=== PATIENT | male | born 1945 | race Caucasian/White ===

== ENCOUNTER → 2018-01-13 11:04 | Outpatient (CLI) | payer MEDICARE, OTHER, SELFPAY ==
--- NOTE | 2018-01-13 11:05 | ECHOCS_ITS ---
Reason For Study: DYSPNEA/SOB Procedure This was a 2D Doppler, Color Flow transthoracic echocardiogram. The exam was of poor technical quality due to body habitus. The study was technically difficult. Contrast injection was performed. Exam performed in department. Left Ventricle Normal LV size. Left ventricular systolic function is normal. The estimated ejection fraction is 60 %. There is evidence of diastolic dysfunction. No regional wall motion abnormalities noted. Right Ventricle Normal RV size. Normal systolic function. Atria The left atrium is mildly enlarged. Normal right atrium. No doppler evidence for ASD. Mitral Valve There is no mitral annular calcification. Normal mitral valve. Trivial mitral valve insufficiency. Tricuspid Valve Normal tricuspid valve. Trivial tricuspid valve insufficiency. Right ventricular systolic pressure estimated to be 35 mmHg. Aortic Valve The aortic valve is not well visualized. Pulmonic Valve The pulmonic valve is not well visualized. Great Vessels Normal sized aortic root. Pericardium/Pleural No pericardial effusion. Medication 22 gauge I.V. with prn adaptor inserted into left arm. Diluted definity 2ml given slow IV push to enhance endocardial definition. MMode/2D Measurements & Calculations LVIDd: 4.3 cm IVSd: 1.2 cm Ao root diam: 3.1 cm LVIDs: 2.7 cm LVPWd: 1.4 cm LA dimension: 3.5 cm RVDd: 3.1 cm FS: 37.5 % LAV(MOD-bp): 58.8 ml LA A4 area: 21.4 cm2 RA A4 area: 14.8 cm2 LAV(MOD-bp) Indexed: 26.6 ml/m2 LAV(MOD-sp2): 52.4 ml LAV(MOD-sp4): 63.5 ml Time Measurements MV dec time: 0.24 sec Doppler Measurements & Calculations MV E max alex: 96.7 cm/sec Lat Peak E' Alex: 6.1 cm/sec Med Peak E' Alex: 7.6 cm/sec MV A max alex: 111.0 cm/sec E/E' lat: 15.7 E/E' med: 12.7 MV E/A: 0.87 Ao V2 max: 146.1 cm/sec LV V1 max: 100.1 cm/sec PA V2 max: 107.6 cm/sec Ao max P.5 mmHg LV V1 max P.0 mmHg TR max alex: 284.4 cm/sec TR max P.4 mmHg Interpretation Summary The study was technically difficult. Contrast injection was performed. Left ventricular systolic function is normal. The estimated ejection fraction is 60 %. The left atrium is mildly enlarged. Trivial mitral valve insufficiency. Trivial tricuspid valve insufficiency. Right ventricular systolic pressure estimated to be 35 mmHg. There is evidence of diastolic dysfunction. Ordering Physician: Henry Weston Referring Physician: BERYL RICHMOND Performed By: Karen Jordan RDCS
== END ==
PROVIDERS: Family Provider Family Medicine; PCP Family Medicine; Visit Provider Internal Medicine Cardiovascular Disease
DX: R06.09 Other forms of dyspnea (principal)
CPT/HCPCS: 93306; Q9957; A4216; C8929

== ENCOUNTER 2018-07-05 05:54 | Day surgery (SDC) | payer MEDICARE, OTHER, SELFPAY ==
[2018-07-05 06:13] VITALS: BP 128/70; PULSE 68; RESP 14; TEMP 36.2; O2SAT 97; BMI 36.1
--- NOTE | 2018-07-05 07:00 | COLBX_PTH ---
PATIENT: KRISTIN MC LOC: EN U#:[id number] AGE/SX: 73/M ROOM: RE07/05/[address]: Dr. Markell Simmons MD : 1945 BED: DIS: 07/05/2018 SPEC #: [id number] RECD: 07/05/18 09:51 STATUS: RUSS MASON #: [id number] ASHISH: 07/05/18 07:[address]: Markell Simmons DEPT: SURGICAL PATHOLOGY RECD BY: Raman Hernandez ENTERED: 07/05/18 11:50 SP TYPE: COLON BX OTHR DR: Dr. Bhupendra Brown DO Tissues: Descending colon Procedures: Surgery Specimen Level IV HEADER OPERATION: Colonoscopy (MAC) PRE-OP DIAGNOSIS: Personal history of colon polyps, family history of colon cancer TISSUE SUBMITTED: Polyp descending colon MICROSCOPIC DIAGNOSIS Polyp descending colon, biopsy: Tubular adenoma. A Few fragments of fecal material. SJ:ashok 07/06/18 COMMENT Case has been reviewed in consultation with Dr. Moon who concurs with the above diagnosis. IDC:AM MICROSCOPIC DESCRIPTION Slides are reviewed. GROSS DESCRIPTION Received in fixative is one container labeled with the patient's name and designated polyp descending colon. The specimen consists of a piece of cesar-pink polyp measuring 0.4 x 0.3 x 0.2 cm. A few fragments of fecal material are noted. The specimen is totally submitted in one cassette. / SJ:ashok 07/05/18 TC:1 CPT: 69560
[2018-07-05 07:29] VITALS: BP 111/59; BP 128/70; PULSE 68; RESP 16; TEMP 36.1; O2SAT 95
--- NOTE | 2018-07-05 07:32 | OP.ENDO_ITS ---
Patient Name: Erich Franco Procedure Date: 07/05/2018 6:56 AM Date of : 1945 Age: 73 Procedure: Colonoscopy Indications: High risk colon cancer surveillance: Personal history of colonic polyps Providers: Markell Simmons MD Referring MD: Markell Simmons MD Medicines: See the Anesthesia note for documentation of the administered medications Patient Profile: Last Colonoscopy: November 2014. Complications: No immediate complications. Procedure: Pre-Anesthesia Assessment: - Prior to the procedure, a History and Physical was performed, and patient medications and allergies were reviewed. The patient's tolerance of previous anesthesia was also reviewed. The risks and benefits of the procedure and the sedation options and risks were discussed with the patient. All questions were answered, and informed consent was obtained. Prior Anticoagulants: The patient has taken no previous anticoagulant or antiplatelet agents. ASA Grade Assessment: II - A patient with mild systemic disease. After reviewing the risks and benefits, the patient was deemed in satisfactory condition to undergo the procedure. After I obtained informed consent, the scope was passed under direct vision. Throughout the procedure, the patient's blood pressure, pulse, and oxygen saturations were monitored continuously. The colonoscope was introduced through the anus and advanced to the cecum, identified by appendiceal orifice and ileocecal valve. The colonoscopy was performed without difficulty. The patient tolerated the procedure well. The quality of the bowel preparation was adequate to identify polyps. The ileocecal valve was photographed. Scope In: 7:02:29 AM Scope Withdrawal Time 0 hours 17 minutes 21 seconds Scope Out: 7:26:14 AM Total Procedure Duration Time 0 hours 23 minutes 45 seconds Findings: Hemorrhoids were found on perianal exam. Multiple diverticula were found in the entire colon. A 6 mm polyp was found in the descending colon. The polyp was sessile. The polyp was removed with a hot snare. Resection and retrieval were complete. To prevent bleeding post-intervention, one hemostatic clip was successfully placed. There was no bleeding at the end of the procedure. Impression: - Hemorrhoids found on perianal exam. - Diverticulosis in the entire examined colon. - One 6 mm polyp in the descending colon, removed with a hot snare. Resected and retrieved. Clip was placed. Recommendation: - Repeat colonoscopy in 5 years for surveillance. - Telephone my office for pathology results in 1 week. - Resume previous diet. - Continue present medications. - Telephone my office for pathology results in 1 week. Procedure Code(s): --- Professional --- 10016, Colonoscopy, flexible; with removal of tumor(s), polyp(s), or other lesion(s) by snare technique Diagnosis Code(s): --- Professional --- Z86.010, Personal history of colonic polyps K64.9, Unspecified hemorrhoids D12.4, Benign neoplasm of descending colon K57.30, Diverticulosis of large intestine without perforation or abscess without bleeding CPT copyright 2017 [employer]. All rights reserved. The codes documented in this report are preliminary and upon camp advisor review may be revised to meet current compliance requirements. Markell Simmons MD 07/05/2018 7:31:55 AM This report has been signed electronically. Number of Addenda: 0 Note Initiated On: 07/05/2018 6:56 AM
[2018-07-05 07:35] VITALS: BP 113/61; BP 128/70; PULSE 70; RESP 16; O2SAT 96
[2018-07-05 07:40] VITALS: BP 109/69; BP 128/70; PULSE 74; RESP 16; O2SAT 98
[2018-07-05 07:43] VITALS: BP 116/80; BP 128/70; PULSE 68; RESP 16; TEMP 36.4; O2SAT 98
== END 2018-07-05 08:15 | disposition home or self-care (01) ==
LOC: EN 05:54 → AC 05:56
PROVIDERS: Family Provider Family Medicine; PCP Family Medicine; Referring Provider Surgery; Visit Provider Surgery
PROC: 0DJD8ZZ Inspection of Lower Intestinal Tract, Via Natural or Artificial Opening Endoscopic (ICD-10-PCS; CPT 45378; principal; 2018-07-05 06:55)
DX: Z12.11 Encounter for screening for malignant neoplasm of colon (principal); D12.4 Benign neoplasm of descending colon; K57.30 Diverticulosis of large intestine without perforation or abscess without bleeding; K64.9 Unspecified hemorrhoids; I27.20 Pulmonary hypertension, unspecified; I10 Essential (primary) hypertension; E78.5 Hyperlipidemia, unspecified; G47.33 Obstructive sleep apnea (adult) (pediatric); Z86.010 Personal history of colon polyps; Z79.82 Long term (current) use of aspirin; Z79.899 Other long term (current) drug therapy; Z87.891 Personal history of nicotine dependence; Z80.0 Family history of malignant neoplasm of digestive organs
CPT/HCPCS: 45385; 88305; J7120

== ENCOUNTER 2020-09-30 10:17 | Inpatient (IN) | payer MEDICARE, OTHER, SELFPAY ==
[2019-12-18 14:33] VITALS: BMI 37.0
[2020-09-30] VITALS (16 sets, daily range): BP systolic 127–184; BP diastolic 63–104; PULSE 72–96; RESP 19–28; TEMP 2.4–36.6; O2SAT 92–96; BMI 35.7; BMI 34.4; BMI 34.5
--- NOTE | 2020-09-30 10:38 | EKG12_ITS ---
Test Reason : Blood Pressure : / mmHG Vent. Rate : 085 BPM Atrial Rate : 085 BPM P-R Int : 124 ms QRS Dur : 072 ms QT Int : 364 ms P-R-T Axes : 065 038 041 degrees QTc Int : 433 ms Normal sinus rhythm Normal ECG Confirmed by ETRRY MOREL, LORA ([id number]), technical editor CRISTAL BARAHONA ([id number]) on 10/01/2020 10:44:39 AM Referred By: THI Confirmed By:LORA STEWART MD
--- NOTE | 2020-09-30 11:02 | ED.VISSUMM ---
- ER Visit Summary Date of Service: 09/30/20 Chief Complaint: [Shortness of breath] History of Present Illness: The patient is a 75 M [presents to the emergency department complaint of shortness of breath that started 1 week ago. Patient has had a cough and is bringing up some clear sputum. He has had low-grade intermittent fevers up to 100. He denies any chills or sweats. Describes some pain in the center of his chest with deep breath. Patient states that he is had pneumonia before and it reminds him of that. Patient denies recent travel or surgery. He has no PE risk factors. No history of PE or DVT. Patient has history of hypertension as well as history of high cholesterol and remote history of colon cancer.] Physical Examination: [HEENT-PERRLA, EOMI. Cranial nerves II through XII grossly intact. TMs clear. Mucous membranes moist. No adenopathy. Cardiovascular-regular rate and rhythm without murmur or ectopy Lungs-clear to auscultation, chest wall stable without crepitus or subcu emphysema Abdomen-normoactive bowel sounds, soft, nontender, no rebound or rigidity, no peritoneal signs. Extremities-intact ?4, normal range of motion, normal pulses, atraumatic] Test Results: [EKG obtained on arrival shows sinus rhythm with a ventricular rate of 85 bpm with no acute ST segment changes. CBC with differential showing a 10.3, hemoglobin 13.7, hematocrit 43, 0.316. Chemistries unremarkable. Troponin less than 0.015. D-dimer was 1.38. CTA of the chest obtained showed patchy bibasilar groundglass infiltrates.] COVID-19 PCR test was positive. Emergency Department Course and Treatment: [IV line established on arrival. Patient placed on a environmental monitoring specialist. Patient was ambulated in the room and noted to be hypoxic with activity and his O2 sat dropped to 88% on room air. Patient was placed on nasal cannula O2.] Patient was started on Decadron 6 mg p.o. Treatment Plan: [Admit] Disposition: [Admit] Impression: [COVID-19 pneumonia Hypoxemia Generalized weakness] This note was generated with [employer] software. It may contain incorrect words, spelling, and punctuation that were not noted in review of the chart prior to signing ED Disposition - Plan for ED Patient: Referrals: Bhupendra Brown DO [Primary Care Provider] -
[2020-09-30 11:16] LABS: Absolute Lymphocyte Count 1.95 X10^3/uL (0.83-4.51); Absolute Neutrophil Count 7.6 X10^3/uL (2.0-7.7); Basophil# 0.02 X10^3/uL; Basophil% 0.2 % (0-1); Eosinophil# 0.01 X10^3/uL; Eosinophils% 0.1 % (0-5); Hemoglobin 13.7 g/dL (13.0-16.5); Lymphocyte # 1.95 X10^3/ul (4.0); Mean Corp Hgb Conc 31.9 g/dL (32-36); Mean Corpuscular Hgb 28.5 pg (27.0-32.0); Mean Corpuscular Volume 89.6 fL (80-94); Mean Platelet Vol. 10.7 fl (6.2-12.0); Monocyte# 0.71 X10^3/uL; Monocyte% 6.9 % (0-10); NRBC Flagged by Analyzer 0 % (0-5); Neutrophil # 7.56 X10^3/uL (2.7-7.7); Neutrophil % 73.4 % (47-70); Platelet Count 316 K/mm3 (150-450); RBC Distribution Width CV 14.6 % (11.6-14.6); RBC Distribution Width SD 48.7 fl (35.1-43.9); White Blood Count 10.3 K/mm3 (4.4-11.0)
[2020-09-30 11:33] LABS: D-Dimer Quantitative (DVT/PE) 1.38 FEU/ug/m (0.27-0.49)
[2020-09-30 11:34] LABS: Anion Gap 9 (5-15); BUN 24 mg/dL (7-18); BUN/Creat Ratio 14.6 RATIO (10-20); Calcium,Total 8.9 mg/dL (8.5-10.1); Chloride 105 mmol/L (98-107); Creatinine, Serum 1.64 mg/dL (0.70-1.30); EST Glomerular Filtration Rate 44 mL/min (>60); Est Glom Filt Rate - Afr Amer 53 mL/min (>60); Estimated Creatinine Clearance 38.81 ml/min; Glucose 118 mg/dL (74-106); Potassium 4.1 mmol/L (3.5-5.1); Sodium Level 138 mmol/L (136-145)
--- NOTE | 2020-09-30 11:36 | RAD_ITS ---
STUDY: X-RAY CHEST REASON FOR EXAM: Male, 75 years old. Dyspnea and chest pain with deep inspiration. TECHNIQUE: Single AP portable view of the chest. COMPARISON: Comparison is made with prior study dated 01/15/2016. FINDINGS: EKG electrodes are seen. Patchy bibasilar infiltrates worse at the left lung base. There is blunting of the left costophrenic angle. Mild cardiomegaly. Normal mediastinum and dai. Normal visualized pulmonary arteries. Normal visualized aortic arch and descending thoracic aorta. There are diffuse degenerative changes of the visualized thoracic spine. Normal visualized ribs, clavicles, and shoulders. There is no demonstrated abnormality of the visualized soft tissue structures of the upper abdomen. RAD/Chest 1 View (Portable) IMPRESSION: Patchy bibasilar infiltrates worse on the left side with blunting of the left costophrenic angle. Electronically Signed: Ozzie Hart MD at 12:15 EST , Service support ,
[2020-09-30 11:42] LABS: Lactic Acid 1.6 mmol/L (0.4-1.9)
--- NOTE | 2020-09-30 11:46 | CT_ITS ---
STUDY: CTA CHEST REASON FOR EXAM: Male, 75 years old. Dyspnea RADIATION DOSAGE (If Supplied By Facility): CTDIvol = ( 11.25 ) mGy, DLP = ( 488.29 ) mGycm TECHNIQUE: The examination was performed with the intravenous administration of IV 100mL Isovue-370. Post-processing of the angiographic images was performed, with multiplanar reformation and 3D reconstruction. Individualized dose optimization techniques were used for this CT. COMPARISON: Comparison is made with prior chest radiograph done earlier today. FINDINGS: Small benign appearing bilateral axillary lymph nodes. Normal enhancement of the main pulmonary artery and right and left pulmonary arteries. Normal enhancement of the bilateral peripheral pulmonary arteries. There is no demonstrated pulmonary embolism. Normal thoracic aorta and visualized great vessels. There is no demonstrated aortic dissection. Normal heart and pericardium. Normal mediastinum. Normal hilar regions. Normal visualized trachea and bronchi. The lungs are well expanded. Patchy bibasilar pulmonary infiltrates in both lower lobes slightly more prominent on the left side with pleural thickening. This is superimposed on mild degree of bibasilar scarring. Mild degree of groundglass appearance in the posterior aspect of the left upper lobe as well as patchy areas of ground glass appearance seen in the peripheral aspect of the left upper lobe as well as in the right upper lobe. Normal chest wall structures. There are degenerative changes of thoracic spine. Normal visualized upper abdomen. CT/CTA Chest W/WO Contrast IMPRESSION: Bibasilar pulmonary infiltrates superimposed on chronic changes with small left pleural effusion. Patchy bilateral areas of the groundglass appearance in the upper lobes slightly more prominent in the left upper lobe and lingular segment of the left upper lobe. No evidence of pulmonary embolism. Electronically Signed: Ozzie Hart MD at 12:28 EST , Service support ,
[2020-09-30] MEDS: 0.9% Normal Saline 1,000 ML 150 ML IV (12:41)
[2020-09-30 13:50] LABS: Probe Check PASS; Specimen Processing Control PASS
--- NOTE | 2020-09-30 14:15 | NURSING ---
MS2 COVID SAM COVID, PNEUMONIA, HYPOXIA
--- NOTE | 2020-09-30 14:34 | NURSING ---
CV ICU 202
[2020-09-30] MEDS: dexAMETHasone 4 MG Tablet 6 MG PO (14:36)
--- NOTE | 2020-09-30 15:14 | HP.PCM_ITS ---
Problem List (1) COVID-19 Status: Acute (2) Essential hypertension Status: Chronic (3) Family history of colon cancer in mother Status: Acute (4) Family history of colon cancer in father Status: Chronic (5) Personal history of colonic polyps Status: Chronic (6) Dyspnea on exertion Status: Acute (7) Hyperlipidemia Status: Chronic Qualifiers: (8) Cardiomegaly Status: Chronic (9) Other secondary pulmonary hypertension Status: Chronic History of Present Illness Date of Admission: 09/30/20 Chief Complaint: shortness of breath The patient is a 75 year old M who became sick on 22 September. Has just progressively gotten worse and has become more short of breath. Patient also was coughing that is nonproductive. Sore throat, slight anosmia and dysgeusia and no appetite. Patient presented to the emergency room and had bilateral patchy infiltrates primarily in the bases on CAT scan and was positive for COVID-19 PCR. Patient does not know how he may have contracted COVID-19. Patient's who is present at bedside is currently not sick. [] Past Medical History Past Medical History (Chronic Problems): Chronic Problems (Last Reviewed 12/18/19 @ 14:36 by Gemini Aguillon) Essential hypertension (Chronic) Family history of colon cancer in father (Chronic) Personal history of colonic polyps (Chronic) Hyperlipidemia (Chronic) Cardiomegaly (Chronic) Other secondary pulmonary hypertension (Chronic) Medical History: Medical History (Last Reviewed 09/30/20 @ 15:[address] Moreno Blanco, DO) Essential hypertension (Chronic) I10 Family history of colon cancer in mother (Acute) Z80.0 Family history of colon cancer in father (Acute) Z80.0 Personal history of colonic polyps (Acute) Z86.010 Dyspnea on exertion (Acute) R06.09 Hyperlipidemia (Chronic) E78.5 Cardiomegaly (Acute) I51.7 Other secondary pulmonary hypertension (Acute) I27.29 Abnormal pulmonary function test R94.2 DDD (degenerative disc disease) GLORIA (obstructive sleep apnea) G47.33 Snoring R06.83 Spinal stenosis M48.00 Hypertension (Inactive) I10 Allergies atorvastatin Adverse Reaction (Severe, Verified 12/18/19 14:35) GALLARDO, Nausea, Myalgias Home Medications: Ambulatory Orders Medication Instructions Recorded Aspirin [Adult Low Dose Aspirin EC] 81 mg PO DAILY 01/21/16 Finasteride [Proscar] 5 mg PO QHS 01/21/16 meloxicam 15 mg tablet 15 mg PO DAILY 12/13/17 amlodipine 2.5 mg tablet 2.5 mg PO QHS 06/10/18 Lisinopril [Zestril] 5 mg PO QHS 07/01/18 Naproxen Sodium [Aleve] 440 mg PO DAILY PRN PRN 09/30/20 Simvastatin 40 mg PO DAILY 09/30/20 Surgical History: Surgical History (Last Reviewed 09/30/20 @ 15:[address] Moreno Blanco DO) History of back surgery Z98.890 History of tonsillectomy Z90.89 Smoking Status: Former smoker - *Family History Maternal Family History: Family History (Last Reviewed 09/30/20 @ 15:[address] Moreno Blanco DO) Mother Cancer Father Cancer Review of Systems Constitutional: Denies: Anorexia, Fever, Night Sweats Eyes: Denies: Blurred vision, Double vision HEENT: Denies: Head Aches, Sinus Congestion, Sinus Drainage Cardiovascular: Denies: Chest Pain, Palpitations Respiratory: Reports: Cough, Shortness of Breath Gastrointestinal: Reports: Diarrhea, - - has noted recent abdominal distention. Denies: Abdominal Pain, Nausea, Vomiting Genitourinary: Denies: Dysuria Musculoskeletal: Denies: Joint Pain, Joint Tenderness Skin: Denies: Rash, Wounds Neurological: Denies: Numbness, Tingling, Focal weakness Psychiatric: Denies: Anxiety, Depression Hematologic/ Lymphatic: Denies: Easy Bruising, Easy Bleeding, Hx of blood clot Comment: All review of systems were negative except as mentioned above in the history of present illness and the other review of systems. VTE Information - Inpt Only VTE Present on Admission: No VTE Mechan Device Prophylaxis: None VTE Pharm Prophylaxis ordered?: Yes - Physical Exam Vitals/I&O's: Vital Signs Temp Pulse Resp BP Pulse Ox 36.6 C 81 26 H 127/83 H 95 09/30/20 14:38 09/30/20 14:38 09/30/20 14:38 09/30/20 14:38 09/30/20 14:38 Oxygen Flow Rate (L/min) 2 Oxygen Delivery Method Nasal Cannula Weight: 106.594 kg Body Mass Index (BMI) 35.7 General: Alert, Cooperative, No apparent distress HEENT: Atraumatic, Normocephalic Oral: Moist Mucosa, No Gingival or Mucosal Lesions/ Ulcerations Neck: No Nodes, Thyroid Normal Size and Texture Lungs: Normal air movement, - - Bibasilar crackles Cardiovascular: Regular rate, Regular Rhythm, Normal S1, Normal S2, No murmurs Abdomen: Bowel Sounds Present, Soft, Non Tender, Non-Distended, No Hepato- splenomegaly Extremities: No edema, No Calf Tenderness Skin: No rashes, No breakdown Musculoskeletal: No Tenderness to Palpation of Joints or Extremities, No Muscle Wasting Neurological: Deep Tendon Reflexes 2+/4 and Symmetrical, - - No clonus Psych/Mental Status: Normal Affect, Appropriate Laboratory Results 09/30/20 10:55: WBC 10.3, RBC 4.80, Hgb 13.7, Hct 43.0, MCV 89.6, MCH 28.5, MCHC 31.9 L, RDW Std Deviation 48.7 H, RDW Coeff of Andre 14.6, Plt Count 316, MPV 10.7, Immature Gran % (Auto) 0.400, Neut % (Auto) 73.4 H, Lymph % (Auto) 19.0, [place] % (Auto) 6.9, Eos % (Auto) 0.1, Baso % (Auto) 0.2, Absolute Neuts (auto) 7.6, Absolute Lymphs (auto) 1.95, Nucleated RBC % 0 09/30/20 10:55: D-Dimer Quant (PE/DVT) 1.38 H* 09/30/20 10:55: Sodium 138, Potassium 4.1, Chloride 105, Carbon Dioxide 24.0, Anion Gap 9, BUN 24 H, Creatinine 1.64 H, Estim Creat Clear Calc 38.81, Est GFR (MDRD) Af Amer 53 L, Est GFR (MDRD) Non-Af 44 L, BUN/Creatinine Ratio 14.6, Glucose 118 H, Calcium 8.9, Troponin I < 0.015 09/30/20 10:55: Lactic Acid 1.6 09/30/20 12:00: COVID-19 (BRANDON) Positive CTA of the chest personally reviewed and showed bilateral patchy infiltrates primarily in the bases, upper airways. We cleaned. No pulmonary embolism. Current Medications Sodium Chloride () 1,000 mls @ 150 mls/hr IV .[id number] ONE Stop: 09/30/20 17:17 Last Admin: 09/30/20 12:41 Dose: 150 mls/hr Documented by: Sodium Chloride (0.9% Saline Lock 10 Ml Syringe) 10 - 40 ml IV UD PRN PRN Reason: SALINE FLUSH Assessment/Plan All Active Problems (Last Reviewed 12/18/19 @ 14:36 by Gemini Aguillon) COVID-19 (Acute) Family history of colon cancer in mother (Acute) Dyspnea on exertion (Acute) 1. Acute COVID-19 pneumonia Date of onset was roughly September 22, so patient will need to continue quarantine for 2 more weeks through October 13. I did tell the patient's that she would need to quarantine for 10 days starting from today through the . Currently patient is hemodynamically stable and in no acute distress. They did ambulate him he did drop down to 88% on his oxygen. Plan: * 10days dexamethasone which is started today * 5 days of remdesivir or discharge whichever comes first 2. Acute hypoxic respiratory insufficiency Secondary to COVID-19. I do not see any evidence of any bacterial pneumonia so I do not feel antibiotics are necessary at this time. Plan: Wean oxygen as able. Patient is requiring oxygen upon discharge, patient will need ambulatory pulse ox prior to's discharge. 3. Chronic kidney disease stage III Patient had normal creatinine back in 2016. Unclear if this is acute versus chronic. Continue to monitor. 4. VTE prophylaxis: Low molecular weight heparin 5. Advanced care planning: Discussed with the patient. Patient wishes to be full CODE STATUS. Inpatient E&M: 22188 Init Hosp L3
[2020-09-30 18:22] LABS: Alkaline Phosphatase 85 U/L (45-117)
[2020-09-30] MEDS: 0.9% Saline Lock 10 ML Syringe IV (20:24)
[2020-09-30] MEDS: amLODIPine 2.5 MG Tablet PO (20:25)
[2020-09-30] MEDS: Lisinopril 5 MG Tablet PO (20:25)
[2020-09-30] MEDS: Finasteride 5 MG Tablet PO (20:25)
[2020-10-01] VITALS (17 sets, daily range): BP systolic 147–216; BP diastolic 43–78; PULSE 73–99; RESP 16–20; TEMP 36.3–36.6; O2SAT 93–96; BMI 34.4
[2020-10-01 05:33] LABS: Absolute Lymphocyte Count 1.28 X10^3/uL (0.83-4.51); Absolute Neutrophil Count 5.6 X10^3/uL (2.0-7.7); Basophil# 0.01 X10^3/uL; Basophil% 0.1 % (0-1); Hematocrit 41.4 % (40-54); Hemoglobin 13.3 g/dL (13.0-16.5); Lymphocyte # 1.28 X10^3/ul (4.0); Lymphocyte % 17.3 % (19-41); Mean Corp Hgb Conc 32.1 g/dL (32-36); Mean Corpuscular Hgb 28.6 pg (27.0-32.0); Mean Platelet Vol. 10.7 fl (6.2-12.0); Monocyte# 0.43 X10^3/uL; Monocyte% 5.8 % (0-10); NRBC Flagged by Analyzer 0 % (0-5); Neutrophil # 5.63 X10^3/uL (2.7-7.7); Platelet Count 336 K/mm3 (150-450); RBC Distribution Width CV 14.4 % (11.6-14.6); RBC Distribution Width SD 47.1 fl (35.1-43.9); Red Blood Count 4.65 M/mm3 (4.6-6.2); White Blood Count 7.4 K/mm3 (4.4-11.0)
[2020-10-01 05:50] LABS: ALB/GLOB Ratio 0.6 RATIO (0.9-2.4); AST(SGOT) 64 U/L (15-37); Alanine Aminotransfer ALT/SGPT 59 U/L (16-61); Albumin, Serum 2.9 g/dL (3.2-5.0); Alkaline Phosphatase 85 U/L (45-117); Anion Gap 7 (5-15); BUN 30 mg/dL (7-18); BUN/Creat Ratio 21.7 RATIO (10-20); Calcium,Total 8.9 mg/dL (8.5-10.1); Chloride 109 mmol/L (98-107); Creatinine, Serum 1.38 mg/dL (0.70-1.30); EST Glomerular Filtration Rate 54 mL/min (>60); Est Glom Filt Rate - Afr Amer 65 mL/min (>60); Estimated Creatinine Clearance 46.12 ml/min; Glucose 130 mg/dL (74-106); Potassium 5.7 mmol/L (3.5-5.1); Protein, Total 7.9 g/dL (6.4-8.2); Sodium Level 137 mmol/L (136-145)
[2020-10-01] MEDS: Simvastatin 20 MG Tablet 40 MG PO (09:39)
[2020-10-01] MEDS: Enoxaparin 40 MG/0.4 ML Syringe SC (09:39)
[2020-10-01] MEDS: Aspirin E.C. 81 MG Tablet PO (09:39)
[2020-10-01] MEDS: dexAMETHasone 4 MG Tablet 6 MG PO (09:39)
--- NOTE | 2020-10-01 10:31 | PN_ITS ---
Patient Problems: Active and Suspected Problems (Last Updated 10/01/20 @ 09:[address] Pablo Darnell MD) COVID-19 (Acute) Subjective: Chief complaint: Follow-up after admission for acute bilateral COVID-19 pneumonia and acute hypoxic respiratory insufficiency. Patient seen and examined. No acute events overnight. Today, he is feeling better, breathing has been improving, still having cough up when talking, no sputum production. Today, he is afebrile, blood pressure slight elevated, pulse ox is 94% on 2 L. - Physical Exam Vitals/I&O's: Vital Signs Temp Pulse Resp BP Pulse Ox 97.4 F L 98 16 170/69 H 94 10/01/20 09:40 10/01/20 09:40 10/01/20 09:40 10/01/20 09:40 10/01/20 09:40 Oxygen Flow Rate (L/min) 2 Oxygen Delivery Method Nasal Cannula Weight: 226 lb 6.636 oz Body Mass Index (BMI) 34.4 Intake and Output for Last 24 Hours 09/29/20 09/30/20 10/01/20 23:59 23:59 23:59 Intake Total 1520 / 1520 Output Total 600 / 600 275 / 275 Balance 920 / 920 -275 / -275 General: Alert, Oriented x3, Cooperative, - - Minimally short of breath. HEENT: Atraumatic, PERRLA, EOMI, Normocephalic Oral: Moist Mucosa, No Gingival or Mucosal Lesions/ Ulcerations Neck: Supple, No JVD, Negative Carotid Bruits, Trachea Midline, Thyroid Normal Size and Texture Lungs: Clear to auscultation, No rhonchi, No wheeze, No rales, Diminished Cardiovascular: Regular rate, Regular Rhythm, Normal S1, Normal S2, PMI Normal Abdomen: Bowel Sounds Present, Soft, Non Tender, Non-Distended, No Hepato- splenomegaly Extremities: No clubbing, No cyanosis, No edema Skin: No rashes, No breakdown Lymphatic: No Cervical, Supraclavicular, or Inguinal Adenopathy Neurological: Cranial nerves II-XII grossly intact, Motor Exam 5/5 strength throughout Psych/Mental Status: Normal Affect, Appropriate, Alert and oriented to time, place, person, mood and affect Laboratory Results 09/30/20 10:55: WBC 10.3, RBC 4.80, Hgb 13.7, Hct 43.0, MCV 89.6, MCH 28.5, MCHC 31.9 L, RDW Std Deviation 48.7 H, RDW Coeff of Andre 14.6, Plt Count 316, MPV 10.7, Immature Gran % (Auto) 0.400, Neut % (Auto) 73.4 H, Lymph % (Auto) 19.0, [place] % (Auto) 6.9, Eos % (Auto) 0.1, Baso % (Auto) 0.2, Absolute Neuts (auto) 7.6, Absolute Lymphs (auto) 1.95, Nucleated RBC % 0 09/30/20 10:55: D-Dimer Quant (PE/DVT) 1.38 H* 09/30/20 10:55: Sodium 138, Potassium 4.1, Chloride 105, Carbon Dioxide 24.0, Anion Gap 9, BUN 24 H, Creatinine 1.64 H, Estim Creat Clear Calc 38.81, Est GFR (MDRD) Af Amer 53 L, Est GFR (MDRD) Non-Af 44 L, BUN/Creatinine Ratio 14.6, Glucose 118 H, Calcium 8.9, Troponin I < 0.015 09/30/20 10:55: Lactic Acid 1.6 09/30/20 11:13: Alkaline Phosphatase 85 09/30/20 12:00: COVID-19 (BRANDON) Positive 10/01/20 05:20: Sodium 137, Potassium 5.7 H, Chloride 109 H, Carbon Dioxide 21.0, Anion Gap 7, BUN 30 H, Creatinine 1.38 H, Estim Creat Clear Calc 46.12, Est GFR (MDRD) Af Amer 65, Est GFR (MDRD) Non-Af 54 L, BUN/Creatinine Ratio 21.7 H, Glucose 130 H, Calcium 8.9, Total Bilirubin 0.30, AST 64 H, ALT 59, Alkaline Phosphatase 85, Total Protein 7.9, Albumin 2.9 L, Globulin 5.0 H, Albumin/Globulin Ratio 0.6 L 10/01/20 05:20: WBC 7.4, RBC 4.65, Hgb 13.3, Hct 41.4, MCV 89.0, MCH 28.6, MCHC 32.1, RDW Std Deviation 47.1 H, RDW Coeff of Andre 14.4, Plt Count 336, MPV 10.7, Immature Gran % (Auto) 0.800, Neut % (Auto) 76.0 H, Lymph % (Auto) 17.3 L, [place] % (Auto) 5.8, Eos % (Auto) 0.0, Baso % (Auto) 0.1, Absolute Neuts (auto) 5.6, Absolute Lymphs (auto) 1.28, Nucleated RBC % 0 Clinical Impression(s) from Imaging Studies Chest X-Ray 09/30/20 11:36 IMPRESSION: Patchy bibasilar infiltrates worse on the left side with blunting of the left costophrenic angle. Electronically Signed: Ozzie Hart MD at 12:15 EST , Service support , Chest CTA 09/30/20 11:46 IMPRESSION: Bibasilar pulmonary infiltrates superimposed on chronic changes with small left pleural effusion. Patchy bilateral areas of the groundglass appearance in the upper lobes slightly more prominent in the left upper lobe and lingular segment of the left upper lobe. No evidence of pulmonary embolism. Electronically Signed: Ozzie Hart MD at 12:28 EST , Service support , Current Medications Acetaminophen (Acetaminophen 325 Mg Tablet) 650 mg PO Q6H PRN PRN PRN Reason: Pain Score 1-10/Temp > 100.7 F Amlodipine Besylate (Amlodipine 2.5 Mg Tablet) 2.5 mg PO QHS [facility] Last Admin: 09/30/20 20:25 Dose: 2.5 mg Documented by: Aspirin (Aspirin E.C. 81 Mg Tablet) 81 mg PO DAILY [facility] Last Admin: 10/01/20 09:39 Dose: 81 mg Documented by: Dexamethasone (Dexamethasone 4 Mg Tablet) 6 mg PO DAILY@0800 [facility] Stop: 10/09/20 08:01 Last Admin: 10/01/20 09:39 Dose: 6 mg Documented by: Enoxaparin Sodium (Enoxaparin 40 Mg/0.4 Ml Syringe) 40 mg SC DAILY [facility] Last Admin: 10/01/20 09:39 Dose: 40 mg Documented by: Finasteride (Finasteride 5 Mg Tablet) 5 mg PO QHS [facility] Last Admin: 09/30/20 20:25 Dose: 5 mg Documented by: Remdesivir 100 mg/ Sodium (Chloride) 250 mls @ 125 mls/hr IV DAILY [facility] Stop: 10/04/20 11:59 Sodium Chloride () 250 mls @ 15 mls/hr IV .[id number] PRN PRN Reason: Saline Flush Sodium Chloride () 1,000 mls @ 75 mls/hr IV .[id number] [facility] Stop: 10/01/20 16:29 Ibuprofen (Ibuprofen 400 Mg Tablet) 400 mg PO Q4H PRN PRN PRN Reason: Pain Score 1-10/Temp > 100.7 F Lisinopril (Lisinopril 5 Mg Tablet) 5 mg PO QHS [facility] Last Admin: 09/30/20 20:25 Dose: 5 mg Documented by: Nutritional Formula (Lactose Free) (Ensure Enlive 120 Ml Liquid) 120 ml PO 4X/DAY [facility] Last Admin: 10/01/20 09:38 Dose: 120 ml Documented by: Ondansetron HCl (Ondansetron 4 Mg/2 Ml Vial) 4 mg IV Q8H PRN PRN PRN Reason: NAUSEA/VOMITING Simvastatin (Simvastatin 20 Mg Tablet) 40 mg PO DAILY [facility] Last Admin: 10/01/20 09:39 Dose: 40 mg Documented by: Sodium Chloride (0.9% Saline Lock 10 Ml Syringe) 10 - 40 ml IV UD PRN PRN Reason: SALINE FLUSH Last Admin: 09/30/20 20:24 Dose: 10 ml Documented by: Medical Necessity - Tobacco Use Smoking Status: Former smoker Tobacco Use: Cigarettes Assessment/Plan All Active Problems (Last Updated 10/01/20 @ 09:[address] Pablo Darnell MD) COVID-19 (Acute) This is a 75 years old male patient presented to the emergency room because of shortness of breath and low-grade fever, found to have bilateral pulmonary infiltrate on CTA chest and he tested positive for COVID-19, admitted for treatment and also found to have acute hypoxic respiratory sufficiency. #1 acute bilateral COVID-19 pneumonia: He is on IV remdesivir, p.o. dexamethasone and subcu Lovenox. CTA chest and chest x-ray reviewed. No PE on CTA chest. Currently, he is on 2 L. Plan: Infectious disease consult, repeat CBC and CMP tomorrow morning, incentive spirometer. #2 acute hypoxic respite insufficiency: Secondary to #1. Currently, he is on 2 L of oxygen. Plan as above. #3 stage III kidney disease/mild hyperkalemia: Unknown at this is acute or chronic. Admission creatinine was 1.64, came down to 1.38 today. Unknown baseline creatinine. Back in 2016, creatinine was 1 which is normal. Today's potassium is 5.7. Plan: Gentle IV fluids for hydration, Kayexalate x1, repeat BMP tomorrow morning. #3 hypertension: Blood pressure slightly better this morning, continue Norvasc and lisinopril, start IV Thorazine as needed. #5 hyperlipidemia: Stable, he is not on statins. #6 benign prostatic hypertrophy: Continue Proscar. #7 DVT prophylaxis: Subcu Lovenox daily. This note was generated with [employer]isk dictation software. It may contain incorrect words, spelling, and punctuation that were not noted in checking the note before signing. Inpatient E&M: 67655 Subs Hosp L2
[2020-10-01] MEDS: Sodium Polystyrene Sulfonate 15 GM/60 ML UDC 30 GM PO (10:54)
[2020-10-01] MEDS: 0.9% Saline Lock 10 ML Syringe IV ×3 (10:55→21:48)
[2020-10-01] MEDS: 0.9% Normal Saline 1,000 ML 75 ML IV (10:55)
--- NOTE | 2020-10-01 11:13 | NT.THERAPY_ITS ---
Nutrition Therapy Report - History Nutrition Services has been consulted to:: Manage nutrient details of diet order Current diet / nutrition support order:: regular, 120mL ensure enlive 4x/day - Anthropometric Measurements Height:: 5 ft 8 in Weight:: 102.7 kg Body Mass Index (BMI):: 34.4 - Relevant Labs Relevant Labs:: MCHC 31.9 g/dL (32-36) L 09/30/20 10:55 RDW Std Deviation 47.1 fl (35.1-43.9) H 10/01/20 05:20 Neut % (Auto) 76.0 % (47-70) H 10/01/20 05:20 Lymph % (Auto) 17.3 % (19-41) L 10/01/20 05:20 D-Dimer Quant (PE/DVT) 1.38 FEU/ug/m (0.27-0.49) H* 09/30/20 10:55 Potassium 5.7 mmol/L (3.5-5.1) H 10/01/20 05:20 Chloride 109 mmol/L (98-107) H 10/01/20 05:20 BUN 30 mg/dL (7-18) H 10/01/20 05:20 Creatinine 1.38 mg/dL (0.70-1.30) H 10/01/20 05:20 Est GFR (MDRD) Af Amer 53 mL/min (>60) L 09/30/20 10:55 Est GFR (MDRD) Non-Af 54 mL/min (>60) L 10/01/20 05:20 BUN/Creatinine Ratio 21.7 RATIO (10-20) H 10/01/20 05:20 Glucose 130 mg/dL (74-106) H 10/01/20 05:20 AST 64 U/L (15-37) H 10/01/20 05:20 Albumin 2.9 g/dL (3.2-5.0) L 10/01/20 05:20 Globulin 5.0 g/dL (2.2-4.2) H 10/01/20 05:20 Albumin/Globulin Ratio 0.6 RATIO (0.9-2.4) L 10/01/20 05:20 - Assessment Food / Nutrition-Related History:: Currently in isolation d/t COVID-19, spoke w/ pt via room phone. Fair intake described at breakfast this AM. Pt states appetite has been not real great w/ poor PO intake over past ~9 days. UBW 240# suggesting a 13.6#/5.6% wt loss since onset of acute illness. No special diet at home, tries to eat a wide variety. States he is accepting of Ensure - Nutrition Diagnosis Problem / Etiology / Signs & Symptoms (PES):: acute, severe malnutrition related to inadequate energy intake w/ COVID-19 infection as evidenced by reported wt loss of 13.6#/5.6% and estimated energy intake meeting <50% of estimated needs x 9 days [employer]. Evidence of Malnutrition Exists:: Yes Severe PCM:: Acute Illness - Nutrition Intervention Nutrition Prescription:: [id number] calories/day (1.3xRMR). 81-91 g protein/day (0.8g/kg). 2200mL fluid/day (1mL/calorie) - Food / Nutrient Delivery Interventions Summary of nutrition intervention:: Discussed need for adequate energy intake w/ acute illness. Pt verbalized understanding- no questions for RDN at this time. Nutrition support ordered as / adjusted to:: continue regular diet, ensure enlive w/ meals given COVID isolation; will monitor need for further diet restrictions pending renal function. - MNT Monitoring Further MNT monitoring and evaluation required?: Yes MNT Follow-up in:: 3-5 days
--- NOTE | 2020-10-01 11:34 | CASEMGMT ---
RN CM Assessment Note Introduced role of CM to patient's . Demographics, PCP verified. Patient is unable to participate in assessment at this time. states pt was very independent prior to the past week when he became ill. Was weaker, holding on to furniture and needing assistance. - anxious re: patient's condition. Lengthy conversation re: his care, dc needs, possible need for oxygen, HHC and CM assistance with dc planning prior to pt returning home. was very appreciative of the information. states she had cold symptoms two weeks ago, but was not tested and is feeling well now. COVID 19 testin09/30/20 @ [facility] Presentation: shortness of breath and weakness Diagnosis: COVID 19 PCP: Dr. Bhupendra Brown Specialists: Dr. Weston Insurance: [facility] Preferred Pharmacy: [facility] Prescription Benefit: yes LNOK: , Gillian Franco Living Arrangements: Lives independently with in home. Generally independent, however this past week was requiring assistance Tranportation: drives or drives DME: cpap (doesn't wear), walker ('s, but pt can use if needed as she does not) - reviewed list of DME in area with . List will be given to pt for review, but states he would prefer [employer] as they are a local company. HHC: none SNF: none Patient DC Goals: home. DC Plan: TBD. May need PT/OT evaluations prior to dc. CM available for discharge planning coordination. Contact CM for any concerns/needs that may arise. Alie YANES RN ACM
[2020-10-01] MEDS: hydrALAZINE 20 MG/ML Vial 10 MG IV ×2 (14:53→20:21)
[2020-10-01] MEDS: amLODIPine 10 MG Tablet PO (17:31)
[2020-10-01] MEDS: Lisinopril 5 MG Tablet PO (19:41)
[2020-10-01] MEDS: Finasteride 5 MG Tablet PO (19:41)
[2020-10-01] MEDS: Labetalol (Prefilled) 20 MG/4 ML 10 MG IV (21:47)
[2020-10-02] VITALS (17 sets, daily range): BP systolic 142–194; BP diastolic 44–95; PULSE 83–106; RESP 16–19; TEMP 36.3–36.7; O2SAT 92–96
[2020-10-02] MEDS: hydrALAZINE 20 MG/ML Vial 10 MG IV ×2 (02:11→12:09)
[2020-10-02] MEDS: 0.9% Saline Lock 10 ML Syringe IV ×4 (02:11→12:09)
[2020-10-02 05:03] LABS: Absolute Neutrophil Count 12.9 X10^3/uL (2.0-7.7); Basophil# 0.02 X10^3/uL; Basophil% 0.1 % (0-1); Hematocrit 40.2 % (40-54); Hemoglobin 12.9 g/dL (13.0-16.5); Lymphocyte % 11.8 % (19-41); Mean Corp Hgb Conc 32.1 g/dL (32-36); Mean Corpuscular Hgb 28.8 pg (27.0-32.0); Mean Corpuscular Volume 89.7 fL (80-94); Mean Platelet Vol. 10.6 fl (6.2-12.0); Monocyte# 1.07 X10^3/uL; Monocyte% 6.7 % (0-10); NRBC Flagged by Analyzer 0 % (0-5); Neutrophil # 12.86 X10^3/uL (2.7-7.7); Neutrophil % 80.2 % (47-70); Platelet Count 410 K/mm3 (150-450); RBC Distribution Width CV 14.7 % (11.6-14.6); RBC Distribution Width SD 48.4 fl (35.1-43.9); Red Blood Count 4.48 M/mm3 (4.6-6.2)
[2020-10-02 05:23] LABS: ALB/GLOB Ratio 0.6 RATIO (0.9-2.4); AST(SGOT) 56 U/L (15-37); Alanine Aminotransfer ALT/SGPT 83 U/L (16-61); Alkaline Phosphatase 84 U/L (45-117); Anion Gap 9 (5-15); BUN 37 mg/dL (7-18); BUN/Creat Ratio 27.6 RATIO (10-20); Chloride 112 mmol/L (98-107); Creatinine, Serum 1.34 mg/dL (0.70-1.30); EST Glomerular Filtration Rate 55 mL/min (>60); Est Glom Filt Rate - Afr Amer 67 mL/min (>60); Globulin 4.7 g/dL (2.2-4.2); Glucose 163 mg/dL (74-106); Potassium 3.9 mmol/L (3.5-5.1); Protein, Total 7.7 g/dL (6.4-8.2); Sodium Level 143 mmol/L (136-145)
[2020-10-02] MEDS: Simvastatin 20 MG Tablet 40 MG PO (08:23)
[2020-10-02] MEDS: dexAMETHasone 4 MG Tablet 6 MG PO (08:24)
[2020-10-02] MEDS: Enoxaparin 40 MG/0.4 ML Syringe SC (08:24)
[2020-10-02] MEDS: Aspirin E.C. 81 MG Tablet PO (08:24)
[2020-10-02] MEDS: Labetalol (Prefilled) 20 MG/4 ML 10 MG IV ×3 (08:32→20:10)
--- NOTE | 2020-10-02 09:14 | PCM.PROGNOTE ---
Patient Problems: Active and Suspected Problems (Last Updated 10/01/20 @ 09:[address] Pablo Darnell MD) COVID-19 (Acute) Subjective: Chief complaint: Follow-up after admission for acute bilateral COVID-19 pneumonia, acute hypoxic respiratory insufficiency and uncontrolled hypertension. Patient seen and examined. No events overnight. Patient stated that his breathing is getting better slowly, remains on 2 L of oxygen. No other complaints. His blood pressure has been very high, up to 190 systolic. Other vital signs are stable. - Physical Exam Vitals/I&O's: Vital Signs Temp Pulse Resp BP Pulse Ox 97.6 F L 96 18 178/54 H 94 10/02/20 09:10 10/02/20 09:10 10/02/20 09:10 10/02/20 09:10 10/02/20 09:10 Oxygen Flow Rate (L/min) 2 Oxygen Delivery Method Nasal Cannula Weight: 225 lb 4.999 oz Body Mass Index (BMI) 34.4 Intake and Output for Last 24 Hours 09/30/20 10/01/20 10/02/20 23:59 23:59 23:59 Intake Total 1520 / 1520 1927.50 / 1927.50 240 / 240 Output Total 600 / 600 275 / 275 Balance 920 / 920 1652.50 / 1652.50 240 / 240 General: Alert, Oriented x3, Cooperative, No apparent distress HEENT: Atraumatic, PERRLA, EOMI, Normocephalic Oral: Moist Mucosa, No Gingival or Mucosal Lesions/ Ulcerations Neck: Supple, No JVD, Negative Carotid Bruits, Trachea Midline, Thyroid Normal Size and Texture Lungs: Clear to auscultation, No rhonchi, No wheeze, No rales, Diminished Cardiovascular: Regular rate, Regular Rhythm, Normal S1, Normal S2, PMI Normal Abdomen: Bowel Sounds Present, Soft, Non Tender, Non-Distended, No Hepato-splenomegaly Extremities: No clubbing, No cyanosis, No edema Skin: No rashes, No breakdown Lymphatic: No Cervical, Supraclavicular, or Inguinal Adenopathy Neurological: Cranial nerves II-XII grossly intact, Neuro grossly intact Psych/Mental Status: Normal Affect, Appropriate, Alert and oriented to time, place, person, mood and affect Laboratory Results 10/02/20 04:55: WBC 16.0 H, RBC 4.48 L, Hgb 12.9 L, Hct 40.2, MCV 89.7, MCH 28.8, MCHC 32.1, RDW Std Deviation 48.4 H, RDW Coeff of Andre 14.7 H, Plt Count 410, MPV 10.6, Immature Gran % (Auto) 1.200 H, Neut % (Auto) 80.2 H, Lymph % (Auto) 11.8 L, [place] % (Auto) 6.7, Eos % (Auto) 0.0, Baso % (Auto) 0.1, Absolute Neuts (auto) 12.9 H, Absolute Lymphs (auto) 1.90, Nucleated RBC % 0 10/02/20 04:55: Sodium 143, Potassium 3.9, Chloride 112 H, Carbon Dioxide 22.0, Anion Gap 9, BUN 37 H, Creatinine 1.34 H, Estim Creat Clear Calc 47.50, Est GFR (MDRD) Af Amer 67, Est GFR (MDRD) Non-Af 55 L, BUN/Creatinine Ratio 27.6 H, Glucose 163 H, Calcium 9.0, Total Bilirubin 0.30, AST 56 H, ALT 83 H, Alkaline Phosphatase 84, Total Protein 7.7, Albumin 3.0 L, Globulin 4.7 H, Albumin/Globulin Ratio 0.6 L Current Medications Acetaminophen (Acetaminophen 325 Mg Tablet) 650 mg PO Q6H PRN PRN PRN Reason: Pain Score 1-10/Temp > 100.7 F Amlodipine Besylate (Amlodipine 5 Mg Tablet) 5 mg PO QHS [facility] Aspirin (Aspirin E.C. 81 Mg Tablet) 81 mg PO DAILY [facility] Last Admin: 10/02/20 08:24 Dose: 81 mg Documented by: Dexamethasone (Dexamethasone 4 Mg Tablet) 6 mg PO DAILY@0800 [facility] Stop: 10/09/20 08:01 Last Admin: 10/02/20 08:24 Dose: 6 mg Documented by: Enoxaparin Sodium (Enoxaparin 40 Mg/0.4 Ml Syringe) 40 mg SC DAILY [facility] Last Admin: 10/02/20 08:24 Dose: 40 mg Documented by: Finasteride (Finasteride 5 Mg Tablet) 5 mg PO QHS [facility] Last Admin: 10/01/20 19:41 Dose: 5 mg Documented by: Hydralazine HCl (Hydralazine 20 Mg/Ml Vial) 10 mg IV Q4H PRN PRN PRN Reason: for SBP>160 Last Admin: 10/02/20 02:11 Dose: 10 mg Documented by: Remdesivir 100 mg/ Sodium (Chloride) 250 mls @ 125 mls/hr IV DAILY [facility] Stop: 10/04/20 11:59 Last Infusion: 10/01/20 12:54 Dose: Infused Documented by: Sodium Chloride () 250 mls @ 15 mls/hr IV .[id number] PRN PRN Reason: Saline Flush Ibuprofen (Ibuprofen 400 Mg Tablet) 400 mg PO Q4H PRN PRN PRN Reason: Pain Score 1-10/Temp > 100.7 F Labetalol HCl (Labetalol (Prefilled) 20 Mg/4 Ml) 10 mg IV Q6H PRN PRN Reason: sbp >170 or dbp >110 Last Admin: 10/02/20 08:32 Dose: 10 mg Documented by: Lisinopril (Lisinopril 5 Mg Tablet) 5 mg PO QHS [facility] Last Admin: 10/01/20 19:41 Dose: 5 mg Documented by: Ondansetron HCl (Ondansetron 4 Mg/2 Ml Vial) 4 mg IV Q8H PRN PRN PRN Reason: NAUSEA/VOMITING Simvastatin (Simvastatin 20 Mg Tablet) 40 mg PO DAILY [facility] Last Admin: 10/02/20 08:23 Dose: 40 mg Documented by: Sodium Chloride (0.9% Saline Lock 10 Ml Syringe) 10 - 40 ml IV UD PRN PRN Reason: SALINE FLUSH Last Admin: 10/02/20 08:33 Dose: 20 ml Documented by: Medical Necessity - Tobacco Use Smoking Status: Former smoker Tobacco Use: Cigarettes Assessment/Plan All Active Problems (Last Updated 10/01/20 @ 09:[address] Pablo Darnell MD) COVID-19 (Acute) This is a 75 years old male patient presented to the emergency room because of shortness of breath and low-grade fever, found to have bilateral pulmonary infiltrate on CTA chest and he tested positive for COVID-19, admitted for treatment and also found to have acute hypoxic respiratory sufficiency. His blood pressure has been uncontrolled. #1 acute bilateral COVID-19 pneumonia: Remained on IV remdesivir, p.o. dexamethasone and subcu Lovenox. CTA chest and chest x-ray reviewed. No PE on CTA chest. Currently, he is on 2 L. Symptoms continue to improve slowly. Infectious disease on the case. Repeat CBC and BMP from today reviewed. Plan: Continue same treatment, wean off oxygen as tolerated. #2 acute hypoxic respite insufficiency: Secondary to #1. Currently, he is on 2 L of oxygen. Plan as above. #3 stage III kidney disease/mild hyperkalemia: Unknown at this is acute or chronic. Admission creatinine was 1.64, today's creatinine is 1.34, stable. Potassium is 3.9, back to normal. #3 Uncontrolled hypertension: Blood pressure has been very high up to 190 systolic. He was given extra dose of Norvasc 10 mg p.o. yesterday evening and has been on IV utilizing as needed. This morning, blood pressure is 190 systolic. Plan: Change Norvasc to 10 mg p.o. daily at 10 AM, increase lisinopril to 10 mg p.o. daily at 10 AM, continue IV hydralazine. #5 hyperlipidemia: Stable, he is not on statins. #6 benign prostatic hypertrophy: Continue Proscar. #7 DVT prophylaxis: Subcu Lovenox daily. This note was generated with [employer] dictation software. It may contain incorrect words, spelling, and punctuation that were not noted in checking the note before signing. Inpatient E&M: 23058 Subs Hosp L2
[2020-10-02] MEDS: Lisinopril 10 MG Tablet PO (10:05)
[2020-10-02] MEDS: amLODIPine 10 MG Tablet PO (10:05)
--- NOTE | 2020-10-02 13:38 | CON.PCM_ITS ---
Problem List (1) COVID-19 Status: Acute Reason for Consult: covid Consulted by: Dr. Darnell History of Present Illness: The patient is a 75 year old M presented with sx since 09/22/20. C/o headache, sore throat, congestion, and progressive cough and SOB. No change in taste or smell. No n/v/d, no aches. Lives with who has been feeling fine. Neither has gotten covid vaccine. He came to ED, covid (+), started on dex and remdesivir. Feeling better. Full ROS performed and neg except as noted above. - Medical History Past Medical History (Chronic Problems): Chronic Problems (Last Updated 10/01/20 @ 09:[address] Pablo Darnell MD) Essential hypertension (Chronic) Family history of colon cancer in father (Chronic) Personal history of colonic polyps (Chronic) Hyperlipidemia (Chronic) Cardiomegaly (Chronic) Other secondary pulmonary hypertension (Chronic) Allergies/Adverse Reactions: Allergies atorvastatin Adverse Reaction (Severe, Verified 12/18/19 14:35) GALLARDO, Nausea, Myalgias Home Medications: Ambulatory Orders Medication Instructions Recorded Aspirin [Adult Low Dose Aspirin EC] 81 mg PO DAILY 01/21/16 Finasteride [Proscar] 5 mg PO QHS 01/21/16 meloxicam 15 mg tablet 15 mg PO DAILY 12/13/17 amlodipine 2.5 mg tablet 2.5 mg PO QHS 06/10/18 Lisinopril [Zestril] 5 mg PO QHS 07/01/18 Naproxen Sodium [Aleve] 440 mg PO DAILY PRN PRN 09/30/20 Simvastatin 40 mg PO DAILY 09/30/20 - Social History SMOKING STATUS:: Former smoker Vital Signs Temp Pulse Resp BP Pulse Ox 97.7 F L 91 19 H 189/54 H 94 10/02/20 12:10 10/02/20 12:10 10/02/20 12:10 10/02/20 13:28 10/02/20 12:10 Oxygen Flow Rate (L/min) 2 Oxygen Delivery Method Nasal Cannula Weight: 102.2 kg Body Mass Index (BMI) 34.4 Microbiology Past 72 Hours 09/30/20 10:55 Blood Culture - Preliminary Blood Culture (Wb) #2 - Left Hand No growth in 48 hours. 09/30/20 10:55 Blood Culture - Preliminary Blood Culture (Wb) - Anticubital Left No growth in 48 hours. Laboratory Tests Past 24 Hrs 10/02/20 10/02/20 04:55 04:55 WBC 16.0 H RBC 4.48 L Hgb 12.9 L Hct 40.2 MCV 89.7 MCH 28.8 MCHC 32.1 RDW Std Deviation 48.4 H RDW Coeff of Andre 14.7 H Plt Count 410 MPV 10.6 Immature Gran % (Auto) 1.200 H Neut % (Auto) 80.2 H Lymph % (Auto) 11.8 L [place] % (Auto) 6.7 Eos % (Auto) 0.0 Baso % (Auto) 0.1 Absolute Neuts (auto) 12.9 H Absolute Lymphs (auto) 1.90 Nucleated RBC % 0 Sodium 143 Potassium 3.9 Chloride 112 H Carbon Dioxide 22.0 Anion Gap 9 BUN 37 H Creatinine 1.34 H Estim Creat Clear Calc 47.50 Est GFR (MDRD) Af Amer 67 Est GFR (MDRD) Non-Af 55 L BUN/Creatinine Ratio 27.6 H Glucose 163 H Calcium 9.0 Total Bilirubin 0.30 AST 56 H ALT 83 H Alkaline Phosphatase 84 Total Protein 7.7 Albumin 3.0 L Globulin 4.7 H Albumin/Globulin Ratio 0.6 L - Other Studies Radiology: [] reviewed Other Studies: [] Route of nutrition/ use of supplements: [] Nutritional Intake: [] IV Site: [] Marino Catheter: [] - Physical Exam General: Alert, Oriented x3, Cooperative, No apparent distress HEENT: Atraumatic, PERRLA, EOMI Neck: Supple, No Nodes Lungs: Diminished Cardiovascular: Regular rate, Regular Rhythm Abdomen: Soft, Non Tender, Non-Distended Extremities: No edema Skin: No rashes IV Site: Peripheral, without redness Musculoskeletal: No Tenderness to Palpation of Joints or Extremities Neurological: Cranial nerves II-XII grossly intact - Assessment/Plan Antibiotics: [] Assessment/Plan: [] Active and Suspected Problems (Last Updated 10/01/20 @ 09:[address] Pablo Darnell MD) COVID-19 (Acute) covid with hypoxia - sx started 09/22/20. in quarantine, tested neg. He is feeling better. CT neg for PE, d-dimer was 1.4. Plan on 20 days of quarantine, starting 09/22. 10 days of dex. Likely home soon with O2 as needed. Recommended he and his get vaccinated; he will have to wait until he has recovered and is out of quarantine. Will follow, thank you
[2020-10-02] MEDS: cloNIDine HCl 0.1 MG Tablet PO (13:42)
[2020-10-02] MEDS: DiphenhydrAMINE 25 MG Capsule 50 MG PO (22:13)
[2020-10-02] MEDS: Finasteride 5 MG Tablet PO (22:13)
[2020-10-03] VITALS: BP 130/56; PULSE 76; RESP 18; TEMP 36.6; O2SAT 96
[2020-10-03 03:20] VITALS: BP 119/35; PULSE 79; RESP 18; TEMP 36.7; O2SAT 95
[2020-10-03 03:35] LABS: Hematocrit 37.7 % (40-54); Hemoglobin 12.4 g/dL (13.0-16.5); Mean Corp Hgb Conc 32.9 g/dL (32-36); Mean Corpuscular Hgb 29.7 pg (27.0-32.0); Mean Corpuscular Volume 90.2 fL (80-94); Mean Platelet Vol. 10.9 fl (6.2-12.0); Platelet Count 423 K/mm3 (150-450); RBC Distribution Width SD 49.6 fl (35.1-43.9); Red Blood Count 4.18 M/mm3 (4.6-6.2); White Blood Count 17.3 K/mm3 (4.4-11.0)
[2020-10-03 03:53] LABS: ALB/GLOB Ratio 0.7 RATIO (0.9-2.4); AST(SGOT) 40 U/L (15-37); Alanine Aminotransfer ALT/SGPT 79 U/L (16-61); Albumin, Serum 2.8 g/dL (3.2-5.0); Alkaline Phosphatase 74 U/L (45-117); Anion Gap 9 (5-15); BUN 44 mg/dL (7-18); BUN/Creat Ratio 30.6 RATIO (10-20); Calcium,Total 8.9 mg/dL (8.5-10.1); Chloride 111 mmol/L (98-107); Creatinine, Serum 1.44 mg/dL (0.70-1.30); EST Glomerular Filtration Rate 51 mL/min (>60); Est Glom Filt Rate - Afr Amer 62 mL/min (>60); Globulin 4.2 g/dL (2.2-4.2); Glucose 148 mg/dL (74-106); Potassium 4.2 mmol/L (3.5-5.1); Sodium Level 142 mmol/L (136-145)
[2020-10-03] MEDS: Aspirin E.C. 81 MG Tablet PO (08:36)
[2020-10-03] MEDS: Enoxaparin 40 MG/0.4 ML Syringe SC (08:36)
[2020-10-03] MEDS: Simvastatin 20 MG Tablet 40 MG PO (08:37)
[2020-10-03] MEDS: Lisinopril 10 MG Tablet PO (08:37)
[2020-10-03] MEDS: dexAMETHasone 4 MG Tablet 6 MG PO (08:37)
[2020-10-03] MEDS: amLODIPine 10 MG Tablet PO (08:38)
[2020-10-03 09:05] VITALS: O2SAT 87
[2020-10-03 09:20] VITALS: BP 157/64; PULSE 79; RESP 18; TEMP 36.6; O2SAT 92
[2020-10-03 09:41] VITALS: O2SAT 87; O2SAT 92
--- NOTE | 2020-10-03 10:08 | DCINST_ITS ---
- Discharge Diagnoses Current Active Problems: Current Active and Chronic Problems (Last Updated 10/01/20 @ 09:[address] Pablo Darnell MD) COVID-19 (Acute) Essential hypertension (Chronic) Family history of colon cancer in father (Chronic) Personal history of colonic polyps (Chronic) Hyperlipidemia (Chronic) Cardiomegaly (Chronic) Other secondary pulmonary hypertension (Chronic) You will use the following diet at home:: Cardiac Your food should be the consistency of: Regular Discharge Activity: Return to Normal Activity Weight Bearing Status: Weight bearing as tolerated Call your doctor if you observe: Fever of 101 or Higher, Shortness of breath, Dizziness, Fainting spells, Chest pain, Increased palpitations (irregular heartbeat), Uncontrolled pain Instructions: Coronavirus Disease 2019 (COVID-19): Caring for Yourself or Others, Preventing the Spread of Infection Understanding Isolation Procedures, Controlling High Blood Pressure, Using Oxygen at Home Additional Instructions: Follow COVID-19 quarantine/isolation requirement for 10 more days, wear facemask all the time, wash hands frequently. Allergies/Adverse Reactions: Allergies atorvastatin Adverse Reaction (Severe, Verified 12/18/19 14:35) GALLARDO, Nausea, Myalgias Medications to take at Discharge Aspirin [Adult Low Dose Aspirin EC] 81 mg PO DAILY 01/21/16 Finasteride [Proscar] 5 mg PO QHS 01/21/16 meloxicam 15 mg tablet 15 mg PO DAILY 12/13/17 Naproxen Sodium [Aleve] 440 mg PO DAILY PRN PRN 09/30/20 Simvastatin 40 mg PO DAILY 09/30/20 Amlodipine [Norvasc] 10 mg PO DAILY #30 tab 10/03/20 Dexamethasone [Decadron] 6 mg PO DAILY 7 Days tab 10/03/20 Lisinopril [Zestril] 10 mg PO DAILY #30 tab 10/03/20 The following prescriptions were given: Dexamethasone [Decadron] 6 mg PO DAILY 7 Days tab Prescription Printed Amlodipine [Norvasc] 10 mg PO DAILY #30 tab Prescription Printed Lisinopril [Zestril] 10 mg PO DAILY #30 tab Prescription Printed Primary Care Physician: Bhupendra Brown DO [Primary Care Provider] - Please follow up with your Primary Care Physician in: 1 week. Test Results: Test results from this visit will be discussed in further detail at your follow- up appointment, if applicable.
[2020-10-03 10:13] VITALS: BP 157/64; PULSE 78; RESP 18; TEMP 36.4
--- NOTE | 2020-10-03 10:13 | CASEMGMT ---
RN CM Note: Call to patient's room. Intro role of CM to patient. Pt has list of DME providers in his insurance and geographical area. Discussed choices and 's preference for [facility]. Pt would like to use [facility]. -Script, clinical faxed to [facility]. -Pt states he does not have dc concerns and is per PT note, no therapy recommended. Alie MANLEYN RN ACM
--- NOTE | 2020-10-03 10:18 | CASEMGMT ---
Addendum entered by Todd Goodwin 10/03/20 10:34: [place] [facility] [place] and need [place]. 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 Alie CRUZ Original Note: RN CM Note: Call to patient's room. Intro role of CM to patient. Pt has list of DME providers in his insurance and geographical area. Discussed choices and 's preference for [facility]. Pt would like to use [facility]. -Pt states has had COVID 19 prior to patient's illness. Reviewed ID physician recommendation for quarantine for 20 days starting 09/22/20. Pt is able to do this and has family to bring any prescriptions, groceries to home for bella. -Script, [place] [facility] [place] -Pt states he does not have dc concerns and is per PT note, no therapy recommended. Alie CRUZ
--- NOTE | 2020-10-03 11:06 | CASEMGMT ---
HUI CM Note: Lengthy conversation with re: dc isolation at home and new oxygen set up. is aware to contact [facility] when home via phone number on the portable tank. will drop clothes off @ front of hospital. She has ordered a pulse oximeter for patient. No further questions. Alie YANES RN ACM
--- NOTE | 2020-10-03 13:10 | DS.PCM_ITS ---
Discharge Date and Diagnosis - Problem List Patient Problems: Active and Suspected Problems (Last Updated 10/01/20 @ 09:[address] Pablo Darnell MD) COVID-19 (Acute) Date of Admission: 09/30/20 Date of Discharge: 10/03/20 - Primary Discharge Diagnosis Acute Problems: Active Problems (Last Updated 10/01/20 @ 09:[address] Pablo Darnell MD) #1 acute bilateral COVID-19 pneumonia. #2 acute hypoxic respiratory insufficiency. #3 uncontrolled hypertension. - Secondary Discharge Diagnosis Chronic Problems: Chronic Problems (Last Updated 10/01/20 @ 09:[address] Pablo Darnell MD) Essential hypertension (Chronic) Family history of colon cancer in father (Chronic) Personal history of colonic polyps (Chronic) Hyperlipidemia (Chronic) Cardiomegaly (Chronic) Other secondary pulmonary hypertension (Chronic) Hospital Course and Treatment Imaging Results: Clinical Impression(s) from Imaging Studies Chest X-Ray 09/30/20 11:36 IMPRESSION: Patchy bibasilar infiltrates worse on the left side with blunting of the left costophrenic angle. Electronically Signed: Ozzie Hart MD at 12:15 EST , Service support , Chest CTA 09/30/20 11:46 IMPRESSION: Bibasilar pulmonary infiltrates superimposed on chronic changes with small left pleural effusion. Patchy bilateral areas of the groundglass appearance in the upper lobes slightly more prominent in the left upper lobe and lingular segment of the left upper lobe. No evidence of pulmonary embolism. Electronically Signed: Ozzie Hart MD at 12:28 EST , Service support , Dr. Strong, infectious disease. Operations: None Procedures: None Summary of Care Provided: Patient seen and examined on the day of discharge and appeared to be stable to be discharged home. He has been feeling better, shortness of breath has been improving and he remained on oxygen at 4 L. Ambulatory pulse ox performed with and pulse ox went down to 87% on room air with ambulation and he did qualify for home oxygen. Other vital signs are stable. The patient is a 75 year old M presented to the emergency room because of shortness of breath, low grade fever and he was found to have bilateral pulmonary infiltrate on CTA chest and tested positive for COVID-19 and he was admitted for treatment. Initial chest x-ray showed patchy bilateral infiltrate worse on the left side. COVID-19 PCR was positive. Patient had CTA chest that showed bibasilar pulmonary infiltrate, groundglass appearance in the upper lobes, there was no evidence of PE or dissection. [facility], was started on IV remdesivir, p.o. Decadron, subcu Lovenox twice daily and oxygen by nasal cannula. Infectious disease consulted and agreed to keep patient on IV remdesivir and Decadron. During this hospital stay, patient's blood pressure was very uncontrolled. He was kept on his home medications but his pressure was up to 180s to 190s systolic. He was treated with IV hydralazine and IV labetalol as needed as well as his home medications including Norvasc and lisinopril. Dose of lisinopril and Norvasc increased. With above-mentioned treatment, respiratory status improved and patient felt better. He did require oxygen and maximum oxygen was 2 L. Ambulatory pulse ox performed and pulse ox dropped down to 87% on room air with ambulation and patient did qualify for home oxygen. After adjusting his antihypertensive medications, blood pressure improved. Patient discharged home in a stable medical condition, discharged on Decadron 6 mg p.o. daily to complete total of 10 days of treatment, instructed to follow COVID-19 quarantine and isolation requirement for 10 more days, recommended to wear facemask all the time and wash hands frequently, Norvasc increased to 10 mg p.o. daily and lisinopril increased to 10 mg p.o. daily, continued on his other previous home medications, recommended follow-up with PCP in 1 week. Patient Problems: Active and Suspected Problems (Last Updated 10/01/20 @ 09:[address] Pablo Darnell MD) COVID-19 (Acute) - Physical Exam Vitals/I&O's: Vital Signs Temp Pulse Resp BP Pulse Ox 97.6 F L 78 18 157/64 H 92 10/03/20 10:13 10/03/20 10:13 10/03/20 10:13 10/03/20 10:13 10/03/20 09:41 Oxygen Flow Rate (L/min) [ 2 AMBULATION with Oxygen] Oxygen Flow Rate (L/min) [ 0 AMBULATING on Room Air] Oxygen Flow Rate (L/min) [At 21 REST on Room Air] Oxygen Flow Rate (L/min) 2 Oxygen Delivery Method Nasal Cannula Weight: 225 lb 4.999 oz Body Mass Index (BMI) 34.4 Intake and Output for Last 24 Hours 10/01/20 10/02/20 10/03/20 23:59 23:59 23:59 Intake Total 1927.50 / 1927.50 1450 / 1450 Output Total 275 / 275 Balance 1652.50 / 1652.50 1450 / 1450 General: Alert, Oriented x3, Cooperative, No apparent distress HEENT: Atraumatic, PERRLA, EOMI, Normocephalic Oral: Moist Mucosa, No Gingival or Mucosal Lesions/ Ulcerations Neck: Supple, No JVD, Negative Carotid Bruits, Trachea Midline, Thyroid Normal Size and Texture Lungs: Clear to auscultation, No rhonchi, No wheeze, No rales, Diminished Cardiovascular: Regular rate, Regular Rhythm, Normal S1, Normal S2, PMI Normal Abdomen: Bowel Sounds Present, Soft, Non Tender, Non-Distended, No Hepato- splenomegaly Extremities: No clubbing, No cyanosis, No edema Skin: No rashes, No breakdown Lymphatic: No Cervical, Supraclavicular, or Inguinal Adenopathy Neurological: Cranial nerves II-XII grossly intact, Neuro grossly intact Psych/Mental Status: Normal Affect, Appropriate Microbiology Past 72 Hours 09/30/20 10:55 Blood Culture (Wb) #2 - Left Hand Blood Culture - Preliminary No growth in 48 hours. 09/30/20 10:55 Blood Culture (Wb) - Anticubital Left Blood Culture - Preliminary No growth in 48 hours. Laboratory Results 10/03/20 03:25: WBC 17.3 H, RBC 4.18 L, Hgb 12.4 L, Hct 37.7 L, MCV 90.2, MCH 29.7, MCHC 32.9, RDW Std Deviation 49.6 H, RDW Coeff of Andre 15.0 H, Plt Count 423, MPV 10.9 10/03/20 03:25: Sodium 142, Potassium 4.2, Chloride 111 H, Carbon Dioxide 22.0, Anion Gap 9, BUN 44 H, Creatinine 1.44 H, Estim Creat Clear Calc 44.20, Est GFR (MDRD) Af Amer 62, Est GFR (MDRD) Non-Af 51 L, BUN/Creatinine Ratio 30.6 H, Glucose 148 H, Calcium 8.9, Total Bilirubin 0.20, AST 40 H, ALT 79 H, Alkaline Phosphatase 74, Total Protein 7.0, Albumin 2.8 L, Globulin 4.2, Albumin/Globulin Ratio 0.7 L Current Medications Acetaminophen (Acetaminophen 325 Mg Tablet) 650 mg PO Q6H PRN PRN PRN Reason: Pain Score 1-10/Temp > 100.7 F Amlodipine Besylate (Amlodipine 10 Mg Tablet) 10 mg PO DAILY [facility] Last Admin: 10/03/20 08:38 Dose: 10 mg Documented by: Aspirin (Aspirin E.C. 81 Mg Tablet) 81 mg PO DAILY [facility] Last Admin: 10/03/20 08:36 Dose: 81 mg Documented by: Dexamethasone (Dexamethasone 4 Mg Tablet) 6 mg PO DAILY@0800 [facility] Stop: 10/09/20 08:01 Last Admin: 10/03/20 08:37 Dose: 6 mg Documented by: Diphenhydramine HCl (Diphenhydramine 25 Mg Capsule) 50 mg PO QHS PRN PRN PRN Reason: INSOMNIA Last Admin: 10/02/20 22:13 Dose: 50 mg Documented by: Enoxaparin Sodium (Enoxaparin 40 Mg/0.4 Ml Syringe) 40 mg SC DAILY [facility] Last Admin: 10/03/20 08:36 Dose: 40 mg Documented by: Finasteride (Finasteride 5 Mg Tablet) 5 mg PO QHS [facility] Last Admin: 10/02/20 22:13 Dose: 5 mg Documented by: Remdesivir 100 mg/ Sodium (Chloride) 250 mls @ 125 mls/hr IV DAILY [facility] Stop: 10/04/20 11:59 Last Infusion: 10/02/20 12:11 Dose: Infused Documented by: Sodium Chloride () 250 mls @ 15 mls/hr IV .[id number] PRN PRN Reason: Saline Flush Ibuprofen (Ibuprofen 400 Mg Tablet) 400 mg PO Q4H PRN PRN PRN Reason: Pain Score 1-10/Temp > 100.7 F Labetalol HCl (Labetalol (Prefilled) 20 Mg/4 Ml) 10 mg IV Q4H PRN PRN Reason: sbp >170 or dbp >110 Last Admin: 10/02/20 20:10 Dose: 10 mg Documented by: Lisinopril (Lisinopril 10 Mg Tablet) 10 mg PO DAILY [facility] Last Admin: 10/03/20 08:37 Dose: 10 mg Documented by: Ondansetron HCl (Ondansetron 4 Mg/2 Ml Vial) 4 mg IV Q8H PRN PRN PRN Reason: NAUSEA/VOMITING Simvastatin (Simvastatin 20 Mg Tablet) 40 mg PO DAILY [facility] Last Admin: 10/03/20 08:37 Dose: 40 mg Documented by: Sodium Chloride (0.9% Saline Lock 10 Ml Syringe) 10 - 40 ml IV UD PRN PRN Reason: SALINE FLUSH Last Admin: 10/02/20 12:09 Dose: 20 ml Documented by: Discharge Activity: Return to Normal Activity Weight Bearing Status: Weight bearing as tolerated Call your doctor if you observe: Fever of 101 or Higher, Shortness of breath, Dizziness, Fainting spells, Chest pain, Increased palpitations (irregular heartbeat), Uncontrolled pain Home Medications: Medications to take at Discharge Aspirin [Adult Low Dose Aspirin EC] 81 mg PO DAILY 01/21/16 Finasteride [Proscar] 5 mg PO QHS 01/21/16 meloxicam 15 mg tablet 15 mg PO DAILY 12/13/17 Naproxen Sodium [Aleve] 440 mg PO DAILY PRN PRN 09/30/20 Simvastatin 40 mg PO DAILY 09/30/20 Amlodipine [Norvasc] 10 mg PO DAILY #30 tab 10/03/20 Dexamethasone [Decadron] 6 mg PO DAILY 7 Days tab 10/03/20 Lisinopril [Zestril] 10 mg PO DAILY #30 tab 10/03/20 Following Prescriptions Were Given to Patient: Dexamethasone [Decadron] 6 mg PO DAILY 7 Days tab Prescription Printed Amlodipine [Norvasc] 10 mg PO DAILY #30 tab Prescription Printed Lisinopril [Zestril] 10 mg PO DAILY #30 tab Prescription Printed Primary Care Physician: Bhupendra Brown DO [Primary Care Provider] - Please follow up with your Primary Care Physician in: 1 week. Patient Instructions: Coronavirus Disease 2019 (COVID-19): Caring for Yourself or Others, Controlling High Blood Pressure, Using Oxygen at Home, Preventing the Spread of Infection Understanding Isolation Procedures Disposition: Home Minutes spent on discharge:: 33 Patient Condition:: Stable Medical Necessity - Tobacco Use Smoking Status: Former smoker Tobacco Use: Cigarettes Meaningful Use Info Meaningful Use Diagnoses (Choose all that apply): None applicable Inpatient E&M: 48768 Disch Hosp
--- NOTE | 2020-10-04 13:26 | CASEMGMT ---
Addendum entered by Tyler Lobato 10/04/20 13:52: Call received back from pt's , Gillian, and she states they did locate the other 2 bottles of medication they picked up yesterday @ the pharmacy. Gillian initially stated that these were maintenance medications that pt was on previously and that pt already had these medications. Upon further discussion, Gillian noted that the dosage was increased for both of these medications, as pt was previously on Norvasc 2.5 mg and Zestril 5 mg. iGllian made aware, per Dr Darnell note, that he did intend to increase the dosage d/t uncontrolled hypertension when pt was admitted. Gillian states she will give pt the correct dose today. She stated she will give pt another 5 mg of Zestril and another 7.5 mg Norvasc from medication pt had previously. Gillian states they will use up the remainder of the lower-dosage tablets pt has before starting to take the new bottles of higher dosage. HUI ODOM strongly advised Gillian to have pt start using the new bottles of medication with correct/updated dosage, as taking multiple tablets of lower dosages can lead to dosage error. She states she voices understanding. She denies having other questions/concerns. Gillian recommended discharge instructions alert pt's of changes in dosages @ discharge so this won't be easily over-looked. HUI Hines CM research and development manager made aware of 's recommendation of discharge instruction process change. Original Note: HUI ODOM Discharge Follow-Up Phone Call. Lace: 6 Strata: 2 Discharge Date: 10/03/20 Adm Dx: COVID-19 Call to pt to inquire about how he has been doing since being discharged from the hospital. Pt states he is feeling better. He states they got a pulse ox yesterday and that he has been using the oxygen and pulse ox is maintaining around 94%. He states they picked up the Decadron and that he has been taking that as prescribed. HUI ODOM inquired about the Norvasc and Zestril. Pt states he is not aware of any other new medications besides the Decadron, as he has only started taking one new medication. Pt asked his about this and confirms that they did apple picker all 3 new prescriptions but she is not sure where the other 2 bottles are. Pt/ state they will look for them. Pt states when they locate them, that he will start taking them as prescribed and states he will call this RN CM back if they are unable to locate them or if they have any questions. given this RN LEI's phone number. Pt states he has a f/u phone appt with his PCP, Dr Brown, next Wed @ 11 AM. Pt denies having any other questions/concerns/needs. Porsha YANES RN CM
== END 2020-10-03 12:25 | disposition home or self-care (01) | DRG 177 ==
LOC: ED 11:45 → ICU 10-01 06:39
PROVIDERS: Internal Medicine Infectious Disease; Emergency Provider Emergency Medicine; PCP Family Medicine; Visit Provider Hospitalist
DX: U07.1 COVID-19 (principal); J12.82 Pneumonia due to coronavirus disease 2019; R09.02 Hypoxemia; R06.89 Other abnormalities of breathing; E87.5 Hyperkalemia; N28.9 Disorder of kidney and ureter, unspecified; I27.29 Other secondary pulmonary hypertension; E78.5 Hyperlipidemia, unspecified; N40.0 Benign prostatic hyperplasia without lower urinary tract symptoms; G47.33 Obstructive sleep apnea (adult) (pediatric); E66.9 Obesity, unspecified; Z68.34 Body mass index [BMI] 34.0-34.9, adult; Z79.82 Long term (current) use of aspirin; Z79.899 Other long term (current) drug therapy; Z79.1 Long term (current) use of non-steroidal anti-inflammatories (NSAID); Z87.891 Personal history of nicotine dependence
CPT/HCPCS: 36415; 71045; 71275; 80048; 80053; 83605; 84075; 84484; 85025; 85027; 85379; 87040; 87635; 93005; 97161; 97165; 97802; 99251; 99285; J7030; J7050; Q9967; A4216; G0463; U0002

== ENCOUNTER → 2020-12-31 10:42 | Outpatient (CLI) | payer MEDICARE, OTHER, SELFPAY ==
[2020-10-01 11:17] VITALS: BMI 34.4
--- NOTE | 2020-12-31 10:45 | RAD_ITS ---
STUDY: X-RAY CHEST REASON FOR EXAM: Male, 75 years old. HX OF COVID19 TECHNIQUE: PA and lateral views of the chest. COMPARISON: Comparison is made with prior study dated 09/30/2020. FINDINGS: The lungs are clear and expanded. There is no demonstrated pleural abnormality. Normal size heart. Normal mediastinum and dai. Normal visualized pulmonary arteries. Normal visualized aortic arch and descending thoracic aorta. There are diffuse degenerative changes of the visualized thoracic spine. Normal visualized ribs, clavicles, and shoulders. There is no demonstrated abnormality of the visualized soft tissue structures of the upper abdomen. RAD/Chest PA and Lateral IMPRESSION: The lungs are clear. Electronically Signed: Ozzie Hart MD at 15:13 EDT , Service support ,
== END ==
PROVIDERS: PCP Family Medicine; Referring Provider Family Medicine; Visit Provider Family Medicine
DX: R06.00 Dyspnea, unspecified (principal); Z86.16 Personal history of COVID-19
CPT/HCPCS: 71046

== ENCOUNTER 2021-08-27 11:47 | Outpatient (CLI) | payer MEDICARE, OTHER, SELFPAY ==
--- NOTE | 2021-08-27 11:51 | US_ITS ---
STUDY: RENAL ULTRASOUND - COMPLETE REASON FOR EXAM: Male, 76 years old. Disorder of kidney and ureter, unspecified -- HTN, RENAL INSUFF., ABN LABS TECHNIQUE: Ultrasound evaluation of the kidneys was performed with real-time and static carrillo-scale imaging. COMPARISON: None. FINDINGS: RIGHT KIDNEY: Normal location of the right kidney, which is normal in size. The right kidney measures 11.9 cm x 5.3 cm x 6.4 cm. There is a normal cortex of the right kidney. The renal cortex measures 2.1 cm. There is no right renal mass or cyst. There are no right renal calculi. There is no right hydronephrosis. DISTAL RIGHT URETER: There is non-visualization of the distal right ureter. There is no demonstrated right ureterovesical junction calculus. There is a visualized right ureteral jet. LEFT KIDNEY: Normal location of the left kidney, which is normal in size. The left kidney measures 10.8 cm x 5.5 cm x 5.9 cm. There is a normal cortex of the left kidney. The renal cortex measures 1.4 cm. There is a 3.3 cm x 2.7 cm x 2.4 cm cyst. There is also evidence of a 1.2 cm x 1.4 cm x 0.8 cm cyst. There are no left renal calculi. There is moderate hydronephrosis of the left kidney. DISTAL LEFT URETER: There is non-visualization of the distal left ureter. There is no demonstrated left ureterovesical junction calculus. There is a visualized left ureteral jet. BLADDER: The distended urinary bladder has a volume of 327 ml. There is a normal wall thickness of the distended urinary bladder. There is no demonstrated mass within the urinary bladder. There are no demonstrated bladder calculi. 2 bladder diverticula are seen. The largest measures 5 cm x 3.7 cm x 3.5 cm US/Kidney and Bladder IMPRESSION: Left renal cysts. Moderate degree of left hydronephrosis. Bladder diverticula. Electronically Signed: Ozzie Hart MD at 13:41 EST ,
== END 2021-08-27 23:59 | disposition short-term general hospital (02) ==
PROVIDERS: PCP Family Medicine; Referring Provider Family Medicine; Visit Provider Family Medicine
DX: N28.9 Disorder of kidney and ureter, unspecified (principal); N28.1 Cyst of kidney, acquired; N13.30 Unspecified hydronephrosis; N32.3 Diverticulum of bladder; I10 Essential (primary) hypertension
CPT/HCPCS: 76770

== ENCOUNTER 2021-10-01 14:54 | Outpatient (CLI) | payer MEDICARE, OTHER, SELFPAY ==
--- NOTE | 2021-10-01 15:10 | CT_ITS ---
STUDY: CT Abdomen And Pelvis WO/W Contrast Injection 10/01/2021 8:19 PM REASON FOR EXAM: Male, 76 years old. Abdominal pain HYDRONEPHROSIS Individualized dose optimization techniques were used for this CT. COMPARISON: None. TECHNIQUE: CT Abdomen And Pelvis WO/W Contrast Injection IV 100mL [id number] FINDINGS: There are atherosclerotic calcifications of visualized coronary arteries. The visualized portions of the heart are within normal limits. Geographic fatty infiltration of the liver. Normal gallbladder and extrahepatic biliary system. Normal spleen. Normal pancreas. Normal bilateral adrenal glands. No acute findings of the right kidney. There are hypodensities in the left kidney. These are consistent for cysts. No follow up required. Moderate hydronephrosis and hydroureter caused by 8.1 mm mid left ureteral stone. Series 2 image 46. Normal visualized stomach. Normal small intestine. There are multiple colonic diverticula consistent with diverticulosis. There is non-visualization of the appendix. There are calcifications of the abdominal aorta. This is consistent for atherosclerotic disease. There is no abdominal aortic aneurysm. Normal inferior vena cava. Subcentimeter mesenteric lymph nodes. There is a diverticulum of the urinary bladder. There are prostatic calcifications. There is an umbilical hernia containing fat. There are diffuse degenerative changes of the visualized lumbar spine. IMPRESSION: (NOT LISTED IN ORDER OF SIGNIFICANCE) Moderate hydronephrosis and hydroureter caused by 8.1 mm mid left ureteral stone. There are multiple colonic diverticula consistent with diverticulosis. Other findings as above. Electronically Signed: Benjamin Mcadams MD at 20:22 EST , CT/CT Abd/Pelvis W/WO Contrast
[2021-10-01 15:11] LABS: CREATININE FINGERSTICK 1.2 mg/dL (0.70-1.30); EGFR FINGERSTICK > 60.0000 mL/min (>60)
== END 2021-10-01 23:59 | disposition home or self-care (01) ==
LOC: CT 14:57
PROVIDERS: PCP Family Medicine; Referring Provider Urology; Visit Provider Urology
DX: N13.39 Other hydronephrosis (principal)
CPT/HCPCS: 74178; Q9967

== ENCOUNTER 2021-10-10 12:17 | Day surgery (SDC) | payer MEDICARE, OTHER, SELFPAY ==
[2021-10-10] VITALS (8 sets, daily range): BP systolic 137–164; BP diastolic 59–99; PULSE 75–100; RESP 16–18; TEMP 36.2–36.3; O2SAT 95–100; BMI 36.4
--- NOTE | 2021-10-10 12:25 | RAD_ITS ---
STUDY: X-RAY - ABDOMEN/PELVIS REASON FOR EXAM: Male, 76 years old. Pre-op. TECHNIQUE: Two AP supine views of the abdomen and pelvis. COMPARISON: None. FINDINGS: Normal visualized lung bases. Feces is seen throughout the colon. Air is seen in the rectosigmoid region. There is no obstruction or small bowel dilatation. There is no demonstrated free abdominal air. The visualized liver, spleen and kidneys are grossly normal in size and morphology. There is an ovoid soft tissue to the left of the L4 vertebral body. This may represent a phlebolith or less likely a large ureteral calculus. There are diffuse degenerative changes of the visualized lumbar spine. RAD/Abdomen Single View IMPRESSION: 1. Calcification in the left abdomen. Phlebolith versus large ureteral calculus. 2. Otherwise normal abdomen. Electronically Signed: Guille Ferreira DO at 23:32 EST ,
[2021-10-10] MEDS: Lactated Ringers 1,000 ML 15 ML IV (13:11)
[2021-10-10] MEDS: Cefazolin 2 GM in 0.9% Normal Saline 100 ML IV (14:58)
--- NOTE | 2021-10-10 16:27 | PCM.HP.STD ---
HPI - General HPI Narrative KRISTIN MC, is a 76 M who presents for treatment of a left left mid ureteral calculi PFSH Medical History (Updated 10/10/21 @ 16:[address] Jad Jackson MD) Cardiomegaly DDD (degenerative disc disease) Essential hypertension Family history of colon cancer in father Family history of colon cancer in mother Hyperlipidemia Hypertension Mitral valve stenosis GLORIA (obstructive sleep apnea) Other secondary pulmonary hypertension Personal history of colonic polyps Pneumonia Shortness of breath on exertion Spinal stenosis Wears glasses Home Medications finasteride [Proscar] 5 mg PO QHS 01/21/16 [History Last Taken 09/28/20] simvastatin 40 mg PO DAILY 09/30/20 [History Last Taken 09/28/20] amlodipine 10 mg PO DAILY #30 tab 10/03/20 [Rx Last Taken Unknown] lisinopril 10 mg PO DAILY #30 tab 10/03/20 [Rx Last Taken Unknown] ciprofloxacin HCl [Cipro] 500 mg PO BID #10 tab 10/10/21 [Rx Last Taken Unknown] oxycodone-acetaminophen 1 tab PO Q6H PRN 7 Days #14 tab 10/10/21 [Rx Last Taken Unknown] Allergy/AdvReac Type Severity Reaction Status Date / Time atorvastatin AdvReac Severe GALLARDO, Verified 10/10/21 13:03 Nausea, Myalgias Family History Mother Cancer Rectal Father Cancer Rectal Surgical History History of back surgery History of tonsillectomy Social History Smoking Status: Former smoker second hand exposure: No alcohol intake: current details: moderate use, 2-3 beers per week substance use type: does not use caffeine: Yes Vital Signs Vital Signs Vital Signs: 10/10/21 13:05 Temperature 97.4 F L Temperature Source Temporal Pulse Rate 100 Respiratory Rate 18 Respiratory Pattern Normal Blood Pressure 156/69 H Blood Pressure Mean 98 Blood Pressure Source Monitor Blood Pressure Position Semi-Fowlers Blood Pressure Location Left Arm Pulse Ox 98 Oxygen Delivery Method Room Air Weight Weight: 112 kg Body Mass Index (BMI) 36.4
--- NOTE | 2021-10-10 16:28 | OP.PCM_ITS ---
Report of Operation Date of Procedure: 10/10/21 Pre-Operative Diagnosis: Large obstructive mid ureteral calculi left Post-Operative Diagnosis: Same Surgery/Procedure Performed:: Cystoscopy, left retrograde pyelogram and interpretation fluoroscopic images, left ureteroscopy laser lithotripsy of stone and stent placement and left extracorporeal shockwave lithotripsy Description of Surgical Findings:: This is a patient who presents to the hospital for treatment for an obstructing distal ureter calculi. I discussed with the patient how the surgery would be performed and we reviewed the risks and benefits of the surgery. The risk and benefits include the risk of failure to remove the stone completely and that the patient may need multiple procedures. We discussed the risk of an infection, the risk of bleeding. We discussed the very rare risk of serious complicated injury to the ureter. The patient understands that if the stone is not able to be removed safely that we may abort the procedure and place a stent. After full discussion and all questions address with the patient the consent form was signed the side was marked appropriately and the patient was taken back to the operating room for the procedure. The patient was taken back to the operating room. After induction of anesthesia by the anesthesiology team the patient was placed in dorsolithotomy position. The genitals were prepped and draped in usual sterile fashion. I went into the bladder with a 21 Albanian rigid cystourethroscope through the urethra. Upon entering the bladder I inspected the trigone the left and right ureteral orifice and the bladder itself. I then cannulated the left ureteral orifice and advanced a 0.038 Glidewire up into the kidney. Then over the Glidewire I advanced a 5 Fr Ureteral catheter and performed a retrograde pyelogram with about 10cc of contrast, to delineate the anatomy and identify the stone location. The stone was in the mid left ureter and very little contrast went past the stone. I was able to go inside with the 7.9Fr flexible utereroscope and I pulled out the working guidewire and then through the 7.9 fr flexible ureteroscope I ascended up the ureter with direct visualization until the stone was located in the mid ureter, then I engaged the stone with laser lithotripsy using a 270miron laser fiber with energy setting of 6 Hertz and 0.6 J until the stone was lasered in order to allow the placement of the stent. After laser lithotripsy of the stone successful placement of a stent, I then proceed with ESWL to treat the stones I could not get with the laser. I then backed out of the ureter left the wire in place and then over the 0.038 guidewire I placed a double coiled pigtail ureteral stent. The ureteral stent was advanced over the 0.038 guidewire under direct fluoroscopic guidance and direct cystoscopic visual guidance, once the stent was in good position I pulled the wire and the stent coiled in the kidney and bladder in good position. We then used fluoroscopy to identify the stone on the left side where the stent was in good position. We then positioned the patient under the lithotripter and we used triangulation technique to identify the location of the stone and then we made sure that the stone was engaged in the F2 focal point of F2 Donier lithoprior machine. Once the patient was positioned appropriately and the stone was identified and placed in the F2 focal point of the lithotripter machine we then proceeded with shockwave lithotripsy. In the beginning the shockwave was delivered at a rate of 90 shocks per minute, we monitor the EKG for any ectopy. The power was slowly increased to 5 kV and subsequently at the 7 kV. We then proceeded with the treatment we move the therapy had around during the treatment to make sure the stone stayed in the F2 focal point during the entire treatment and after 3000 shockwaves were delivered to the stone under fluoroscopic guidance the treatment was completed. The patient was given instructions to call the office to make an a follow-up appointment with an xray to evaluate the success of the treatment, pateint understands that its possible the stones may need another procedure. At this point the patient's anesthetic was reversed patient was extubated and taken back to the PACU in stable condition. Its very likely the patient will need 2nd stage Ureteroscopy to treat and release the fragments treated. Surgeon: dorian Type of Anesthesia: General Drains: stent left Admit VTE Documentation VTE Present on Admission: No VTE Mechan Device Prophylaxis: SCD's VTE Pharm Prophylaxis ordered?: No
--- NOTE | 2021-10-10 16:28 | PCM.DC ---
Discharge Instructions Diet Discharge Diet: No restrictions Activity Discharge Activity: Return to Normal Activity and May Not Drive (while taking narcotic pain medications.) Dressing / Incision Call your doctor if you observe: Fever of 101 or Higher Follow Up Care Please Follow Up With: Jad Jackson MD When: Call [phone] for an appointment Test Results: Test results from this visit will be discussed in further detail at your follow-up appointment, if applicable. Discharge Plan Admission Primary Reason for Your Visit: left ureteral calculi Attending Provider: Jad Jackson Primary Care Provider: Bhupendra Brown Discharge Orders/Prescriptions Prescriptions: New ciprofloxacin HCl [Cipro] 500 mg tablet 500 mg PO BID Qty: 10 RF: 0 oxycodone-acetaminophen 5-325 mg tablet 1 tab PO Q6H PRN (Reason: pain) 7 Days Qty: 14 RF: 0 Continued finasteride [Proscar] 5 MG tablet 5 mg PO QHS RF: 0 simvastatin 40 MG tablet 40 mg PO DAILY RF: 0 amlodipine 10 MG tablet 10 mg PO DAILY Qty: 30 RF: 0 lisinopril 10 MG tablet 10 mg PO DAILY Qty: 30 RF: 0 Discontinued aspirin 81 MG tablet,delayed release (DR/EC) 81 mg PO DAILY RF: 0 Referrals / Follow Up: Bhupendra Brown DO [Primary Care Provider] - Jad Jackson MD [STAFF PHYSICIAN] - Disposition Disposition (needs filled in before D/C Order can be placed): Home, Self Care
[2021-10-10] MEDS: Ketorolac 15 MG/ML Vial IV (16:49)
== END 2021-10-10 23:59 | disposition home or self-care (01) ==
LOC: SDC 12:19 → AC 12:31
PROVIDERS: PCP Family Medicine; Referring Provider Urology; Visit Provider Urology
PROC: (CPT 50590; principal; 2021-10-10 14:15)
DX: N20.1 Calculus of ureter (principal); Z20.822 Contact with and (suspected) exposure to COVID-19; I10 Essential (primary) hypertension; E78.5 Hyperlipidemia, unspecified; G47.33 Obstructive sleep apnea (adult) (pediatric); Z79.82 Long term (current) use of aspirin; Z79.899 Other long term (current) drug therapy; Z87.891 Personal history of nicotine dependence
CPT/HCPCS: 52356; 74018; 87426; C9803; J7120; C1769; C2617; J2405

== ENCOUNTER 2021-10-14 10:44 | Outpatient (CLI) | payer MEDICARE, OTHER, SELFPAY ==
--- NOTE | 2021-10-14 10:57 | EKG12_ITS ---
Test Reason : AK OP Blood Pressure : / mmHG Vent. Rate : 091 BPM Atrial Rate : 091 BPM P-R Int : 122 ms QRS Dur : 070 ms QT Int : 344 ms P-R-T Axes : 061 050 053 degrees QTc Int : 423 ms Normal sinus rhythm Normal ECG Confirmed by OLIVIA MOREL, LUCIANA ([id number]), book or script editor CRISTAL BARAHONA ([id number]) on 10/16/2021 10:10:49 AM Referred By: Jad Jackson Confirmed By:LUCIANA BAKER MD
[2021-10-14 11:06] LABS: Hematocrit 40.6 % (40-54); Hemoglobin 13.4 g/dL (13.0-16.5); Mean Corpuscular Hgb 29.3 pg (27.0-32.0); Mean Corpuscular Volume 88.8 fL (80-94); Mean Platelet Vol. 10.4 fl (6.2-12.0); Platelet Count 298 K/mm3 (150-450); RBC Distribution Width CV 14.7 % (11.6-14.6); RBC Distribution Width SD 47.6 fl (35.1-43.9); Red Blood Count 4.57 M/mm3 (4.6-6.2); White Blood Count 9.9 K/mm3 (4.4-11.0)
[2021-10-14 11:49] LABS: Anion Gap 6 (5-15); BUN 23 mg/dL (7-18); BUN/Creat Ratio 14.6 RATIO (10-20); Calcium,Total 9.4 mg/dL (8.5-10.1); Chloride 105 mmol/L (98-107); Creatinine, Serum 1.57 mg/dL (0.70-1.30); EST Glomerular Filtration Rate 46 mL/min (>60); Est Glom Filt Rate - Afr Amer 56 mL/min (>60); Glucose 125 mg/dL (74-106); Potassium 4.2 mmol/L (3.5-5.1); Sodium Level 134 mmol/L (136-145)
== END 2021-10-14 23:59 | disposition home or self-care (01) ==
LOC: PSN 10:45
PROVIDERS: PCP Family Medicine; Referring Provider Urology; Visit Provider Urology
DX: Z01.812 Encounter for preprocedural laboratory examination (principal); Z01.810 Encounter for preprocedural cardiovascular examination
CPT/HCPCS: 36415; 80048; 85027; 93005

== ENCOUNTER 2021-10-17 13:00 | Day surgery (SDC) | payer MEDICARE, OTHER, SELFPAY ==
--- NOTE | 2021-10-17 13:11 | RAD_ITS ---
STUDY: X-RAY - ABDOMEN/PELVIS REASON FOR EXAM: Male, 76 years old. PRE OP TECHNIQUE: Two AP supine views of the abdomen and pelvis. COMPARISON: 10/10/2021 FINDINGS: A left-sided JJ stent has been placed since the previous study. A previously noted large calcification in the mid left ureter has undergone change since the previous study suggesting there has been lithotripsy. It has poorly defined borders and has decreased slightly in size since the previous study. There is a moderate amount of colonic fecal material. There is no demonstrated free abdominal air. The visualized liver, spleen and kidneys are grossly normal in size and morphology. Normal soft tissue structures. There are diffuse degenerative changes of the visualized lumbar spine. RAD/Abdomen Single View IMPRESSION: Satisfactory appearance of a left-sided JJ stent. Previous noted large calcification within the mid left ureter measuring at least 2.15 cm is likely undergone lithotripsy since the previous study since it has decreased in size and has become poorly defined and shaggy No new suspicious calcification Retained stool Electronically Signed: Kishore Motta MD at 13:32 EDT ,
[2021-10-17 13:43] VITALS: BP 166/71; PULSE 89; RESP 16; TEMP 36.2; O2SAT 97; BMI 35.6
[2021-10-17] MEDS: Lactated Ringers 1,000 ML 15 ML IV (13:50)
[2021-10-17] MEDS: Cefazolin 2 GM in 0.9% Normal Saline 100 ML IV (15:38)
--- NOTE | 2021-10-17 16:36 | HP.PCM_ITS ---
HPI - General HPI Narrative KRISTIN MC, is a 76 M who presents for second stage treatment of a large stone in the mid ureter prior treatment with laser the stone and also that shockwave lithotripsy but still has significant fragments left so we can do a second stage lasering of the stone and a stent placement. [facility] Medical History Cardiomegaly DDD (degenerative disc disease) Essential hypertension Family history of colon cancer in father Family history of colon cancer in mother Hyperlipidemia Hypertension Mitral valve stenosis GLORIA (obstructive sleep apnea) Other secondary pulmonary hypertension Personal history of colonic polyps Pneumonia Shortness of breath on exertion Spinal stenosis Wears glasses Home Medications finasteride [Proscar] 5 mg PO QHS 01/21/16 [History Last Taken 09/28/20] simvastatin 40 mg PO DAILY 09/30/20 [History Last Taken 09/28/20] amlodipine 10 mg PO DAILY #30 tab 10/03/20 [Rx Last Taken 10/17/21 11:00] lisinopril 10 mg PO DAILY #30 tab 10/03/20 [Rx Last Taken Unknown] ciprofloxacin HCl [Cipro] 500 mg PO BID #10 tab 10/10/21 [Rx Last Taken Unknown] oxycodone-acetaminophen 1 tab PO Q6H PRN 7 Days #14 tab 10/10/21 [Rx Last Taken Unknown] oxycodone-acetaminophen 1 tab PO Q6H PRN 7 Days #10 tab 10/17/21 [Rx Last Taken Unknown] Allergy/AdvReac Type Severity Reaction Status Date / Time atorvastatin AdvReac Severe GALLARDO, Verified 10/17/21 13:42 Nausea, Myalgias Family History Mother Cancer Rectal Father Cancer Rectal Surgical History (Updated 10/16/21 @ 11:44 by Kym Lui) History of back surgery History of tonsillectomy Hx of cystoscopy Social History Smoking Status: Former smoker second hand exposure: No alcohol intake: current details: moderate use, 2-3 beers per week substance use type: does not use caffeine: Yes Vital Signs Vital Signs Vital Signs: 10/17/21 13:43 Temperature 97.2 F L Temperature Source Temporal Pulse Rate 89 Respiratory Rate 16 Respiratory Pattern Normal Blood Pressure 166/71 H Blood Pressure Mean 102 Blood Pressure Source Monitor Blood Pressure Position Semi-Fowlers Blood Pressure Location Right Arm Pulse Ox 97 Oxygen Delivery Method Room Air Weight Weight: 109.3 kg Body Mass Index (BMI) 35.6 Results Radiology Impression KUB X-Ray 10/17/21 13:11 IMPRESSION: Satisfactory appearance of a left-sided JJ stent. Previous noted large calcification within the mid left ureter measuring at least 2.15 cm is likely undergone lithotripsy since the previous study since it has decreased in size and has become poorly defined and shaggy No new suspicious calcification Retained stool Electronically Signed: Kishore Motta MD at 13:32 EDT ,
--- NOTE | 2021-10-17 16:37 | PCM.DC ---
Discharge Instructions Diet Discharge Diet: No restrictions Activity Discharge Activity: Return to Normal Activity and May Not Drive (while taking narcotic pain medications.) Dressing / Incision Call your doctor if you observe: Fever of 101 or Higher Follow Up Care Please Follow Up With: Jad Jackson MD When: Call [phone] for an appointment Test Results: Test results from this visit will be discussed in further detail at your follow-up appointment, if applicable. Discharge Plan Admission Primary Reason for Your Visit: kidney stone Attending Provider: Jad Jackson Primary Care Provider: Bhupendra Brown Discharge Orders/Prescriptions Prescriptions: New oxycodone-acetaminophen 5-325 mg tablet 1 tab PO Q6H PRN (Reason: pain) 7 Days Qty: 10 RF: 0 Continued finasteride [Proscar] 5 MG tablet 5 mg PO QHS RF: 0 simvastatin 40 MG tablet 40 mg PO DAILY RF: 0 amlodipine 10 MG tablet 10 mg PO DAILY Qty: 30 RF: 0 lisinopril 10 MG tablet 10 mg PO DAILY Qty: 30 RF: 0 ciprofloxacin HCl [Cipro] 500 mg tablet 500 mg PO BID Qty: 10 RF: 0 oxycodone-acetaminophen 5-325 mg tablet 1 tab PO Q6H PRN (Reason: pain) 7 Days Qty: 14 RF: 0 Other Ambulatory Orders: Abdomen Single View (Routine) Timeframe: [id number] Facility: [facility] - Location: [facility] Ordered By: Dr. Jad Jackson Referrals / Follow Up: Bhupendra Brown DO [Primary Care Provider] - Jad Jackson MD [STAFF PHYSICIAN] - Disposition Disposition (needs filled in before D/C Order can be placed): Home, Self Care
--- NOTE | 2021-10-17 16:37 | PCM.OPRPT ---
Report of Operation Date of Procedure: 10/17/21 Pre-Operative Diagnosis: Large stone in the left mid ureter status post ESWL and lasering first part comes in for second part Post-Operative Diagnosis: Same Surgery/Procedure Performed:: Left ureteroscopy laser lithotripsy of stone, left stent placement, interpretation fluoroscopic images left retrograde pyelogram. Second stage procedure Description of Surgical Findings:: This is a patient who presents to the hospital for treatment for an obstructing distal ureter calculi. I discussed with the patient how the surgery would be performed and we reviewed the risks and benefits of the surgery. The risk and benefits include the risk of failure to remove the stone completely and that the patient may need multiple procedures. We discussed the risk of an infection, the risk of bleeding. We discussed the very rare risk of serious complicated injury to the ureter. The patient understands that if the stone is not able to be removed safely that we may abort the procedure and place a stent. After full discussion and all questions address with the patient the consent form was signed the side was marked appropriately and the patient was taken back to the operating room for the procedure. The patient was taken back to the operating room. After induction of anesthesia by the anesthesiology team the patient was placed in dorsolithotomy position. The genitals were prepped and draped in usual sterile fashion. I went into the bladder with a 21 Faroese rigid cystourethroscope through the urethra. Upon entering the bladder I inspected the trigone the left and right ureteral orifice and the bladder itself. I then cannulated the Left ureteral orifice and advanced a 0.038 Glidewire up into the kidney. Then over the Glidewire I advanced a 5 Fr Ureteral catheter and performed a retrograde pyelogram with about 10cc of contrast, to delineate the anatomy and identify the stone location. Then a ureteral balloon dilator was advanced over the wire and the distal ureter was balloon dilated with a 12 Fr x 5cm balloon dilator. After 3 minutes of dilating the ureter the balloon was backloaded off the 0.038 glidewire then the safety wire was left in place. I then placed a second 0.038 Guidewire as a working wire and over the working 0.038 guidewire I went in with a Flexible 7.9fr ureteroscope. I was able to go inside with the 7.9Fr flexible utereroscope and I pulled out the working guidewire and then through the 7.9 fr flexible ureteroscope I ascended up the ureter with direct visualization until the stone was located, then I engaged the stones with laser lithotripsy, the stone were imacted in the wall of the left mid ureter and very difficult to laser but after about a hour using a 270miron laser fiber with energy setting of 6 Hertz and 0.6 J, laser the stone until the stone was lasered into tiny little pieces that should pass on their own. After successful laser lithotripsy of the stone and stone fragements, a retrograde pyelogram was performed with 10cc of contrast and no extravasation of contrast or perforation was identified in the ureter. I then backed out of the ureter left the wire in place and then over the 0.038 guidewire I placed a double coiled pigtail ureteral stent. The ureteral stent was advanced over the 0.038 guidewire under direct fluoroscopic guidance and direct cystoscopic visual guidance, once the stent was in good position I pulled the wire and the stent coiled in the kidney and bladder in good position. I then drained the patient's bladder and the cystoscope was removed and the patient was taken back to the recovery room in good position. The patient was given discharge instructions to call the office for instructions on when to come to the office to have the stent removed. Surgeon: dorian Type of Anesthesia: General Drains: stent Admit VTE Documentation VTE Present on Admission: No VTE Mechan Device Prophylaxis: SCD's VTE Pharm Prophylaxis ordered?: No
[2021-10-17 16:45] VITALS: BP 166/71; BP 172/77; PULSE 88; RESP 18; TEMP 36.3; O2SAT 92
[2021-10-17] MEDS: Ketorolac 15 MG/ML Vial IV (16:56)
[2021-10-17 17:00] VITALS: BP 166/71; BP 181/80; PULSE 86; RESP 18; O2SAT 93
[2021-10-17 17:08] VITALS: BP 166/71; BP 185/80; PULSE 84; RESP 18; TEMP 36.3; O2SAT 94
[2021-10-17 18:06] VITALS: BP 166/71; BP 183/70; PULSE 94; RESP 16; TEMP 36.6; O2SAT 96
== END 2021-10-17 23:59 | disposition home or self-care (01) ==
LOC: SDC 13:02 → AC 13:03
PROVIDERS: PCP Family Medicine; Referring Provider Urology; Visit Provider Urology
PROC: (CPT 50590; principal; 2021-10-17 15:10)
DX: N20.1 Calculus of ureter (principal); R35.0 Frequency of micturition; N32.3 Diverticulum of bladder; N13.39 Other hydronephrosis; I10 Essential (primary) hypertension; E78.5 Hyperlipidemia, unspecified; G47.33 Obstructive sleep apnea (adult) (pediatric); Z79.899 Other long term (current) drug therapy; Z87.891 Personal history of nicotine dependence
CPT/HCPCS: 52356; 74018; J7120; C1758; C1769; C1894; C2617; J2405

== ENCOUNTER → 2022-02-20 | Outpatient (CLI) | payer MEDICARE, OTHER, SELFPAY ==
--- NOTE | 2022-02-20 10:40 | ECHOCS_ITS ---
Reason For Study: MV Stenosis Procedure This was a 2D Doppler, Color Flow transthoracic echocardiogram. The study was technically difficult. Contrast injection was performed. Exam performed in department. Left Ventricle Normal LV size. Left ventricular systolic function is normal. The estimated ejection fraction is 60 %. No evidence for diastolic dysfunction. No regional wall motion abnormalities noted. Right Ventricle Normal RV size. Normal systolic function. Atria The left atrium is mildly enlarged. Normal right atrium. No doppler evidence for ASD. Mitral Valve There is no mitral annular calcification. Anterior leaflet diffuse mitral valve thickening. Mitral valve doming/Hockey Sticking. Mild mitral valve stenosis. Tricuspid Valve Normal tricuspid valve. Trivial tricuspid valve insufficiency. Right ventricular systolic pressure estimated to be 24 mmHg. Aortic Valve Trisinus/trileaflet aortic valve. Normal aortic valve. Pulmonic Valve The pulmonic valve is not well visualized. Great Vessels Normal sized aortic root. Pericardium/Pleural No pericardial effusion. Medication Diluted definity 1ml given slow IV push to enhance endocardial definition. MMode/2D Measurements & Calculations LVIDd: 4.8 cm IVSd: 0.86 cm Ao root diam: 3.0 cm LVIDs: 3.4 cm LVPWd: 0.91 cm RVDd: 2.8 cm FS: 29.9 % LAV(MOD-bp): 42.3 ml LVAd ap4: 21.0 cm2 SV(MOD-sp4): 33.2 ml LAV(MOD-bp) Indexed: 19.5 ml/m2 LVLd ap4: 7.1 cm LAV(MOD-sp2): 28.1 ml EDV(MOD-sp4): 49.1 ml LAV(MOD-sp4): 63.8 ml EDV(sp4-el): 52.6 ml LVAs ap4: 10.9 cm2 LVLs ap4: 6.2 cm ESV(MOD-sp4): 15.9 ml ESV(sp4-el): 16.4 ml EF(MOD-sp4): 67.7 % EF(sp4-el): 68.8 % SV(sp4-el): 36.2 ml LA A4 area: 20.6 cm2 LA dimension(2D): 3.5 cm RA A4 area: 10.0 cm2 Doppler Measurements & Calculations MV E max alex: 83.6 cm/sec Lat Peak E' Alex: 10.5 cm/sec Med Peak E' Alex: 6.9 cm/sec MV A max alex: 99.8 cm/sec E/E' lat: 7.9 E/E' med: 12.0 MV E/A: 0.84 MV V2 max: 113.8 cm/sec Ao V2 max: 138.5 cm/sec LV V1 max: 105.2 cm/sec MV max P.2 mmHg Ao max P.7 mmHg LV V1 max P.4 mmHg MV V2 mean: 59.2 cm/sec Ao V2 mean: 105.5 cm/sec MV mean P.6 mmHg Ao mean P.8 mmHg MV V2 VTI: 24.1 cm Ao V2 VTI: 27.8 cm PA V2 max: 116.3 cm/sec TR max alex: 229.1 cm/sec TR max P.0 mmHg ECHO/Echo Complete W/ Contrast Interpretation Summary The study was technically difficult. Contrast injection was performed. Left ventricular systolic function is normal. The estimated ejection fraction is 60 %. The left atrium is mildly enlarged. Anterior leaflet diffuse mitral valve thickening. Mitral valve doming/Hockey Sticking Mild mitral valve stenosis. (by MV mean gradient) Trivial tricuspid valve insufficiency. Right ventricular systolic pressure estimated to be 24 mmHg. No evidence for diastolic dysfunction. Ordering Physician: Henry Weston Referring Physician: Bhupendra Brown Performed By: Galina Welch, PAMCS, RVT
== END | disposition home or self-care (01) ==
LOC: CVS 10:39
PROVIDERS: PCP Family Medicine; Referring Provider Internal Medicine Cardiovascular Disease; Visit Provider Internal Medicine Cardiovascular Disease
DX: I05.0 Rheumatic mitral stenosis (principal)
CPT/HCPCS: 93306; Q9957; A4216; C8929

== ENCOUNTER → 2022-06-08 | Outpatient (CLI) | payer MEDICARE, OTHER, SELFPAY ==
--- NOTE | 2022-06-08 13:05 | RAD_ITS ---
EXAM: XR ABDOMEN, 1 VIEW CLINICAL INDICATION: HX OF URINARY CALCULI TECHNIQUE: Frontal supine view of the abdomen/pelvis. This report was created using [employer] report generation technology. COMPARISON: None. FINDINGS: LOWER THORAX: No acute pathology. GASTROINTESTINAL TRACT: Normal bowel gas pattern. ORGANS: No organomegaly. BONES/JOINTS: No acute abnormality. SOFT TISSUES: No pathological calcification. RAD/Abdomen Single View IMPRESSION: No evidence of urinary tract stones. Electronically Signed: Garth Gloria MD at 16:29 EST ,
== END | disposition home or self-care (01) ==
LOC: RAD 12:59
PROVIDERS: PCP Family Medicine; Referring Provider Urology; Visit Provider Urology
DX: Z87.442 Personal history of urinary calculi (principal)
CPT/HCPCS: 74018

== ENCOUNTER → 2023-12-14 | Outpatient (CLI) | payer MEDICARE, OTHER, SELFPAY ==
--- NOTE | 2023-12-14 16:08 | CT_ITS ---
INDICATION: HEMATURIA -- -- prior 10/01/21 EXAMINATION: CT Abdomen And Pelvis W/O Contrast Injection TECHNIQUE: Helically acquired images were obtained of the abdomen and pelvis without the use of IV contrast. A radiation dose optimization technique was used for this scan. Oral contrast: None. COMPARISON: 10/01/2021 FINDINGS: Evaluation of the solid organs and vascular structures is limited without intravenous contrast. Visualized lung bases: Unremarkable Liver: Unremarkable Gallbladder: Unremarkable Spleen: Unremarkable Pancreas: Unremarkable Adrenal Glands: Unremarkable Kidneys: Interval improvement in now mild left hydroureteronephrosis with decreased size of a obstructing 4 mm stone in the proximal left ureter, previously measuring 1 cm. Vasculature: Mild scattered aortoiliac atherosclerotic calcifications. GI Tract: Scattered diverticula throughout the colon without evidence of inflammation. Lymphadenopathy: None Peritoneum: No ascites. Bladder: Mild circumferential wall thickening with subtle surrounding inflammatory changes. Redemonstration of a small diverticulum on the right. Reproductive organs: Unremarkable Bones/Soft tissues: Mild scattered degenerative changes of the visualized spine. CT/Abdomen/Pelvis without Cont IMPRESSION: Interval improvement in now mild left hydroureteronephrosis with decreased size of a obstructing 4 mm stone in the proximal left ureter, previously measuring 1 cm. Findings suspicious for cystitis. Electronically Signed: Brayan Noble MD at 17:35 EDT ,
== END | disposition home or self-care (01) ==
LOC: CT 15:44
PROVIDERS: PCP Family Medicine; Referring Provider Family Medicine; Visit Provider Family Medicine
DX: R31.9 Hematuria, unspecified (principal); Z87.442 Personal history of urinary calculi
CPT/HCPCS: 74176

== ENCOUNTER 2024-01-19 10:43 | Day surgery (SDC) | payer MEDICARE, OTHER, SELFPAY ==
[2024-01-19] VITALS (8 sets, daily range): BP systolic 114–135; BP diastolic 52–63; PULSE 74–86; RESP 16; TEMP 36.2–36.4; O2SAT 93–97; BMI 35.4
[2024-01-19] MEDS: Lactated Ringers 1,000 ML 15 ML IV (11:17)
--- NOTE | 2024-01-19 12:09 | PCM.PRE.AN2 ---
ASA Classification* ASA Classification ASA Classification: 3 Assessment & Plan Anesthesia* Anesthesia Assessment Anesthesia Assessment: Discussed sedation and/or anesthesia options, risks, benefits, and alternatives with patient/parents/legal guardian/POA. Questions invited. The patient/parents/legal guardian/POA seems to understand and agrees to proceed with anesthesia plan. Reviewed the physical assessment, medical history, allergy history and patient home medications list prior to surgery/procedure/anesthetic and documented any changes. Performed airway and anesthesia risk assessments. 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 When Was Last Pacemaker Check QUESTION #4 FULL TEXT: You/Your Family Experience fever (hyperthermia) with Anesthesia Last Oral Intake Last Oral intake: Last Oral Intake NPO since 18:00 01/19/24 11:11 Meds taken in AM with sips of No 01/19/24 11:11 water? 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 Female No 01/06/24 10:03 HX of Motion Sickness No 01/06/24 10:03 HX of N/V After Surgery No 01/06/24 10:03 Non-Smoker Yes 01/06/24 10:03 Duration of Surgery greater No 01/06/24 10:03 than 60 minutes Number of Risk Factors 1 01/06/24 10:03 PONV Score Low Risk 01/06/24 10:03 Height & Weight Height & Weight: Anesthesia: Height & Weight Height 5 ft 9 in 01/19/24 11:11 Weight: 109 kg 01/19/24 11:11 Body Mass Index (BMI) 35.4 01/19/24 11:11 Respiratory Assessment Respiratory Assessment - 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 Has anyone observed you stop No 01/06/24 10:03 breathing during sleep? STOP Results Positive 01/06/24 10:03 QUESTION #5 FULL TEXT : Do you snore loudly (louder than talking or can be heard through closed doors)? 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 Specify any problems Hx of Preganancy in last 3 N/A 01/06/24 10:03 Months Nurse Filling Out Transfusion [id number] 01/06/24 10:03 & Questions: Date: 01/06/24 01/06/24 10:03 Time: 10:07 01/06/24 10:03 Patient unable to answer at this time (ie. 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 kettle operator Hx Now Gestational Age (in weeks): EDC: Hx Hx Para Hx Section SAB Active Medications Active Medications: Current Medications Generic Name Dose Route Start Last Admin Trade Name Freq PRN Reason Stop Dose Admin Cefazolin Sodium 2 gm/ Sodium 110 mls @ 150 mls/hr 01/19/24 12:40 Chloride IV 01/19/24 13:23 PREOP ONE Lactated Ringer's 1,000 mls @ 15 mls/hr 01/19/24 11:00 01/19/24 11:17 IV 15 mls/hr .Q48H DUDLEY Administration Anesthesia Focused Assessment* Temperature: 97.2 F Pulse Rate: 86 Blood Pressure: 125/52 Respiratory Rate: 16 Pulse Ox: 97 Airway Assessment Mouth opens: >3 cm Mallampati Score: II Focused Labs Anesthesia Preop lab: CBC WBC 9.9 K/mm3 (4.4-11.0) 10/14/21 10:48 RBC 4.57 M/mm3 (4.6-6.2) L 10/14/21 10:48 Hgb 13.4 g/dL (13.0-16.5) 10/14/21 10:48 Hct 40.6 % (40-54) 10/14/21 10:48 Plt Count 298 K/mm3 (150-450) 10/14/21 10:48 CHEMISTRY Potassium 4.2 mmol/L (3.5-5.1) 10/14/21 10:48 Sodium 134 mmol/L (136-145) L 10/14/21 10:48 BUN 23 mg/dL (7-18) H 10/14/21 10:48 Creatinine 1.57 mg/dL (0.70-1.30) H 10/14/21 10:48 Glucose 125 mg/dL (74-106) H 10/14/21 10:48 COAG PT 12.4 SECONDS (11.7-14.9) 01/15/16 16:30 Review of Systems (Anesthesia) ROS Narrative System reviewed and no additional complaints, except as documented. [facility] Medical History Enlarged prostate High cholesterol Back pain Former smoker Wears glasses Shortness of breath on exertion Pneumonia Mitral valve stenosis Essential hypertension Family history of colon cancer in mother Family history of colon cancer in father Personal history of colonic polyps DDD (degenerative disc disease) Spinal stenosis GLORIA (obstructive sleep apnea) Hypertension Hyperlipidemia Cardiomegaly Other secondary pulmonary hypertension Home Medications ?Medication ?Instructions ?Recorded ?Last Taken ?Type finasteride 5 mg tablet (Proscar) 5 mg PO QHS prostate 01/21/16 09/28/20 History amlodipine 10 mg tablet 10 mg PO DAILY #30 tabs 10/03/20 10/17/21 11:00 Rx benazepril 10 mg tablet 10 mg PO DAILY 02/11/22 Unknown History rosuvastatin 20 mg tablet 20 mg PO DAILY 09/28/23 Unknown History aspirin 81 mg capsule 81 mg PO DAILY 01/06/24 Unknown History tamsulosin 0.4 mg capsule (Flomax) 0.4 mg PO QHS 01/06/24 Unknown History Allergy/AdvReac Type Severity Reaction Status Date / Time atorvastatin AdvReac Severe GALLARDO, Verified 01/19/24 11:05 Nausea, Myalgias Family History Mother Cancer Rectal Father Cancer Rectal Surgical History History of bilateral cataract extraction Hx of cystoscopy History of back surgery History of tonsillectomy Social History Smoking Status: Former smoker second hand exposure: No alcohol intake: current details: moderate use, 2-3 beers per week substance use type: does not use caffeine: Yes
[2024-01-19] MEDS: Cefazolin 2 GM in 0.9% Normal Saline (100mL Bag) 100 ML IV (12:40)
--- NOTE | 2024-01-19 12:50 | HP.PCM_ITS ---
[facility] - General General Date of Service: 01/19/24 Chief Complaint: Left ureteral calculi HPI Narrative KRISTIN MC, is a 78 M who presents for laser of a stone in the left mid ureter PFSH Medical History Enlarged prostate High cholesterol Back pain Former smoker Wears glasses Shortness of breath on exertion Pneumonia Mitral valve stenosis Essential hypertension Family history of colon cancer in mother Family history of colon cancer in father Personal history of colonic polyps DDD (degenerative disc disease) Spinal stenosis GLORIA (obstructive sleep apnea) Hypertension Hyperlipidemia Cardiomegaly Other secondary pulmonary hypertension Home Medications ?Medication ?Instructions ?Recorded ?Last Taken ?Type finasteride 5 mg tablet (Proscar) 5 mg PO QHS prostate 01/21/16 09/28/20 History amlodipine 10 mg tablet 10 mg PO DAILY #30 tabs 10/03/20 10/17/21 11:00 Rx benazepril 10 mg tablet 10 mg PO DAILY 02/11/22 Unknown History rosuvastatin 20 mg tablet 20 mg PO DAILY 09/28/23 Unknown History aspirin 81 mg capsule 81 mg PO DAILY 01/06/24 Unknown History tamsulosin 0.4 mg capsule (Flomax) 0.4 mg PO QHS 01/06/24 Unknown History ciprofloxacin HCl 500 mg tablet 500 mg PO BID #10 tabs 01/19/24 Unknown Rx (Cipro) oxycodone 10 mg tablet 10 mg PO Q6H PRN pain 7 days #14 01/19/24 Unknown Rx tabs Allergy/AdvReac Type Severity Reaction Status Date / Time atorvastatin AdvReac Severe GALLARDO, Verified 01/19/24 11:05 Nausea, Myalgias Family History Mother Cancer Rectal Father Cancer Rectal Surgical History History of bilateral cataract extraction Hx of cystoscopy History of back surgery History of tonsillectomy Social History Smoking Status: Former smoker second hand exposure: No alcohol intake: current details: moderate use, 2-3 beers per week substance use type: does not use caffeine: Yes Vital Signs Vital Signs Vital Signs: 01/19/24 11:11 01/19/24 11:11 01/19/24 12:10 Temperature 97.2 F L 97.2 F L Temperature Source Temporal Pulse Rate 86 86 Respiratory Rate 16 16 Respiratory Pattern Normal Blood Pressure 125/52 H 125/52 H Blood Pressure Mean 76 Blood Pressure Source Monitor Blood Pressure Position Semi-Fowlers Blood Pressure Location Right Arm Pulse Ox 97 97 Oxygen Delivery Method Room Air Weight Weight: 109 kg Body Mass Index (BMI) 35.4
--- NOTE | 2024-01-19 12:51 | DCINST_ITS ---
Discharge Instructions Diet Discharge Diet: No restrictions Activity Discharge Activity: Return to Normal Activity and May Not Drive (while taking narcotic pain medications.) Dressing / Incision Call your doctor if you observe: Fever of 101 or Higher Follow Up Care Please Follow Up With: Jad Jackson MD When: Call [phone] for an appointment Test Results: Test results from this visit will be discussed in further detail at your follow- up appointment, if applicable. Discharge Plan Admission Primary Reason for Your Visit: laser of left stone Attending Provider: Jad Jackson Primary Care Provider: Bhupendra Brown Instructions Print Language: Pakistani Discharge Orders/Prescriptions Prescriptions: New ciprofloxacin HCl [Cipro] 500 mg tablet 500 mg PO BID Qty: 10 0RF oxycodone 10 mg tablet 10 mg PO Q6H PRN (Reason: pain) 7 Days Qty: 14 0RF Continued benazepril 10 mg tablet 10 mg PO DAILY rosuvastatin 20 mg tablet 20 mg PO DAILY Patient Comments: TAKE 1 TABLET BY MOUTH EVERY DAY IN THE AFTERNOON.STOP SIMVASTATIN finasteride [Proscar] 5 MG tablet 5 mg PO QHS amlodipine 10 MG tablet 10 mg PO DAILY Qty: 30 0RF aspirin 81 mg capsule 81 mg PO DAILY tamsulosin [Flomax] 0.4 mg capsule 0.4 mg PO QHS Referrals / Follow Up: Bhupendra Brown DO [Primary Care Provider] - Jad Jackson MD [Med Staff - Active Staff] - Disposition Disposition (needs filled in before D/C Order can be placed): Home, Self Care
--- NOTE | 2024-01-19 13:11 | PCM.OPRPT ---
Report of Operation Date of Procedure: 01/19/24 Pre-Operative Diagnosis: Left ureteral calculus Post-Operative Diagnosis: The same Surgery/Procedure Performed:: Cystoscopy, left ureteroscopy, left laser of ureteral stones. Description of Surgical Findings:: Patient was taken back to the operating [facility] with induction of general anesthesia he was placed in dorsolithotomy position. He has a stone in the mid left ureter not been able to pass spontaneously so today working to proceed with laser lithotripsy of the stone possibly may need to put a stent in. Patient was taken back to the operating room after smooth induction of general anesthesia he was placed in dorsolithotomy position. Went into the bladder with a 21 Wallisian rigid cystourethroscope and a 5 Wallisian open-ended ureteral catheter I then cannulated the left ureteral orifice with a wire and the catheter the wire went up the kidney quite easily I then left the wire in place it was a 0.038 Glidewire and over the wire I went in with a 7 Wallisian flexible Olympus ureteroscope was able to get into the ureter fairly easily I then went up to the stone I encountered the stone in the mid ureter I proceeded with laser lithotripsy using the high pulsed thulium laser the stone was lasered completely into dust I then went into the kidney I found another stone in the upper pole kidney this was lasered to dust and found another pile of small stones in the lower pole kidney this was also lasered to dust the stones did not appear to be infectious in nature so I will put put him on antibiotics for 2 weeks. I then worked my way down the ureter no other stones were seen along the course of the ureter fairly traumatic injury to the ureters I decided not to leave the stent in since all the stones were lasered successfully no major fragments and very minimal trauma to the ureter. No stent was placed bladder was drained patient anesthetic reversed and plan to see him back in about a month for checkup. Surgeon: Jad Jackson Type of Anesthesia: General Drains: none Estimated Blood Loss (mL): 0 Admit VTE Documentation VTE Present on Admission: No VTE Mechan Device Prophylaxis: SCD's VTE Pharm Prophylaxis ordered?: No
--- NOTE | 2024-01-19 13:21 | PCM.POST.ANE ---
Anesthesia: Postop Eval I Current Vital Signs Temperature: 97.4 F Pulse Rate: 82 Blood Pressure: 114/59 Respiratory Rate: 16 Pulse Ox: 93 Oxygen Delivery Method: Nasal Cannula (2L) Oxygen Flow Rate (L/min): 2 Assessment Airway patent: Yes Spontaneous unlabored respirations: Yes Mental status: Awake and Calm nausea: No Vomiting: No Anesthesia Complication: No Fluid Hydration Crystalloid volume administer (ml): 600 Total IV fluid infused: 600 Progress Note Anesthesia document: Postop Eval 1 completed: Yes
[2024-01-19] MEDS: Ketorolac 30 MG/ML Syringe IV (13:56)
--- NOTE | 2024-01-19 14:48 | POSTOPAN2_ITS ---
Anesthesia Postop Eval I Sum Postop Eval Completion status Anesthesia document: Postop Eval 1 completed: Yes Anesthesia Postop Eval I Summary Anesthesia Postop Eval I Summary: Anesthesia Postop Eval I: Assessment Summary Airway patent Yes 01/19/24 13:25 INSURANCE MARKETING REP.GDOTT Spontaneous unlabored Yes 01/19/24 13:25 INSURANCE MARKETING REP.GDOTT respirations Mental status Awake,Calm 01/19/24 13:25 INSURANCE MARKETING REP.GDOTT nausea No 01/19/24 13:25 INSURANCE MARKETING REP.GDOTT Vomiting No 01/19/24 13:25 INSURANCE MARKETING REP.GDOTT Anesthesia Postop Eval I: Fluid Summary Crystalloid volume administer 600 01/19/24 13:25 INSURANCE MARKETING REP.GDOTT (ml) Colloids volume administered ( ml) Blood Product volume administered (ml) Total IV fluid infused 600 01/19/24 13:25 INSURANCE MARKETING REP.GDOTT Anesthesia Postop Eval I: Summary Notes Anesthesia Complication No 01/19/24 13:25 INSURANCE MARKETING REP.GDOTT Anesthesia Complication Comment: Post-operative progress note Anesthesia: Postop Eval II Evaluation Mental status: Awake and Calm Pain Level: 0 nausea: No Vomiting: No Complications Anesthesia Complication: No
--- NOTE | 2024-01-19 14:48 | PCM.POSTANE2 ---
Anesthesia Postop Eval I Sum Postop Eval Completion status Anesthesia document: Postop Eval 1 completed: Yes Anesthesia Postop Eval I Summary Anesthesia Postop Eval I Summary: Anesthesia Postop Eval I: Assessment Summary Airway patent Yes 01/19/24 13:25 QUALITY CONTROL ASSESSOR.[email or web address] Spontaneous unlabored Yes 01/19/24 13:25 QUALITY CONTROL ASSESSOR.GDOTT respirations Mental status Awake,Calm 01/19/24 13:25 QUALITY CONTROL ASSESSOR.GDOTT nausea No 01/19/24 13:25 QUALITY CONTROL ASSESSOR.GDOTT Vomiting No 01/19/24 13:25 QUALITY CONTROL ASSESSOR.GDOTT Anesthesia Postop Eval I: Fluid Summary Crystalloid volume administer 600 01/19/24 13:25 QUALITY CONTROL ASSESSOR.GDOTT (ml) Colloids volume administered ( ml) Blood Product volume administered (ml) Total IV fluid infused 600 01/19/24 13:25 QUALITY CONTROL ASSESSOR.GDOTT Anesthesia Postop Eval I: Summary Notes Anesthesia Complication No 01/19/24 13:25 QUALITY CONTROL ASSESSOR.GDOTT Anesthesia Complication Comment: Post-operative progress note Anesthesia: Postop Eval II Evaluation Mental status: Awake and Calm Pain Level: 0 nausea: No Vomiting: No Complications Anesthesia Complication: No
== END 2024-01-19 15:00 | disposition home or self-care (01) ==
LOC: SDC 10:44 → AC 10:45
PROVIDERS: PCP Family Medicine; Referring Provider Urology; Visit Provider Urology
PROC: 0TJ98ZZ Inspection of Ureter, Via Natural or Artificial Opening Endoscopic (ICD-10-PCS; CPT 52352; principal; 2024-01-19 12:30)
DX: N20.1 Calculus of ureter (principal); E78.5 Hyperlipidemia, unspecified; I10 Essential (primary) hypertension; Z80.0 Family history of malignant neoplasm of digestive organs; Z87.891 Personal history of nicotine dependence; I05.0 Rheumatic mitral stenosis; Z86.010 Personal history of colon polyps
CPT/HCPCS: 52353; 00918; J7120; C1769; J2405

== ENCOUNTER → 2025-02-08 | Outpatient (CLI) | payer MEDICARE, OTHER, SELFPAY ==
--- NOTE | 2025-02-08 13:01 | ECHOCS_ITS ---
Reason For Study Reason For Study: RHEUMATIC MITRAL STENOSIS (MURMUR) Procedure This was a 2D Doppler, Color Flow transthoracic echocardiogram. The study was technically difficult. Due to body habitus. Contrast injection was performed. Exam performed in department. Left Ventricle Normal LV size. Left ventricular systolic function is normal. The left ventricular ejection fraction is 65 %. Stage 1 diastolic dysfunction. No regional wall motion abnormalities noted. Right Ventricle Normal RV size. Normal systolic function. Atria The left atrium is mildly enlarged. Normal right atrium. Mitral Valve Normal mitral valve. Tricuspid Valve Normal tricuspid valve. Pulmonic Valve The pulmonic valve is not well visualized. Great Vessels Normal aortic root. The pulmonary artery is normal size. Inferior vena cava collapse with respiration. Pericardium/Pleural No pericardial effusion. Medication 22 gauge I.V. with prn adaptor inserted into right arm. Diluted definity 4.0ml given slow IV push to enhance endocardial definition. MMode/2D Measurements & Calculations LVIDd: 4.3 cm IVSd: 1.0 cm Ao root diam: 2.9 cm LVIDs: 2.5 cm LVPWd: 1.2 cm FS: 41.3 % LAV(MOD-bp): 55.4 ml LVAd ap4: 25.5 cm2 SV(MOD-sp4): 38.0 ml LAV(MOD-bp) Indexed: 24.8 ml/m2 LVLd ap4: 7.6 cm SI(MOD-sp4): 17.0 ml/m2 LAV(MOD-sp2): 44.1 ml EDV(MOD-sp4): 68.3 ml LAV(MOD-sp4): 69.5 ml EDV(sp4-el): 72.2 ml LVAs ap4: 15.3 cm2 LVLs ap4: 6.6 cm ESV(MOD-sp4): 30.3 ml ESV(sp4-el): 30.2 ml EF(MOD-sp4): 55.6 % EF(sp4-el): 58.2 % SV(sp4-el): 42.0 ml LA A4 area: 22.9 cm2 LA dimension(2D): 3.9 cm RA A4 area: 14.8 cm2 TAPSE: 2.5 cm Time Measurements MV dec time: 0.19 sec Doppler Measurements & Calculations MV E max alex: 90.6 cm/sec Lat Peak E' Alex: 7.6 cm/sec Med Peak E' Alex: 9.4 cm/sec MV A max alex: 104.8 cm/sec E/E' lat: 11.9 E/E' med: 9.7 MV E/A: 0.86 MV V2 max: 114.7 cm/sec MV P1/2t max alex: 98.9 cm/sec Ao V2 max: 138.8 cm/sec MV max P.3 mmHg MV P1/2t: 46.5 msec Ao max P.7 mmHg MV V2 mean: 61.8 cm/sec Ao V2 mean: 88.7 cm/sec MV mean P.8 mmHg MV dec slope: 623.3 cm/sec2 Ao mean P.6 mmHg MV V2 VTI: 26.8 cm MVA(P1/2t): 4.7 cm2 Ao V2 VTI: 23.7 cm AV (velocity ratio): 0.75 LV V1 max: 85.9 cm/sec PA V2 max: 84.0 cm/sec LV V1 max P.0 mmHg LV V1 mean P.7 mmHg LV V1 mean: 62.1 cm/sec LV V1 VTI: 17.7 cm ECHO/Echo Complete W/ Contrast Interpretation Summary Normal LV size. Left ventricular systolic function is normal. The left ventricular ejection fraction is 65 %. Stage 1 diastolic dysfunction. Contrast injection was performed. Ordering Physician: Luis Puga Referring Physician: Bhupendra Brown Performed By: Sharyn Muhammad, PAMCS, RVT
== END | disposition home or self-care (01) ==
LOC: CVS 12:57
PROVIDERS: PCP Family Medicine; Referring Provider Internal Medicine Cardiovascular Disease; Visit Provider Internal Medicine Cardiovascular Disease
DX: I05.0 Rheumatic mitral stenosis (principal)
CPT/HCPCS: 93306; Q9957; A4216; C8929

== ENCOUNTER → 2025-02-20 | Outpatient (CLI) | payer MEDICARE, OTHER, SELFPAY ==
--- NOTE | 2025-02-20 14:42 | RAD_ITS ---
PROCEDURE: ABDOMEN SINGLE VIEW 02/20/2025 REASON FOR EXAM: PERSONAL HX OF URINARY CALCULI TECHNIQUE: ABDOMEN SINGLE VIEW COMPARISON: CT abdomen and pelvis 12/14/2023, abdominal radiograph 06/08/2022 FINDINGS: Bowel gas: Bowel gas pattern is normal. No evidence of bowel obstruction. Calcifications: No suspicious calcifications. Bones: There are degenerative changes of the spine and hips. RAD/Abdomen Single View IMPRESSION: No radiographic evidence of renal stone. Reading Location: [facility]
[2025-02-20 16:46] LABS: PSA,Total - Annual Screen 0.66 ng/mL (0.02-4.00)
--- OUTSIDE RECORDS SUMMARY | 2025-02-20 21:13 | XMS RPT_ITS | CCD ---
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 Bhupendra Brown Primary Care Provider Dr. Bhupendra Brown Referring Provider [phone] Dr. Henry Weston Attending Provider Dr. Bhupendra Brown Primary Care Provider Dr. Henry Weston Attending Provider Bhupendra Brown DO Primary Care Provider Bhupendra Brown DO Primary Care Provider Bhupendra Brown DO Primary Care Provider [phone] Bhupendra Brown DO Primary Care Provider Ciaran Mary Referring Unavailable Ciaran Mary Attending Unavailable BHUPENDRA BROWN Primary Care Unavailable Ciaran Mary Attending Unavailable BHUPENDRA BROWN Attending Unavailable BHUPENDRA BROWN Primary Care Unavailable BHUPENDRA BROWN Attending Unavailable BHUPENDRA BROWN Primary Care Unavailable Dr. Bhupendra Brown DO Primary Care Provider [phone] Dr. Bhupendra Brown DO Referring Provider [phone] Dr. Luis Puga MD Attending Provider [phone] Dr. Luis Puga MD Referring Provider [phone] Bhupendra Brown Primary Care Unavailable Edd, [place] Attending Unavailable Bhupendra Brown Referring Unavailable Bhupendra Brown Primary Care Unavailable Luis Puga Attending Unavailable Bhupendra Brown Primary Care Unavailable Edd, [place] Referring Unavailable Edd, Luis Attending Unavailable Allergies Allergy Classification Reported Allergen(s) Allergy Type Date of Onset Reaction(s) Facility (1 source) atorvastatin Drug Allergy 6 headache, nausea aches and pains. [facility] Work Phone: (20 sources) Lisinopril Drug Allergy 6 Other [facility] Work Phone: (3 sources) atorvastatin Drug Allergy 2 GALLARDO, Nausea, Myalgias [facility] (20 sources) atorvastatin Drug Allergy 6 [facility] (20 sources) ezetimibe / Simvastatin Drug Allergy 5 Other [facility] (20 sources) Non-steroidal anti-inflammator y agent Drug Intolerance 1 Other [facility] (1 source) atorvastatin Drug Allergy 5 [facility] Repository Medications Current Medications Medication Drug Class(es) Dates Sig (Normalized) Sig (Original) amLODIPine 10 mg oral tablet (20 sources) Dihydropyridine Calcium Channel Jacques Start: 10-03-2020 End: 09-19-2024 take 1 tablet by mouth once daily Amlodipine 10 MG tablet Active 10 mg PO DAILY 30 0 October 03, 2020 1:00am Start: 06-10-2018 End: 10-03-2020 take 1 tablet by mouth at bedtime Amlodipine 2.5 mg tablet Discontinued 2.5 mg PO AT BEDTIME June 10, 2018 1:00am October 03, 2020 11:06am bp Start: 02-05-2016 End: 06-10-2018 take 1 tablet by mouth once daily Amlodipine 5 mg tablet Discontinued 5 mg PO daily 90 3 March 23, 2018 8:39am June 10, 2018 2:34pm Start: 02-05-2016 take 1 tablet by dolly th once daily AMLODIPINE BESYLATE 10 MG TABS One tablet by mouth daily AMLODIPINE BESYLATE [id number] Gemini Mckeon PA-C aspirin 81 mg oral tablet (20 sources) Platelet Aggregation Inhibitor, Nonsteroidal Anti-inflammatory Drug Start: 01-06-2024 End: 06-12-2024 take 1 capsule by mouth once daily Aspirin 81 mg capsule Active 81 mg PO DAILY January 06, 2024 12:00am Start: 01-09-2016 End: 10-10-2021 take 1 tablet by mouth once daily Aspirin 81 MG tablet,delayed release (DR/EC) Discontinued 81 mg PO DAILY January 21, 2016 12:00am October 10, 2021 5:24pm [facility] benazepril hydrochloride 10 mg oral tablet (20 sources) Angiotensin Converting Enzyme Inhibitor Start: 02-11-2022 End: 01-08-2025 take 1 tablet by mouth once daily benazepril (Lotensin) 10 MG tablet TAKE 1 TABLET (10 MG) BY MOUTH DAILY. 90 tablet 1 01/08/2025 Active ciprofloxacin 500 mg oral tablet (12 sources) Quinolone Antimicrobial Start: 01-19-2024 take 1 tablet by mouth once daily Ciprofloxacin Hcl (Cipro) 500 mg tablet Active 500 mg PO DAILY 30 January 19, 2024 12:00am Start: 01-19-2024 End: 11-16-2024 take 1 tablet by mouth twice daily Ciprofloxacin Hcl (Cipro) 500 mg tablet Discontinued 500 mg PO TWICE A DAY 10 January 19, 2024 12:00am November 16, 2024 2:53pm Start: 12-09-2023 End: 12-16-2023 take 1 tablet by mouth twice daily ciprofloxacin (Cipro) 500 MG tablet Take 1 tablet (500 mg) by mouth 2 times daily for 7 days. 14 tablet 0 12/09/2023 12/16/2023 Start: 10-10-2021 End: 02-11-2022 take 1 tablet by mouth twice daily Ciprofloxacin Hcl (Cipro) 500 mg tablet Discontinued 500 mg PO TWICE A DAY 10 October 10, 2021 1:00am February 11, 2022 1:05pm finasteride 5 mg oral tablet (20 sources) 5-alpha Reductase Inhibitor Start: 01-09-2016 End: 01-22-2025 take 1 tablet by mouth at bedtime Finasteride (Proscar) 5 MG tablet Active 5 mg PO AT BEDTIME January 21, 2016 12:00am prostate oxyCODONE hydrochloride 10 mg oral tablet (1 source) Opioid Agonist Start: 01-19-2024 take 1 tablet by mouth every six hours as needed for pain Oxycodone 10 mg tablet Active 10 mg PO EVERY 6 HOURS as needed for pain 14 7 0 January 19, 2024 Calculus of ureter Calculus of ureter predniSONE 10 mg oral tablet (1 source) Start: 01-22-2025 predniSONE (Deltasone) 10 MG tablet 5 qday for 3 days, then 3 qday for 3 days, then one qday till gone 27 tablet 5 01/22/2025 Active rosuvastatin calcium 20 mg oral tablet (20 sources) HMG-CoA Reductase Inhibitor Start: 06-10-2023 End: 01-08-2025 take 1 tablet by mouth once daily Rosuvastatin 20 mg tablet Active 20 mg PO DAILY September 28, 2023 1:00am tamsulosin hydrochloride 0.4 mg oral capsule (4 sources) alpha-Adrenergic Jacques Start: 12-23-2023 take 1 capsule by mouth at bedtime Tamsulosin (Flomax) 0.4 mg capsule Active 0.4 mg PO AT BEDTIME January 06, 2024 12:00am Completed/Discontinued Medications Medication Drug Class(es) Dates Sig (Normalized) Sig (Original) acetaminophen 325 mg / oxyCODONE hydrochloride 5 mg oral tablet (6 sources) Opioid Agonist Start: 10-10-2021 End: 02-11-2022 Oxycodone-Acetamino phen 5-325 mg tablet Discontinued 1 {tbl} PO EVERY 6 HOURS as needed for pain 10 7 0 October 17, 2021 February 11, 2022 1:05pm Calculus of ureter Calculus of ureter Start: 10-10-2021 End: 02-11-2022 take 1 tablet by mouth every six hours Oxycodone-Acetaminophen Discontinued 1 TABLET PO EVERY 6 HOURS 10 7 October 17, 2021 February 11, 2022 12:05pm calcium chloride 0.0014 meq/ml / potassium chloride 0.004 meq/ml / sodium chloride 0.103 meq/ml / sodium lactate 0.028 meq/ml injectable solution (1 source) Start: 02-07-2024 End: 02-07-2024 lactated ringers iv infusion dexamethasone 6 mg oral tablet (3 sources) Corticosteroid Start: 10-03-2020 End: 10-10-2020 take 1 tablet by mouth once daily Dexamethasone 6 MG tablet Discontinued 6 mg PO DAILY 7 0 October 03, 2020 1:00am October 09, 2020 1:00am October 10, 2020 1:03am diphenhydrAMINE (1 source) Histamine-1 Receptor Antagonist Start: 02-07-2024 End: 02-07-2024 diphenhydrAMINE 12.5-50 mg injection (BENADRYL) 1 ml fentaNYL 0.05 mg/ml injection (1 source) Opioid Agonist Start: 02-07-2024 End: 02-07-2024 fentaNYL 50 mcg/mL 25-100 mcg injection (SUBLIMAZE) lisinopril 10 mg oral tablet (20 sources) Angiotensin Converting Enzyme Inhibitor Start: 10-03-2020 End: 02-11-2022 take 1 tablet by mouth once daily Lisinopril 10 MG tablet Discontinued 10 mg PO DAILY 30 0 October 03, 2020 1:00am February 11, 2022 1:04pm Start: 01-09-2016 End: 11-20-2022 take 1 tablet by mouth once daily Lisinopril 5 mg tablet Discontinued 5 mg PO DAILY 90 3 March 23, 2018 8:39am July 01, 2018 10:37am meloxicam 15 mg oral tablet (3 sources) Nonsteroidal Anti-inflammatory Drug Start: 12-13-2017 End: 01-31-2021 take 1 tablet by mouth once daily Meloxicam 15 mg tablet Discontinued 15 mg PO DAILY December 13, 2017 12:00am January 31, 2021 2:46pm pain 5 ml midazolam 1 mg/ml injection (1 source) Benzodiazepine Start: 02-07-2024 End: 02-07-2024 midazolam 1-5 mg injection (VERSED) naproxen sodium 220 mg oral tablet (3 sources) Nonsteroidal Anti-inflammatory Drug Start: 09-30-2020 End: 01-31-2021 take 1-10 tablets by mouth once daily as needed for pain Naproxen Sodium 220 MG tablet Discontinued 440 mg PO DAILY NEEDED as needed for Pain 1-10 Or Fever September 30, 2020 1:00am January 31, 2021 2:47pm Start: 09-30-2020 End: 01-31-2021 take 440 mg by mouth once daily as needed Naproxen Sodium Discontinued 440 MG PO DAILY NEEDED September 30, 2020 12:00am January 31, 2021 1:47pm ofloxacin 3 mg/ml ophthalmic solution (5 sources) Quinolone Antimicrobial Start: 06-06-2021 End: 11-20-2022 ofloxacin (Ocuflox) 0.3 % ophthalmic solution simvastatin 80 mg oral tablet (20 sources) HMG-CoA Reductase Inhibitor Start: 05-22-2022 End: 12-01-2023 take 1 tablet by mouth once daily simvastatin (Zocor) 80 MG tablet Take 1 tablet (80 mg) by mouth Nightly. 90 tablet 1 06/02/2023 06/10/2023 Discontinued (Alternate therapy) Start: 09-30-2020 End: 09-28-2023 take 1 tablet by mouth once daily Simvastatin 40 MG tablet Discontinued 40 mg PO DAILY September 30, 2020 1:00am September 28, 2023 4:34pm cholesterol Start: 01-09-2016 End: 12-13-2017 take 1 tablet by mouth at bedtime Simvastatin 20 MG tablet Discontinued 20 mg PO AT BEDTIME January 21, 2016 12:00am December 13, 2017 1:58pm Problems Active Problems Problem Classification Problem Date Documented Date Episodic/Chronic Acute and unspecified renal failure (2 sources) Kidney disease; Translations: [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)] Onset: 07-28-2021 01-22-2025 Episodic Calculus of urinary tract (20 sources) Ureteric stone; Translations: [Calculus of ureter] Onset: 11-21-2021 05-17-2022 Episodic Coronary atherosclerosis and other heart disease (20 sources) Coronary arteriosclerosis; Translations: [Atherosclerotic heart disease of [place] coronary artery without angina pectoris] Onset: 01-10-2017 Chronic Disorders of lipid metabolism (20 sources) Hyperlipidemia; Translations: [Hyperlipidemia, unspecified] Onset: 01-09-2016 01-09-2016 Chronic Diverticulosis and diverticulitis (20 sources) Diverticulosis of colon; Translations: [Diverticulosis of large intestine without perforation or abscess without bleeding] Onset: 10-01-2005 06-02-2022 Chronic Essential hypertension (20 sources) Hypertensive disorder; Translations: [Essential hypertension] Onset: 01-09-2016 Resolved: 05-24-2023 01-09-2016 Chronic Genitourinary symptoms and ill-defined conditions (4 sources) Blood in urine; Translations: [Hematuria, unspecified] 12-09-2023 Episodic Heart valve disorders (20 sources) Mitral valve stenosis; Translations: [Rheumatic mitral stenosis] Onset: 08-02-2021 Chronic Hyperplasia of prostate (20 sources) Benign prostatic hyperplasia; Translations: [Benign prostatic hyperplasia with lower urinary tract symptoms] Onset: 01-10-2017 Chronic Malaise and fatigue (3 sources) Fatigue; Translations: [Other fatigue] Onset: 01-22-2025 01-22-2025 Episodic Other and ill-defined heart disease (4 sources) Cardiomegaly; Translations: [Cardiomegaly] Onset: 01-21-2016 01-21-2016 Chronic Other and unspecified benign neoplasm (20 sources) History of polyp of colon; Translations: [Personal history of colonic polyps] Onset: 12-27-2014 Resolved: 12-27-2014 05-17-2022 Episodic Other and unspecified benign neoplasm (1 source) Polyp ; Translations: [Benign neoplasm, unspecified site] 02-15-2024 Episodic Other diseases of kidney and ureters (20 sources) Renal impairment; Translations: [Disorder of kidney and ureter, unspecified] Onset: 07-28-2021 05-17-2022 Episodic Other diseases of kidney and ureters (2 sources) Disorder of kidney and ureter, unspecified; Translations: [Disorder of kidney and ureter, unspecified] Onset: 05-17-2022 Episodic Other non-traumatic joint disorders (1 source) Bilateral pain of joint of hands; Translations: [Pain in joints of right hand] 01-22-2025 Episodic Other non-traumatic joint disorders (2 sources) Pain in joints of right hand; Translations: [Pain in joints of right hand] Onset: 01-22-2025 Episodic Other non-traumatic joint disorders (2 sources) Pain in joints of left hand; Translations: [Pain in joints of left hand] Onset: 01-22-2025 Episodic Other nutritional; endocrine; and metabolic disorders (1 source) Body mass index (BMI) 34.0-34.9, adult; Translations: [Body mass index (BMI) 34.0-34.9, adult] Onset: 01-09-2016 02-28-2016 Chronic Other nutritional; endocrine; and metabolic disorders (1 source) Body mass index (BMI) 35.0-35.9, adult; Translations: [Body mass index (BMI) 35.0-35.9, adult] Onset: 01-09-2016 01-09-2016 Chronic Other screening for suspected conditions (not mental disorders or infectious disease) (4 sources) Lung function testing abnormal; Translations: [Patient encounter status] Onset: 02-13-2016 02-13-2016 Episodic Pulmonary heart disease (4 sources) Other secondary pulmonary hypertension; Translations: [Secondary pulmonary hypertension] Onset: 02-12-2016 02-12-2016 Chronic Residual codes; unclassified (1 source) Obstructive sleep apnea of adult; Translations: [Obstructive sleep apnea (adult) (pediatric)] Onset: 12-09-2016 12-09-2016 Chronic Residual codes; unclassified (20 sources) Obstructive sleep apnea syndrome; Translations: [Obstructive sleep apnea (adult) (pediatric)] Onset: 01-10-2017 05-17-2022 Chronic Residual codes; unclassified (20 sources) Family history of cancer of colon; Translations: [Family history of malignant neoplasm of digestive organs] Onset: 10-01-2005 05-17-2022 Episodic Residual codes; unclassified (2 sources) Family history of malignant neoplasm of gastrointestinal tract; Translations: [Family history of malignant neoplasm of digestive organs] Onset: 10-01-2005 10-01-2005 Episodic Residual codes; unclassified (2 sources) Family history of malignant neoplasm of digestive organs; Translations: [Family history of malignant neoplasm of gastrointestinal tract] Onset: 10-01-2005 Episodic Urinary tract infections (1 source) Urinary tract infectious disease; Translations: [Urinary tract infection, site not specified] 12-09-2023 Episodic Viral infection (3 sources) Disease caused by 2019-nCoV; Translations: [COVID-19] 09-30-2020 Episodic Past or Other Problems Problem Classification Problem Date Documented Da te Episodic/Chronic Hemorrhoids (20 sources) Internal hemorrhoids; Translations: [Other hemorrhoids] Onset: 10-01-2005 Resolved: 05-24-2023 06-02-2022 Episodic Other and unspecified benign neoplasm (20 sources) Benign neoplasm of colon; Translations: [Benign neoplasm of colon, unspecified] Onset: 10-01-2005 Resolved: 11-20-2022 11-20-2022 Episodic Other diseases of kidney and ureters (20 sources) Cyst of kidney; Translations: [Cyst of kidney, acquired] Onset: 11-21-2021 05-17-2022 Episodic Other infections; including parasitic (20 sources) Personal history of other infectious and parasitic diseases; Translations: [History of COVID-19] Onset: 10-09-2020 05-17-2022 Episodic Other lower respiratory disease (1 source) Snoring; Translations: [Snoring] Onset: 09-14-2016 09-14-2016 Episodic Other lower respiratory disease (1 source) Dyspnea on exertion; Translations: [Other forms of dyspnea] Onset: 01-06-2016 01-06-2016 Episodic Other nutritional; endocrine; and metabolic disorders (20 sources) Morbid obesity; Translations: [Morbid (severe) obesity due to excess calories] Onset: 05-26-2021 Resolved: 05-24-2023 05-17-2022 Chronic Spondylosis; intervertebral disc disorders; other back problems (20 sources) Spinal stenosis of lumbar region; Translations: [Spinal stenosis, lumbar region without neurogenic claudication] Onset: 01-10-2017 05-17-2022 Episodic Results Test Name Value Interpretation Reference Range Facility Echocardiogram study reportO rdered By: Luis Puga on 02-11-2025 Study report [facility] [address] [place] [address]. [place] [address] Echo Complete W/ Contrast 02/08/25 1310 MR#: [id number] Acct: [id number] Name: ERICH FRANCO Rep #:[id number] : [id number] From: Luis Henson Attending Dr: Dr. Luis Puga MD S tatus: REG CLI Ordering Dr: Luis Puga MD Date: 05/26 Location: [facility] Sex: M C Admitted: Reason For Study Reason For Study: RHEUMATIC MITRAL STENOSIS (MURMUR) Procedure This was a 2D Doppler, Color Flow transthoracic echocardiogram. The study was technically difficult. Due to body habitus. Contrast injection was performed. Exam performed in department. Left Ventricle Normal LV size. Left ventricular systolic function is normal. The left ventricular ejection fraction is 65 %. Stage 1 diastolic dysfunction. No regional wall motion abnormalities noted. Right Ventricle Normal RV size. Normal systolic function. Atria The left atrium is mildly enlarged. Normal right atrium. Mitral Valve Normal mitral valve. Tricuspid Valve Normal tricuspid valve. Pulmonic Valve The pulmonic valve is not well visualized. Great Vessels Normal aortic root. The pulmonary artery is normal size. Inferior vena cava collapse with respiration. Pericardium/Pleural No pericardial effusion. Medication 22 gauge I.V. with prn adaptor inserted into right arm. Diluted definity 4.0ml given slow IV push to enhance endocardial definition. MMode/2D Measurements & Calculations LVIDd: 4.3 cm IVSd: 1.0 cm Ao root diam: 2.9 cm LVIDs: 2.5 cm LVPWd: 1.2 cm FS: 41.3 % LAV(MOD-bp): 55.4 ml LVAd ap4: 25.5 cm2 SV(MOD-sp4): 38.0 ml LAV(MOD-bp) Indexed: 24.8 ml/m2 LVLd ap4: 7.6 cm SI(MOD-sp4): 17.0 ml/m2 LAV(MOD-sp2): 44.1 ml EDV(MOD-sp4): 68.3 ml LAV(MOD-sp4): 69.5 ml EDV(sp4-el): 72.2 ml LVAs ap4: 15.3 cm2 LVLs ap4: 6.6 cm ESV(MOD-sp4): 30.3 ml ESV(sp4-el): 30.2 ml EF(MOD-sp4): 55.6 % EF(sp4-el): 58.2 % SV(sp4-el): 42.0 ml LA A4 area: 22.9 cm2 LA dimension(2D): 3.9 cm RA A4 area: 14.8 cm2 TAPSE: 2.5 cm Time Measurements MV dec time: 0.19 sec Doppler Measurements & Calculations MV E max arlette: 90.6 cm/sec Lat Peak E' Arlette: 7.6 cm/sec Med Peak E' Arlette: 9.4 cm/sec MV A max arlette: 104.8 cm/sec E/E' lat: 11.9 E/E' med: 9.7 MV E/A: 0.86 MV V2 max: 114.7 cm/sec MV P1/2t max arlette: 98.9 cm/sec Ao V2 max: 138.8 cm/sec MV max P.3 mmHg MV P1/2t: 46.5 msec Ao max P.7 mmHg MV V2 mean: 61.8 cm/sec Ao V2 mean: 88.7 cm/sec MV mean P.8 mmHg MV dec slope: 623.3 cm/sec2 Ao mean P.6 mmHg MV V2 VTI: 26.8 cm MVA(P1/2t): 4.7 cm2 Ao V2 VTI: 23.7 cm AV (velocity ratio): 0.75 LV V1 max: 85.9 cm/sec PA V2 max: 84.0 cm/sec LV V1 max P.0 mmHg LV V1 mean P.7 mmHg LV V1 mean: 62.1 cm/sec LV V1 VTI: 17.7 cm ECHO/Echo Complete W/ Contrast Interpretation Summary Normal LV size. Left ventricular systolic function is normal. The left ventricular ejection fraction is 65 %. Stage 1 diastolic dysfunction. Contrast injection was performed. Ordering Physician: Luis Puga Referring Physician: Bhupendra Brown Performed By: Sharyn Muhammad RDCS, RVT 02/11/25 1539 Date _ Luis Puga MD CC: Dr. 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 [address] Echo Complete W/ Contrast 02/08/25 1310 MR#: [id number] Acct: [id number] Name: ERICH FRANCO Rep #: [id number] : 1945 79 From: Luis Puga MD Attending Dr: Dr. Luis Puga MD Status: REG C Ordering Dr: Luis Puga MD Date: 02/08/25 Location: [facility] Sex: M C Admitted: Reason For Study Reason For Study: RHEUMATIC MITRAL STENOSIS (MURMUR) Procedure This was a 2D Doppler, Color Flow transthoracic echocardiogram. The study was technically difficult. Due to body habitus. Contrast injection was performed. Exam performed in department. Left Ventricle Normal LV size. Left ventricular systolic function is normal. The left ventricular ejection fraction is 65 %. Stage 1 diastolic dysfunction. No regional wall motion abnormalities noted. Right Ventricle Normal RV size. Normal systolic function. Atria The left atrium is mildly enlarged. Normal right atrium. Mitral Valve Normal mitral valve. Tricuspid Valve Normal tricuspid valve. Pulmonic Valve The pulmonic valve is not well visualized. Great Vessels Normal aortic root. The pulmonary artery is normal size. Inferior vena cava collapse with respiration. Pericardium/Pleural No pericardial effusion. Medication 22 gauge I.V. with prn adaptor inserted into right arm. Diluted definity 4.0ml given slow IV push to enhance endocardial definition. MMode/2D Measurements Calculations LVIDd: 4.3 cm IVSd: 1.0 cm Ao root diam: 2.9 cm LVIDs: 2.5 cm LVPWd: 1.2 cm FS: 41.3 % LAV(MOD-bp): 55.4 ml LVAd ap4: 25.5 cm2 SV(MOD-sp4): 38.0 ml LAV(MOD-bp) Indexed: 24.8 ml/m2 LVLd ap4: 7.6 cm SI(MOD-sp4): 17.0 ml/m2 LAV(MOD-sp2): 44.1 ml EDV(MOD-sp4): 68.3 ml LAV(MOD-sp4): 69.5 ml EDV(sp4-el): 72.2 ml LVAs ap4: 15.3 cm2 LVLs ap4: 6.6 cm ESV(MOD-sp4): 30.3 ml ESV(sp4-el): 30.2 ml EF(MOD-sp4): 55.6 % EF(sp4-el): 58.2 % SV(sp4-el): 42.0 ml LA A4 area: 22.9 cm2 LA dimension(2D): 3.9 cm RA A4 area: 14.8 cm2 TAPSE: 2.5 cm Time Measurements MV dec time: 0.19 sec Doppler Measurements Calculations MV E max arlette: 90.6 cm/sec Lat Peak E' Arlette: 7.6 cm/sec Med Peak E' Arlette: 9.4 cm/sec MV A max arlette: 104.8 cm/sec E/E' lat: 11.9 E/E' med: 9.7 MV E/A: 0.86 MV V2 max: 114.7 cm/sec MV P1/2t max arlette: 98.9 cm/sec Ao V2 max: 138.8 cm/sec MV max P.3 mmHg MV P1/2t: 46.5 msec Ao max P.7 mmHg MV V2 mean: 61.8 cm/sec Ao V2 mean: 88.7 cm/sec MV mean P.8 mmHg MV dec slope: 623.3 cm/sec2 Ao mean P.6 mmHg MV V2 VTI: 26.8 cm MVA(P1/2t): 4.7 cm2 Ao V2 VTI: 23.7 cm AV (velocity ratio): 0.75 LV V1 max: 85.9 cm/sec PA V2 max: 84.0 cm/sec LV V1 max P.0 mmHg LV V1 mean P.7 mmHg LV V1 mean: 62.1 cm/sec LV V1 VTI: 17.7 cm ECHO/Echo Complete W/ Contrast Interpretation Summary Normal LV size. Left ventricular systolic function is normal. The left ventricular ejection fraction is 65 %. Stage 1 diastolic dysfunction. Contrast injection was performed. Ordering Physician: Luis Puga Referring Physician: Bhupendra Brown Performed By: Sharyn Muhammad RDCS, RVT 02/11/25 1539 Date Luis Puga MD CC: Dr. Luis Puga MD; Dr. 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 mets to liver, age 89 Kidney disease Father Comments: of CRF age 76 Colon cancer Father 60 Other Sister Comments: post flu complications age 65 in 04/18 Other Brother Comments: Parkisons age 55 ? German synd No Known Problems Brother Family Status - Relation Status Age at Mother 88 Father 76 Sister Brother 55 Brother Alive Maternal Grandmother Maternal Grandfather Paternal Grandmother Paternal Grandfather Level of Service:54615 NM OFFICE/OUTPATIENT ESTABLISHED LOW MDM 20 MIN Reason for Visit and Comments: Follow-up [814752] - Med Check Arthritis [[id number]] - Hands and shoulders feet tight and cramped Normal [facility] Progress Noteon 01-22-2025 Progress Note [facility] - [address] [facility] [id number] Visit type: Established Patient Reason for Visit: Follow-up (Med Check ) and Arthritis (Hands and shoulders feet tight and cramped ) Assessment / Plan: Erich was seen today for follow-up and arthritis. Diagnoses and all orders for this visit: Arthralgia of both hands (Primary) Comments: New onset, prednisone to check lab Orders: - CBC auto differential; Future - Comprehensive metabolic panel; Future - Sedimentation rate, automated; Future - C-reactive protein; Future - SHIN; Future - CK; Future - Rheumatoid factor; Future - CBC auto differential - Comprehensive metabolic panel - Sedimentation rate, automated - C-reactive protein - SHIN - CK - Rheumatoid factor Other fatigue - TSH; Future - T4, free; Future - T3, free; Future - TSH - T4, free - T3, free Essential hypertension Comments: Stable, continue benazepril and amlodipine Renal insufficiency Comments: Improved with no NSAIDs due to history of elevated creatinine with NSAIDs Hypercholesterolemia 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 - predniSONE (Deltasone) 10 MG tablet; 5 qday for 3 days, then 3 qday for 3 days, then one qday till gone Subjective: Patient ID: Erich Franco is a 79 y.o. male. HPI stable hypertensive patient presents with a few months of substantial joint stiffness and pain of both wrists and hands. Also very tender shoulders with limited range of motion. Some lower extremity stiffness but not as bad. Of note cannot take NSAIDs due to history of nephropathy and not getting by on Tylenol and muscle rubs and creams. Joint stiffness and pain takes about 6 to 7 hours to resolve. Review of Systems No constitutional symptoms of fever or recent infection. No ongoing sore throat or cough. Denies exertional chest pain or smothering. Eating and voiding well. No bowel or bladder changes. No skin changes of erythema nodosum. Denies alopecia. Allergies[1] Current Medications[2] Problem List[3] Social History Tobacco Use Smoking status: Former Current packs/day: 0.00 Average packs/day: 1 pack/day for 37.0 years (37.0 ttl pk-yrs) Types: Cigarettes Start date: 05/23/1960 Quit date: 05/31/1997 Years since quittin.6 Smokeless tobacco: Never Substance Use Topics Alcohol use: Yes Alcohol/week: 2.0 standard drinks of alcohol Surgical History[4] Family History[5] Objective: BP 120/60 Pulse 91 Temp 36.3 ?C (97.4 ?F) (Temporal) Ht 5' 8" (1.727 m) Wt 237 lb (108 kg) SpO2 94% BMI 36.04 kg/m? Physical Exam no acute distress. No neck masses or thyroid lesions. Normal oropharynx. Not in icteric. There is some joint swelling of the metacarpal phalangeal joints and PIP joints. No erythema nodosum. Limited abduction and flexion of the shoulders. Lower extremities exam was unremarkable. No erythema nodosum. There is no weakness of any extremities. His gait is normal. Heart is regular without murmurs. Lungs are clear. Abdomen obese nontender without pain hepatosplenomegaly or masses. [1] Allergies Allergen Reactions Atorvastatin Other reaction(s): AOF, GALLARDO, Nausea, Myalgias, headache, nausea aches and pains. Other reaction(s): GALLARDO, Nausea, Myalgias Other reaction(s): GALLARDO, Nausea, Myalgias, headache, nausea aches and pains. Lisinopril Other Other reaction(s): headache, nausea aches and pains. Of note, tolerant of Benazepril Other reaction(s): headache, nausea aches and pains. Ezetimibe-Simvastatin Other Muscle pain Nsaids Other Mild CRF [2] Current Outpatient Medications: amLODIPine (Norvasc) 10 MG tablet, TAKE 1 TABLET (10 MG) BY MOUTH DAILY., Disp: 90 tablet, Rfl: 1 benazepril (Lotensin) 10 MG tablet, TAKE 1 TABLET (10 MG) BY MOUTH DAILY., Disp: 90 tablet, Rfl: 1 rosuvastatin (Crestor) 20 MG tablet, TAKE 1 TABLET BY MOUTH EVERY DAY, Disp: 90 tablet, Rfl: 1 finasteride (Proscar) 5 MG tablet, Take 1 tablet (5 mg) by mouth daily., Disp: 90 tablet, Rfl: 1 predniSONE (Deltasone) 10 MG tablet, 5 qday for 3 days, then 3 qday for 3 days, then one qday till gone, Disp: 27 tablet, Rfl: 5 [3] Patient Active Problem List Diagnosis History of COVID-19 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 [facility] 36on 01-08-2025 36 Recent Visits Date Type Provider Dept 06/12/24 Office Visit Bhupendra Brown DO [facility] Showing recent visits within past 365 days and meeting all other requirements Future Appointments Date Type Provider Dept 01/22/25 Appointment Bhupendra Brown DO [facility] Showing future appointments within next 90 days and meeting all other requirements Requested Prescriptions Pending Prescriptions Disp Refills rosuvastatin (Crestor) 20 MG tablet [Pharmacy Med Name: ROSUVASTATIN CALCIUM 20 MG TAB] 90 tablet 1 Sig: TAKE 1 TABLET BY MOUTH EVERY DAY benazepril (Lotensin) 10 MG tablet [Pharmacy Med Name: BENAZEPRIL HCL 10 MG TABLET] 90 tablet 1 Sig: TAKE 1 TABLET (10 MG) BY MOUTH DAILY. Provider: Liya Chadwick DO Verified pharmacy: yes Verified day(s) supplied: yes Verified refill(s) needed (previous prescription showing no refills in chart): Yes Have you received any controlled medications from any other provider? N/A Overdue for visit: No If yes - patient scheduled? N/A Most recent labs completed in chart? N/A None Normal [facility] Cardiology Visit Reporton Cardiology Visit Report [facility] [address] [place] [address] OFFICE VISIT Date of Service: 11/16/24 MR#: [id number] Acct: [id number] Name: ERICH FRANCO Rep #: [id number] : 1945 Provider: Dr. Luis Puga MD Age/Sex: 79/M Location: [facility] [place] Status: Signed HPI HPI History of Present Illness Details: This is a 79-year-old gentleman that presents here today for a cardiovascular follow-up with a history of mitral valve stenosis based upon previous diagnostic cardiac catheterization superimposed upon hyperlipidemia and hypertension. He denies chest, arm, jaw, or neck discomfort. He denies palpitations. He denies bilateral lower extremity edema. He denies claudication. He he states occasional shortness of breath during increased activity. This is unchanged from previous. He denies shortness of breath at rest, orthopnea, or PND. He denies chronic cough. He denies significant, sudden weight gain. He denies lightheadedness, dizziness, near-syncope, or syncope. He denies blood in urine, blood in stool, or epistaxis. He denies fever with chills. He denies myalgia. He denies fatigue. His exercise level has remained stable on account of weather and back pain. 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 Required: No Accompanied by: Self Is patient in pain?: No Allergies atorvastatin Adverse Reaction (Severe, Verified 11/16/24 14:52) GALLARDO, Nausea, Myalgias Medications ???Medication ???Instructions ???Recorded ???Confirmed ???Type finasteride 5 mg tablet (Proscar) 5 mg PO QHS prostate 01/21/16 History amlodipine 10 mg tablet 10 mg PO DAILY #30 tabs 10/03/20 0 11/16/24 Rx benazepril 10 mg tablet 10 mg PO DAILY 02/11/22 11/16/24 H istory rosuvastatin 20 mg tablet 20 mg PO DAILY 09/28/23 11/16/24 H istory aspirin 81 mg capsule 81 mg PO DAILY 01/06/24 11/16/24 H istory tamsulosin 0.4 mg capsule (Flomax) 0.4 mg PO QHS 01/06/24 11/16/24 History ciprofloxacin HCl 500 mg tablet 500 mg PO DAILY #30 tabs 01/19/24 11/16/24 Rx (Cipro) oxycodone 10 mg tablet 10 mg PO Q6H PRN pain 7 days #14 0 01/19/24 11/16/24 Rx tabs Have you fallen in the past year?: No PFSH Medical History Enlarged prostate High cholesterol Back pain Former smoker Wears glasses Shortness of breath on exertion Pneumonia Mitral valve stenosis Essential hypertension Family history of colon cancer in mother Family history of colon cancer in father Personal history of colonic polyps DDD (degenerative disc disease) Spinal stenosis GLORIA (obstructive sleep apnea) Hypertension Hyperlipidemia Cardiomegaly Other secondary pulmonary hypertension Surgical History History of bilateral cataract extraction Hx of cystoscopy History of back surgery History of tonsillectomy Family History Mother Cancer Rectal Father Cancer Rectal Social History Smoking Status: Former smoker second hand exposure: No alcohol intake: current details: moderate use, 2-3 beers per week substance use type: does not use caffeine: Yes ROS Const Const: Negative for fatigue, weakness, headache(s), daytime sleepiness or difficulty sleeping ENT ENT: Negative for headache(s), dizziness or Nosebleed/epistaxis Cardio Chest Pain: No Palpitations: No Edema: None Resp Respiratory: Negative for SOB with activity, SOB at rest, SOB orthopnea SOB lying down or Cough GI GI: Negative nausea, vomiting or heartburn Musc Musc: Positive for joint pain (hands - will f/u with PCP) Neuro Neuro: Negative for dizziness, lightheadedness, near syncope, headache(s) or weakness Endo Endo: Negative for fatigue Cardiology Exam Const Appearance: cooperative, healthy appearing, comfortable and no acute distress Nutritional Appearance: well nourished and obese Orientation: alert, awake and oriented x3 Head Head: normal to inspection Ears: hearing grossly normal bilaterally Nose: external nose normal Face and Sinus: face symmetric Mouth: moist mucous membranes Eyes General: appearance normal, both eyes and all related structures Eyelids: eyelids normal EOM: EOM intact bilaterally Neck Neck: normal visual inspection and no JVD Carotids: normal carotid upstroke Chest Chest inspection: normal inspection of the chest, symmetric chest movem (more content not included)... Normal [facility] CBC W Auto Differential pane l (Bld)on 06-13-2024 Basophils (Bld) [#/Vol] 127 10*3/uL [place] Basophils/100 WBC (Bld) 1.4 % [employer] Eosinophils (Bld) [#/Vol] 191 10*3/uL [employer] Eosinophils/100 WBC (Bld) 2.1 % [employer] Erythrocyte distribution width (RBC) [Ratio] 13.7 % 11.0 - 15.0 % [employer] Hematocrit (Bld) [Volume fraction] 44.6 % 38.5 - 50.0 % [employer] Hemoglobin (Bld) [Mass/Vol] 14.4 g/dL 13.2 - 17.1 g/dL [facility] Lymphocytes (Bld) [#/Vol] 2675 10*3/uL [facility] Lymphocytes/100 WBC (Bld) 29.4 % [facility] MCH (RBC) [Entitic mass] 29.1 pg 27.0 - 33.0 pg [facility] MCHC (RBC) [Mass/Vol] 32.3 g/dL 32.0 - 36.0 g/dL [facility] Comment on above: For adults, a slight decrease in the calculated MCHC value (in the range of 30 to 32 g/dL) is most likely not clinically significant; however, it should be interpreted with caution in correlation with other red cell parameters and the patient's clinical condition. MCV (RBC) [Entitic vol] 90.1 fL 80.0 - 100.0 fL [facility] Monocytes (Bld) [#/Vol] 828 10*3/uL [facility] Monocytes/100 WBC (Bld) 9.1 % [facility] Neutrophils (Bld) [#/Vol] 5278 10*3/uL [facility] Neutrophils/100 WBC (Bld) 58 % [facility] Platelet mean volume (Bld) [Entitic vol] 11.4 fL 7.5 - 12.5 fL [facility] Platelets (Bld) [#/Vol] 284 10*3/uL [facility] RBC (Bld) [#/Vol] 4.95 10*6/uL [facility] WBC (Bld) [#/Vol] 9.1 10*3/uL [facility] Office Visiton 06-12-2024 Follow-up visit [id number] Paulino Franoc 1945 M Date Provider Department [place] 06/12/2024 [id number] BARRERA [facility] Family History Problem Relation Age of Onset Uterine cancer Mother Comments: ? mets to liver, age 89 Kidney disease Father Comments: of CRF age 76 Colon cancer Father 60 Other Sister Comments: post flu complications age 65 in 04/18 Other Brother Comments: Parkisons age 55 ? German synd No Known Problems Brother Family Status - Relation Status Age at Mother 88 Father 76 Sister Brother 55 Brother Alive Maternal Grandmother Maternal Grandfather Paternal Grandmother Paternal Grandfather Level of Service:41839 NM OFFICE/OUTPATIENT ESTABLISHED LOW MDM 20 MIN Reason for Visit and Comments: Follow-up [298766] - Med Check Flu Vaccine [189] - Patient is agreeable to have flu vaccine in the office Normal [facility] Progress Noteon 06-12-2024 Progress Note [facility] [address] [facility] [id number] Visit type: Established Patient Reason for Visit: Follow-up (Med Check) and Flu Vaccine (Patient is agreeable to have flu vaccine in the office ) Assessment / Plan: Erich was seen today for follow-up and flu vaccine. Diagnoses and all orders for this visit: Essential hypertension (Primary) Comments: Stable, continue amlodipine Lotensin Orders: - CBC auto differential; Future - Comprehensive metabolic panel; Future - CBC auto differential - Comprehensive metabolic panel Hypercholesterolemia Comments: Stable, continue Crestor Orders: - Lipid panel; Future - Lipid panel History of renal stone Benign non-nodular prostatic hyperplasia with lower urinary tract symptoms Comments: Stable, continue Proscar Other orders - Flu vaccine (FLUAD), trivalent, adjuvanted, preservative-free (ages 65+) Subjective: Patient ID: Erich Franco is a 79 y.o. male. HPI hypertension lipid management patient with history of renal stones and mild nonischemic coronary disease. He feels well after having a left-sided lithotripsy a few months ago. Of note also had a recheck colonoscopy that showed some polyps and due for recheck in 5 years. Review of Systems no recent earache sore throat or cough. Denies chest pain or dyspnea. No PND orthopnea claudication or change in mild pretibial edema. No heartburn or abdominal pain. No melena or blood. Bowels are regular. No recurrent flank pain or hematuria. Rare arthralgia. Overall feels pretty positive. Does have a stress with his developing some memory loss. Allergies Allergen Reactions Atorvastatin Other reaction(s): AOF, GALLARDO, Nausea, Myalgias, headache, nausea aches and pains. Other reaction(s): GALLARDO, Nausea, Myalgias Other reaction(s): GALLARDO, Nausea, Myalgias, headache, nausea aches and pains. Lisinopril Other Other reaction(s): headache, nausea aches and pains. Of note, tolerant of Benazepril Other reaction(s): headache, nausea aches and pains. Ezetimibe-Simvastatin Other Muscle pain Nsaids Other Mild CRF Current Outpatient Medications on File Prior to Visit Medication Sig Dispense Refill amLODIPine (Norvasc) 10 MG tablet Take 1 tablet (10 mg) by mouth daily. 90 tablet 1 benazepril (Lotensin) 10 MG tablet TAKE 1 TABLET (10 MG) BY MOUTH DAILY. 90 tablet 1 finasteride (Proscar) 5 MG tablet Take 1 tablet (5 mg) by mouth daily. 90 tablet 1 rosuvastatin (Crestor) 20 MG tablet TAKE 1 TABLET BY MOUTH EVERY DAY 90 tablet 1 [DISCONTINUED] Aspirin 81 MG capsule Take 81 mg by mouth daily. (Patient not taking: Reported on 06/12/2024) No current facility-administered medications on file prior to visit. Patient Active Problem List Diagnosis History of COVID-19 Renal insufficiency Essential hypertension History of colonic polyps GLORIA on CPAP Renal cyst History of renal stone Lumbar spinal stenosis Coronary arteriosclerosis Hypercholesterolemia Family history of colon cancer Benign non-nodular prostatic hyperplasia with lower urinary tract symptoms Diverticulosis of colon Mitral stenosis Social History Tobacco Use Smoking status: Former Current packs/day: 0.00 Average packs/day: 1 pack/day for 37.0 years (37.0 ttl pk-yrs) Types: Cigarettes Start date: 05/23/1960 Quit date: 05/31/1997 Years since quittin.0 Smokeless tobacco: Never Substance Use Topics Alcohol use: Yes Alcohol/week: 2.0 standard drinks of alcohol Past Surgical History: Procedure Laterality Date CARDIAC CATHETERIZATION 2015 [place]- min dx, LVH, COLONOSCOPY 2008 COLONOSCOPY 2014seven COLONOSCOPY W/ POLYPECTOMY 07/2018 [facility]- rech due 2022 COLONOSCOPY W/ POLYPECTOMY 01/2024 Dr. Mary- due 2028 EXTRACORPOREAL SHOCK WAVE LITHOTRYPSY, KIDNEY CALCULI (HISTORICAL) Left 01/2024 Dr. Jackson KIDNEY STONE SURGERY Left 2021 Dr. Jackson LUMBAR LAMINECTOMY 2016 L2-5 OR per Moran TONSILLECTOMY (HISTORICAL) 1950 Family History Problem Relation Name Age of Onset Uterine cancer Mother ? mets to liver, age 89 Kidney disease Father of CRF age 76 Colon cancer Father 60 Other ([id number]) Sister post flu complications age 65 in 04/18 Other ([id number]) Brother Frances age 55 ? German synd No Known Problems Brother 08/03 bert Mason Objective: BP 118/62 (BP Location: Right arm, Patient Position: Sitting, BP Cuff Size: Large adult) Pulse 78 Temp 36.2 ?C (97.2 ?F) (Temporal) Ht 5' 8" (1.727 m) Wt 238 lb 3.2 oz (108 kg) SpO2 97% BMI 36.22 kg/m? Physical Exam Vitals reviewed. Constitutional: General: He is not in acute distress. Appearance: He is obese. He is not ill-appearing. HENT: Right Ear: Tympanic membrane normal. Left Ear: Tympanic membrane normal. Nose: No congestion or rhinorrhea. Mouth/Throat: Pharynx: No oropharyngeal exudate. Eyes: General: No scler (more content not included)... Normal [facility] 36on 04-05-2024 36 RX loaded Next ov 06/12/24 Normal [facility] 36 (1) Medication name: amLODIPine (Norvasc) 10 MG tablet Medication dosage: 10 mg (Miligrams Monthly quantity needed: 90 How many day supply requestin days Medication route: oral (PO) Medication administration time(s): daily If taking medication PRN, reason for taking medication: N/A If this is a controlled substance do you receive this or any other controlled medication from any other doctor or facility: N/A Date of last refill (see medication tab): 12/09/23 Ordering provider: Erik Date of last office visit: 12/09/23 Date of next office visit: 06/12/24 Updated/Validated preferred pharmacy: Yes [facility]/pharmacy #[id number] - [place], [place] - [address] Patient instructed to contact the pharmacy prior to picking up the medication: Yes (2) Medication name: finasteride (Proscar) 5 MG tablet Medication dosage: 5 mg (Miligrams Monthly quantity needed: 90 How many day supply requestin days Medication route: oral (PO) Medication administration time(s): daily If taking medication PRN, reason for taking medication: N/A If this is a controlled substance do you receive this or any other controlled medication from any other doctor or facility: N/A Date of last refill (see medication tab): 12/09/23 [facility] 36on 03-27-2024 36 Recent Visits Date Type Provider Dept 12/09/23 Office Visit Bhupendra Brown DO [facility] 05/24/23 Office Visit Bhupendra Krys DO Erik [facility] Showing recent visits within past 365 days and meeting all other requirements Future Appointments Date Type Provider Dept 06/12/24 Appointment Bhupendra Krys DO Erik [facility] Showing future appointments within next 90 days and meeting all other requirements Requested Prescriptions Pending Prescriptions Disp Refills benazepril (Lotensin) 10 MG tablet [Pharmacy Med Name: BENAZEPRIL HCL 10 MG TABLET] 90 tablet 1 Sig: TAKE 1 TABLET (10 MG) BY MOUTH DAILY. rosuvastatin (Crestor) 20 MG tablet [Pharmacy Med Name: ROSUVASTATIN CALCIUM 20 MG TAB] 90 tablet 1 Sig: TAKE 1 TABLET BY MOUTH EVERY DAY Provider: Bhupendra Brown DO Overdue for visit: No If yes - patient scheduled? Yes Most recent labs completed in chart? Yes Verified pharmacy: yes Verified day(s) supplied: yes Verified refill(s) needed (previous prescription showing no refills in chart): Yes Have you received any controlled medications from any other provider? N/A Cholesterol: Lab Results Component Value Date CHOLESTEROLT 141 05/24/2023 HDLCHOLESTER 48 05/24/2023 TRIGLYCERIDE 162 (H) 05/24/2023 LDLCHOLESTER 69 05/24/2023 CHOLHDLCRATI 2.9 05/24/2023 NONHDLCHOLES 93 05/24/2023 [facility] [id number] 02-07-2024 [id number] HNO ID: [id number] Author: ABBEY TAPIA RN Service: ? Author Type: Registered Nurse Type: [id number] Filed: 02/07/2024 10:05 Note Text: The patient received a copy of Colonoscopy discharge instructions that contain information for how to contact the physician who performed the procedure and when to seek medical care. [facility] Colonoscopyon 02-07-2024 Colonoscopy [facility] Gastrointestinal Endoscopy Patient Name: Erich Franco Procedure Date: 02/07/2024 8:51 AM Date of : 1945 Admit Type: Outpatient Age: 78 Gender: Male Note Status: Finalized Procedure: Colonoscopy Indications: High risk colon cancer surveillance: Personal history of colonic polyps Providers: Ciaran Mary MD Patient Profile: This is a 78 year old male. Refer to note in patient chart for documentation of history and physical. Last Colonoscopy: November 2014. Referring Physician: Ciaran Mary MD (Referring MD), Bhupendra Brown MD (Referring MD) Medicines: Fentanyl 50 micrograms IV, Midazolam 5 mg IV, Diphenhydramine 50 mg IV Complications: No immediate complications. Estimated blood loss: Minimal. Requesting Provider: Procedure: Pre-Anesthesia Assessment: - Prior to the procedure, a History and Physical was performed, and patient medications and allergies were reviewed. The patient's tolerance of previous anesthesia was also reviewed. The risks and benefits of the procedure and the sedation options and risks were discussed with the patient. All questions were answered, and informed consent was obtained. Prior Anticoagulants: The patient has taken no anticoagulant or antiplatelet agents. ASA Grade Assessment: III - A patient with severe systemic disease. After reviewing the risks and benefits, the patient was deemed in satisfactory condition to undergo the procedure. After I obtained informed consent, the scope was passed under direct vision. Throughout the procedure, the patient's blood pressure, pulse, and oxygen saturations were monitored continuously. The Colonoscope was introduced through the anus and advanced to the cecum, identified by appendiceal orifice and ileocecal valve. The colonoscopy was performed without difficulty. The patient tolerated the procedure well. The quality of the bowel preparation was fair. The ileocecal valve, appendiceal orifice, and rectum were photographed. Moderate Sedation: The administration of moderate sedation was initiated at 09:02 AM. Moderate (conscious) sedation was personally administered by the endoscopist. The following parameters were monitored: oxygen saturation, heart rate, blood pressure, respiratory rate, EKG, adequacy of pulmonary ventilation, and response to care. Total physician intraservice time was 24 minutes. Findings: The perianal and digital rectal examinations were normal. Four sessile polyps were found in the transverse colon. The polyps were diminutive in size. These polyps were removed with a jumbo cold forceps. Resection and retrieval were complete. A small polyp was found in the transverse colon. The polyp was sessile. The polyp was removed with a hot snare. Resection and retrieval were complete. Non-bleeding internal hemorrhoids were found during retroflexion. The hemorrhoids were mild and small. Multiple small-mouthed diverticula were found in the sigmoid colon and descending colon. The exam was otherwise without abnormality. Impression: - Preparation of the colon was fair. - Four diminutive polyps in the transverse colon, removed with a jumbo cold forceps. Resected and retrieved. - One small polyp in the transverse colon, removed with a hot snare. Resected and retrieved. - Non-bleeding internal hemorrhoids. - Diverticulosis in the sigmoid colon and in the descending colon. - The examination was otherwise normal. Recommendation: - Patient has a contact number available for emergencies. The signs and symptoms of potential delayed complications were discussed with the patient. Return to normal activities tomorrow. Written discharge instructions were provided to the patient. - Resume previous diet. - Continue present medications. - Await pathology results. - Repeat colonoscopy in 5 years for surveillance. - Return to nurse practitioner in 1 week. Procedure Code(s): --- Professional --- 32414, Colonoscopy, flexible; with removal of tumor(s), polyp(s), or other lesion(s) by snare technique 46825, 59, Colonoscopy, flexible; with biopsy, single or multiple G0500, Moderate sedation services provided by the same physician or other qualified health occasional caregiver performing a gastrointestinal endoscopic service that sedation supports, requiring the presence of an independent trained observer to assist in the monitoring of the patient's level of consciousness and physiological status; initial 15 minutes of intra-service time; patient age 5 years or older (additional time may be reported with 51441, as appropriate) 91484, Moderate sedation; each additional 15 minutes intraservice time Diagnosis Code(s): --- Professional --- D12.3, Benign neoplasm of transverse colon (hepatic flexure or splenic flexure) Z12.11, Encounter for screening for malignant neoplasm of colon Z86.010, Personal history of colon (more content not included)... Normal [facility] Colonoscopy Study observatio non 02-07-2024 [facility] Gastrointestinal Endoscopy Patient Name: Erich Franco Procedure Date: 02/07/2024 8:51 AM Date of : 1945 Admit Type: Outpatient Age: 78 Gender: Male Note Status: Finalized Procedure: Colonoscopy Indications: High risk colon cancer surveillance: Personal history of colonic polyps Providers: Ciaran Mary MD Patient Profile: This is a 78 year old male. Refer to note in patient chart for documentation of history and physical. Last Colonoscopy: November 2014. Referring Physician: Ciaran Mary MD (Referring MD), Bhupendra Brown MD (Referring MD) Medicines: Fentanyl 50 micrograms IV, Midazolam 5 mg IV, Diphenhydramine 50 mg IV Complications: No immediate complications. Estimated blood loss: Minimal. Requesting Provider: Procedure: Pre-Anesthesia Assessment: - Prior to the procedure, a History and Physical was performed, and patient medications and allergies were reviewed. The patient's tolerance of previous anesthesia was also reviewed. The risks and benefits of the procedure and the sedation options and risks were discussed with the patient. All questions were answered, and informed consent was obtained. Prior Anticoagulants: The patient has taken no anticoagulant or antiplatelet agents. ASA Grade Assessment: III - A patient with severe systemic disease. After reviewing the risks and benefits, the patient was deemed in satisfactory condition to undergo the procedure. After I obtained informed consent, the scope was passed under direct vision. Throughout the procedure, the patient's blood pressure, pulse, and oxygen saturations were monitored continuously. The Colonoscope was introduced through the anus and advanced to the cecum, identified by appendiceal orifice and ileocecal valve. The colonoscopy was performed without difficulty. The patient tolerated the procedure well. The quality of the bowel preparation was fair. The ileocecal valve, appendiceal orifice, and rectum were photographed. Moderate Sedation: The administration of moderate sedation was initiated at 09:02 AM. Moderate (conscious) sedation was personally administered by the endoscopist. The following parameters were monitored: oxygen saturation, heart rate, blood pressure, respiratory rate, EKG, adequacy of pulmonary ventilation, and response to care. Total physician intraservice time was 24 minutes. Findings: The perianal and digital rectal examinations were normal. Four sessile polyps were found in the transverse colon. The polyps were diminutive in size. These polyps were removed with a jumbo cold forceps. Resection and retrieval were complete. A small polyp was found in the transverse colon. The polyp was sessile. The polyp was removed with a hot snare. Resection and retrieval were complete. Non-bleeding internal hemorrhoids were found during retroflexion. The hemorrhoids were mild and small. Multiple small-mouthed diverticula were found in the sigmoid colon and descending colon. The exam was otherwise without abnormality. Impression: - Preparation of the colon was fair. - Four diminutive polyps in the transverse colon, removed with a jumbo cold forceps. Resected and retrieved. - One small polyp in the transverse colon, removed with a hot snare. Resected and retrieved. - Non-bleeding internal hemorrhoids. - Diverticulosis in the sigmoid colon and in the descending colon. - The examination was otherwise normal. Recommendation: - Patient has a contact number available for emergencies. The signs and symptoms of potential delayed complications were discussed with the patient. Return to normal activities tomorrow. Written discharge instructions were provided to the patient. - Resume previous diet. (more content not included)... [facility] Radiology Study observation (narrative) [facility] HISTORY PHYSICALon HISTORY PHYSICAL HNO ID: [id number] Author: CIARAN MARY MD Service: General Surgery Author Type: Physician Type: H&P Filed: 02/07/2024 08:51 Note Text: HISTORY AND PHYSICAL Erich Franco 1945 REFERRING PHYSICIAN: Bhupendra Brown DO CHIEF COMPLAINT: Consult (colonoscopy) HPI: The patient is a 78 year old male referred for endoscopy. Erich notes no history of colon complaints. The patient notes no history of upper GI complaints. Erich has undergone prior endoscopy. Colonoscopy was on 12/27/2014. He does have a family history of colon cancer The patient is being seen by me today at the request of Dr. Brown for my opinion and advice regarding Family history of colon cancer (primary encounter diagnosis). PAST MEDICAL HISTORY PAST MEDICAL HISTORY Diagnosis Date Benign neoplasm of colon 10/01/2005 Coronary arteriosclerosis Diverticulosis of colon (without mention of hemorrhage) 10/01/2005 Family history of malignant neoplasm of gastrointestinal tract Hypertension, essential Internal hemorrhoids without mention of complication 10/01/2005 Mitral stenosis Personal history of colonic polyps Renal stone Seasonal allergic rhinitis Springtime. PAST SURGICAL HISTORY PAST SURGICAL HISTORY Procedure Laterality Date ADENOIDECTOMY PRIMARY Adenoidectomy COLONOSCOPY FLX DX W/COLLJ SPEC WHEN PFRMD 07/04/2009 COLONOSCOPY FLX DX W/COLLJ SPEC WHEN PFRMD 12/27/2014 Colonoscopy COLSC FLX W/RMVL OF TUMOR POLYP LESION SNARE TQ 10/01/2005 LAMINECTOMY,LUMBAR LEFT HEART CATH,PERCUTANEOUS 2016 PAST SURGICAL HISTORY OF bilat great toenails removed CURRENT MEDICATIONS Current Outpatient Medications Medication Sig tamsulosin (FLOMAX) 0.4 mg Take 0.4 mg by mouth daily at bedtime. benazepril (LOTENSIN) 10 mg tablet Take 10 mg by mouth once daily. amLODIPine (NORVASC) 5 mg tablet Take 5 mg by mouth once daily. finasteride (PROSCAR) 5 mg tablet Take 5 mg by mouth once daily. simvastatin (ZOCOR) 20 mg tablet Take 20 mg by mouth daily at bedtime. lisinopril (ZESTRIL, PRINIVIL) 5 mg tablet Take 5 mg by mouth once daily. (Patient not taking: Reported on 01/17/2024) No current facility-administered medications for this visit. ALLERGIES: Patient has no known allergies. PERSONAL HISTORY: SOCIAL HISTORY Social History Tobacco Use Smoking status: Former Packs/day: 1.00 Years: 30.00 Additional pack years: 0.00 Total pack years: 30.00 Types: Cigarettes Start date: 02/20/1968 Quit date: 08/02/1997 Years since quittin.4 Smokeless tobacco: Never Tobacco comments: Father smoked in childhood home. 1st of 20 years smoker, 1994. Substance Use Topics Alcohol use: Yes Comment: Occasional, not daily for some time, 06/05/2016. Drug use: No FAMILY HISTORY: FAMILY HISTORY FAMILY HISTORY Problem Relation Age of Onset Cancer Mother colon-malignant polyp Colon Cancer Father skin cancer Colon Cancer Maternal Grandfather Breast Cancer Paternal Grandmother REVIEW OF SYMPTOMS: The review of systems data was entered by the nurse and reviewed by me There are no exam notes on file for this visit. PHYSICAL EXAMINATION: General: The patient is 78 year old male, well nourished, well hydrated in no acute distress. The patient is oriented to time, place, and person. VITALS: Blood pressure 130/62, pulse 91, temperature 36.7 ?C (98.1 ?F), height 172.7 cm (5' 8"), weight 109.1 kg (240 lb 9.6 oz), SpO2 95%. Body mass index is 36.58 kg/m?. HEENT: Normal cephalic, ataumatic, pupils are equally round, sclera are anicteric, mucous membranes are moist, oropharynx is clear. Neck has no masses, asymmetry or lymphadenopathy. Thyroid is unremarkable. Respiratory: Clear to auscultation and percussion. Normal respiratory excursion and pattern. Cardiac: Examination is regular rate and rhythm. Abdominal exam: Soft, nontender, with no palpable masses. No hepatosplenomegaly. No palpable hernias. Rectal exam: exam deferred Extremities: no clubbing, cyanosis or edema. No adenopathy. Other: LABORATORY VALUES: As Noted RADIOLOGIC STUDIES: As Noted Assessment IMPRESSION: Family history of colon cancer (primary encounter diagnosis) PLAN: I plan to perform what we got here postop endoscopy. We discussed the risks and benefits of the planned endoscopy. I have informed the patient that complications can occur including failure to complete the endoscopy and perforation. The patient had the opportunity to ask questions concerning the planned endoscopy. My staff has also explained the procedure to the patient in understandable terms and has given the patient printed material concerning the procedure. The patient freely consents to surgery. I plan to use Miralax bowel preperation for endoscopy Diagnoses: (Z80.0) Family history of colon cancer (primary encounter diagnosis) A letter was sent to Dr. Bhupendra Brown DO indicating the above finding for this p (more content not included)... Normal [facility] NURSING PROGon 02-07-2024 NURSING PROG HNO ID: [id number] Author: ABBEY TAPIA RN Service: ? Author Type: Registered Nurse Type: Nursing Progress Note Filed: 02/07/2024 09:38 Note Text: Patient passing a moderate amount of air via rectum. Stomach no soft and non-distended. Will continue to monitor. Normal [facility] CNOVon 01-17-2024 CNOV Office Visit (GENSWS ) ERICH FRANCO ([id number]) 1945 M Date Time Provider Department 01/17/24 3:15 PM CIARAN MARY During your visit today, we recorded the following information about you: Temperature Pulse Blood pressure Weight 98.1 degrees 91/minute 130/62 109.1 kg Height 1.727 m Ciaran Mary MD 01/17/2024 3:26 PM Signed Bowel Preparation Instructions for: Miralax-Gatorade Preparations IF YOU DO NOT FOLLOW THESE DIRECTIONS, YOUR COLONOSCOPY WILL BE CANCELLED. [place] Instructions: Your bowel must be empty so that your doctor can clearly view your colon. Follow all of the instructions in this handout EXACTLY as they are written. Do NOT eat any solid food the ENTIRE day before your colonoscopy. Buy your bowel preparation at least 5 days before your colonoscopy. Four (4) Dulcolax laxative tablets containing 5mg of bisacodyl each (NOT Dulcolax stool softener) One (1) 8.3oz. bottle Miralax (238 grams) or generic equivalent 2 x 32oz. Bottles of Gatorade (NOT RED) Diabetic Patients: Use G2 (Gatorade 2) TRANSPORTATION on the Day of Your Exam A responsible adult MUST be present with you at Check In prior to your colonoscopy and REMAIN in the endoscopy area until you are discharged. You are NOT ALLOWED to drive, take a taxi or bus, or leave the Endoscopy Center ALONE. If you do not have a responsible minibus driver (family member or friend) with you to take you home, your exam cannot be done with sedation and will be cancelled. Please bring a list of all of your current medications, including any Cuhl-fqi-Ncxbkyp medications with you. Medications If you take insulin, diabetic medications or blood thinners such as Coumadin (warfarin), Plavix (clopidogrel), Ticlid (ticlopidine hydrochloride), Agrylin (anagrelide), Xarelto (Rivaroxaban), Pradaxa (Dabigatran), Eliquis (Apixaban), and Effient (Prasugrel). You MUST call the doctors who orders those medicines for instructions on altering the dosage before your colonoscopy. All other medications should be taken the day of the exam with a sip of water including ASPIRIN. Five (5) Days Before Your Colonoscopy Do NOT take medicines that stop diarrhea - such as Imodium, Kaopectate, or Pepto Bismol. Do NOT take fiber supplements - such as Metamucil, Citrucel, or Perdiem. Do NOT take products that contain iron - such as multi-vitamins (the label lists what is in the products). Three (3) Days Before Your Colonoscopy Do NOT eat high-fiber foods - such as popcorn, beans, seeds (flax, sunflower, quinoa), multigrain bread, nuts, salad/vegetables, or fresh and dried fruit. 1 Bowel Preparation Instructions for: Miralax-Gatorade Preparations One (1) Day Before Your Colonoscopy Only drink clear liquids the ENTIRE DAY before your colonoscopy. Do NOT eat any solid foods. Drink at least 8 ounces of clear liquids every hour after waking up. The clear liquids you can drink include: Clear Liquid (NO RED LIQUIDS) DO NOT DRINK Gatorade, Pedialyte or Powerade Clear broth or bouillon Coffee or tea (no milk or non-dairy creamer) Carbonated and non-carbonated soft drinks Umair-Aid or other fruit flavored drinks Strained fruit juices (no pulp) Jell-O, popsicles, hard candy Water Alcohol Milk or non-dairy creamers Noodles or vegetables in soup Juice with pulp Liquid you cannot see through Do not use tobacco/vaping products Mix 1/2 of Miralax bottle (119 grams) in each 32 ounces of Gatorade bottle until dissolved. Keep cool in the refrigerator. DO NOT ADD ICE. The bowel preparation solution will be consumed in two parts. Part 1 5:00 PM - Evening before your colonoscopy Take 4 Dulcolax tablets. 6 PM - Evening before your colonoscopy Drink 32 oz. of the mixed solution. Drink an 8 oz. glass of bowel preparation every 15 minutes for a total of 4 glasses. Fifteen (15) minutes later, drink an 8 oz. glass of of clear liquids every 15 minutes for a total of 2 glasses. You may continue to drink clear liquids till midnight. Part 2 On the day of your colonoscopy you may drink clear liquids up to (three) 3 hours prior to procedure. 4 1/2 hours before your colonoscopy Take another 32 oz. bottle of mixed solution. Drink an 8 oz. glass of bowel prep every 15 minutes for a total of 4 glasses. Fifteen (15) minutes later, drink an 8 oz. glass of clear liquids every 15 minutes for a total of 2 glasses. You may continue to drink clear liquids up to (three) 3 hours before your exam. 2 07/2019 Ciaran Mary MD 01/18/2024 8:42 AM Signed HISTORY AND PHYSICAL Erich Franco 1945 REFERRING PHYSICIAN: Bhupendra Brown DO CHIEF COMPLAINT: Consult (colonoscopy) HPI: The patient is a 78 year old male referred for endoscopy. Erich notes no history of colon complaints. The patient notes no history of upper GI complaints. Erich turpin (more content not included)... Normal [facility] Urinalysis macro (dipstick) panel (U)on 12-09-2023 Bilirubin, UA Negative [facility] Blood, UA Large [facility] Glucose, UA Negative [facility] Interpretation and review of laboratory results Abnormal [facility] Ketones, POC (mg/dL) Negative [facility] Leukocytes, UA Moderate [facility] Nitrite, UA Positive [facility] pH, UA 7.5 [facility] Protein, UA 100 [facility] Spec Grav, [facility], [facility] Radiology Study observation (narrative) [facility] Comprehensive metabolic 1998 panelon 05-25-2023 Albumin [Mass/Vol] 4.6 g/dL 3.6 - 5.1 g/dL [facility] Albumin/Globulin [Mass ratio] 1.3 {ratio} [facility] ALP [Catalytic activity/Vol] 67 U/L 35 - 144 U/L [facility] ALT [Catalytic activity/Vol] 22 U/L 9 - 46 U/L [facility] AST [Catalytic activity/Vol] 19 U/L 10 - 35 U/L [facility] Bilirubin [Mass/Vol] 0.4 mg/dL 0.2 - 1.2 mg/dL [facility] Calcium [Mass/Vol] 9.9 mg/dL 8.6 - 10. 3 mg/dL [facility] Chloride [Moles/Vol] 105 mmol/L 98 - 110 mmol/L [facility] CO2 [Moles/Vol] 25 mmol/L 20 - 32 mmol/L [facility] Creatinine [Mass/Vol] 1.29 mg/dL High 0.70 - 1.28 mg/dL [facility] GFR/1.73 sq M.predicted among non-blacks MDRD (S/P/Bld) [Vol rate/Area] 57 mL/min/{1.73_m2} Low > OR = 60 mL/min/1.73m2 [facility] Globulin (S) [Mass/Vol] 3.6 g/dL [facility] Glucose [Mass/Vol] 109 mg/dL High 65 - 99 mg/dL [facility] Comment on above: Fasting reference interval For someone without known diabetes, a glucose value between 100 and 125 mg/dL is consistent with prediabetes and should be confirmed with a follow-up test. Potassium [Moles/Vol] 4.7 mmol/L 3.5 - 5.3 mmol/L [facility] Protein [Mass/Vol] 8.2 g/dL High 6.1 - 8.1 g/dL [facility] Sodium [Moles/Vol] 140 mmol/L 135 - 146 mmol/L [facility] Urea nitrogen [Mass/Vol] 19 mg/dL 7 - 25 mg/dL [facility] Urea nitrogen/Creatinine [Mass ratio] 15 mg/mg [facility] Lipid 1996 panelon 3 Cholesterol [Mass/Vol] 141 mg/dL [facility] - 200 mg/dL [facility] Cholesterol in HDL [Mass/Vol] 48 mg/dL > OR = 40 [facility] Cholesterol in LDL [Mass/Vol] 69 mg/dL mg/dL (calc) [facility] Comment on above: Reference range: <10 0 Desirable range <100 mg/dL for primary prevention; <70 mg/dL for patients with CHD or diabetic patients with > or = 2 CHD risk factors. LDL-C is now calculated using the Javan-Jessica calculation, which is a validated novel method providing better accuracy than the Friedewald equation in the estimation of LDL-C. Javan ALVAREZ et al. CONCHIS. 2013;310(19): 8967-9946 (http://education.Similar Pages.com/faq/JTU027) Cholesterol non HDL [Mass/Vol] 93 mg/dL [facility] Comment on above: For patients with di abetes plus 1 major ASCVD risk factor, treating to a non-HDL-C goal of <100 mg/dL (LDL-C of <70 mg/dL) is considered a therapeutic option. 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 Left ventricular Ejection fraction 60 % [facility] Work Phone: Lab Report: Blood Gas Specim en Typeon 01-21-2016 BLD GAS TYPE ART [facility] Work Phone: Lab Report: PO2 I-Mona Oxygen ppres (Bld) 76 mm[Hg] 75-100 [facility] Work Phone: Lab Report: SO2 ISTATon - SaO2% mass fraction (BldA) 95 % 95-99 [facility] Work Phone: Lab Report: VBG PO2 I-Mona 01-21-2016 VBG PO2 I-STAT 42 mm[Hg] High 25-40 [facility] Work Phone: Lab Report: VBG SO2 ISTATon 01-21-2016 VBG SO2 ISTAT 74 % High 50-70 [facility] Work Phone: Lab Report: Basic Metabolic Profile (BMP)on 01-15-2016 Anion gap molar conc 8 mmol/L -15 [facility] Work Phone: Calcium mass conc 8.7 mg/dL 8.5-10.1 [facility] Work Phone: Chloride molar conc 107 mmol/L 98-107 [facility] Work Phone: CO2 ppres (BldV) 24.0 mmol/L 21.0-32.0 [facility] Work Phone: Creatinine mass conc 1.00 mg/dL 0.70-1.30 [facility] Work Phone: EST GFR - AA 95 mL/min >60 [facility] Work Phone: GFR/1.73 sq M predicted among non-blacks MDRD vol rate/area (S/P/Bld) 79 mL/min/{1.73_m2} >60 [facility] Work Phone: Glucose mass conc 85 mg/dL 70-110 [facility] Work Phone: Potassium molar conc 4.1 mmol/L 3.5-5.1 [facility] Work Phone: Sodium molar conc 139 mmol/L 136-145 [facility] Work Phone: Urea nitrogen mass conc 13 mg/dL 7-18 [facility] Work Phone: Urea nitrogen/Creatinine mass ratio 13.0 RATIO 10-20 [facility] Work Phone: Lab Report: Partial Thrombop last Timeon 01-15-2016 aPTT Coag time (Bld) 34.5 s 24.1-36.2 [facility] Work Phone: Lab Report: Prothrombin Time w/INRon 01-15-2016 INR Coag RelTime (PPP) 1.0 {INR} [facility] Work Phone: Prothrombin time (PT) Coag time (PPP) 12.4 s 11.7-14.9 [facility] Work Phone: Office Visiton 01-09-2016 Tobacco smoking status NHIS Former smoker [facility] Work Phone: Replaced Document: Midmark E CG Observationson 01-09-2016 EKG QRS axis 21 deg [facility] Work Phone: Interpretation Sinus Rhythm WITHIN NORMAL LIMITS [facility] Work Phone: P Henlawson 47 deg [facility] Work Phone: NM Interval 128 ms [facility] Work Phone: QRS Duration 84 ms [facility] Work Phone: QT Interval new path ms [facility] Work Phone: QTc Grover 401 ms [facility] Work Phone: T Henlawson 51 deg [facility] Work Phone: 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 Cholesterol in HDL mass conc 49 mg/dL [facility] Work Phone: Cholesterol in LDL mass conc 71 mg/dL [facility] Work Phone: Cholesterol mass conc 150 mg/dL [facility] Work Phone: Triglyceride mass conc 151 mg/dL High [facility] Work Phone: Vital Signs Date Time Vital Sign Value Performing Clinician Facility 01-22-2025 15:50-0400 Body height 172.7 cm Bhupendra Brown DO Work Phone: [facility] [employer] 01-22-2025 15:50-0400 Body mass index (BMI) [Ratio] 36.04 kg/m2 Bhupendra Brown DO Work Phone: [facility] [employer] 01-22-2025 15:50-0400 Body temperature 97.39 [degF] Bhupendra Brown DO Work Phone: [employer] 01-22-2025 15:50-0400 Body weight 107.5 kg Bhupendra Brown DO Work Phone: [facility] [employer] 01-22-2025 15:50-0400 Diastolic blood pressure 60 mm[Hg] Bhupendra rBown DO Work Phone: [employer] 01-22-2025 15:50-0400 Heart rate 91 /min Bhupendra Brown DO Work Phone: [employer] 01-22-2025 15:50-0400 SaO2% (BldA) [Mass fraction] 94 % Bhupendra Brown DO Work Phone: [employer] 01-22-2025 15:50-0400 Systolic blood pressure 120 mm[Hg] Bhupendra Brown DO Work Phone: [employer] 11-16-2024 14:50-0400 Body height 175.[address] Bhupendra Brown DO Work Phone: [facility] 11-16-2024 14:50-0400 Body mass index (BMI) [Ratio] 35.4 kg/m2 Dr. Bhupendra Brown DO Work Phone: [facility] 11-16-2024 14:50-0400 Body weight 108.[address] Bhupendra Brown DO Work Phone: [facility] 11-16-2024 14:50-0400 Diastolic blood pressure 66 mm[Hg] Dr. Bhupendra Brown DO Work Phone: [facility] 11-16-2024 14:50-0400 Heart rate 78 /min Dr. Bhupendra Brown DO Work Phone: [facility] 11-16-2024 14:50-0400 Respiratory rate 16 /min Dr. Bhupendra Brown DO Work Phone: [facility] 11-16-2024 14:50-0400 Systolic blood pressure 136 mm[Hg] Dr. Bhupendra Brown DO Work Phone: [facility] 06-12-2024 14:05-0500 Body height 172.7 cm Bhupendra Brown DO Work Phone: [facility] [facility] 06-12-2024 14:05-0500 Body mass index (BMI) [Ratio] 36.22 kg/m2 Bhupendra Brown DO Work Phone: [facility] 06-12-2024 14:05-0500 Body temperature 97.2 [degF] Bhupendra Brown DO Work Phone: [facility] 06-12-2024 14:05-0500 Body weight 108.05 kg Bhupendra Brown DO Work Phone: [facility] 06-12-2024 14:05-0500 Diastolic blood pressure 62 mm[Hg] Bhupendra Brown DO Work Phone: [facility] 06-12-2024 14:05-0500 Heart rate 78 /min Bhupendra Brown DO Work Phone: [facility] 06-12-2024 14:05-0500 SaO2% (BldA) [Mass fraction] 97 % Bhupendra Brown DO Work Phone: [facility] 06-12-2024 14:05-0500 Systolic blood pressure 118 mm[Hg] Bhupendra Brown DO Work Phone: [facility] 02-07-2024 10:02-0400 Diastolic blood pressure 64 mm[Hg] Ciaran Mary MD Work Phone: [facility] 02-07-2024 10:02-0400 Heart rate 82 /min Ciaran Mary MD Work Phone: [facility] 02-07-2024 10:02-0400 Respiratory rate 16 /min Ciaran Mary MD Work Phone: [facility] 02-07-2024 10:02-0400 SaO2% (BldA) [Mass fraction] 94 % Ciaran Mary MD Work Phone: [facility] 02-07-2024 10:02-0400 Systolic blood pressure 136 mm[Hg] Ciaran Mary MD Work Phone: [facility] 02-07-2024 08:25-0400 Body mass index (BMI) [Ratio] 36.57 kg/m2 Ciaran Mary MD Work Phone: [facility] 02-07-2024 08:25-0400 Body temperature 98.29 [degF] Ciaran Mary MD Work Phone: [facility] 02-07-2024 08:25-0400 Body weight 109.1 kg Ciaran Mary MD Work Phone: [facility] 01-17-2024 15:17-0400 Body height 172.7 cm Ciaran Mary MD Work Phone: [facility] 01-17-2024 15:17-0400 Body mass index (BMI) [Ratio] 36.58 kg/m2 Ciaran Mary MD Work Phone: [facility] 01-17-2024 15:17-0400 Body temperature 98.1 [degF] Ciaran Mary MD Work Phone: [facility] 01-17-2024 15:17-0400 Body weight 109.14 kg Ciaran Mary MD Work Phone: [facility] 01-17-2024 15:17-0400 Diastolic blood pressure 62 mm[Hg] Ciaran Mary MD Work Phone: [facility] 01-17-2024 15:17-0400 Heart rate 91 /min Ciaran Mary MD Work Phone: [facility] 01-17-2024 15:17-0400 SaO2% (BldA) [Mass fraction] 95 % Ciaran Mary MD Work Phone: [facility] 01-17-2024 15:17-0400 Systolic blood pressure 130 mm[Hg] Ciaran Mary MD Work Phone: [facility] 12-09-2023 14:29-0400 Body height 172.7 cm Bhupendra Brown DO Work Phone: [facility] [employer] 12-09-2023 14:29-0400 Body mass index (BMI) [Ratio] 36.34 kg/m2 Bhupendra Brown DO Work Phone: [facility] [employer] 12-09-2023 14:29-0400 Body temperature 97.5 [degF] Bhupendra Brown DO Work Phone: [facility] [employer] 12-09-2023 14:29-0400 Body weight 108.41 kg Bhupendra Brown DO Work Phone: [facility] [employer] 12-09-2023 14:29-0400 Diastolic blood pressure 71 mm[Hg] Bhupendra Perrya DO Work Phone: [facility] [employer] 12-09-2023 14:29-0400 Heart rate 81 /min Bhupendra Brown DO Work Phone: [facility] [employer] 12-09-2023 14:29-0400 SaO2% (BldA) [Mass fraction] 96 % Bhupendra Brown DO Work Phone: [facility] [employer] 12-09-2023 14:29-0400 Systolic blood pressure 122 mm[Hg] Bhupendra Brown DO Work Phone: [facility] [employer] 05-24-2023 13:15-0400 Body height 174 cm Bhupendra Brown DO Work Phone: [facility] [employer] 05-24-2023 13:15-0400 Body mass index (BMI) [Ratio] 34.91 kg/m2 Bhupendra Brown DO Work Phone: [facility] [employer] 05-24-2023 13:15-0400 Body temperature 97.7 [degF] Bhupendra Brown DO Work Phone: [facility] [employer] 05-24-2023 13:15-0400 Body weight 105.69 kg Bhupendra Brown DO Work Phone: [facility] [employer] 05-24-2023 13:15-0400 Diastolic blood pressure 70 mm[Hg] Bhupendra Brown DO Work Phone: [facility] [employer] 05-24-2023 13:15-0400 Heart rate 71 /min Bhupendra Brown DO Work Phone: [facility] [employer] 05-24-2023 13:15-0400 SaO2% (BldA) [Mass fraction] 98 % Bhupendra Brown DO Work Phone: [facility] [employer] 05-24-2023 13:15-0400 Systolic blood pressure 113 mm[Hg] Bhupendra Brown DO Work Phone: [facility] [employer] 11-20-2022 08:57-0400 Body height 174 cm Bhupendra Brown DO Work Phone: [facility] [employer] 11-20-2022 08:57-0400 Body mass index (BMI) [Ratio] 36.26 kg/m2 Bhupendra Brown DO Work Phone: [facility] [employer] 11-20-2022 08:57-0400 Body temperature 98.01 [degF] Bhupendra Brown DO Work Phone: [facility] [employer] 11-20-2022 08:57-0400 Body weight 109.77 kg Bhupendra Brown DO Work Phone: [facility] 11-20-2022 08:57-0400 Diastolic blood pressure 65 mm[Hg] Bhupendra Brown DO Work Phone: [facility] 11-20-2022 08:57-0400 Heart rate 65 /min Bhupendra Brown DO Work Phone: [facility] 11-20-2022 08:57-0400 SaO2% (BldA) [Mass fraction] 97 % Bhupendra Brown DO Work Phone: [facility] 11-20-2022 08:57-0400 Systolic blood pressure 110 mm[Hg] Bhupendra Brown DO Work Phone: [facility] 02-11-2022 13:04-0400 Body height 175.[address] Bhupendra Brown Work Phone: [facility] Work Phone: 02-11-2022 13:04-0400 Body mass index (BMI) [Ratio] 34.4 kg/m2 Dr. Bhupendra Brown Work Phone: [facility] Work Phone: 02-11-2022 13:04-0400 Body weight 105.[address] Bhupendra Brown Work Phone: [facility] Work Phone: 02-11-2022 13:04-0400 Diastolic blood pressure 60 mm[Hg] Dr. Bhupendra Brown Work Phone: [facility] Work Phone: 02-11-2022 13:04-0400 Heart rate 80 /min Dr. Bhupendra Brown Work Phone: [facility] Work Phone: 02-11-2022 13:04-0400 Respiratory rate 16 /min Dr. Bhupendra Brown Work Phone: [facility] Work Phone: 02-11-2022 13:04-0400 Systolic blood pressure 120 mm[Hg] Dr. Bhupendra Brown Work Phone: [facility] Work Phone: 12-09-2016 15:08-0400 BMI (Body Mass Index) 35.73 kg/m2 [facility] Work Phone: 12-09-2016 15:08-0400 BP Diastolic 60 mm[Hg] [facility] Work Phone: 12-09-2016 15:08-0400 BP Systolic 118 mm[Hg] [facility] Work Phone: 12-09-2016 15:08-0400 Pulse (Heart Rate) 76 /min [facility] Work Phone: 12-09-2016 15:08-0400 Weight 106.6 kg [facility] Work Phone: 09-14-2016 10:52-0500 BSA (Body Surface Area) 2.19 m2 [facility] Work Phone: 09-14-2016 10:52-0500 Respiratory Rate 16 /min [facility] Work Phone: 01-09-2016 11:15-0400 Heart rate 69 /min [facility] Work Phone: 01-09-2016 10:59-0400 Height 172.72 cm [facility] Work Phone: Encounters Encounter Date Encounter Type Care Provider Facility Start: 02-08-2025 Non-patient / Non-visit Dr. Randi MOREL -[facility] Start: 02-08-2025 End: 02-08-[address] Bhupendra Brown DO Work Phone: -[facility] Services Start: 02-08-2025 End: 02-08-[address] 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 Luis Puga MD -[facility] Work Phone: Start: 11-16-2024 End: 11-16-2024 ambulatory Bhupendra Brown Facility:[facility] Start: 09-19-2024 End: 09-19-2024 Refill Bhupendra Brown DO Work Phone: [facility] Start: 06-12-2024 End: 06-12-2024 Office outpatient visit 15 minutes Bhupendra Brown DO Work Phone: [facility] [employer] Comment on above: Essential hypertensi on (Primary Dx); Hypercholesterolemia; History of renal stone; Benign non-nodular prostatic hyperplasia with lower urinary tract symptoms Start: 06-12-2024 End: 06-12-[address] [facility] Start: 04-05-2024 End: 04-05-2024 Refill Bhupendra Brown DO Work Phone: [facility] Start: 03-27-2024 End: 03-27-2024 Refill Bhupendra Brown DO Work Phone: [facility] Start: 02-15-2024 End: 02-15-2024 Patient encounter procedure Kandi Manzanares APRN.DETENTION DEPUTY Work Phone: General Surgery Comment on above: Adenomatous polyps ( Primary Dx) Start: 02-07-2024 End: 02-07-2024 ambulatory Ciaran Mary Facility:[facility] Start: 02-07-2024 End: 02-07-2024 Subsequent hospital visit by physician Ciaran Mary MD Work Phone: Ambulatory Surgery Comment on above: Family history of co vasu cancer [Z80.0] Start: 01-17-2024 End: 01-17-2024 ambulatory Ciaran Mary Facility:[facility] Start: 01-17-2024 End: 01-17-2024 Patient encounter procedure Ciaran Mary MD Work Phone: General Surgery Comment on above: Family history of co vasu cancer (Primary Dx); Morbidly obese (HCC) Start: 12-15-2023 Telephone encounter Bhupendra gilbert DO Work Phone: [facility] Comment on above: Orders (Urology refe rral ) Start: 12-14-2023 Telephone encounter Bhupendra Odomrilla DO Work Phone: [facility] Comment on above: Referral (Dr Simmons) Start: 12-13-2023 Telephone encounter Bhupendra Odomrimay DO Work Phone: [facility] Comment on above: Referral (Dr Jackson / CT-Abd/Pelvis) Start: 12-09-2023 End: 12-09-2023 Office outpatient visit 25 minutes Bhupendra Brown DO Work Phone: [facility] Comment on above: Hematuria, unspecifi ed type (Primary Dx); Essential hypertension; Hypercholesterolemia; History of renal stone; Urinary tract infection without hematuria, site unspecified; History of colonic polyps; Family history of colon cancer; Coronary arteriosclerosis Start: 08-30-2023 Refill Bhupendra olvera DO Work Phone: [facility] Start: 07-15-2023 Refill Bhupendra olvera DO Work Phone: [facility] Start: 07-13-2023 Refill Bhupendra olvera DO Work Phone: [facility] Start: 06-10-2023 Orders Only Bhupendra Lea suzea DO Work Phone: [facility] Start: 06-02-2023 Refill Bhupendra olvera DO Work Phone: [facility] Start: 05-24-2023 End: 05-24-2023 Office outpatient visit 15 minutes Bhupendra Leamay DO Work Phone: [facility] Comment on above: Essential hypertensi on (Primary Dx); Essential hypertension; Coronary arteriosclerosis; Hypercholesterolemia Start: 04-13-2023 Refill Bhupendra olvera DO Work Phone: [facility] Start: 11-20-2022 End: 11-20-2022 Office outpatient visit 15 minutes Bhupendra Brown DO Work Phone: [facility] Comment on above: Essential hypertensi on (Primary Dx); Coronary arteriosclerosis; Hypercholesterolemia; Benign non-nodular prostatic hyperplasia with lower urinary tract symptoms Start: 10-05-2022 Refill Bhupendra olvera DO Work Phone: [facility] Start: 08-10-2022 Refill Bhupendra olvera DO Work Phone: [facility] Start: 07-25-2022 Telephone encounter Bhupendra gilbert DO Work Phone: [facility] Comment on above: Med Refill Start: 06-08-2022 End: 06-08-[address] Bhupendra Brown Work Phone: [facility] Work Phone: Start: 06-08-2022 End: 06-08-[address] Bhupendra Brown Work Phone: [facility], [facility] Start: 02-20-2022 Non-patient / Non-visit Dr. Mundo Brown Work Phone: [facility] Start: 02-20-2022 End: 02-20-[address] Bhupendra Brown Work Phone: [facility]-Cardiovascula r Services Start: 02-11-2022 End: 02-11-[address] Bhupendra Brown Work Phone: [facility] Procedures Date Procedure Procedure Detail Performing Clinician Start: 01-22-2025 Adult depression scr eening assessment Bhupendra Brown DO Work Phone: Start: 06-12-2024 Complete blood count with white cell differential, automated Bhupendra Brown DO Work Phone: Start: 06-12-2024 Lipid 1996 panel - S lilibeth or Plasma Bhupendra Brown DO Work Phone: Start: 02-07-2024 Colonoscopy flx dx w /collj spec when pfrmd Ciaran Mary MD Work Phone: Start: 12-09-2023 Urnls dip stick/tabl et rgnt non-auto w/o micrscp Bhupendra Brown DO Work Phone: Start: 05-24-2023 Comprehensive metabolic panel Bhupendra Brown DO Work Phone: Start: 05-24-2023 Lipid panel Bhupendra Park etrilla DO Work Phone: Start: 05-24-2023 Lipid 1996 panel - S lilibeth or Plasma Bhupendra Brown DO Work Phone: Start: 11-20-2022 Lipid 1996 panel - S lilibeth or Plasma Bhupendra Brown DO Work Phone: Start: 06-08-2022 Diagnostic radiograp hy of abdomen Dr. Bhupendra Brown Work Phone: Start: 05-22-2022 Lipid 1996 panel - S lilibeth or Plasma Bhupendra Brown DO Work Phone: Start: 12-09-2016 End: 12-09-2016 Follow Up Appt 1 year Gemini arciniega PA-C Work Phone: Start: 12-09-2016 End: 12-09-2016 PFM Gemini Mckeon PA-C Work Phone: Start: 10-01-2016 End: 10-02-2016 Referral to neurologist Henry Weston MD Start: 09-14-2016 End: 09-14-2016 Dietary management education, guidance, and counseling Miryam Ledezma Start: 09-14-2016 End: 09-14-2016 Follow Up Appt 3 months Herny Weston MD Start: 09-14-2016 End: 09-14-2016 Follow Up Appt Other Henry Weston MD Start: 09-14-2016 End: 09-14-2016 MMM Henry Weston MD Start: 02-28-2016 End: 02-28-2016 Follow Up Appt Other Gemini pardo PA-C Work Phone: Start: 02-13-2016 End: 02-14-2016 Referral to respiratory physician Henry Weston MD Start: 01-09-2016 End: 01-16-2016 *BMP Henry Weston MD Start: 01-09-2016 End: 01-16-2016 aPTT in Platelet poor plasma by Coagulation assay Henry Weston MD Start: 01-09-2016 End: 02-24-2016 CBC W Auto Differential panel - Blood Henry Weston MD Start: 01-09-2016 End: 02-24-2016 Chest x-ray Henry Weston MD Start: 01-09-2016 End: 02-24-2016 Ecg routine ecg w/least 12 lds w/i&r Henry Weston MD Start: 01-09-2016 End: 02-24-2016 Echocardiography Henry Weston MD Start: 01-09-2016 End: 01-09-2016 Follow Up Appt 6 weeks Henry Weston MD Start: 01-09-2016 End: 01-16-2016 INR in Platelet poor plasma by Coagulation assay Henry Weston MD Start: 01-09-2016 End: 02-24-2016 Left Heart Cath Henry Weston MD Start: 01-09-2016 End: 01-09-2016 MMM Henry Weston MD Start: 01-09-2016 End: 02-24-2016 Pulmonary Function Test - complete Henry Weston MD Plan of Treatment Date Care Activity Detail Author Start: 06-12-2029 Lipid panel Lipid Panel [facility] Start: 05-24-2028 Lipid panel Lipid Panel [facility] Start: 11-21-2027 Lipid panel Lipid Panel [facility] Start: 05-22-2027 Lipid panel Lipid Panel [facility] Start: 12-08-2026 Diabetes Screening Diabetes Screening [facility] Start: 01-22-2026 Depression Screening Depression Screening [facility] Start: 07-11-2025 End: 07-11-2025 Patient encounter procedure 07/11/2025 11:40 AM EST Office Visit [facility] [place] [address] [place] [address] Bhupendra Brown, [address] [place] [address] [facility] Start: 01-22-2025 End: 01-22-2025 Patient encounter procedure 01/22/2025 3:40 PM EDT Office Visit [facility] [place] [address] [place] [address] Bhupendra Brown F, DO [address] [place] [address] [facility] Start: 01-22-2025 End: 01-22-2026 C reactive protein [Mass/volume] in Serum or Plasma C-reactive protein Lab Routine Arthralgia of both hands Expected: 01/22/2025 (Approximate), Expires: 01/22/2026 [facility] Comment on above: Expected: 01/22/2025 (Approximate), Expi res: 01/22/2026 Start: 01-22-2025 End: 01-22-2026 CBC W Auto Differential panel - Blood CBC auto differential Lab Routine Arthralgia of both hands Expected: 01/22/2025 (Approximate), Expires: 01/22/2026 [facility] Work Phone: Comment on above: Expected: 01/22/2025 (Approximate), Expi res: 01/22/2026 Start: 01-22-2025 End: 01-22-2026 Comprehensive metabolic 1998 panel - Serum or Plasma Comprehensive metabolic panel Lab Routine Arthralgia of both hands Expected: 01/22/2025 (Approximate), Expires: 01/22/2026 [facility] Comment on above: Expected: 01/22/2025 (Approximate), Expi res: 01/22/2026 Start: 01-22-2025 End: 01-22-2026 Creatine kinase [Enzymatic activity/volume] in Serum or Plasma CK Lab Routine Arthralgia of both hands Expected: 01/22/2025 (Approximate), Expires: 01/22/2026 [facility] Comment on above: Expected: 01/22/2025 (Approximate), Expi res: 01/22/2026 Start: 01-22-2025 End: 01-22-2026 Erythrocyte sedimentation rate Sedimentation rate, automated Lab Routine Arthralgia of both hands Expected: 01/22/2025 (Approximate), Expires: 01/22/2026 [facility] Comment on above: Expected: 01/22/2025 (Approximate), Expi res: 01/22/2026 Start: 01-22-2025 End: 01-22-2026 Nuclear Ab [Titer] in Serum by Immunofluorescence SHIN Lab Routine Arthralgia of both hands Expected: 01/22/2025 (Approximate), Expires: 01/22/2026 [facility] [employer] [facility] Comment on above: Expected: 01/22/2025 (Approximate), Expi res: 01/22/2026 Start: 01-22-2025 End: 01-22-2026 Rheumatoid factor [Units/volume] in Serum or Plasma Rheumatoid factor Lab Routine Arthralgia of both hands Expected: 01/22/2025 (Approximate), Expires: 01/22/2026 [facility] [employer] Comment on above: Expected: 01/22/2025 (Approximate), Expi res: 01/22/2026 Start: 01-22-2025 End: 01-22-2026 Thyrotropin [Units/volume] in Serum or Plasma TSH Lab Routine Other fatigue Expected: 01/22/2025 (Approximate), Expires: 01/22/2026 [facility] [employer] Comment on above: Expected: 01/22/2025 (Approximate), Expi res: 01/22/2026 Start: 01-22-2025 End: 01-22-2026 Thyroxine (T4) free [Mass/volume] in Serum or Plasma T4, free Lab Routine Other fatigue Expected: 01/22/2025 (Approximate), Expires: 01/22/2026 [facility] [employer] Comment on above: Expected: 01/22/2025 (Approximate), Expi res: 01/22/2026 Start: 01-22-2025 End: 01-22-2026 Triiodothyronine (T3) Free [Mass/volume] in Serum or Plasma T3, free Lab Routine Other fatigue Expected: 01/22/2025 (Approximate), Expires: 01/22/2026 [facility] [employer] Comment on above: Expected: 01/22/2025 (Approximate), Expi res: 01/22/2026 Start: 12-11-2024 End: 12-11-2024 Patient encounter procedure 12/11/2024 11:30 AM EDT Office Visit [facility] [address] [place] [address] Bhupendra Brown, [address] [place] [address] [facility] Start: 06-12-2024 End: 06-12-2025 Comprehensive metabolic 1998 panel - Serum or Plasma Comprehensive metabolic panel Lab Routine Essential hypertension Expected: 06/12/2024 (Approximate), Expires: 06/12/2025 [facility] Work Phone: Comment on above: Expected: 06/12/2024 (Approximate), Expi res: 06/12/2025 Start: 06-12-2024 End: 06-12-2025 Lipid 1996 panel - Serum or Plasma Lipid panel Lab Routine Hypercholesterolemia Expected: 06/12/2024 (Approximate), Expires: 06/12/2025 [facility] Comment on above: Expected: 06/12/2024 (Approximate), Expi res: 06/12/2025 Start: 06-12-2024 End: 06-12-2024 Patient encounter procedure 06/12/2024 2:00 PM EST Office Visit [facility] [address] [place] [address] Bhpuendra Brown DO [address] [place] [address] [facility] Start: 05-22-2024 Zoster Vaccines (3 of 3) Zoster Vaccines (3 of 3) [facility] Start: 04-02-2024 COVID-19 Vaccine ( season) COVID-19 Vaccine ( season) [facility] Start: 04-02-2024 COVID-19 Vaccine ( season) COVID-19 Vaccine ( season) [facility] Start: 04-02-2024 Influenza vaccination Influenza Vaccine (#1) [facility] Start: 02-15-2024 End: 02-15-2024 Patient encounter procedure 02/15/2024 11:00 AM EDT Office Visit General Surgery [address] [place] [address] Kandi Manzanares APRN.DETENTION DEPUTY [address] [place] [address] 02-06 Colonoscopy follow up General Surgery Comment on above: 02-06 Colonoscopy follow up Start: 02-14-2024 End: 02-14-2024 Patient encounter procedure 02/14/2024 10:00 AM EDT Appointment Ambulatory Surgery [address] [place], [place] [id number] Ciaran Mary MD [address] [place] [id number] Ambulatory Surgery Start: 12-13-2023 End: 12-12-2024 CT Abdomen WO contrast CT abdomen pelvis wo IV contrast Imaging STAT Hematuria, unspecified type History of renal stone Expected: 12/13/2023, Expires: 12/12/2024 [facility] Work Phone: Comment on above: Expected: 12/13/2023, Expires: Start: 12-09-2023 End: 12-08-2024 Bacteria identified in Urine by Culture Urine culture Microbiology Routine Urinary tract infection without hematuria, site unspecified Expected: 12/09/2023 (Approximate), Expires: 12/08/2024 [facility] Work Phone: Comment on above: Expected: 12/09/2023 (Approximate), Expi res: 12/08/2024 Start: 12-09-2023 End: 12-08-2024 CBC W Auto Differential panel - Blood CBC auto differential Lab Routine Urinary tract infection without hematuria, site unspecified Expected: 12/09/2023 (Approximate), Expires: 12/08/2024 [facility] Comment on above: Expected: 12/09/2023 (Approximate), Expi res: 12/08/2024 Start: 12-09-2023 End: 12-08-2024 Comprehensive metabolic 1998 panel - Serum or Plasma Comprehensive metabolic panel Lab Routine Urinary tract infection without hematuria, site unspecified Expected: 12/09/2023 (Approximate), Expires: 12/08/2024 [facility] [employer] [facility] Comment on above: Expected: 12/09/2023 (Approximate), Expi res: 12/08/2024 Start: 11-23-2023 End: 11-23-2023 Patient encounter procedure 11/23/2023 1:30 PM EDT Office Visit [facility] [address] [place] [address] Bhupendra Brown DO [address] [place] [address] [facility] Start: 08-02-2023 Advance Directive Discussion Advance Directive Discussion [facility] Start: 08-02-2023 Behavioral Health Screening [facility] [facility] Start: 05-24-2023 End: 05-24-2024 CBC W Auto Differential panel - Blood CBC auto differential Lab Routine Essential hypertension Expected: 05/24/2023 (Approximate), Expires: [facility]24 [facility] Comment on above: Expected: 05/24/2023 (Approximate), Expi res: 05/24/2024 Start: 05-21-2023 End: 05-21-2023 Patient encounter procedure [facility] Start: 04-02-2023 COVID-19 Vaccine () COVID-19 Vaccine () [facility] Start: 04-02-2023 Influenza vaccination [facility] Start: 11-20-2022 End: 11-21-2023 CBC W Auto Differential panel - Blood CBC auto differential Lab Routine Essential hypertension Expected: 11/20/2022 (Approximate), Expires: 11/21/2023 [facility] Comment on above: Expected: 11/20/2022 (Approximate), Expi res: 11/21/2023 Start: 11-20-2022 End: 11-21-2023 Comprehensive metabolic 1998 panel - Serum or Plasma Comprehensive metabolic panel Lab Routine Essential hypertension Expected: 11/20/2022 (Approximate), Expires: 11/21/2023 [employer] Comment on above: Expected: 11/20/2022 (Approximate), Expi res: 11/21/2023 Start: 11-20-2022 End: 11-21-2023 Lipid 1996 panel - Serum or Plasma Lipid panel Lab Routine Hypercholesterolemia Expected: 11/20/2022 (Approximate), Expires: 11/21/2023 [facility] Comment on above: Expected: 11/20/2022 (Approximate), Expi res: 11/21/2023 Start: 11-20-2022 End: 11-20-2022 Patient encounter procedure 11/20/2022 Office Visit Family Medicine Bhupendra Brown, DO [facility] [place], [place] [id number] [facility] Start: 04-02-2022 Influenza vaccination Influenza Vaccine (#1) [facility] Start: 2022 RSV Immunization for Adults (1 - 1-dose 75+ series) RSV Immunization for Adults (1 - 1-dose 75+ series) [facility] Start: 12-13-2021 Medicare Annual Wellness (AWV) Medicare Annual Wellness (AWV) [facility] Start: 05-02-2021 COVID-19 Vaccine (3 - Booster for Pfizer series) COVID-19 Vaccine (3 - Booster for Pfizer series) [facility] Start: 05-02-2021 COVID-19 Vaccine (3 - Pfizer series) COVID-19 Vaccine (3 - Pfizer series) [facility] [employer] Start: 12-13-2017 End: 12-13-2017 Appointment Appointment [facility] Work Phone: Start: 12-09-2016 End: 12-09-2016 Follow Up Appt 1 year Follow Up Appt 1 year [employer] Work Phone: Start: 12-09-2016 End: 12-09-2016 PFM PFM [employer] Work Phone: Start: 10-01-2016 End: 10-01-2016 Neurology Referral Neurology Referral Nnamdi Delong, [address] [place], [address] [facility] Work Phone: Start: 09-14-2016 End: 09-14-2016 Follow Up Appt 3 months Follow Up Appt 3 months [facility] Work Phone: Start: 09-14-2016 End: 09-14-2016 Follow Up Appt Other Follow Up Appt Other [facility] Work Phone: Start: 09-14-2016 End: 09-14-2016 MMM MMM [facility] Work Phone: Start: 02-28-2016 End: 02-28-2016 Follow Up Appt Other Follow Up Appt Other [facility] Work Phone: Start: 02-13-2016 End: 02-13-2016 Pulmonary Referral Pulmonary Referral Josiah Fonseca, [facility] [place], [address], [place], [address] [facility] Work Phone: Start: 01-09-2016 End: 01-16-2016 *BMP *BMP [facility] Work Phone: Start: 01-09-2016 End: 01-16-2016 aPTT Coag time (PPP) *PTT-Partial Thromboplastin Time [facility] Work Phone: Start: 01-09-2016 End: 02-24-2016 CBC W Auto Differential panel - Blood *CBC without Diff [facility] Work Phone: Start: 01-09-2016 End: 02-24-2016 Chest x-ray X-Ray, Chest, PA & Lateral [facility] Work Phone: Start: 01-09-2016 End: 02-24-2016 Ecg routine ecg w/least 12 lds w/i&r EKG (In office) [facility] Work Phone: Start: 01-09-2016 End: 01-09-2016 Echocardiography Echocardiogram (complete) [facility] Work Phone: Start: 01-09-2016 End: 01-09-2016 Follow Up Appt 6 weeks Follow Up Appt 6 weeks [facility] Work Phone: Start: 01-09-2016 End: 01-16-2016 INR Coag RelTime (PPP) *PT/INR [facility] Work Phone: Start: 01-09-2016 End: 01-09-2016 Left Heart Cath Left Heart Cath [facility] Work Phone: Start: 01-09-2016 End: 01-09-2016 MMM MMM [facility] Work Phone: Start: 01-09-2016 End: 01-09-2016 Pulmonary Function Test - complete Pulmonary Function Test - complete [facility] Work Phone: Start: 02-27-2013 Shingrix Vaccine (2 of 3) Shingrix Vaccine (2 of 3) [facility] Start: 02-27-2013 Zoster Vaccines (2 of 3) Zoster Vaccines (2 of 3) [facility] Start: 2007 Hepatitis B Vaccine (1 of 3 - Risk 3-dose series) Hepatitis B Vaccine (1 of 3 - Risk 3-dose series) [facility] Start: 2007 RSV Immunization aged 60 or older (1 - 1-dose 60+ series) RSV Immunization aged 60 or older (1 - 1-dose 60+ series) [facility] Start: 2007 RSV Vaccine (1 - 1-dose 60+ series) RSV Vaccine (1 - 1-dose 60+ series) [facility] Start: 1966 DTaP/Tdap/Td Vaccines (1 - Tdap) DTaP/Tdap/Td Vaccines (1 - Tdap) [facility] Start: 1966 Hepatitis A Vaccine (1 of 2 - Risk 2-dose series) Hepatitis A Vaccine (1 of 2 - Risk 2-dose series) [facility] Start: 1966 Urine microalbumin profile DTaP,Tdap,Td Vaccine (1 - Tdap) [facility] Start: 1965 Diabetes mellitus screening Diabetes Screening [facility] Start: 1965 Hepatitis C screening Hepatitis C Screening [facility] Start: 1959 Depression Screening Depression Screening [facility] Start: 1947 Hepatitis B Vaccines (1 of 3 - 3-dose series) Hepatitis B Vaccines (1 of 3 - 3-dose series) [facility] Start: 1945 Screening for malignant neoplasm of colon [facility] End: 01-16-2025 Screening colonoscopy COLONOSCOPY SCREENING Endoscopy Routine Family history of colon cancer 1 Occurrences starting 01/17/2024 until 01/16/2025 [facility] Work Phone: Comment on above: 1 Occurrences starting 01/17/2024 until 01/16/2025 SURGICAL PATHOLOGY [facility] Work Phone: Comment on above: Release Upon Ordering for 1 Occurrences starting 02/07/2024, 1 completed Immunizations Immunization Date Immunization Notes Care Provider [facility] 06-12-2024 Seasonal trivalent influenza vaccine, adjuvanted, preservative free Bhupendra Brown DO Work Phone: [facility] 05-24-2023 Influenza, Seasonal, Quadrivalent, Adjuvanted Bhupendra Brown DO Work Phone: [facility] 05-24-2023 influenza virus vacc ine, unspecified formulation Ciaran Mary MD Work Phone: [facility] 05-26-2021 Influenza, High-dose Seasonal, Quadrivalent, Preservative Free Bhupendra Brown DO Work Phone: [facility] 05-26-2021 influenza virus vacc ine, unspecified formulation Bhupendra Brown DO Work Phone: [facility] 03-07-2021 Pfizer SARS-CoV-2 Vaccination Bhupendra Brown DO Work Phone: [facility] 02-14-2021 Pfizer SARS-CoV-2 Vaccination Bhupendra Brown DO Work Phone: [facility] 05-09-2020 Influenza, High-dose Seasonal, Quadrivalent, Preservative Free Bhupendra Brown DO Work Phone: [facility] 05-02-2020 influenza, injectabl e, quadrivalent, preservative free Dr. Bhupendra Brown DO Work Phone: [facility] 05-02-2020 influenza, seasonal, injectable Dr. Bhupendra Brown Work Phone: [facility] Work Phone: 05-04-2019 Seasonal trivalent influenza vaccine, adjuvanted, preservative free Bhupendra Perrya DO Work Phone: [facility] 05-23-2018 influenza, high dose seasonal, preservative-free Bhupendra Perrya DO Work Phone: [facility] 05-07-2017 influenza, injectabl e, quadrivalent, contains preservative Bhupendra Lealla DO Work Phone: [facility] 12-10-2016 pneumococcal polysaccharide vaccine, 23 valent Bhupendra Lealla DO Work Phone: [facility] 06-11-2016 influenza, injectabl e, quadrivalent, contains preservative Bhupendra Lealla DO Work Phone: [facility] 05-16-2015 influenza virus vacc ine, unspecified formulation Bhupendra Lealla DO Work Phone: [facility] 05-16-2015 influenza virus vacc ine, whole virus Bhupendra Perrya DO Work Phone: [facility] 05-16-2015 pneumococcal conjuga te vaccine, 13 valent Bhupendra Lealla DO Work Phone: [facility] 05-11-2014 influenza, seasonal, injectable Bhupendra Lealla DO Work Phone: [facility] 01-02-2013 zoster vaccine, live Bhupendra Perrya DO Work Phone: [facility] 05-21-2012 influenza virus vacc ine, unspecified formulation Bhupendra Lealla DO Work Phone: [facility] 05-01-2009 pneumococcal polysaccharide vaccine, 23 valent Bhupendra Petrilla DO Work Phone: [facility] 05-01-2003 pneumococcal polysaccharide vaccine, 23 valent Bhupendra Petrilla DO Work Phone: [facility] Payers Date Payer Category Payer Self-pay [id number] 2021 Medicare supplementa l policy (as second payer) O MEDICARE SUPPLEMENT [id number] 2021 Unknown [id number] 2021 Unknown [id number] 2012 Unknown [id number] 2012 Medicare [id number] 2012 Medicare [id number] Unknown [id number] Unknown [id number] Unknown [id number] Social History Date Type Detail Facility Start: 02-11-2022 End: 02-11-2022 Tobacco smoking status NHIS Unknown if ever smoked [facility] Work Phone: Start: 09-30-2020 Cigarettes [facility] Start: 1945 Sex Assigned At Male W [facility] Start: 12-09-2023 End: 01-06-2024 Tobacco smoking status NHIS Ex-smoker [facility] Start: 05-23-1960 End: 08-02-1997 History of tobacco use Current smoker [facility] Start: 05-23-1960 End: 08-02-1997 History of tobacco use Cigarette Smoker [facility] Start: 11-20-2022 End: 01-22-2025 Alcohol intake Current drinker of alcohol (finding) [facility] Start: 11-20-2022 End: 01-22-2025 Alcohol intake [facility] Start: 1945 Sex Assigned At Not on file [facility] Start: 11-10-2022 End: 11-20-2022 Exposure to SARS-CoV-2 (event) Not sure [facility] Start: 11-20-2022 End: 01-22-2025 Tobacco use panel [facility] Start: 12-09-2023 End: 02-07-2024 Tobacco use and exposure Smokeless tobacco non-user [facility] National Score (1-100), lower number is lower risk 71 [facility] Start: 06-05-2016 End: 02-07-2024 Tobacco Comment Father smoked in childhood home. 1st of 20 years smoker, 1994. [facility] Start: 06-05-2016 Alcohol Comment Occasional, no t daily for some time, 06/05/2016. [facility] Start: 03-02-2022 Sex Male (finding) [facility] Equipment Procedure Code Equipment Code Equipment Origin al Text Equipment Identifier Dates Lithotripsy, ESWL STENT,URETERAL PIGTAIL [id number] FDA Start: 10-10-2021 Lithotripsy, ESWL STENT,URETERAL PIGTAIL [id number] FDA Start: 10-17-2021 Lithotripsy, ESWL STENT,URETERAL PIGTAIL [id number] FDA Start: 10-10-2021 Lithotripsy, ESWL STENT,URETERAL PIGTAIL [id number] FDA Start: 10-17-2021 Lithotripsy, ESWL STENT,URETERAL PIGTAIL [id number] FDA Start: 10-10-2021 Lithotripsy, ESWL STENT,URETERAL PIGTAIL [id number] FDA Start: 10-17-2021 Functional Status Date Assessment Result Facility 01-22-2025 Patient Health Questionnaire 2 item (PHQ- 2) [Reported] [facility] Clinical Notes 12-24-2022 to 01-22-2025 Bhupendra BrownDO - 01/22/2025 3:40 PM EDTTelephone Encounter - Negar Vázquez MA - 01/08/2025 11:57 AM EDTTelephone Encounter - Negar Vázquez MA - 01/08/2025 11:57 AM EDT Note Date & Type Note Facility 01-22-2025 History of Presen t illness Narrative Images from the original note were not included. [facility] - [address] [facility] [address] Visit type: Established Patient Reason for Visit: Follow-up (Med Check ) and Arthritis (Hands and shoulders feet tight and cramped ) Assessment / Plan: Erich was seen today for follow-up and arthritis. Diagnoses and all orders for this visit: Arthralgia of both hands (Primary) Comments: New onset, prednisone to check lab Orders: - CBC auto differential; Future - Comprehensive metabolic panel; Future - Sedimentation rate, automated; Future - C-reactive protein; Future - SHIN; Future - CK; Future - Rheumatoid factor; Future - CBC auto differential - Comprehensive metabolic panel - Sedimentation rate, automated - C-reactive protein - SHIN - CK - Rheumatoid factor Other fatigue - TSH; Future - T4, free; Future - T3, free; Future - TSH - T4, free - T3, free Essential hypertension Comments: Stable, continue benazepril and amlodipine Renal insufficiency Comments: Improved with no NSAIDs due to history of elevated creatinine with NSAIDs Hypercholesterolemia 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 - predniSONE (Deltasone) 10 MG tablet; 5 qday for 3 days, then 3 qday for 3 days, then one qday till gone Subjective: Patient ID: Erich Franco is a 79 y.o. male. HPI stable hypertensive patient presents with a few months of substantial joint stiffness and pain of both wrists and hands. Also very tender shoulders with limited range of motion. Some lower extremity stiffness but not as bad. Of note cannot take NSAIDs due to history of nephropathy and not getting by on Tylenol and muscle rubs and creams. Joint stiffness and pain takes about 6 to 7 hours to resolve. Review of Systems No constitutional symptoms of fever or recent infection. No ongoing sore throat or cough. Denies exertional chest pain or smothering. Eating and voiding well. No bowel or bladder changes. No skin changes of erythema nodosum. Denies alopecia. Allergies[1] Current Medications[2] Problem List[3] Social History Tobacco Use Smoking status: Former Current packs/day: 0.00 Average packs/day: 1 pack/day for 37.0 years (37.0 ttl pk-yrs) Types: Cigarettes Start date: 05/23/1960 Quit date: 05/31/1997 Years since quittin.6 Smokeless tobacco: Never Substance Use Topics Alcohol use: Yes Alcohol/week: 2.0 standard drinks of alcohol Surgical History[4] Family History[5] Objective: BP 120/60 Pulse 91 Temp 36.3 C (97.4 F) (Temporal) Ht 5' 8" (1.727 m) Wt 237 lb (108 kg) SpO2 94% BMI 36.04 kg/m Physical Exam no acute distress. No neck masses or thyroid lesions. Normal oropharynx. Not in icteric. There is some joint swelling of the metacarpal phalangeal joints and PIP joints. No erythema nodosum. Limited abduction and flexion of the shoulders. Lower extremities exam was unremarkable. No erythema nodosum. There is no weakness of any extremities. His gait is normal. Heart is regular without murmurs. Lungs are clear. Abdomen obese nontender without pain hepatosplenomegaly or masses. [1] Allergies Allergen Reactions Atorvastatin Other reaction(s): AOF, GALLARDO, Nausea, Myalgias, headache, nausea aches and pains. Other reaction(s): GALLARDO, Nausea, Myalgias Other reaction(s): GALLARDO, Nausea, Myalgias, headache, nausea aches and pains. Lisinopril Other Other reaction(s): headache, nausea aches and pains. Of note, tolerant of Benazepril Other reaction(s): headache, nausea aches and pains. Ezetimibe-Simvastatin Other Muscle pain Nsaids Other Mild CRF [2] Current Outpatient Medications: amLODIPine (Norvasc) 10 MG tablet, TAKE 1 TABLET (10 MG) BY MOUTH DAILY., Disp: 90 tablet, Rfl: 1 benazepril (Lotensin) 10 MG tablet, TAKE 1 TABLET (10 MG) BY MOUTH DAILY., Disp: 90 tablet, Rfl: 1 rosuvastatin (Crestor) 20 MG tablet, TAKE 1 TABLET BY MOUTH EVERY DAY, Disp: 90 tablet, Rfl: 1 finasteride (Proscar) 5 MG tablet, Take 1 tablet (5 mg) by mouth daily., Disp: 90 tablet, Rfl: 1 predniSONE (Deltasone) 10 MG tablet, 5 qday for 3 days, then 3 qday for 3 days, then one qday till gone, Disp: 27 tablet, Rfl: 5 [3] Patient Active Problem List Diagnosis History of COVID-19 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 Mary- due 2028 EXTRACORPOREAL SHOCK WAVE LITHOTRYPSY, KIDNEY CALCULI (HISTORICAL) Left 01/2024 Dr. Jackson KIDNEY STONE SURGERY Left 2021 Dr. Jackson LUMBAR LAMINECTOMY 2016 L2-5 OR per Moran TONSILLECTOMY (HISTORICAL) 1950 [5] Family History Problem Relation Name Age of Onset Uterine cancer Mother ? mets to liver, age 89 Kidney disease Father of CRF age 76 Colon cancer Father 60 Other ([id number]) Sister post flu complications age 65 in 04/18 Other ([id number]) Brother Parksonidos age 55 ? German synd No Known Problems Brother 1/2 bert Mason documented in this encounter [facility] [employer] 01-08-2025 Telephone encount er Note Recent Visits Date Type Provider Dept 06/12/24 Office Visit Bhupendra Brown DO [facility] Showing recent visits within past 365 days and meeting all other requirements Future Appointments Date Type Provider Dept 01/22/25 Appointment Bhupendra Brown DO [facility] Showing future appointments within next 90 days and meeting all other requirements Requested Prescriptions Pending Prescriptions Disp Refills rosuvastatin (Crestor) 20 MG tablet [Pharmacy Med Name: ROSUVASTATIN CALCIUM 20 MG TAB] 90 tablet 1 Sig: TAKE 1 TABLET BY MOUTH EVERY DAY benazepril (Lotensin) 10 MG tablet [Pharmacy Med Name: BENAZEPRIL HCL 10 MG TABLET] 90 tablet 1 Sig: TAKE 1 TABLET (10 MG) BY MOUTH DAILY. Provider: Liya Chadwick DO Verified pharmacy: yes Verified day(s) supplied: yes Verified refill(s) needed (previous prescription showing no refills in chart): Yes Have you received any controlled medications from any other provider? N/A Overdue for visit: No If yes - patient scheduled? N/A Most recent labs completed in chart? N/A None [facility] 01-08-2025 Miscellaneous Notes Formattin g of this note is different from the original. Recent Visits Date Type Provider Dept 06/12/24 Office Visit Bhupendra Brown DO [facility] Showing recent visits within past 365 days and meeting all other requirements Future Appointments Date Type Provider Dept 01/22/25 Appointment Bhupendra Brown DO [facility] Showing future appointments within next 90 days and meeting all other requirements Requested Prescriptions Pending Prescriptions Disp Refills rosuvastatin (Crestor) 20 MG tablet [Pharmacy Med Name: ROSUVASTATIN CALCIUM 20 MG TAB] 90 tablet 1 Sig: TAKE 1 TABLET BY MOUTH EVERY DAY benazepril (Lotensin) 10 MG tablet [Pharmacy Med Name: BENAZEPRIL HCL 10 MG TABLET] 90 tablet 1 Sig: TAKE 1 TABLET (10 MG) BY MOUTH DAILY. Provider: Liya Chadwick DO Verified pharmacy: yes Verified day(s) supplied: yes Verified refill(s) needed (previous prescription showing no refills in chart): Yes Have you received any controlled medications from any other provider? N/A Overdue for visit: No If yes - patient scheduled? N/A Most recent labs completed in chart? N/A None documented in this encounter [facility] 11-16-2024 Evaluation note Diagnosis Onset Date Resolution Mitral valve stenosis acute Apr il 2024 2:48pm Essential hypertension chronic Ap 2024 2:48pm Hyperlipidemia chronic October 2:48pm [facility] Work Phone: 1(301) 703-463811-11-2024 History of Present illness Narrative* Bhupendra Marcano Erik, - 06/12/2024 2:00 PM EST Images from the original note were not included. [facility] [place] [address] [facility] [address] Visit type: Established Patient Reason for Visit: Follow-up (Med Check) and Flu Vaccine (Patient is agreeable to have flu vaccine in the office ) Assessment / Plan: Erich was seen today for follow-up and flu vaccine. Diagnoses and all orders for this visit: Essential hypertension (Primary) Comments: Stable, continue amlodipine Lotensin Orders: - CBC auto differential; Future - Comprehensive metabolic panel; Future - CBC auto differential - Comprehensive metabolic panel Hypercholesterolemia Comments: Stable, continue Crestor Orders: - Lipid panel; Future - Lipid panel History of renal stone Benign non-nodular prostatic hyperplasia with lower urinary tract symptoms Comments: Stable, continue Proscar Other orders - Flu vaccine (FLUAD), trivalent, adjuvanted, preservative-free (ages 65+) Subjective: Patient ID: Erich Franco is a 79 y.o. male. HPI hypertension lipid management patient with history of renal stones and mild nonischemic coronary disease. He feels well after having a left-sided lithotripsy a few months ago. Of note also had a recheck colonoscopy that showed some polyps and due for recheck in 5 years. Review of Systems no recent earache sore throat or cough. Denies chest pain or dyspnea. No PND orthopnea claudication or change in mild pretibial edema. No heartburn or abdominal pain. No melena or blood. Bowels are regular. No recurrent flank pain or hematuria. Rare arthralgia. Overall feels pretty positive. Does have a stress with his developing some memory loss. Allergies Allergen Reactions Atorvastatin Other reaction(s): AOF, GALLARDO, Nausea, Myalgias, headache, nausea aches and pains. Other reaction(s): GALLARDO, Nausea, Myalgias Other reaction(s): GALLARDO, Nausea, Myalgias, headache, nausea aches and pains. Lisinopril Other Other reaction(s): headache, nausea aches and pains. Of note, tolerant of Benazepril Other reaction(s): headache, nausea aches and pains. Ezetimibe-Simvastatin Other Muscle pain Nsaids Other Mild CRF Current Outpatient Medications on File Prior to Visit Medication Sig Dispense Refill amLODIPine (Norvasc) 10 MG tablet Take 1 tablet (10 mg) by mouth daily. 90 tablet 1 benazepril (Lotensin) 10 MG tablet TAKE 1 TABLET (10 MG) BY MOUTH DAILY. 90 tablet 1 finasteride (Proscar) 5 MG tablet Take 1 tablet (5 mg) by mouth daily. 90 tablet 1 rosuvastatin (Crestor) 20 MG tablet TAKE 1 TABLET BY MOUTH EVERY DAY 90 tablet 1 [DISCONTINUED] Aspirin 81 MG capsule Take 81 mg by mouth daily. (Patient not taking: Reported on 06/12/2024) No current facility-administered medications on file prior to visit. Patient Active Problem List Diagnosis History of COVID-19 Renal insufficiency Essential hypertension History of colonic polyps GLORIA on CPAP Renal cyst History of renal stone Lumbar spinal stenosis Coronary arteriosclerosis Hypercholesterolemia Family history of colon cancer Benign non-nodular prostatic hyperplasia with lower urinary tract symptoms Diverticulosis of colon Mitral stenosis Social History Tobacco Use Smoking status: Former Current packs/day: 0.00 Average packs/day: 1 pack/day for 37.0 years (37.0 ttl pk-yrs) Types: Cigarettes Start date: 05/23/1960 Quit date: 05/31/1997 Years since quittin.0 Smokeless tobacco: Never Substance Use Topics Alcohol use: Yes Alcohol/week: 2.0 standard drinks of alcohol Past Surgical History: Procedure Laterality Date CARDIAC CATHETERIZATION 2015 [place]- min dx, LVH, COLONOSCOPY 2008 COLONOSCOPY 2014 Yves COLONOSCOPY W/ POLYPECTOMY 07/2018 Cebul- rech due 2022 COLONOSCOPY W/ POLYPECTOMY 01/2024 Dr. Mary- due 2028 EXTRACORPOREAL SHOCK WAVE LITHOTRYPSY, KIDNEY CALCULI (HISTORICAL) Left 01/2024 Dr. Jackson KIDNEY STONE SURGERY Left 2021 Dr. Jackson LUMBAR LAMINECTOMY 2016 L2-5 OR per Moran TONSILLECTOMY (HISTORICAL) 1950 Family History Problem Relation Name Age of Onset Uterine cancer Mother ? mets to liver, age 89 Kidney disease Father of CRF age 76 Colon cancer Father 60 Other ([id number]) Sister post flu complications age 65 in 04/18 Other ([id number]) Brother Roslyns age 55 ? German synd No Known Problems Brother 1/2 vonMike Marlon Objective: BP 118/62 (BP Location: Right arm, Patient Position: Sitting, BP Cuff Size: Large adult) Pulse 78 Temp 36.2 C (97.2 F) (Temporal) Ht 5' 8" (1.727 m) Wt 238 lb 3.2 oz (108 kg) SpO2 97% BMI36.22 kg/m Physical Exam Vitals reviewed. Constitutional: General: He is not in acute distress. Appearance: He is obese. He is not ill-appearing. HENT: Right Ear: Tympanic membrane normal. Left Ear: Tympanic membrane normal. Nose: No congestion or rhinorrhea. Mouth/Throat: Pharynx: No oropharyngeal exudate. Eyes: General: No scleral icterus. Neck: Vascular: No carotid bruit. Cardiovascular: Rate and Rhythm: Normal rate and regular rhythm. Pulses: Normal pulses. Heart sounds: Normal heart sounds. No murmur heard. Pulmonary: Effort: Pulmonary effort is normal. Breath sounds: Normal breath sounds. Abdominal: General: Bowel sounds are normal. There is no distension. Palpations: Abdomen is soft. There is no mass. Tenderness: There is no abdominal tenderness. Hernia: No hernia is present. Comments: No hepatosplenomegaly or masses or bruits -femoral pulses are good Musculoskeletal: Right lower leg: No edema. Left lower leg: No edema. Lymphadenopathy: Cervical: No cervical adenopathy. Skin: General: Skin is warm. Neurological: General: No focal deficit present. Mental Status: He is alert and oriented to person, place, and time. Psychiatric: Mood and Affect: Mood normal. Thought Content: Thought content normal. documented in this [facility]09-04-2024 Telephone encounter Note* Telephone Encounter - Solange Moran LPN - 04/05/2024 2:31 PM EDT RX loaded Next ov 06/12/24 [id number] Miscellaneous Notes* Telephone Encounter - Solange Moran LPN - 04/05/2024 2:31 PM EDT RX loaded Next ov 06/12/24 * Telephone Encounter - Rhonda Ortiz - 04/05/2024 2:19 PM EDT (1) Medication name: amLODIPine (Norvasc) 10 MG tablet Medication dosage: 10 mg (Miligrams Monthly quantity needed: 90 How many day supply requestin days Medication route: oral (PO) Medication administration time(s): daily If taking medication PRN, reason for taking medication: N/A If this is a controlled substance do you receive this or any other controlled medication from any other doctor or facility: N/A Date of last refill (see medication tab): 12/09/23 Ordering provider: Erik Date of last office visit: 12/09/23 Date of next office visit: 06/12/24 Updated/Validated preferred pharmacy: Yes [facility]/pharmacy #[id number] - [place], [place] - [address] Patient instructed to contact the pharmacy prior to picking up the medication: Yes (2) Medication name: finasteride (Proscar) 5 MG tablet Medication dosage: 5 mg (Miligrams Monthly quantity needed: 90 How many day supply requestin days Medication route: oral (PO) Medication administration time(s): daily If taking medication PRN, reason for taking medication: N/A If this is a controlled substance do you receive this or any other controlled medication from any other doctor or facility: N/A Date of last refill (see medication tab): 12/09/23 [id number] Telephone encounter Note* Telephone Encounter - Rhonda Ortiz - 04/05/2024 2:19 PM EDT (1) Medication name: amLODIPine (Norvasc) 10 MG tablet Medication dosage: 10 mg (Miligrams Monthly quantity needed: 90 How many day supply requestin days Medication route: oral (PO) Medication administration time(s): daily If taking medication PRN, reason for taking medication: N/A If this is a controlled substance do you receive this or any other controlled medication from any other doctor or facility: N/A Date of last refill (see medication tab): 12/09/23 Ordering provider: Erik Date of last office visit: 12/09/23 Date of next office visit: 06/12/24 Updated/Validated preferred pharmacy: Yes [facility]/pharmacy #[id number] - [place], [place] - [address] Patient instructed to contact the pharmacy prior to picking up the medication: Yes (2) Medication name: finasteride (Proscar) 5 MG tablet Medication dosage: 5 mg (Miligrams Monthly quantity needed: 90 How many day supply requestin days Medication route: oral (PO) Medication administration time(s): daily If taking medication PRN, reason for taking medication: N/A If this is a controlled substance do you receive this or any other controlled medication from any other doctor or facility: N/A Date of last refill (see medication tab): 12/09/23 [id number] Telephone encounter Note* Telephone Encounter - Devorah Patel MA - 03/27/2024 11:11 AM EDT Recent Visits Date Type Provider Dept 12/09/23 Office Visit DO Cherise Bhagat [facility] 05/24/23 Office Visit DO Cherise Bhagat [facility] Showing recent visits within past 365 days and meeting all other requirements Future Appointments Date Type Provider Dept 06/12/24 Appointment DO Cherise Bhagat [facility] Showing future appointments within next 90 days and meeting all other requirements Requested Prescriptions Pending Prescriptions Disp Refills benazepril (Lotensin) 10 MG tablet [Pharmacy Med Name: BENAZEPRIL HCL 10 MG TABLET] 90 tablet 1 Sig: TAKE 1 TABLET (10 MG) BY MOUTH DAILY. rosuvastatin (Crestor) 20 MG tablet [Pharmacy Med Name: ROSUVASTATIN CALCIUM 20 MG TAB] 90 tablet 1 Sig: TAKE 1 TABLET BY MOUTH EVERY DAY Provider: Bhupendra Brown DO Overdue for visit: No If yes - patient scheduled? Yes Most recent labs completed in chart? Yes Verified pharmacy: yes Verified day(s) supplied: yes Verified refill(s) needed (previous prescription showing no refills in chart): Yes Have you received any controlled medications from any other provider? N/A Cholesterol: Lab Results Component Value Date CHOLESTEROLT 141 05/24/2023 HDLCHOLESTER 48 05/24/2023 TRIGLYCERIDE 162 (H) 05/24/2023 LDLCHOLESTER 69 05/24/2023 CHOLHDLCRATI 2.9 05/24/2023 NONHDLCHOLES 93 05/24/2023 [id number] Miscellaneous Notes* Telephone Encounter - Devorah Patel MA - 03/27/2024 11:11 AM EDT Recent Visits Date Type Provider Dept 12/09/23 Office Visit Bhupendra Brown DO [facility] 05/24/23 Office Visit Bhupendra Brown DO [facility] Showing recent visits within past 365 days and meeting all other requirements Future Appointments Date Type Provider Dept 06/12/24 Appointment Bhupendra Brown DO [facility] Showing future appointments within next 90 days and meeting all other requirements Requested Prescriptions Pending Prescriptions Disp Refills benazepril (Lotensin) 10 MG tablet [Pharmacy Med Name: BENAZEPRIL HCL 10 MG TABLET] 90 tablet 1 Sig: TAKE 1 TABLET (10 MG) BY MOUTH DAILY. rosuvastatin (Crestor) 20 MG tablet [Pharmacy Med Name: ROSUVASTATIN CALCIUM 20 MG TAB] 90 tablet 1 Sig: TAKE 1 TABLET BY MOUTH EVERY DAY Provider: Bhupendra Brown DO Overdue for visit: No If yes - patient scheduled? Yes Most recent labs completed in chart? Yes Verified pharmacy: yes Verified day(s) supplied: yes Verified refill(s) needed (previous prescription showing no refills in chart): Yes Have you received any controlled medications from any other provider? N/A Cholesterol: Lab Results Component Value Date CHOLESTEROLT 141 05/24/2023 HDLCHOLESTER 48 05/24/2023 TRIGLYCERIDE 162 (H) 05/24/2023 LDLCHOLESTER 69 05/24/2023 CHOLHDLCRATI 2.9 05/24/2023 NONHDLCHOLES 93 05/24/2023 documented in this [facility]07-16-2024 History of Present illness Narrative* Kandi Manzanares APRN.DETENTION DEPUTY - 02/15/2024 11:00 AM EDT FOLLOW UP VISIT - ENDOSCOPY Erich Best Joan 1945 [id number] REFERRING PHYSICIAN: Ciaran Mary III [address] [facility] [address] Erich Best Elisabethkathy is a patient I am following for family history of colon cancer. Dr. Mary performed lower endoscopy on . The patient was found to have Impression: - Preparation of the colon was fair. - Four diminutive polyps in the transverse colon, removed with a jumbo cold forceps. Resected and retrieved. - One small polyp in the transverse colon, removed with a hot snare. Resected and retrieved. - Non-bleeding internal hemorrhoids. - Diverticulosis in the sigmoid colon and in the descending colon. - The examination was otherwise normal. Pathology demonstrated: FINAL DIAGNOSIS A. Colon, transverse, polyps (x4), polypectomy: -Fragments of tubular adenoma. B. Colon, transverse, polyp, jar #2, polypectomy: -Fragments of tubular adenoma. The patient notes no complaints since the procedure. VITALS: There were no vitals taken for this visit. General: patient is alert, cooperative, pleasant and in no acute distress On examination, the abdomen is benign. Assessment ASSESSMENT/PLAN: 1. Adenomatous polyps - ICD9: 229.9, ICD10: D36.9 The operative findings and pathology report were reviewed with the patient, and the patient has hadthe opportunity to ask questions and have questions answered. If the patient notes any problems or changes in bowel function, the patient should contact me immediately. Otherwise I recommend follow up endoscopy 3 years. HM updated and recall letter generated. Discussed treatment plan and patient voices understanding. Patient's questions answered appropriately. Return to the office PRN Kandi Manzanares APRN.DETENTION DEPUTY [facility] Note* Discharge Instr - Nursing - Abbey Tapia RN - 02/07/2024 10:05 AM EDT The patient received a copy of Colonoscopy discharge instructions that contain information for how to contact the physician who performed the procedure and when to seek medical care. [facility]07-08-2024 Miscellaneous Notes* Discharge Instr - Nursing - Abbey Tapia RN - 02/07/2024 10:05 AM EDT The patient received a copy of Colonoscopy discharge instructions that contain information for how to contact the physician who performed the procedure and when to seek medical care. [facility] in this [facility]07-[facility] Nurse Note* Abbey Tapia RN - 02/07/2024 9:38 AM EDT Patient passing a moderate amount of air via rectum. Stomach no soft and non- distended. Will continue to monitor. [facility]07-08-2024 Nurse Note* Abbey Tapia RN - 02/07/2024 9:38 AM EDT Patient passing a moderate amount of air via rectum. Stomach no soft and non- distended. Will continue to monitor. * Abbey Tapia RN - 02/07/2024 9:32 AM EDT Abdomen firm and distended. Instructed to pass air via rectum. Will continue to monito. documented in this [facility]07-08-2024 NoteHNO ID: [id number] Author: ABBEY TAPIA RN Service: ? Author Type: Registered Nurse Type: Nursing Progress Note Filed: 02/07/2024 09:38 Note Text: Abdomen firm and distended. Instructed to pass air via rectum. Will continue to monito.[facility]07-08-2024 Nurse Note* Abbey Tapia RN - 02/07/2024 9:32 AM EDT Abdomen firm and distended. Instructed to pass air via rectum. Will continue to monito. [facility]07-08-2024 History and physical note* Ciaran Mary MD - 02/07/2024 9:15 AM EDT HISTORY AND PHYSICAL Erich Franco 1945 REFERRING PHYSICIAN: Bhupendra Brown DO CHIEF COMPLAINT: Consult (colonoscopy) HPI: The patient is a 78 year old male referred for endoscopy. Erich notes no history of colon complaints. The patient notes no history of upper GI complaints. Erich has undergone prior endoscopy. Colonoscopy was on 12/27/2014. He does have a family history of colon cancer The patient is being seen by me today at the request of Dr. Brown for my opinion and advice regarding Family history of colon cancer (primary encounter diagnosis). PAST MEDICAL HISTORY PAST MEDICAL HISTORY Diagnosis Date Benign neoplasm of colon 10/01/2005 Coronary arteriosclerosis Diverticulosis of colon (without mention of hemorrhage) 10/01/2005 Family history of malignant neoplasm of gastrointestinal tract Hypertension, essential Internal hemorrhoids without mention of complication 10/01/2005 Mitral stenosis Personal history of colonic polyps Renal stone Seasonal allergic rhinitis Springtime. PAST SURGICAL HISTORY PAST SURGICAL HISTORY Procedure Laterality Date ADENOIDECTOMY PRIMARY Adenoidectomy COLONOSCOPY FLX DX W/COLLJ SPEC WHEN PFRMD 07/04/2009 COLONOSCOPY FLX DX W/COLLJ SPEC WHEN PFRMD 12/27/2014 Colonoscopy COLSC FLX W/RMVL OF TUMOR POLYP LESION SNARE TQ 10/01/2005 LAMINECTOMY,LUMBAR LEFT HEART CATH,PERCUTANEOUS 2016 PAST SURGICAL HISTORY OF bilat great toenails removed CURRENT MEDICATIONS Current Outpatient Medications Medication Sig tamsulosin (FLOMAX) 0.4 mg Take 0.4 mg by mouth daily at bedtime. benazepril (LOTENSIN) 10 mg tablet Take 10 mg by mouth once daily. amLODIPine (NORVASC) 5 mg tablet Take 5 mg by mouth once daily. finasteride (PROSCAR) 5 mg tablet Take 5 mg by mouth once daily. simvastatin (ZOCOR) 20 mg tablet Take 20 mg by mouth daily at bedtime. lisinopril (ZESTRIL, PRINIVIL) 5 mg tablet Take 5 mg by mouth once daily. (Patient not taking: Reported on 01/17/2024) No current facility-administered medications for this visit. ALLERGIES: Patient has no known allergies. PERSONAL HISTORY: SOCIAL HISTORY Social History Tobacco Use Smoking status: Former Packs/day: 1.00 Years: 30.00 Additional pack years: 0.00 Total pack years: 30.00 Types: Cigarettes Start date: 02/20/1968 Quit date: 08/02/1997 Years since quittin.4 Smokeless tobacco: Never Tobacco comments: Father smoked in childhood home. 1st of 20 years smoker, 1994. Substance Use Topics Alcohol use: Yes Comment: Occasional, not daily for some time, 06/05/2016. Drug use: No FAMILY HISTORY: FAMILY HISTORY FAMILY HISTORY Problem Relation Age of Onset Cancer Mother colon-malignant polyp Colon Cancer Father skin cancer Colon Cancer Maternal Grandfather Breast Cancer Paternal Grandmother REVIEW OF SYMPTOMS: The review of systems data was entered by the nurse and reviewed by me There are no exam notes on file for this visit. PHYSICAL EXAMINATION: General: The patient is 78 year old male, well nourished, well hydrated in no acute distress. The patient is oriented to time, place, and person. VITALS: Blood pressure 130/62, pulse 91, temperature 36.7 C (98.1 F), height 172.7 cm (5' 8"), weight 109.1 kg (240 lb 9.6 oz), SpO2 95%. Body mass index is 36.58 kg/m . HEENT: Normal cephalic, ataumatic, pupils are equally round, sclera are anicteric, mucous membranesare moist, oropharynx is clear. Neck has no masses, asymmetry or lymphadenopathy. Thyroid is unremarkable. Respiratory: Clear to auscultation and percussion. Normal respiratory excursion and pattern. Cardiac: Examination is regular rate and rhythm. Abdominal exam: Soft, nontender, with no palpable masses. No hepatosplenomegaly. No palpable hernias. Rectal exam: exam deferred Extremities: no clubbing, cyanosis or edema. No adenopathy. Other: LABORATORY VALUES: As Noted RADIOLOGIC STUDIES: As Noted Assessment IMPRESSION: Family history of colon cancer (primary encounter diagnosis) PLAN: I plan to perform what we got here postop endoscopy. We discussed the risks and benefits of the planned endoscopy. I have informed the patient that complications can occur including failure to complete the endoscopy and perforation. The patient had the opportunity to ask questions concerning the planned endoscopy. My staff has also explained the procedure to the patient in understandable terms and has given the patient printed material concerning the procedure. The patient freely consentsto surgery. I plan to use Miralax bowel preperation for endoscopy Diagnoses: (Z80.0) Family history of colon cancer (primary encounter diagnosis) A letter was sent to Dr. Bhupendra Brown DO indicating the above finding for this patient. Return to Clinic: The patient is instructed to follow-up with me 1 week post operatively. Ciaran Mary III, MD UPDATED HISTORY AND PHYSICAL EXAMINATION SERVICE DATE: 02/07/2024 SERVICE TIME: 8:51 AM PHYSICAL EXAM MUST BE COMPLETED ON ADMISSION The History and Physical (completed in the past 30 days) has been reviewed and the patient has beenexamined. The contents accurately reflect the patient's condition with the following additions or revisions since the H&P was completed. Examination indicates no changes. This H&P can be found in the attached. SIGNATURE: Ciaran Mary III, MD PATIENT NAME: Erich Franco DATE: February 07, 2024 TIME: 8:51 AM [facility]07-08-2024 History and physical note* Ciaran Mary MD - 02/07/2024 9:15 AM EDT HISTORY AND PHYSICAL Erich Franco 1945 REFERRING PHYSICIAN: Bhupendra Brown DO CHIEF COMPLAINT: Consult (colonoscopy) HPI: The patient is a 78 year old male referred for endoscopy. Erich notes no history of colon complaints. The patient notes no history of upper GI complaints. Erich has undergone prior endoscopy. Colonoscopy was on 12/27/2014. He does have a family history of colon cancer The patient is being seen by me today at the request of Dr. Brown for my opinion and advice regarding Family history of colon cancer (primary encounter diagnosis). PAST MEDICAL HISTORY PAST MEDICAL HISTORY Diagnosis Date Benign neoplasm of colon 10/01/2005 Coronary arteriosclerosis Diverticulosis of colon (without mention of hemorrhage) 10/01/2005 Family history of malignant neoplasm of gastrointestinal tract Hypertension, essential Internal hemorrhoids without mention of complication 10/01/2005 Mitral stenosis Personal history of colonic polyps Renal stone Seasonal allergic rhinitis Springtime. PAST SURGICAL HISTORY PAST SURGICAL HISTORY Procedure Laterality Date ADENOIDECTOMY PRIMARY <AGE 14 Adenoidectomy COLONOSCOPY FLX DX W/COLLJ SPEC WHEN PFRMD 07/04/2009 COLONOSCOPY FLX DX W/COLLJ SPEC WHEN PFRMD 12/27/2014 Colonoscopy COLSC FLX W/RMVL OF TUMOR POLYP LESION SNARE TQ 10/01/2005 LAMINECTOMY,LUMBAR LEFT HEART CATH,PERCUTANEOUS 2016 PAST SURGICAL HISTORY OF bilat great toenails removed CURRENT MEDICATIONS Current Outpatient Medications Medication Sig tamsulosin (FLOMAX) 0.4 mg Take 0.4 mg by mouth daily at bedtime. benazepril (LOTENSIN) 10 mg tablet Take 10 mg by mouth once daily. amLODIPine (NORVASC) 5 mg tablet Take 5 mg by mouth once daily. finasteride (PROSCAR) 5 mg tablet Take 5 mg by mouth once daily. simvastatin (ZOCOR) 20 mg tablet Take 20 mg by mouth daily at bedtime. lisinopril (ZESTRIL, PRINIVIL) 5 mg tablet Take 5 mg by mouth once daily. (Patient not taking: Reported on 01/17/2024) No current facility-administered medications for this visit. ALLERGIES: Patient has no known allergies. PERSONAL HISTORY: SOCIAL HISTORY Social History Tobacco Use Smoking status: Former Packs/day: 1.00 Years: 30.00 Additional pack years: 0.00 Total pack years: 30.00 Types: Cigarettes Start date: 02/20/1968 Quit date: 08/02/1997 Years since quittin.4 Smokeless tobacco: Never Tobacco comments: Father smoked in childhood home. 1st of 20 years smoker, 1994. Substance Use Topics Alcohol use: Yes Comment: Occasional, not daily for some time, 06/05/2016. Drug use: No FAMILY HISTORY: FAMILY HISTORY FAMILY HISTORY Problem Relation Age of Onset Cancer Mother colon-malignant polyp Colon Cancer Father skin cancer Colon Cancer Maternal Grandfather Breast Cancer Paternal Grandmother REVIEW OF SYMPTOMS: The review of systems data was entered by the nurse and reviewed by me There are no exam notes on file for this visit. PHYSICAL EXAMINATION: General: The patient is 78 year old male, well nourished, well hydrated in no acute distress. The patient is oriented to time, place, and person. VITALS: Blood pressure 130/62, pulse 91, temperature 36.7 C (98.1 F), height 172.7 cm (5' 8"), weight 109.1 kg (240 lb 9.6 oz), SpO2 95%. Body mass index is 36.58 kg/m . HEENT: Normal cephalic, ataumatic, pupils are equally round, sclera are anicteric, mucous membranesare moist, oropharynx is clear. Neck has no masses, asymmetry or lymphadenopathy. Thyroid is unremarkable. Respiratory: Clear to auscultation and percussion. Normal respiratory excursion and pattern. Cardiac: Examination is regular rate and rhythm. Abdominal exam: Soft, nontender, with no palpable masses. No hepatosplenomegaly. No palpable hernias. Rectal exam: exam deferred Extremities: no clubbing, cyanosis or edema. No adenopathy. Other: LABORATORY VALUES: As Noted RADIOLOGIC STUDIES: As Noted Assessment IMPRESSION: Family history of colon cancer (primary encounter diagnosis) PLAN: I plan to perform what we got here postop endoscopy. We discussed the risks and benefits of the planned endoscopy. I have informed the patient that complications can occur including failure to complete the endoscopy and perforation. The patient had the opportunity to ask questions concerning the planned endoscopy. My staff has also explained the procedure to the patient in understandable terms and has given the patient printed material concerning the procedure. The patient freely consentsto surgery. I plan to use Miralax bowel preperation for endoscopy Diagnoses: (Z80.0) Family history of colon cancer (primary encounter diagnosis) A letter was sent to Dr. Bhupendra Brown DO indicating the above finding for this patient. Return to Clinic: The patient is instructed to follow-up with me 1 week post operatively. Ciaran Mary III, MD UPDATED HISTORY AND PHYSICAL EXAMINATION SERVICE DATE: 02/07/2024 SERVICE TIME: 8:51 AM PHYSICAL EXAM MUST BE COMPLETED ON ADMISSION The History and Physical (completed in the past 30 days) has been reviewed and the patient has beenexamined. The contents accurately reflect the patient's condition with the following additions or revisions since the H&P was completed. Examination indicates no changes. This H&P can be found in the attached. SIGNATURE: Ciaran Mary III, MD PATIENT NAME: Erich Franco DATE: February 07, 2024 TIME: 8:51 AM documented in this [facility]06-18-2024 NoteHNO ID: [id number] Author: CIARAN MARY MD Service: ? Author Type: Physician Type: Progress Notes Filed: 01/18/2024 08:42 Note Text: HISTORY AND PHYSICAL Erich Franco 1945 REFERRING PHYSICIAN: Bhupendra Brown DO CHIEF COMPLAINT: Consult (colonoscopy) HPI: The patient is a 78 year old male referred for endoscopy. Erich notes no history of colon complaints. The patient notes no history of upper GI complaints. Erich has undergone prior endoscopy. Colonoscopy was on 12/27/2014. He does have a family history of colon cancer The patient is being seen by me today at the request of Dr. Brown for my opinion and advice regarding Family history of colon cancer (primary encounter diagnosis). PAST MEDICAL HISTORY Diagnosis Date Benign neoplasm of colon 10/01/2005 Coronary arteriosclerosis Diverticulosis of colon (without mention of hemorrhage) 10/01/2005 Family history of malignant neoplasm of gastrointestinal tract Hypertension, essential Internal hemorrhoids without mention of complication 10/01/2005 Mitral stenosis Personal history of colonic polyps Renal stone Seasonal allergic rhinitis Springtime. PAST SURGICAL HISTORY Procedure Laterality Date ADENOIDECTOMY PRIMARY Adenoidectomy COLONOSCOPY FLX DX W/COLLJ SPEC WHEN PFRMD 07/04/2009 COLONOSCOPY FLX DX W/COLLJ SPEC WHEN PFRMD 12/27/2014 Colonoscopy COLSC FLX W/RMVL OF TUMOR POLYP LESION SNARE TQ 10/01/2005 LAMINECTOMY,LUMBAR LEFT HEART CATH,PERCUTANEOUS 2015 PAST SURGICAL HISTORY OF bilat great toenails removed Current Outpatient Medications Medication Sig tamsulosin (FLOMAX) 0.4 mg Take 0.4 mg by mouth daily at bedtime. benazepril (LOTENSIN) 10 mg tablet Take 10 mg by mouth once daily. amLODIPine (NORVASC) 5 mg tablet Take 5 mg by mouth once daily. finasteride (PROSCAR) 5 mg tablet Take 5 mg by mouth once daily. simvastatin (ZOCOR) 20 mg tablet Take 20 mg by mouth daily at bedtime. lisinopril (ZESTRIL, PRINIVIL) 5 mg tablet Take 5 mg by mouth once daily. (Patient not taking: Reported on 01/17/2024) No current facility-administered medications for this visit. ALLERGIES: Patient has no known allergies. PERSONAL HISTORY: Social History Tobacco Use Smoking status: Former Packs/day: 1.00 Years: 30.00 Additional pack years: 0.00 Total pack years: 30.00 Types: Cigarettes Start date: 02/20/1968 Quit date: 08/02/1997 Years since quittin.4 Smokeless tobacco: Never Tobacco comments: Father smoked in childhood home. 1st of 20 years smoker, 1994. Substance Use Topics Alcohol use: Yes Comment: Occasional, not daily for some time, 06/05/2016. Drug use: No FAMILY HISTORY: FAMILY HISTORY Problem Relation Age of Onset Cancer Mother colon-malignant polyp Colon Cancer Father skin cancer Colon Cancer Maternal Grandfather Breast Cancer Paternal Grandmother REVIEW OF SYMPTOMS: The review of systems data was entered by the nurse and reviewed by me There are no exam notes on file for this visit. PHYSICAL EXAMINATION: General: The patient is 78 year old male, well nourished, well hydrated in no acute distress. The patient is oriented to time, place, and person. VITALS: Blood pressure 130/62, pulse 91, temperature 36.7 ?C (98.1 ?F), height 172.7 cm (5' 8"), weight 109.1 kg (240 lb 9.6 oz), SpO2 95%. Body mass index is 36.58 kg/m?. HEENT: Normal cephalic, ataumatic, pupils are equally round, sclera are anicteric, mucous membranes are moist, oropharynx is clear. Neck has no masses, asymmetry or lymphadenopathy. Thyroid is unremarkable. Respiratory: Clear to auscultation and percussion. Normal respiratory excursion and pattern. Cardiac: Examination is regular rate and rhythm. Abdominal exam: Soft, nontender, with no palpable masses. No hepatosplenomegaly. No palpable hernias. Rectal exam: exam deferred Extremities: no clubbing, cyanosis or edema. No adenopathy. Other: LABORATORY VALUES: As Noted RADIOLOGIC STUDIES: As Noted Assessment IMPRESSION: Family history of colon cancer (primary encounter diagnosis) PLAN: I plan to perform what we got here postop endoscopy. We discussed the risks and benefits of the planned endoscopy. I have informed the patient that complications can occur including failure to complete the endoscopy and perforation. The patient had the opportunity to ask questions concerning the planned endoscopy. My staff has also explained the procedure to the patient in understandable terms and has given the patient printed material concerning the procedure. The patient freely consents to surgery. I plan to use Miralax bowel preperation for endoscopy Diagnoses: (Z80.0) Family history of colon cancer (primary encounter diagnosis) A letter was sent to Dr. Bhupendra Brown DO indicating the above finding for this patient. Return to Clinic: The patient is instructed to follow-up with me 1 week post operatively. __ (more content not included)...[facility]06-18-2024 History of Present illness Narrative* Ciaran Mary MD - 01/18/2024 8:39 AM EDT HISTORY AND PHYSICAL Erich Franco 1945 REFERRING PHYSICIAN: Bhupendra Brown DO CHIEF COMPLAINT: Consult (colonoscopy) HPI: The patient is a 78 year old male referred for endoscopy. Erich notes no history of colon complaints. The patient notes no history of upper GI complaints. Erich has undergone prior endoscopy. Colonoscopy was on 12/27/2014. He does have a family history of colon cancer The patient is being seen by me today at the request of Dr. Brown for my opinion and advice regarding Family history of colon cancer (primary encounter diagnosis). PAST MEDICAL HISTORY Diagnosis Date Benign neoplasm of colon 10/01/2005 Coronary arteriosclerosis Diverticulosis of colon (without mention of hemorrhage) 10/01/2005 Family history of malignant neoplasm of gastrointestinal tract Hypertension, essential Internal hemorrhoids without mention of complication 10/01/2005 Mitral stenosis Personal history of colonic polyps Renal stone Seasonal allergic rhinitis . PAST SURGICAL HISTORY Procedure Laterality Date ADENOIDECTOMY PRIMARY <AGE 14 Adenoidectomy COLONOSCOPY FLX DX W/COLLJ SPEC WHEN PFRMD 07/04/2009 COLONOSCOPY FLX DX W/COLLJ SPEC WHEN PFRMD 12/27/2014 Colonoscopy COLSC FLX W/RMVL OF TUMOR POLYP LESION SNARE TQ 10/01/2005 LAMINECTOMY,LUMBAR LEFT HEART CATH,PERCUTANEOUS 2015 PAST SURGICAL HISTORY OF bilat great toenails removed Current Outpatient Medications Medication Sig tamsulosin (FLOMAX) 0.4 mg Take 0.4 mg by mouth daily at bedtime. benazepril (LOTENSIN) 10 mg tablet Take 10 mg by mouth once daily. amLODIPine (NORVASC) 5 mg tablet Take 5 mg by mouth once daily. finasteride (PROSCAR) 5 mg tablet Take 5 mg by mouth once daily. simvastatin (ZOCOR) 20 mg tablet Take 20 mg by mouth daily at bedtime. lisinopril (ZESTRIL, PRINIVIL) 5 mg tablet Take 5 mg by mouth once daily. (Patient not taking: Reported on 01/17/2024) No current facility-administered medications for this visit. ALLERGIES: Patient has no known allergies. PERSONAL HISTORY: Social History Tobacco Use Smoking status: Former Packs/day: 1.00 Years: 30.00 Additional pack years: 0.00 Total pack years: 30.00 Types: Cigarettes Start date: 02/20/1968 Quit date: 08/02/1997 Years since quittin.4 Smokeless tobacco: Never Tobacco comments: Father smoked in childhood home. 1st of 20 years smoker, 1994. Substance Use Topics Alcohol use: Yes Comment: Occasional, not daily for some time, 06/05/2016. Drug use: No FAMILY HISTORY: FAMILY HISTORY Problem Relation Age of Onset Cancer Mother colon-malignant polyp Colon Cancer Father skin cancer Colon Cancer Maternal Grandfather Breast Cancer Paternal Grandmother REVIEW OF SYMPTOMS: The review of systems data was entered by the nurse and reviewed by me There are no exam notes on file for this visit. PHYSICAL EXAMINATION: General: The patient is 78 year old male, well nourished, well hydrated in no acute distress. The patient is oriented to time, place, and person. VITALS: Blood pressure 130/62, pulse 91, temperature 36.7 C (98.1 F), height 172.7 cm (5' 8"), weight 109.1 kg (240 lb 9.6 oz), SpO2 95%. Body mass index is 36.58 kg/m . HEENT: Normal cephalic, ataumatic, pupils are equally round, sclera are anicteric, mucous membranesare moist, oropharynx is clear. Neck has no masses, asymmetry or lymphadenopathy. Thyroid is unremarkable. Respiratory: Clear to auscultation and percussion. Normal respiratory excursion and pattern. Cardiac: Examination is regular rate and rhythm. Abdominal exam: Soft, nontender, with no palpable masses. No hepatosplenomegaly. No palpable hernias. Rectal exam: exam deferred Extremities: no clubbing, cyanosis or edema. No adenopathy. Other: LABORATORY VALUES: As Noted RADIOLOGIC STUDIES: As Noted Assessment IMPRESSION: Family history of colon cancer (primary encounter diagnosis) PLAN: I plan to perform what we got here postop endoscopy. We discussed the risks and benefits of the planned endoscopy. I have informed the patient that complications can occur including failure to complete the endoscopy and perforation. The patient had the opportunity to ask questions concerning the planned endoscopy. My staff has also explained the procedure to the patient in understandable terms and has given the patient printed material concerning the procedure. The patient freely consentsto surgery. I plan to use Miralax bowel preperation for endoscopy Diagnoses: (Z80.0) Family history of colon cancer (primary encounter diagnosis) A letter was sent to Dr. Bhupendra Brown DO indicating the above finding for this patient. Return to Clinic: The patient is instructed to follow-up with me 1 week post operatively. Ciaran Mary III, MD [facility] Instructions* Patient Instructions* Ciaran Mary MD - 01/17/2024 3:26 PM EDT Images from the original note were not included. Bowel Preparation Instructions for: Miralax-Gatorade Preparations IF YOU DO NOT FOLLOW THESE DIRECTIONS, YOUR COLONOSCOPY WILL BE CANCELLED. [place] Instructions: Your bowel must be empty so that your doctor can clearly view your colon. Follow all of the instructions in this handout EXACTLY as they are written. Do NOT eat any solid food the ENTIRE day before your colonoscopy. Buy your bowel preparation at least 5 days before your colonoscopy. Four (4) Dulcolax laxative tablets containing 5mg of bisacodyl each (NOT Dulcolax stool softener) One (1) 8.3oz. bottle Miralax (238 grams) or generic equivalent 2 x 32oz. Bottles of Gatorade (NOT RED) Diabetic Patients: Use G2 (Gatorade 2) TRANSPORTATION on the Day of Your Exam A responsible adult MUST be present with you at Check In prior to your colonoscopy and REMAIN in the endoscopy area until you are discharged. You are NOT ALLOWED to drive, take a taxi or bus, or leave the Endoscopy Center ALONE. If you do not have a responsible minibus driver (family member or friend) withyou to take you home, your exam cannot be done with sedation and will be cancelled. Please bring a list of all of your current medications, including any Ufcq-orn-Wvwonpc medications with you. Medications If you take insulin, diabetic medications or blood thinners such as Coumadin (warfarin), Plavix (clopidogrel), Ticlid (ticlopidine hydrochloride), Agrylin (anagrelide), Xarelto (Rivaroxaban), Pradaxa(Dabigatran), Eliquis (Apixaban), and Effient (Prasugrel). You MUST call the doctors who orders those medicines for instructions on altering the dosage before your colonoscopy. All other medications should be taken the day of the exam with a sip of water including ASPIRIN. Five (5) Days Before Your Colonoscopy Do NOT take medicines that stop diarrhea - such as Imodium, Kaopectate, or Pepto Bismol. Do NOT take fiber supplements - such as Metamucil, Citrucel, or Perdiem. Do NOT take products that contain iron - such as multi-vitamins (the label lists what is in the products). Three (3) Days Before Your Colonoscopy Do NOT eat high-fiber foods - such as popcorn, beans, seeds (flax, sunflower, quinoa), multigrain bread, nuts, salad/vegetables, or fresh and dried fruit. 1 Bowel Preparation Instructions for: Miralax-Gatorade Preparations One (1) Day Before Your Colonoscopy Only drink clear liquids the ENTIRE DAY before your colonoscopy. Do NOT eat any solid foods. Drink at least 8 ounces of clear liquids every hour after waking up. The clear liquids you can drink include: Clear Liquid (NO RED LIQUIDS) DO NOT DRINK Gatorade, Pedialyte or Powerade Clear broth or bouillon Coffee or tea (no milk or non-dairy creamer) Carbonated and non-carbonated soft drinks Umair-Aid or other fruit flavored drinks Strained fruit juices (no pulp) Jell-O, popsicles, hard candy Water Alcohol Milk or non-dairy creamers Noodles or vegetables in soup Juice with pulp Liquid you cannot see through Do not use tobacco/vaping products Mix 1/2 of Miralax bottle (119 grams) in each 32 ounces of Gatorade bottle until dissolved. Keep cool in the refrigerator. DO NOT ADD ICE. The bowel preparation solution will be consumed in two parts. Part 1 5:00 PM - Evening before your colonoscopy Take 4 Dulcolax tablets. 6 PM - Evening before your colonoscopy Drink 32 oz. of the mixed solution. Drink an 8 oz. glass of bowel preparation every 15 minutes for a total of 4 glasses. Fifteen (15) minutes later, drink an 8 oz. glass of of clear liquids every 15 minutes for a total of 2 glasses. You may continue to drink clear liquids till midnight. Part 2 On the day of your colonoscopy you may drink clear liquids up to (three) 3 hours prior to procedure. 4 1/2 hours before your colonoscopy Take another 32 oz. bottle of mixed solution. Drink an 8 oz. glass of bowel prep every 15 minutes for a total of 4 glasses. Fifteen (15) minutes later, drink an 8 oz. glass of clear liquids every 15 minutes for a total of 2glasses. You may continue to drink clear liquids up to (three) 3 hours before your exam. 2 07/2019 [facility] Note* Addendum Note - Emi Tam - 12/16/2023 3:47 PM EDTAddended by: EMI TAM on: 12/16/2023 03:47 PM Modules accepted: Orders [facility] [id number] Miscellaneous Notes* Addendum Note - Emi Tam - 12/16/2023 3:47 PM EDTAddended by: EMI TAM on: 12/16/2023 03:47 PM Modules accepted: Orders * Telephone Encounter - Gracy Johnson - 12/15/2023 9:36 AM EDT Orders pended for doctor signature * Telephone Encounter - Gracy Johnson - 12/15/2023 9:35 AM EDT ----- Message from Liya Dorantes MA sent at 12/15/2023 9:16 AM EDT ----- Spoke with patient and he consents to urology referral, patient says he is feeling better and sincehe started the pills he had a little bit of blood yesterday. ----- Message ----- From: Bhupendra Brown DO Sent: 12/14/2023 5:57 PM EDT To: Liya Dorantes MA Called patient to tell him that his CT scan from December 13 showed a smaller kidney stone on the left side compared to his last CT. This stone would be the cause of his bloody urine but he needsto see his urologist to discuss options for intervention In the meantime continue the antibiotic and drink lots of water. Get me updated on his symptoms as well documented in this encounterSHenry County [id number] Telephone encounter Note* Telephone Encounter - Gracy Johnson - 12/15/2023 2:28 PM EDT Referral and records faxed to Dr. Mary [facility] [id number] Miscellaneous Notes* Telephone Encounter - Gracy Johnson - 12/15/2023 2:28 PM EDT Referral and records faxed to Dr. Mary * Telephone Encounter - Fany Boyd - 12/15/2023 2:00 PM EDT Name of caller: Erica Contact phone number: [phone] Relationship to Patient: [facility] Provider: Dr. Brown Practice: [facility] Chief Complaint/Reason for Call: Erica called and stated Dr. Simmons is retired and they have [address], Dr. Carrington, Dr Mary and Dr. Christiansen. Erica stated they did not get any demographics, no address, no insurance or phone number on the referral yesterday. Please fax info to [phone]. Thank you. Best time of day caller can be reached: any Patient advised that office/PCP has 24-48 business hours to return their call: No * Telephone Encounter - Emi Tam - 12/14/2023 1:47 PM EDT Referral pended for doctor's signature * Telephone Encounter - Emi Tam - 12/14/2023 1:46 PM EDT ----- Message from Liya Dorantes MA sent at 12/14/2023 1:36 PM EDT ----- Spoke with patient he consents to colonoscopy. ----- Message ----- From: Bhupendra Brown DO Sent: 12/09/2023 6:33 PM EDT To: Liya Dorantes MA Call patient back and tell him reviewing his record he had a history of colonic polypectomy in 07/[address] Simmons did recommend a repeat colonoscopy 5 years later. In lieu of his father's history of colon cancer also, I would recommend 1 more colonoscopy. If he consents Post referral to that physician for consultation for colonoscopy documented in this encounterSHenry County [id number] Telephone encounter Note* Telephone Encounter - Fany Boyd - 12/15/2023 2:00 PM EDT Name of caller: Erica Contact phone number: [phone] Relationship to Patient: [facility] Provider: Dr. Brown Practice: [facility] Chief Complaint/Reason for Call: Erica called and stated Dr. Simmons is retired and they have [address], [address] Carrington, Dr Mary and Dr. Christiansen. Erica stated they did not get any demographics, no address, no insurance or phone number on the referral yesterday. Please fax info to [phone]. Thank you. Best time of day caller can be reached: any Patient advised that office/PCP has 24-48 business hours to return their call: No [facility] [id number] Telephone encounter Note* Telephone Encounter - Gracy Johnson - 12/15/2023 9:36 AM EDT Orders pended for doctor signature [facility] [id number] Miscellaneous Notes* Telephone Encounter - Gracy Johnson - 12/15/2023 9:36 AM EDT Orders pended for doctor signature * Telephone Encounter - Gracy Johnson - 12/15/2023 9:35 AM EDT ----- Message from Liya Dorantes MA sent at 12/15/2023 9:16 AM EDT ----- Spoke with patient and he consents to urology referral, patient says he is feeling better and sincehe started the pills he had a little bit of blood yesterday. ----- Message ----- From: Bhupendra Brown DO Sent: 12/14/2023 5:57 PM EDT To: Liya Dorantes MA Called patient to tell him that his CT scan from December 13 showed a smaller kidney stone on the left side compared to his last CT. This stone would be the cause of his bloody urine but he needsto see his urologist to discuss options for intervention In the meantime continue the antibiotic and drink lots of water. Get me updated on his symptoms as well documented in this [facility]05-15-2024 Telephone encounter Note* Telephone Encounter - Gracy Johnson - 12/15/2023 9:35 AM EDT ----- Message from Liya Dorantes MA sent at 12/15/2023 9:16 AM EDT ----- Spoke with patient and he consents to urology referral, patient says he is feeling better and sincehe started the pills he had a little bit of blood yesterday. ----- Message ----- From: Bhupendra Brown DO Sent: 12/14/2023 5:57 PM EDT To: Liya Dorantes MA Called patient to tell him that his CT scan from December 13 showed a smaller kidney stone on the left side compared to his last CT. This stone would be the cause of his bloody urine but he needsto see his urologist to discuss options for intervention In the meantime continue the antibiotic and drink lots of water. Get me updated on his symptoms as well [facility] [id number] Telephone encounter Note* Telephone Encounter - Emi Tam - 12/14/2023 1:47 PM EDT Referral pended for doctor's signature [facility] [id number] Miscellaneous Notes* Telephone Encounter - Emi Tam - 12/14/2023 1:47 PM EDT Referral pended for doctor's signature * Telephone Encounter - Emi Tam - 12/14/2023 1:46 PM EDT ----- Message from Liya Dorantes MA sent at 12/14/2023 1:36 PM EDT ----- Spoke with patient he consents to colonoscopy. ----- Message ----- From: Bhupendra Brown DO Sent: 12/09/2023 6:33 PM EDT To: Liya Dorantes MA Call patient back and tell him reviewing his record he had a history of colonic polypectomy in 07/[address] Simmons did recommend a repeat colonoscopy 5 years later. In lieu of his father's history of colon cancer also, I would recommend 1 more colonoscopy. If he consents Post referral to that physician for consultation for colonoscopy documented in this encounterSHenry County [id number] Telephone encounter Note* Telephone Encounter - Emi Tam - 12/14/2023 1:46 PM EDT ----- Message from Liya Dorantes MA sent at 12/14/2023 1:36 PM EDT ----- Spoke with patient he consents to colonoscopy. ----- Message ----- From: Bhupendra Brown DO Sent: 12/09/2023 6:33 PM EDT To: Liya Dorantes MA Call patient back and tell him reviewing his record he had a history of colonic polypectomy in 07/[address] Simmons did recommend a repeat colonoscopy 5 years later. In lieu of his father's history of colon cancer also, I would recommend 1 more colonoscopy. If he consents Post referral to that physician for consultation for colonoscopy [facility] [id number] Telephone encounter Note* Telephone Encounter - Emi Tam - 12/13/2023 10:16 AM EDT Referral / Orders pended for dx and doctor's signature [facility] [id number] Miscellaneous Notes* Telephone Encounter - Emi Tam - 12/13/2023 10:16 AM EDT Referral / Orders pended for dx and doctor's signature * Telephone Encounter - Emi Tam - 12/13/2023 10:13 AM EDT ----- Message from Bhupendra Brown DO sent at 12/12/2023 8:22 PM EDT ----- This staff bacteria in his urine is not a true bacterial infection, so his bloody urine is probablynot due to infection and probably a recurrent stone. However I would continue 1 Cipro a day until he is seen by urology. He should be drinking lots of water and limit caffeine. Get me updated on his symptoms. Due to his hematuria and his elevated creatinine on labs, he needs urgent referral to his urologist, Dr. Jackson, for evaluation for possible recurrent renal stone. Also set him up for a CT of the renals without contrast CARLEE. That can be done at [place]. documented in this [facility]05-13-2024 Telephone encounter Note* Telephone Encounter - Emi Tam - 12/13/2023 10:13 AM EDT ----- Message from Bhupendra Brown DO sent at 12/12/2023 8:22 PM EDT ----- This staff bacteria in his urine is not a true bacterial infection, so his bloody urine is probablynot due to infection and probably a recurrent stone. However I would continue 1 Cipro a day until he is seen by urology. He should be drinking lots of water and limit caffeine. Get me updated on his symptoms. Due to his hematuria and his elevated creatinine on labs, he needs urgent referral to his urologist, Dr. Jackson, for evaluation for possible recurrent renal stone. Also set him up for a CT of the renals without contrast CARLEE. That can be done at [place]. [facility] [id number] History of Present illness Narrative* Bhupendra Brown DO - 12/09/2023 2:30 PM EDT Images from the original note were not included. [facility] [address] [place] [address] [address] [facility] [id number] Visit type: Established Patient Reason for Visit: Follow-up (Med check) Assessment / Plan: Erich was seen today for follow-up. Diagnoses and all orders for this visit: Hematuria, unspecified type (Primary) Comments: new onset, Cipro, check culture, possible urology referral Essential hypertension Comments: Stable, continue Lotensin and Norvasc Hypercholesterolemia Comments: Stable, continue Crestor follow-up with cardiology History of renal stone Comments: Reviewed records, lots of water. Awaiting culture report Urinary tract infection without hematuria, site unspecified - POCT urinalysis dipstick manually resulted - Urine culture; Future - CBC auto differential; Future - Comprehensive metabolic panel; Future - Urine culture - CBC auto differential - Comprehensive metabolic panel History of colonic polyps Comments: noted, GI referral Family history of colon cancer Coronary arteriosclerosis Comments: Stable, continue above meds and aspirin Other orders - amLODIPine (Norvasc) 10 MG tablet; Take 1 tablet (10 mg) by mouth daily. - benazepril (Lotensin) 10 MG tablet; Take 1 tablet (10 mg) by mouth daily. - finasteride (Proscar) 5 MG tablet; Take 1 tablet (5 mg) by mouth daily. - rosuvastatin (Crestor) 20 MG tablet; Take 1 tablet (20 mg) by mouth daily. - ciprofloxacin (Cipro) 500 MG tablet; Take 1 tablet (500 mg) by mouth 2 times daily for 7 days. Subjective: Patient ID: Erich Franco is a 78 y.o. male. HPI non-smoker history of stable coronary disease, hypertension hyperlipidemia presents for checkupbut has had a few days of gross hematuria. History of left- sided renal stone requiring surgical intervention 2 years ago. That was found by happenstance. Today he denies flank pain or nausea vomiting. Did have some dysuria prior to the hematuria. Review of Systems denies recent earache sore throat or cough. No chest pain or use of nitro. No exertional dyspnea or jaw pain. No PND orthopnea claudication or edema. Bowels are regular. No melena or blood. History of colonic polyps and father had colon cancer so he is due for colonoscopy. No change in quality of low back pain. No skin issues. Having some stress with his he does have early dementia Allergies Allergen Reactions Atorvastatin Other reaction(s): AOF, GALLARDO, Nausea, Myalgias, headache, nausea aches and pains. Other reaction(s): GALLARDO, Nausea, Myalgias Other reaction(s): GALLARDO, Nausea, Myalgias, headache, nausea aches and pains. Lisinopril Other Other reaction(s): headache, nausea aches and pains. Of note, tolerant of Benazepril Other reaction(s): headache, nausea aches and pains. Ezetimibe-Simvastatin Other Muscle pain Nsaids Other Mild CRF Current Outpatient Medications on File Prior to Visit Medication Sig Dispense Refill Aspirin 81 MG capsule Take 81 mg by mouth daily. [DISCONTINUED] amLODIPine (Norvasc) 10 MG tablet Take 1 tablet (10 mg) by mouth daily. 90 tablet 1 [DISCONTINUED] benazepril (Lotensin) 10 MG tablet Take 1 tablet (10 mg) by mouth daily. 90 tablet 1 [DISCONTINUED] finasteride (Proscar) 5 MG tablet Take 1 tablet (5 mg) by mouth daily. 90 tablet 1 [DISCONTINUED] rosuvastatin (Crestor) 20 MG tablet Take 1 tablet (20 mg) by mouth daily. 90 tablet 1 No current facility-administered medications on file prior to visit. Patient Active Problem List Diagnosis History of COVID-19 Renal insufficiency Essential hypertension History of colonic polyps GLORIA on CPAP Renal cyst History of renal stone Lumbar spinal stenosis Coronary arteriosclerosis Hypercholesterolemia Family history of colon cancer Benign non-nodular prostatic hyperplasia with lower urinary tract symptoms Diverticulosis of colon Mitral stenosis Social History Tobacco Use Smoking status: Former Packs/day: 1.00 Years: 30.00 Additional pack years: 0.00 Total pack years: 30.00 Types: Cigarettes Start date: 05/23/1960 Quit date: 05/31/1997 Years since quittin.5 Smokeless tobacco: Never Substance Use Topics Alcohol use: Yes Alcohol/week: 2.0 standard drinks of alcohol Past Surgical History: Procedure Laterality Date CARDIAC CATHETERIZATION 2016 [place]- min dx, [facility], COLONOSCOPY 2008 COLONOSCOPY 2014 [facility] COLONOSCOPY W/ POLYPECTOMY 07/2018 [facility]- rech due 2022 KIDNEY STONE SURGERY Left 2021 Dr. Jackson LUMBAR LAMINECTOMY 2016 L2-5 OR per Moran TONSILLECTOMY (HISTORICAL) 1950 Family History Problem Relation Name Age of Onset Uterine cancer Mother ? mets to liver, age 89 Kidney disease Father of CRF age 76 Colon cancer Father 60 Other (80397) Sister post flu complications age 65 in 04/18 Other (47072) Brother Roslyns age 55 ? German synd No Known Problems Brother 1/2 von- Marlon Objective: BP 122/71 (BP Location: Left arm, Patient Position: Sitting, BP Cuff Size: Large adult) Pulse 81 Temp 36.4 C (97.5 F) (Temporal) Ht 5' 8" (1.727 m) Wt 239 lb (108 kg) SpO2 96% BMI 36.34 kg/m Physical Exam The physical exam is generally normal. Patient appears well, alert and oriented x 3, pleasant, cooperative. Vitals are as noted. No carotid bruits. Neck supple, no abnormal adenopathy, thyroid lesions or masses. Ears, nose and throat are normal without acute findings. Lungs are clear to auscultation. Heart is regular, without murmurs, gallops or ectopy. Abdomen is soft, non tender, without masses, hepatosplenomegaly, or bruits. Normal BS evident. No CVA tenderness. No skin changes. Extremities are normal without edema. Peripheral pulses are fair. No worrisome skin lesions. Screening neurological exam is normal without focal deficits. documented in this [facility]05-09-2024 Instructions* Patient Instructions* Bhupendra Brown DO - 12/09/2023 2:30 PM EDT Lots of water, avoid caffeine. Await culture. If negative will refer to urology documented in this [facility]01-29-2024 Telephone encounter Note* Telephone Encounter - Lisa Duffy - 08/30/2023 10:55 AM EST Medication name: finasteride (Proscar) 5 MG tablet Gillian is expressing urgency as Patient is completely out of this medication. Please advise. Medication dosage: 5 mg (Miligrams Monthly quantity needed: 30 How many day supply requestin days Medication route: oral (PO) Medication administration time(s): daily If taking medication PRN, reason for taking medication: N/A If this is a controlled substance do you receive this or any other controlled medication from any other doctor or facility: N/A Ordering provider: Dr. Brown Date of last office visit: 05/24/23 Date of next office visit: 11/23/23 Date of last refill: (see medication tab): 05/24/23 Updated/Validated preferred pharmacy: Yes Gillian would like this sent to [facility] in [place] [address] [facility]. Please advise. Patient instructed to contact the pharmacy prior to picking up the medication: Yes [id number] Miscellaneous Notes* Telephone Encounter - Lisa Duffy - 08/30/2023 10:55 AM EST Medication name: finasteride (Proscar) 5 MG tablet Gillian is expressing urgency as Patient is completely out of this medication. Please advise. Medication dosage: 5 mg (Miligrams Monthly quantity needed: 30 How many day supply requestin days Medication route: oral (PO) Medication administration time(s): daily If taking medication PRN, reason for taking medication: N/A If this is a controlled substance do you receive this or any other controlled medication from any other doctor or facility: N/A Ordering provider: Dr. Brown Date of last office visit: 05/24/23 Date of next office visit: 11/23/23 Date of last refill: (see medication tab): 05/24/23 Updated/Validated preferred pharmacy: Yes Gillian would like this sent to [facility] Pharmacy in [place] [address] [facility]. Please advise. Patient instructed to contact the pharmacy prior to picking up the medication: Yes documented in this [facility]12-14-2023 Telephone encounter Note* Telephone Encounter - Latisha Campoverde - 07/15/2023 1:53 PM EST Medication name: Amlodipine Medication dosage: 10 mg (Miligrams Monthly quantity needed: 30 How many day supply requestin days Medication route: oral (PO) Medication administration time(s): daily If taking medication PRN, reason for taking medication: N/A If this is a controlled substance do you receive this or any other controlled medication from any other doctor or facility: N/A Ordering provider: Dr. Brown Date of last office visit: 05/24/23 Date of next office visit: 11/23/23 Date of last refill: (see medication tab): Updated/Validated preferred pharmacy: Yes Patient instructed to contact the pharmacy prior to picking up the medication: Yes Pt is out of the medication [place] [id number] Miscellaneous Notes* Telephone Encounter - Latisha Campoverde - 07/15/2023 1:53 PM EST Medication name: Amlodipine Medication dosage: 10 mg (Miligrams Monthly quantity needed: 30 How many day supply requestin days Medication route: oral (PO) Medication administration time(s): daily If taking medication PRN, reason for taking medication: N/A If this is a controlled substance do you receive this or any other controlled medication from any other doctor or facility: N/A Ordering provider: Dr. Brown Date of last office visit: 05/24/23 Date of next office visit: 11/23/23 Date of last refill: (see medication tab): Updated/Validated preferred pharmacy: Yes Patient instructed to contact the pharmacy prior to picking up the medication: Yes Pt is out of the medication documented in this [facility]SH[facility] [id number] Telephone encounter Note* Telephone Encounter - Evelin Edge - 07/13/2023 11:15 AM EST Medication name:amLODIPine(Norvasc) 10 MG tablet Medication dosage: 10 mg tablet Monthly quantity needed: 30 How many day supply requestin days Medication route: oral (PO) Medication administration time(s): daily If taking medication PRN, reason for taking medication: N/A If this is a controlled substance do you receive this or any other controlled medication from any other doctor or facility: No Ordering provider: Bhupendra Brown Date of last office visit: 05/24/23 Date of next office visit: 11/23/23 Date of last refill: (see medication tab): 05/24/23 Updated/Validated preferred pharmacy: Yes Patient instructed to contact the pharmacy prior to picking up the medication: Yes [place] [id number] Miscellaneous Notes* Telephone Encounter - Evelin Edge - 07/13/2023 11:15 AM EST Medication name:amLODIPine(Norvasc) 10 MG tablet Medication dosage: 10 mg tablet Monthly quantity needed: 30 How many day supply requestin days Medication route: oral (PO) Medication administration time(s): daily If taking medication PRN, reason for taking medication: N/A If this is a controlled substance do you receive this or any other controlled medication from any other doctor or facility: No Ordering provider: Bhupendra Brown Date of last office visit: 05/24/23 Date of next office visit: 11/23/23 Date of last refill: (see medication tab): 05/24/23 Updated/Validated preferred pharmacy: Yes Patient instructed to contact the pharmacy prior to picking up the medication: Yes documented in this [facility]11-09-2023 Telephone encounter Note* Telephone Encounter - Solange Moran LPN - 06/10/2023 5:25 PM EST Please clarify if patient is allowed to take Simvastatin 80 mg. [facility] [id number] Miscellaneous Notes* Telephone Encounter - Solange Moran LPN - 06/10/2023 5:25 PM EST Please clarify if patient is allowed to take Simvastatin 80 mg. * Telephone Encounter - Phillip Chávez RN - 06/10/2023 3:22 PM EST S: Myrna from [facility] spoke with [facility] nurse regarding Medication questions B: Benazepril 10 mg 1 tab by mouth daily Simvastatin 80 mg 1 tab by mouth nightly A: [facility] states that there is an allergy alert for Benazepril, patient has listed allergy for Lisinopril. [facility] states that the Simvastatin dose at 80mg is high for muscle toxcity warning. Patient's prescriptions are on hold until callback received. opt 2 Ref #[id number] R: [facility] RN unable to answer questions, please reach out to [facility] to advise. No further needs at this time. Reason for Disposition Pharmacy calling with prescription question and triager unable to answer question Protocols used: Medication Question [id number] documented in this [facility]11-09-2023 Telephone encounter Note* Telephone Encounter - Phillip Chávez RN - 06/10/2023 3:22 PM EST S: Myrna from [facility] spoke with [facility] nurse regarding Medication questions B: Benazepril 10 mg 1 tab by mouth daily Simvastatin 80 mg 1 tab by mouth nightly A: [facility] states that there is an allergy alert for Benazepril, patient has listed allergy for Lisinopril. [facility] states that the Simvastatin dose at 80mg is high for muscle toxcity warning. Patient's prescriptions are on hold until callback received. opt 2 Ref #[id number] R: [facility] RN unable to answer questions, please reach out to [facility] to advise. No further needs at this time. Reason for Disposition Pharmacy calling with prescription question and triager unable to answer question Protocols used: Medication Question [id number] [place] [id number] Note* Addendum Note - Jaylin Moulton MA - 06/10/2023 3:11 PM ESTAddended by: JAYLIN MOULTON on: 06/10/2023 03:11 PM Modules accepted: Orders [place] [id number] Note* Addendum Note - Jaylin Moulton MA - 06/10/2023 3:11 PM ESTAddended by: JAYLIN MOULTON on: 06/10/2023 03:11 PM Modules accepted: Orders [place] [id number] Telephone encounter Note* Telephone Encounter - Jaylin Moulton MA - 06/10/2023 3:11 PM EST Rx pended to be sent to local pharmacy [facility] [id number] Miscellaneous Notes* Addendum Note - Jaylin Moulton MA - 06/10/2023 3:11 PM ESTAddended by: JAYLIN MOULTON on: 06/10/2023 03:11 PM Modules accepted: Orders * Telephone Encounter - Jaylin Moulton MA - 06/10/2023 3:11 PM EST Rx pended to be sent to local pharmacy * Telephone Encounter - Emi Medina - 06/10/2023 2:19 PM EST Name of caller: Erich Contact phone number: [phone] Relationship to Patient: Pt Provider: Practice: [facility] Chief Complaint/Reason for Call: Pt is needing these refills to be canceled and sent to local pharmacy [facility]/pharmacy #[id number] - [place], [place] - [address] [facility] As the other pharmacy is not responding or mailed medication and the pt is without medication please advise Best time of day caller can be reached: any Patient advised that office/PCP has 24-48 business hours to return their call: No * Telephone Encounter - Brittany Flores - 06/02/2023 2:20 PM EDT Ordering provider: Dr. Brown Date of last office visit: 05/24/2023 Date of next office visit: 11/23/2023 Updated/Validated preferred pharmacy: Yes [facility] Patient instructed to contact the pharmacy prior to picking up the medication: No (1) Medication name: simvastatin (Zocor) 80 MG tablet Medication dosage: 80 mg (Miligrams Monthly quantity needed: 90 How many day supply requestin days Medication route: oral (PO) Medication administration time(s): bedtime (HS) If taking medication PRN, reason for taking medication: N/A If this is a controlled substance do you receive this or any other controlled medication from any other doctor or facility: No Date of last refill (see medication tab): 05/19/2023 (2) Medication name: benazepril (Lotensin) 10 MG tablet Medication dosage: 10 mg (Miligrams Monthly quantity needed: 90 How many day supply requestin days Medication route: oral (PO) Medication administration time(s): daily If taking medication PRN, reason for taking medication: N/A If this is a controlled substance do you receive this or any other controlled medication from any other doctor or facility: No Date of last refill (see medication tab): 05/19/2023 documented in this [facility]11-09-2023 Telephone encounter Note* Telephone Encounter - Emi Medina - 06/10/2023 2:19 PM EST Name of caller: Erich Contact phone number: [phone] Relationship to Patient: Pt Provider: Practice: [facility] Chief Complaint/Reason for Call: Pt is needing these refills to be canceled and sent to local pharmacy [facility]/pharmacy #[id number] - [place], [place] - [address] [facility] [address] As the other pharmacy is not responding or mailed medication and the pt is without medication please advise Best time of day caller can be reached: any Patient advised that office/PCP has 24-48 business hours to return their call: No [facility] [id number] Telephone encounter Note* Telephone Encounter - Brittany Flores - 06/02/2023 2:20 PM EDT Ordering provider: Dr. Brown Date of last office visit: 05/24/2023 Date of next office visit: 11/23/2023 Updated/Validated preferred pharmacy: Yes [facility] Patient instructed to contact the pharmacy prior to picking up the medication: No (1) Medication name: simvastatin (Zocor) 80 MG tablet Medication dosage: 80 mg (Miligrams Monthly quantity needed: 90 How many day supply requestin days Medication route: oral (PO) Medication administration time(s): bedtime (HS) If taking medication PRN, reason for taking medication: N/A If this is a controlled substance do you receive this or any other controlled medication from any other doctor or facility: No Date of last refill (see medication tab): 05/19/2023 (2) Medication name: benazepril (Lotensin) 10 MG tablet Medication dosage: 10 mg (Miligrams Monthly quantity needed: 90 How many day supply requestin days Medication route: oral (PO) Medication administration time(s): daily If taking medication PRN, reason for taking medication: N/A If this is a controlled substance do you receive this or any other controlled medication from any other doctor or facility: No Date of last refill (see medication tab): 05/19/2023 [facility] [id number] Miscellaneous Notes* Telephone Encounter - Brittany Flores - 06/02/2023 2:20 PM EDT Ordering provider: Dr. Brown Date of last office visit: 05/24/2023 Date of next office visit: 11/23/2023 Updated/Validated preferred pharmacy: Yes [facility] Patient instructed to contact the pharmacy prior to picking up the medication: No (1) Medication name: simvastatin (Zocor) 80 MG tablet Medication dosage: 80 mg (Miligrams Monthly quantity needed: 90 How many day supply requestin days Medication route: oral (PO) Medication administration time(s): bedtime (HS) If taking medication PRN, reason for taking medication: N/A If this is a controlled substance do you receive this or any other controlled medication from any other doctor or facility: No Date of last refill (see medication tab): 05/19/2023 (2) Medication name: benazepril (Lotensin) 10 MG tablet Medication dosage: 10 mg (Miligrams Monthly quantity needed: 90 How many day supply requestin days Medication route: oral (PO) Medication administration time(s): daily If taking medication PRN, reason for taking medication: N/A If this is a controlled substance do you receive this or any other controlled medication from any other doctor or facility: No Date of last refill (see medication tab): 05/19/2023 documented [facility] this [facility]10-23-2023 History of Present illness Narrative* Bhupendra Marcano Erik, DO - 05/24/2023 1:30 PM EDT Images from the original note were not included. [facility] [address] [place] [address] [address] [facility] [id number] Visit type: Established Patient Reason for Visit: Follow-up (6 month med check) Assessment / Plan: Erich was seen today for follow-up. Diagnoses and all orders for this visit: Essential hypertension (Primary) Comments: Stable, continue Lotensin and amlodipine Orders: - CBC auto differential; Future - Comprehensive metabolic panel; Future - Lipid panel; Future - CBC auto differential - Comprehensive metabolic panel - Lipid panel Essential hypertension - CBC auto differential; Future - Comprehensive metabolic panel; Future - Lipid panel; Future - CBC auto differential - Comprehensive metabolic panel - Lipid panel Coronary arteriosclerosis Hypercholesterolemia Comments: Stable, continue Zocor Other orders - Flu vaccine quadrivalent, for patients ages 65+, (Fluad) preservative free - amLODIPine (Norvasc) 10 MG tablet; Take 1 tablet (10 mg) by mouth daily. - benazepril (Lotensin) 10 MG tablet; Take 1 tablet (10 mg) by mouth daily. - finasteride (Proscar) 5 MG tablet; Take 1 tablet (5 mg) by mouth daily. - simvastatin (Zocor) 80 MG tablet; Take 1 tablet (80 mg) by mouth Nightly. Subjective: Patient ID: Erich Franco is a 78 y.o. male. HPI hypertensive non-smoker with history of mild coronary disease presents for checkup. Compliant with meds. He has no new concerns Review of Systems no recent earache sore throat or cough. No chest pain or palpitations. No PND orthopnea claudication or edema. No heartburn or dysphagia. No abdominal pain. No melena or blood. Bowels are regular. History of small colonic polyp and father had colon cancer but patient deferring follow-up studies. No dysuria hematuria. Nocturia x1. No postvoid dribbling or hematuria. History of kidney stone about a year and a half ago. No recurrence. Rare arthralgias of his back Allergies Allergen Reactions Atorvastatin Other reaction(s): AOF, GALLARDO, Nausea, Myalgias, headache, nausea aches and pains. Other reaction(s): GALLARDO, Nausea, Myalgias Other reaction(s): GALLARDO, Nausea, Myalgias, headache, nausea aches and pains. Lisinopril Other Other reaction(s): headache, nausea aches and pains. Of note, tolerant of Benazepril Other reaction(s): headache, nausea aches and pains. Ezetimibe-Simvastatin Other Muscle pain Nsaids Other Mild CRF Current Outpatient Medications on File Prior to Visit Medication Sig Dispense Refill Aspirin 81 MG capsule Take 81 mg by mouth daily. [DISCONTINUED] amLODIPine (Norvasc) 10 MG tablet Take 1 tablet (10 mg) by mouth daily. 90 tablet 0 [DISCONTINUED] benazepril (Lotensin) 10 MG tablet TAKE 1 TABLET (10 MG) BY MOUTH DAILY 90 tablet 1 [DISCONTINUED] finasteride (Proscar) 5 MG tablet Take 1 tablet (5 mg) by mouth daily. 90 tablet 3 [DISCONTINUED] simvastatin (Zocor) 80 MG tablet TAKE 1 TABLET (80 MG) BY MOUTH NIGHTLY 90 tablet 1 [DISCONTINUED] benazepril (Lotensin) 10 MG tablet Take 1 tablet (10 mg) by mouth daily for 90 doses. 90 tablet 1 [DISCONTINUED] simvastatin (Zocor) 80 MG tablet Take 1 tablet (80 mg) by mouth Nightly. 90 tablet 1 No current facility-administered medications on file prior to visit. Patient Active Problem List Diagnosis History of COVID-19 Renal insufficiency Essential hypertension History of colonic polyps GLORIA on CPAP Renal cyst History of renal stone Lumbar spinal stenosis Coronary arteriosclerosis Hypercholesterolemia Family history of colon cancer Benign non-nodular prostatic hyperplasia with lower urinary tract symptoms Diverticulosis of colon Mitral stenosis Social History Tobacco Use Smoking status: Former Packs/day: 1 Types: Cigarettes Start date: 05/23/1960 Quit date: 05/31/1997 Years since quittin.9 Smokeless tobacco: Never Substance Use Topics Alcohol use: Yes Alcohol/week: 2.0 standard drinks of alcohol Past Surgical History: Procedure Laterality Date CARDIAC CATHETERIZATION 01/2016 [place]- min dx, [facility], COLONOSCOPY 2008 COLONOSCOPY 07/2018 [facility]- rech due 2022 COLONOSCOPY 2014 [facility]- LUMBAR LAMINECTOMY 2016 L2-5 OR per Moran TONSILLECTOMY (HISTORICAL) 1950 Family History Problem Relation Name Age of Onset Uterine cancer Mother ? mets to liver, age 89 Kidney disease Father of CRF age 76 Colon cancer Father 60 Other (58[address]) Sister post flu complications age 65 in 04/18 Other (40115) Brother Roslyns age 55 ? German synd No Known Problems Brother 08/03 bert Mason Objective: BP 113/70 Pulse 71 Temp 36.5 C (97.7 F) (Temporal) Ht 5' 8.5" (1.74 m) Wt 233 lb (106 kg) SpO2 98% BMI 34.91 kg/m Physical Exam The physical exam is generally normal. Patient appears well, alert and oriented x 3, pleasant, cooperative. Vitals are as noted. No carotid bruits. Neck supple, no abnormal adenopathy, thyroid lesions or masses. Oropharynx clear. Lungs are clear to auscultation. Heart is regular, without new murmurs, gallops or ectopy. Abdomen is soft, non tender, without masses, hepatosplenomegaly, or bruits. Nor mal BS evident. Extremities are normal without edema. Peripheral pulses are fair. No worrisome skinlesions. Screening neurological exam is normal without focal deficits. documented in this encounterSHenry County [id number] Telephone encounter Note* Telephone Encounter - Liya Dorantes MA - 04/13/2023 3:10 PM EDT RX loaded [facility] [id number] Miscellaneous Notes* Telephone Encounter - Liya Dorantes MA - 04/13/2023 3:10 PM EDT RX loaded * Telephone Encounter - Belkis Castillo - 04/13/2023 2:57 PM EDT Medication name: amLODIPine (Norvasc) Medication dosage: 10 mg (Miligrams Monthly quantity needed: 30 How many day supply requestin days Medication route: oral (PO) Medication administration time(s): daily If taking medication PRN, reason for taking medication: N/A If this is a controlled substance do you receive this or any other controlled medication from any other doctor or facility: N/A Ordering provider: Erik Date of last office visit: 11.20.22 Date of next office visit: 05.21.23 Date of last refill: (see medication tab): 11.20.22 Updated/Validated preferred pharmacy: Yes Patient instructed to contact the pharmacy prior to picking up the medication: Yes [id number] Telephone encounter Note* Telephone Encounter - Belkis Castillo - 04/13/2023 2:57 PM EDT Medication name: amLODIPine (Norvasc) Medication dosage: 10 mg (Miligrams Monthly quantity needed: 30 How many day supply requestin days Medication route: oral (PO) Medication administration time(s): daily If taking medication PRN, reason for taking medication: N/A If this is a controlled substance do you receive this or any other controlled medication from any other doctor or facility: N/A Ordering provider: Erik Date of last office visit: 11.20.22 Date of next office visit: 05.21.23 Date of last refill: (see medication tab): 11.20.22 Updated/Validated preferred pharmacy: Yes Patient instructed to contact the pharmacy prior to picking up the medication: Yes [id number] History of Present illness Narrative* Bhupendra Brown DO - 11/20/2022 9:00 AM EDT Images from the original note were not included. [facility] [address] [place] [address] Visit type: Established Patient Reason for Visit: Follow-up (6 month med check) Assessment / Plan: Erich was seen today for follow-up. Diagnoses and all orders for this visit: Essential hypertension (Primary) Comments: Stable, continue amlodipine and benazepril Orders: - CBC auto differential; Future - Comprehensive metabolic panel; Future - CBC auto differential - Comprehensive metabolic panel Coronary arteriosclerosis Hypercholesterolemia Comments: Stable, continue simvastatin Orders: - Lipid panel; Future - Lipid panel Benign non-nodular prostatic hyperplasia with lower urinary tract symptoms Other orders - amLODIPine (Norvasc) 10 MG tablet; Take 1 tablet (10 mg) by mouth daily. - benazepril (Lotensin) 10 MG tablet; Take 1 tablet (10 mg) by mouth daily for 90 doses. - finasteride (Proscar) 5 MG tablet; Take 1 tablet (5 mg) by mouth daily. - simvastatin (Zocor) 80 MG tablet; Take 1 tablet (80 mg) by mouth Nightly. Subjective: Patient ID: Erich Franco is a 77 y.o. male. HPI hypertension lipid management. Patient with mild coronary disease presents for checkup. No new concerns. Review of Systems no recent earache sore throat or cough. No chest pain palpitations PND orthopnea claudication or edema. No heartburn or abdominal pain. No bowel changes. No recent renal stones. Urology exam by Dr. Jackson., Proscar is effective. No need for follow-up PSA or colonoscopy. Rare low back pain. Feels good overall. Allergies Allergen Reactions Atorvastatin Other reaction(s): AOF, GALLARDO, Nausea, Myalgias, headache, nausea aches and pains. Other reaction(s): GALLARDO, Nausea, Myalgias Other reaction(s): GALLARDO, Nausea, Myalgias, headache, nausea aches and pains. Lisinopril Other Other reaction(s): headache, nausea aches and pains. Of note, tolerant of Benazepril Other reaction(s): headache, nausea aches and pains. Ezetimibe-Simvastatin Other Muscle pain Nsaids Other Mild CRF Current Outpatient Medications on File Prior to Visit Medication Sig Dispense Refill Aspirin 81 MG capsule Take 81 mg by mouth daily. [DISCONTINUED] amLODIPine (Norvasc) 10 MG tablet Take 1 tablet (10 mg) by mouth daily. 90 tablet 1 [DISCONTINUED] benazepril (Lotensin) 10 MG tablet Take 1 tablet (10 mg) by mouth daily. 30 tablet 3 [DISCONTINUED] finasteride (Proscar) 5 MG tablet Take 1 tablet (5 mg) by mouth daily. 90 tablet 3 [DISCONTINUED] lisinopril 5 MG tablet Take 5 mg by mouth in the morning. [DISCONTINUED] simvastatin (Zocor) 80 MG tablet Take 1 tablet by mouth Nightly. [DISCONTINUED] ofloxacin (Ocuflox) 0.3 % ophthalmic solution No current facility-administered medications on file prior to visit. Patient Active Problem List Diagnosis History of COVID-19 Renal insufficiency HTN (hypertension) Essential hypertension History of colonic polyps Morbidly obese (HCC) GLORIA on CPAP Renal cyst History of renal stone Lumbar spinal stenosis Coronary arteriosclerosis Hypercholesterolemia Family history of colon cancer Benign non-nodular prostatic hyperplasia with lower urinary tract symptoms Diverticulosis of colon Internal hemorrhoids Social History Tobacco Use Smoking status: Former Packs/day: 1.00 Types: Cigarettes Start date: 05/23/1960 Quit date: 05/31/1997 Years since quittin.4 Smokeless tobacco: Never Substance Use Topics Alcohol use: Yes Alcohol/week: 2.0 standard drinks Past Surgical History: Procedure Laterality Date CARDIAC CATHETERIZATION 01/2016 Moodispajyoti- min dx, [facility], COLONOSCOPY 2008 COLONOSCOPY 07/2018 Cebul- rech due 2022 COLONOSCOPY 2014 Baggott- LUMBAR LAMINECTOMY 2016 L2-5 OR per Moran TONSILLECTOMY (HISTORICAL) 1950 Family History Problem Relation Name Age of Onset Uterine cancer Mother ? mets to liver, age 89 Kidney disease Father of CRF age 76 Colon cancer Father 60 Other ([id number]) Sister post flu complications age 65 in 04/18 Other ([id number]) Brother Roslyns age 55 ? German synd No Known Problems Brother 1/2 von- Marlon Objective: BP 110/65 Pulse 65 Temp 36.7 C (98 F) (Temporal) Ht 5' 8.5" (1.74 m) Wt 242 lb (110 kg) SpO2 97% BMI 36.26 kg/m Physical Exam The physical exam is generally normal. Patient appears well, alert and oriented x 3, pleasant, cooperative. Vitals are as noted. No carotid bruits. Neck supple, no abnormal adenopathy, thyroid lesions or masses. Ears, nose and throat are normal without acute findings. Lungs are clear to auscultation. Heart is regular, without change in mitral stenotic murmur, no gallops or ectopy. Abdomen is soft, non tender, without masses, hepatosplenomegaly, or bruits. Normal BS evident. Extremities are normal with trace pretibial edema. Peripheral pulses are fair. No worrisome skin lesions. S creening neurological exam is normal without focal deficits. documented in this [facility]03-06-2023 Telephone encounter Note* Telephone Encounter - Arin Adams RN - 10/05/2022 11:24 AM EST Rx loaded Last ov 05/22/2022 Next ov 11/20/2022 [facility] [id number] Miscellaneous Notes* Telephone Encounter - Arin Adams RN - 10/05/2022 11:24 AM EST Rx loaded Last ov 05/22/2022 Next ov 11/20/2022 * Telephone Encounter - Sheree SuzyAzucena Parnell - 10/05/2022 11:00 AM EST Medication name: amLODIPine (Norvasc) 10 MG tablet-- Take 10 mg by mouth.-- 90 days Medication dosage: 10 mg (Miligrams Monthly quantity needed: 90 How many day supply requestin days Medication route: oral (PO) Medication administration time(s): daily If taking medication PRN, reason for taking medication: N/A If this is a controlled substance do you receive this or any other controlled medication from any other doctor or facility: No Ordering provider: Dr. Brown Date of last office visit: 05-22-2022 Date of next office visit: 11-20-2022 Date of last refill: (see medication tab): 02-10-2022 Updated/Validated preferred pharmacy: Yes Patient instructed to contact the pharmacy prior to picking up the medication: Yes documented in this encounterSHenry [facility] [id number] Telephone encounter Note* Telephone Encounter - Sheree Parnell - 10/05/2022 11:00 AM EST Medication name: amLODIPine (Norvasc) 10 MG tablet-- Take 10 mg by mouth.-- 90 days Medication dosage: 10 mg (Miligrams Monthly quantity needed: 90 How many day supply requestin days Medication route: oral (PO) Medication administration time(s): daily If taking medication PRN, reason for taking medication: N/A If this is a controlled substance do you receive this or any other controlled medication from any other doctor or facility: No Ordering provider: Dr. Brown Date of last office visit: 05-22-2022 Date of next office visit: 11-20-2022 Date of last refill: (see medication tab): 02-10-2022 Updated/Validated preferred pharmacy: Yes Patient instructed to contact the pharmacy prior to picking up the medication: Yes [facility] [id number] Telephone encounter Note* Telephone Encounter - Solange Moran LPN - 08/10/2022 3:47 PM EST Rx loaded Last ov 05/22/22 Next ov 11/20/22 [facility] [id number] Miscellaneous Notes* Telephone Encounter - Solange Moran LPN - 08/10/2022 3:47 PM EST Rx loaded Last ov 05/22/22 Next ov 11/20/22 * Telephone Encounter - Ashley Kim - 08/10/2022 2:40 PM EST Medication name: Finasteride Medication dosage: 5 mg (Miligrams Monthly quantity needed: 90 How many day supply requestin days Medication route: oral (PO) Medication administration time(s): daily If taking medication PRN, reason for taking medication: N/A If this is a controlled substance do you receive this or any other controlled medication from any other doctor or facility: No Ordering provider: Dr. Brown Date of last office visit: Date of next office visit: 11/20/22 Date of last refill: (see medication tab): 05/22/22 Updated/Validated preferred pharmacy: Yes Patient instructed to contact the pharmacy prior to picking up the medication: Yes documented in this [facility]01-09-2023 Telephone encounter Note* Telephone Encounter - Ashley Kim - 08/10/2022 2:40 PM EST Medication name: Finasteride Medication dosage: 5 mg (Miligrams Monthly quantity needed: 90 How many day supply requestin days Medication route: oral (PO) Medication administration time(s): daily If taking medication PRN, reason for taking medication: N/A If this is a controlled substance do you receive this or any other controlled medication from any other doctor or facility: No Ordering provider: Dr. Brown Date of last office visit: Date of next office visit: 11/20/22 Date of last refill: (see medication tab): 05/22/22 Updated/Validated preferred pharmacy: Yes Patient instructed to contact the pharmacy prior to picking up the medication: Yes [facility] [id number] Telephone encounter Note* Telephone Encounter - Solange Moran LPN - 08/10/2022 2:24 PM EST Rx loaded Last ov 05/21/22 Next ov 11/20/22 [facility] [id number] Miscellaneous Notes* Telephone Encounter - Solange Moran LPN - 08/10/2022 2:24 PM EST Rx loaded Last ov 05/21/22 Next ov 11/20/22 * Telephone Encounter - Rivera Bland - 08/10/2022 2:04 PM EST Pt would like a 3 month supply with 1 refill so that he can make it to appt Medication name: finastermide Medication dosage: 5 mg (Miligrams Monthly quantity needed: 90 How many day supply requestin days Medication route: oral (PO) Medication administration time(s): daily If taking medication PRN, reason for taking medication: N/A If this is a controlled substance do you receive this or any other controlled medication from any other doctor or facility: No Ordering provider: erik Date of last office visit: 05/21/22 Date of next office visit: 11/20/22 Date of last refill: (see medication tab): 05/22/22 Updated/Validated preferred pharmacy: Yes Patient instructed to contact the pharmacy prior to picking up the medication: No documented in this [facility]01-09-2023 Telephone encounter Note* Telephone Encounter - Rivera Jefferss - 08/10/2022 2:04 PM EST Pt would like a 3 month supply with 1 refill so that he can make it to appt Medication name: finastermide Medication dosage: 5 mg (Miligrams Monthly quantity needed: 90 How many day supply requestin days Medication route: oral (PO) Medication administration time(s): daily If taking medication PRN, reason for taking medication: N/A If this is a controlled substance do you receive this or any other controlled medication from any other doctor or facility: No Ordering provider: erik Date of last office visit: 05/21/22 Date of next office visit: 11/20/22 Date of last refill: (see medication tab): 05/22/22 Updated/Validated preferred pharmacy: Yes Patient instructed to contact the pharmacy prior to picking up the medication: No [facility]12-24-2022 Telephone encounter Note* Telephone Encounter - Olga Ryan - 07/25/2022 11:01 AM EST Medication name: benazepril (LOTENSIN) 10 MG tablet Medication dosage: 10 mg (Miligrams Monthly quantity needed: 30 How many day supply requestin days Medication route: oral (PO) Medication administration time(s): daily If taking medication PRN, reason for taking medication: N/A If this is a controlled substance do you receive this or any other controlled medication from any other doctor or facility: No Ordering provider: Erik Date of last office visit: 05/22/2022 Date of next office visit: 11/20/2022 Date of last refill: (see medication tab): 05/22/2022 Updated/Validated preferred pharmacy: Yes Patient instructed to contact the pharmacy prior to picking up the medication: No [facility] [id number] Miscellaneous Notes* Telephone Encounter - Olga Ryan - 07/25/2022 11:01 AM EST Medication name: benazepril (LOTENSIN) 10 MG tablet Medication dosage: 10 mg (Miligrams Monthly quantity needed: 30 How many day supply requestin days Medication route: oral (PO) Medication administration time(s): daily If taking medication PRN, reason for taking medication: N/A If this is a controlled substance do you receive this or any other controlled medication from any other doctor or facility: No Ordering provider: Erik Date of last office visit: 05/22/2022 Date of next office visit: 11/20/2022 Date of last refill: (see medication tab): 05/22/2022 Updated/Validated preferred pharmacy: Yes Patient instructed to contact the pharmacy prior to picking up the medication: No [facility]* Diagnosis Onset Date Resolution Status Mitral valve stenosis acute Essential hypertension chron ic Hyperlipidemia [facility] Work Phone: Evaluation noteNo assessment information available [facility] Work Phone: evaluation note* Diagnosis Essential hypertension- Primary Unspecified essential hypertension Coronary arteriosclerosis Coronary atherosclerosis of unspecified type of vessel, [place] or graft Hypercholesterolemia Pure hypercholesterolemia Benign non-nodular prostatic hyperplasia with lower urinary tract symptoms documented in this encounter [facility]* Diagnosis Essential hypertension- Primary Unspecified essential hypertension Coronary arteriosclerosis Coronary atherosclerosis of unspecified type of vessel, [place] or graft Hypercholesterolemia Pure hypercholesterolemia documented in this encounter [facility]* Diagnosis Hematuria, unspecified type- Primary Essential hypertension Unspecified essential hypertension Hypercholesterolemia Pure hypercholesterolemia History of renal stone Urinary tract infection without hematuria, site unspecified History of colonic polyps Personal history of colonic polyps Family history of colon cancer Family history of malignant neoplasm of gastrointestinal tract Coronary arteriosclerosis Coronary atherosclerosis of unspecified type of vessel, [place] or graft documented in this encounter [facility]* Diagnosis Hematuria, unspecified type- Primary History of renal stone documented in this encounter [facility]* Diagnosis Colon cancer screening- Primary Special screening for malignant neoplasms, colon History of colonic polyps Personal history of colonic polyps Family history of colon cancer Family history of malignant neoplasm of gastrointestinal tract documented in this encounter [facility]* Diagnosis Hematuria, unspecified type History of renal stone documented in this encounter [facility]* Diagnosis Colon cancer screening- Primary Special screening for malignant neoplasms, colon History of colonic polyps Personal history of colonic polyps Family history of colon cancer Family history of malignant neoplasm of gastrointestinal tract documented in this encounter [facility]* Diagnosis Hematuria, unspecified type History of renal stone documented in this encounter [facility]* Diagnosis Family history of colon cancer- Primary Family history of malignant neoplasm of gastrointestinal tract Morbidly obese (HCC) Morbid obesity [facility]* Diagnosis Family history of malignant neoplasm of gastrointestinal tract- Primary Family history of colon cancer Family history of malignant neoplasm of gastrointestinal tract [facility] this encounter [facility]* Diagnosis Adenomatous polyps- Primary Benign neoplasm of unspecified site documented in this encounter [facility]* Diagnosis Essential hypertension- Primary Unspecified essential hypertension Hypercholesterolemia Pure hypercholesterolemia History of renal stone Benign non-nodular prostatic hyperplasia with lower urinary tract symptoms documented in this encounter [facility]* Diagnosis Arthralgia of both hands- Primary Other fatigue Essential hypertension Unspecified essential hypertension Renal insufficiency Unspecified disorder of kidney and ureter Hypercholesterolemia Pure hypercholesterolemia 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) [facility] ([facility])* Consultation (Routine) - Pending Review Specialty Diagnoses / Procedures Referred By Contac t Referred To Contact General Surgery Diagnoses History of colonic polyps Family history of colon cancer Colon cancer screening Procedures NM OFFICE/OUTPATIENT NEW HIGH MDM 60 MINUTES Bhupendra Brown, DO [address] [place] [address] Markell Simmons [address] [place] [address] Referral ID Status Reason Start Date Expiration Date Visits Requested Visits Authorized [id number] Pending Review Specialty Services Required 12/14/2023 12/13/2024 1 1 [facility] (n[facility]ative)* Consultation (Urgent) - Pending Review Specialty Diagnoses / Procedures Referred By Contac t Referred To Contact Urology Diagnoses Hematuria, unspecified type History of renal stone Procedures NM OFFICE/OUTPATIENT NEW HIGH MDM 60 MINUTES Bhupendra Brown, DO [address] [place] [address] [facility] [address] [place] [address] Referral ID Status Reason Start Date Expiration Date Visits Requested Visits Authorized [id number] Pending Review Specialty Services Required 12/15/2023 12/14/2024 1 1 [facility] for referral (narrative)* Consultation (Routine) - Pending Review Specialty Diagnoses / Procedures Referred By Contac t Referred To Contact General Surgery Diagnoses History of colonic polyps Family history of colon cancer Colon cancer screening Procedures NM OFFICE/OUTPATIENT NEW HIGH MDM 60 MINUTES Bhupendra Brown, DO [address] [place] [address] Ciaran Mary [address] [place] [address] Referral ID Status Reason Start Date Expiration Date Visits Requested Visits Authorized [id number] Pending Review Specialty Services Required 12/14/2023 12/13/2024 1 1 [facility] for referral (narrative)* Outpatient Procedure (Routine) - Authorized Specialty Diagnoses / Procedures Referred By Contac t Referred To Contact [facility] Diagnoses Family history of colon cancer Procedures COLONOSCOPY SCREENING COLONOSCOPY FLX DX W/COLLJ SPEC WHEN Ciaran Hernandez MD [address] [place] [address] [facility] [address] [address] Referral ID Status Reason Start Date Expiration Date Visits Requested Visits Authorized [id number] Authorized Auto-Generat ed Referral 01/17/2024 01/16/2025 1 1 [facility] for referral (narrative)* Outpatient Procedure (Routine) - Closed Specialty Diagnoses / Procedures Referred By Contac t Referred To Contact [facility] Diagnoses Family history of colon cancer Procedures COLONOSCOPY SCREENING COLONOSCOPY FLX DX W/COLLJ SPEC WHEN Ciaran Hernandez MD [address] [place] [address] [facility] Disease [address] [address] Referral ID Status Reason Start Date Expiration Date V isits Requested Visits Authorized [id number] Closed Auto-Generate d Referral 01/17/2024 01/16/2025 1 1 [facility] for referral (narrative)No reason for referral information availableWUniversity Hospitals St. [facility] Work Phone: Reason for visit Narrative* Outpatient Procedure (Routine) - Closed Specialty Diagnoses / Procedures Referred By Anuel morales Referred To Contact [facility] Diagnoses Family history of colon cancer Procedures COLONOSCOPY SCREENING COLONOSCOPY FLX DX W/COLLJ SPEC WHEN [facility] Ciaran Mary MD [address] [place] [address] [facility] [place] [address] [place] [address] Referral ID Status Reason Start Date Expiration Date V isits Requested Visits Authorized [id number] Closed Auto-Generate d Referral 01/17/2024 01/16/2025 1 1 [facility] Chief Complaint and Reason for Visit Chief Complaint 1 Y FU MITRAL VALVE STENOSIS Reason for Visit Mitral valve stenosi s Essential hypertension Hyperlipidemia Chief Complaint MITRAL VALVE STENOSI S KUB Chief Complaint Admit Date 1 Y FU/PREV PFM November 16, 2024 2:4 8pm MURMUR, Rheumatic mitral stenosis January 302024 12:57pm Reason for Visit Admit Date Mitral valve stenosis November 16, 2024 2 :48pm Essential hypertension November 16, 2024 2:48pm Hyperlipidemia November 16, 2024 2:4 8pm Family History No Family History Records Found Relationship Condition Age at Onset Recorded Date/T jon mother Malignant neoplasm Unknown father Malignant neoplasm Unknown Advance Directives No Advanced Directives Records Found Advance Directive Response Recorded Date/ Time Living Will No October 16, 2021 11:40am Power of Lead Ios Developer No October 16 11:40am Advance Directive Response Recorded Date/ Time Living Will No October 16, 2021 10:40am Power of Lead Ios Developer No October 16 10:40am Advance Directive Response Recorded Date/ Time Living Will No October 16, 2021 11:40am Do you have a Healthcare Power of Lead Ios Developer? No October 16, 2021 11:40am Reason for Referral Specialty Diagnoses / Procedures Referred By Anuel morales Referred To Contact Radiology Diagnoses Hematuria, unspecified type History of renal stone Procedures CT abdomen pelvis wo IV contrast Bhupendra Brown F, DO [address] [place] [address] Referral ID Status Reason Start Date Expiration Date V isits Requested Visits Authorized [id number] Pending Review 12/13/2023 12/12/2024 1 1 Specialty Diagnoses / Procedures Referred By Anuel t Referred To Contact Urology Diagnoses Hematuria, unspecified type History of renal stone Procedures NM OFFICE/OUTPATIENT NEW HIGH MDM 60 MINUTES Bhupendra Brown F, DO [address] [place] [address] Viola Jackson [address] [address] Referral ID Status Reason Start Date Expiration Date Visits Requested Visits Authorized [id number] Pending Review Specialty Services Required 12/13/2023 12/12/2024 1 1 Summary Purpose Additional Source Comments Goals (unrecognized section and content) Goals may be documented in a n alternate sectionGoals may be documented in an alternate sectionGoals may be documented in an alternate section Reason for Visit (unrecogniz ed section and content) Reason Comments Follow-up 6 month med check Reason Onset Date Comments Med Refill 04/13/2023 Reason Onset Date Comments Med Refill 06/02/2023 Reason Onset Date Comments Medication Question 06/10/2023 Reason Onset Date Comments Med Refill 07/13/2023 Reason Onset Date Comments Med Refill 07/15/2023 Reason Onset Date Comments Med Refill 08/30/2023 finasteride (Pro scar) 5 MG tablet Reason Comments Follow-up Med check Reason Onset Date Comments Referral 12/13/2023 Dr Jackson / CT-A bd/Pelvis Reason Onset Date Comments Referral 12/14/2023 Dr Simmons Reason Onset Date Comments Orders 12/15/2023 Urology referral Reason Onset Date Comments Orders 12/15/2023 Urology referral Reason Comments Consult colonoscopy Specialty Diagnoses / Procedures Referred By Anuel t Referred To Contact General Surgery Diagnoses History of colonic polyps Family history of colon cancer Colon cancer screening Procedures OFFICE/OUTPATIENT NEW HIGH MDM 60 MINUTES AMB REFERRAL TO GASTROENTEROLOGY Bhupendra Brown F, DO [address] [place] [address] Ciaran Mary MD [address] [place] [address] Referral ID Status Reason Start Date Expiration Date V isits Requested Visits Authorized [id number] Outside PCP 12/14/2023 12/13/2024 1 1 Reason Comments Follow Up Review lana watson. Reason Comments Med Refill Reason Onset Date Comments Med Refill 04/05/2024 Reason Comments Follow-up Med Check Flu Vaccine Patient is agreeable to have flu vaccine in the office Reason Onset Date Comments Med Refill 08/10/2022 Reason Onset Date Comments Med Refill 07/25/2022 Reason Onset Date Comments Med Refill 10/05/2022 Reason Comments Follow-up Med Check Arthritis Hands and shoulders feet tight and cramped Care Teams (unrecognized sec tion and content) Vacuum Cleaner Repair Person Relationship Specialty Start Date End Date Bhupendra Brown, DO [address] [place] [address] PCP - General 12/31/18 Vacuum Cleaner Repair Person Relationship Specialty Start Date End Date Bhupendra Brown DO [address] [place] [address] PCP - General 12/31/18 Vacuum Cleaner Repair Person Relationship Specialty Start Date End Date Bhupendra Brown DO [address] [place] [phone] PCP - General 12/31/18 Vacuum Cleaner Repair Person Relationship Specialty Start Date End Date Bhupendra Brown DO [address] [place] [phone] PCP - General 12/31/18 Vacuum Cleaner Repair Person Relationship Specialty Start Date End Date Bhupendra Brown DO [address] [place] [phone] PCP - General 12/31/18 Vacuum Cleaner Repair Person Relationship Specialty Start Date End Date Bhupendra Brown Krys, DO [address] [place] [phone] PCP - General 12/31/18 Vacuum Cleaner Repair Person Relationship Specialty Start Date End Date Erik Bhupendra Marcano, DO [address] [place] [address] PCP - General 12/31/18 Vacuum Cleaner Repair Person Relationship Specialty Start Date End Date Erik Bhupendra Marcano, DO [address] [place] [phone] PCP - General 12/31/18 Vacuum Cleaner Repair Person Relationship Specialty Start Date End Date Bhupendra Brown Krys, DO [address] [place] [phone] PCP - General 12/31/18 Vacuum Cleaner Repair Person Relationship Specialty Start Date End Date Bhupendra Brown, DO [address] [place] [phone] PCP - General 12/31/18 Vacuum Cleaner Repair Person Relationship Specialty Start Date End Date Bhupendra Brown Krys, DO [address] [place] [phone] PCP - General 12/31/18 Vacuum Cleaner Repair Person Relationship Specialty Start Date End Date Bhupendra Brown Krys, DO [address] [place] [phone] PCP - General 12/31/18 Vacuum Cleaner Repair Person Relationship Specialty Start Date End Date Bhupendra Brown, DO [address] [place] [phone] PCP - General 12/31/18 Vacuum Cleaner Repair Person Relationship Specialty Start Date End Date Bhupendra Brown Krys, DO [address] [place] [phone] PCP - General 12/31/18 Vacuum Cleaner Repair Person Relationship Specialty Start Date End Date Bhupendra Brown, DO [address] [place] [phone] PCP - General Family Medicine 01/17/24 Vacuum Cleaner Repair Person Relationship Specialty Start Date End Date Bhupendra Brown Krys, DO [address] [place] [address] PCP - General Family Medicine 01/17/24 Vacuum Cleaner Repair Person Relationship Specialty Start Date End Date Bhupendra Brown, DO [address] [place] [phone] PCP - General Family Medicine 01/17/24 Vacuum Cleaner Repair Person Relationship Specialty Start Date End Date Bhupendra Brown Krys, DO [address] [place] [phone] PCP - General 12/31/18 Vacuum Cleaner Repair Person Relationship Specialty Start Date End Date Bhupendra Brown Krys, DO [address] [place] [phone] PCP - General 12/31/18 Vacuum Cleaner Repair Person Relationship Specialty Start Date End Date Bhupendra Brown, DO [address] [place] [phone] PCP - General 12/31/18 Vacuum Cleaner Repair Person Relationship Specialty Start Date End Date Erik Bhupendra DO Krys [address] [place] [address] PCP - General 12/31/18 Vacuum Cleaner Repair Person Relationship Specialty Start Date End Date ErikBhupendra DO [address] [place] [address] PCP - General 12/31/18 Team Status: Active Member Role/Relationship Status Dates Dr. Bhupendra Brown DO Primary Care Provider Active Team Status: Inactive Member Role/Relationship Status Dates Dr. Bhupendra Brown DO Primary Care Provider Active Start: November 16, 2024 End: November 16, 2024 Dr. Bhupendra Brown DO Referring Provider Active Start: November 16, 2024 End: November 16, 2024 Dr. Luis Puga MD Attending Provider Active S tart: November 16, 2024 End: November 16, 2024 Team Status: Inactive Member Role/Relationship Status Dates Dr. Bhupendra Brown DO Primary Care Provider Active Start: February 08, 2025 End: February 08, 2025 Dr. Luis Puga MD Attending Provider Active S tart: February 08, 2025 End: February 08, 2025 Dr. Luis Puga MD Referring Provider Active S tart: February 08, 2025 End: February 08, 2025 Team Status: Active Member Role/Relationship Status Dates Dr. Bhupendra Brown DO Primary Care Provider Active Start: February 08, 2025 Dr. Luis Puga MD Attending Provider Active S tart: February 08, 2025 Source Comments (unrecognize d section and content) In the event this informatio n is protected by the Federal Confidentiality of Alcohol and Drug Abuse Patient Records regulations: The Federal rules restrict any use of the information to criminally investigate or prosecute any alcohol or drug abuse patient.[facility] the event this information is protected by the Federal Confidentiality of Alcohol and Drug Abuse Patient Records regulations: The Federal rules restrict any use of the information to criminally investigate or prosecute any alcohol or drug abuse patient.[facility] the event this information is protected by the Federal Confidentiality of Alcohol and Drug Abuse Patient Records regulations: The Federal rules restrict any use of the information to criminally investigate or prosecute any alcohol or drug abuse patient.[facility] (unrecognized sect ion and content) No Status Records FoundNo Status Records FoundNo Status Records Found INFORMATION SOURCE (unrecogn ized section and content) DATE CREATED AUTHOR 02/07/2024 [facility] DATE CREATED AUTHOR AUTHOR'S ORGANIZ ATION 01/24/2025 [facility] DATE CREATED AUTHOR AUTHOR'S ORGANIZ ATION 02/18/2025 [facility] FOR RECORDS PERTAINING TO PATIENTS WHO ARE OR HAVE BEEN ENROLLED IN A CHEMICAL DEPENDENCY/SUBSTANCEABUSE PROGRAM, SOME INFORMATION MAY BE OMITTED. This clinical summary was aggregated from multiple sources. Caution should be exercised in using it in the provision of clinical care. This summary normalizes information from multiple sources, and as a consequence, information in this document may materially change the coding, format and clinical context of patient data. In addition, data may be omitted in some cases. CLINICAL DECISIONS SHOULD BE BASED ON THE PRIMARY CLINICAL RECORDS. [facility]. provides no warranty or guarantee of the accuracy or completeness of information in this document.
== END | disposition home or self-care (01) ==
LOC: RAD 14:31
PROVIDERS: PCP Family Medicine; Referring Provider Nurse Practitioner; Visit Provider Nurse Practitioner
DX: Z87.442 Personal history of urinary calculi (principal); Z12.5 Encounter for screening for malignant neoplasm of prostate
CPT/HCPCS: 36415; 74018; 84153; G0103

== ENCOUNTER 2025-04-19 06:29 | Inpatient (IN) | payer MEDICARE, OTHER, SELFPAY ==
[2025-04-19] VITALS (33 sets, daily range): BP systolic 112–187; BP diastolic 54–78; PULSE 84–110; RESP 16–43; TEMP 36.6–37.2; O2SAT 90–96; BMI 35.5; BMI 36.5
--- NOTE | 2025-04-19 06:58 | US_ITS ---
PROCEDURE: GALLBLADDER 04/19/2025 REASON FOR EXAM: RUQ PAIN TECHNIQUE: Procedure Code: USGB Modality: US Procedure: GALLBLADDER COMPARISON: December 14, 2023. FINDINGS: Liver: Diffusely echogenic suggesting fatty infiltration. Borderline hepatomegaly. It measures 17.3 cm. Gallbladder: No stones, sludge, wall thickening or tenderness. Common bile duct: Normal measuring 3 mm . Pancreas: Visualized portions are sonographically unremarkable. Other: Visualized portions of the right kidney are unremarkable. No right upper quadrant ascites. US/Gallbladder IMPRESSION: Borderline hepatomegaly. Diffuse fatty infiltration of the liver. No evidence of gallstones. Reading Location: [place] [address]
--- NOTE | 2025-04-19 06:58 | EKG12_ITS ---
Test Reason : CP Blood Pressure : */* mmHG Vent. Rate : 103 BPM Atrial Rate : 103 BPM P-R Int : 134 ms QRS Dur : 74 ms QT Int : 324 ms P-R-T Axes : 60 42 54 degrees QTcB Int : 424 ms Sinus tachycardia Otherwise normal ECG Confirmed by TERRY MOREL, LORA ([id number]), video news editor JEROME LOPEZ ([id number]) on 04/20/2025 10:43:31 AM Referred By: Confirmed By: LORA STEWART MD
[2025-04-19 07:09] LABS: Hematocrit 41.6 % (40-54); Hemoglobin 13.6 g/dL (13.0-16.5); Immature Granulocytes Count 0.070 X10^3/uL (0.0-0.0); Mean Corp Hgb Conc 32.7 g/dL (32-36); Mean Corpuscular Volume 90.0 fL (80-94); Mean Platelet Vol. 10.5 fl (6.2-12.0); NRBC Flagged by Analyzer 0 % (0-5); Platelet Count 261 K/mm3 (150-450); RBC Distribution Width CV 15.4 % (11.6-14.6); RBC Distribution Width SD 50.6 fl (35.1-43.9); Red Blood Count 4.62 M/mm3 (4.6-6.2); White Blood Count 17.9 K/mm3 (4.4-11.0)
[2025-04-19] MEDS: HYDROmorphone 0.5 MG/0.5 ML SYRINGE IV ×3 (07:12→12:12)
[2025-04-19] MEDS: 0.9% Normal Saline (500mL Bag) 500 ML 999 ML IV (07:12)
--- OUTSIDE RECORDS SUMMARY | 2025-04-19 07:18 | XMS RPT_ITS | CCD ---
Author Organization [facility]ini[facility] Care Team Providers Care It Analyst Name Role Phone Miryam Ledezma Unavailable Unavailable Dr. Bhupendra Brown Primary Care Provider Dr. Bhupendra Brown Referring Provider Dr. Henry Weston Attending Provider Dr. Bhupendra Brown Primary Care Provider [phone] Dr. Henry Weston Attending Provider Bhupendra Brown DO Primary Care Provider Bhupendra Brown DO Primary Care Provider Bhupendra Brown DO Primary Care Provider [phone] Bhupendra Brown DO Primary Care Provider Ciaran Mary Referring Unavailable Ciaran Mary Attending Unavailable BHUPENDRA BROWN Primary Care Unavailable Ciaran Mary Attending Unavailable BHUPENDRA BROWN Attending Unavailable BHUPENDRA BROWN Primary Care Unavailable BHUPENDRA BROWN Attending Unavailable BHUPENDRA BROWN Primary Care Unavailable Dr. Bhupendra Brown DO Primary Care Provider Dr. Bhupendra Brown DO Referring Provider Dr. Luis Puga MD Attending Provider Dr. Luis Puga MD Referring Provider Joanne Saini Attending Provider Joanne Saini Referring Provider Bhupendra Brown Primary Care Unavailable Luis Puga Attending Unavailable Bhupendra Brown Primary Care Unavailable Joanne Saini Attending Unavailable Joanne Saini Referring Unavailable Bhupendra Brown Primary Care Unavailable Luis Puga Attending Unavailable Luis Puga Referring Unavailable Bhupendra Brown Primary Care Unavailable Bhupendra Brown Referring Unavailable Luis Puga Attending Unavailable Allergies Allergy Classification Reported Allergen(s) Allergy Type Date of Onset Reaction(s) Facility (1 source) atorvastatin Drug Allergy 6 headache, nausea aches and pains. [facility] Work Phone: (20 sources) Lisinopril Drug Allergy 6 Other [facility] Work Phone: (4 sources) atorvastatin Drug Allergy 2 GALLARDO, Nausea, Myalgias [facility] (20 sources) atorvastatin Drug Allergy 6 [facility] (20 sources) ezetimibe / Simvastatin Drug Allergy 5 [facility] (20 sources) Non-steroidal anti-inflammator y agent Drug Intolerance 1 Other [facility] (1 source) atorvastatin Drug Allergy 5 [facility] Repository Medications Current Medications Medication Drug Class(es) Dates Sig (Normalized) Sig (Original) amLODIPine 10 mg oral tablet (20 sources) Dihydropyridine Calcium Channel Jacques Start: 10-03-2020 End: 09-19-2024 take 1 tablet by mouth once daily amLODIPine (Norvasc) 10 MG tablet TAKE 1 TABLET (10 MG) BY MOUTH DAILY. 90 tablet 1 09/19/2024 Active Start: 06-10-2018 End: 10-03-2020 take 1 tablet [...] Start: 02-05-2016 take 1 tablet by dolly once daily AMLODIPINE BESYLATE 10 MG TABS One tablet by mouth daily AMLODIPINE BESYLATE [id number] Gemini Mckeon PA-C aspirin 81 mg oral [...] 21, 2016 12:00am October 10, 2021 5:24pm [facility] benazepril hydrochloride 10 mg oral tablet (20 sources) Angiotensin Converting Enzyme Inhibitor Start: 02-11-2022 End: 01-08-2025 take 1 tablet by mouth once daily benazepril (Lotensin) 10 MG tablet TAKE 1 TABLET (10 MG) BY MOUTH DAILY. 90 tablet 1 01/08/2025 Active ciprofloxacin 500 mg oral tablet (15 sources) Quinolone Antimicrobial Start: 01-19-2024 take 1 [...] Discontinued 500 mg PO TWICE A DAY October 10, 2021 1:00am February 11, 2022 1:05pm finasteride 5 mg oral tablet (20 sources) 5-alpha Reductase Inhibitor Start: 01-09-2016 End: 01-22-2025 take 1 tablet by mouth once daily finasteride (Proscar) 5 MG tablet Take 1 tablet (5 mg) by mouth daily. 90 tablet 1 01/22/2025 Active oxyCODONE hydrochloride 10 mg oral tablet (2 sources) Opioid Agonist Start: 01-19-2024 take 1 tablet by mouth every six hours as needed for pain Oxycodone 10 mg tablet Active 10 mg PO EVERY 6 HOURS as needed for pain 14 7 0 January 19, 2024 Calculus of ureter Calculus of ureter predniSONE 10 mg oral tablet (2 sources) Start: 01-22-2025 predniSONE (Deltasone) 10 MG tablet 5 qday for 3 days, then 3 qday for 3 days, then one qday till gone 27 tablet 5 01/22/2025 Active rosuvastatin calcium 20 mg oral tablet (20 sources) HMG-CoA Reductase Inhibitor Start: 06-10-2023 End: 01-08-2025 take 1 tablet by mouth once daily rosuvastatin (Crestor) 20 MG tablet TAKE 1 TABLET BY MOUTH EVERY DAY 90 tablet 1 01/08/2025 Active tamsulosin hydrochloride 0.4 mg oral capsule (5 sources) alpha-Adrenergic Jacques Start: 12-23-2023 take 1 capsule by mouth at bedtime Tamsulosin (Flomax) 0.4 mg capsule Active 0.4 mg PO AT BEDTIME January 06, 2024 12:00am Completed/Discontinued Medications Medication Drug Class(es) Dates Sig (Normalized) Sig (Original) acetaminophen 325 mg / oxyCODONE hydrochloride 5 mg oral tablet (8 sources) Opioid Agonist Start: 10-10-2021 End: 02-11-2022 [...] iv infusion dexamethasone 6 mg oral tablet (4 sources) Corticosteroid Start: 10-03-2020 End: 10-10-2020 take [...] 2018 10:37am meloxicam 15 mg oral tablet (4 sources) Nonsteroidal Anti-inflammatory Drug Start: 12-13-2017 End: 01-31-2021 take 1 tablet by mouth once daily Meloxicam 15 mg tablet Discontinued 15 mg PO DAILY December 13, 2017 12:00am January 31, 2021 2:46pm pain 5 ml midazolam 1 mg/ml injection (1 source) Benzodiazepine Start: 02-07-2024 End: 02-07-2024 midazolam 1-5 mg injection (VERSED) naproxen sodium 220 mg oral tablet (4 sources) Nonsteroidal Anti-inflammatory Drug Start: 09-30-2020 End: [...] Problem Classification Problem Date Documented Date Episodic/Chronic Coronary atherosclerosis and other heart disease (20 sources) Coronary arteriosclerosis; Translations: [Atherosclerotic heart disease of squaxin coronary artery without angina pectoris] Onset: 01-10-2017 [...] 01-22-2025 Episodic Other and ill-defined heart disease (5 sources) Cardiomegaly; Translations: [Cardiomegaly] Onset: 01-21-2016 01-21-2016 Chronic Other and unspecified benign neoplasm (1 source) [...] Onset: 02-13-2016 02-13-2016 Episodic Pulmonary heart disease (5 sources) Other secondary pulmonary hypertension; Translations: [Secondary pulmonary hypertension] Onset: 02-12-2016 02-12-2016 Chronic Residual codes; unclassified (1 source) Obstructive sleep apnea of adult; Translations: [Obstructive sleep apnea (adult) (pediatric)] Onset: 12-09-2016 12-09-2016 Chronic Residual codes; unclassified (20 sources) Obstructive sleep apnea syndrome; Translations: [Obstructive sleep apnea (adult) (pediatric)] Onset: 01-10-2017 05-17-2022 Chronic Residual codes; unclassified (2 sources) Family history [...] site not specified] 12-09-2023 Episodic Viral infection (4 sources) Disease caused by 2019-nCoV; Translations: [COVID-19] 09-30-2020 Episodic Past or Other Problems Problem Classification Problem Date Documented Da te Episodic/Chronic Acute and unspecified renal failure (3 sources) Kidney disease; Translations: [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)] Onset: 07-28-2021 01-22-2025 Episodic Calculus of urinary tract (20 sources) Ureteric stone; Translations: [Calculus of ureter] Onset: 11-21-2021 05-17-2022 Episodic Hemorrhoids (20 sources) Internal hemorrhoids; Translations: [Other hemorrhoids] Onset: 10-01-2005 Resolved: 05-24-2023 06-02-2022 Episodic Other and unspecified benign neoplasm (20 sources) History of polyp of colon; Translations: [Personal history of colonic polyps] Onset: 12-27-2014 Resolved: 12-27-2014 05-17-2022 Episodic Other and unspecified benign neoplasm (20 [...] calories] Onset: 05-26-2021 Resolved: 05-24-2023 05-17-2022 Chronic Residual codes; unclassified (20 sources) Family history of cancer of colon; Translations: [Family history of malignant neoplasm of digestive organs] Onset: 10-01-2005 05-17-2022 Episodic Spondylosis; intervertebral disc disorders; other back problems (20 sources) Spinal stenosis of lumbar region; Translations: [Spinal stenosis, lumbar region without neurogenic claudication] Onset: 01-10-2017 05-17-2022 Episodic Results Test Name Value Interpretation Reference Range Facility Abdomen Single Viewon 2024 Abdomen Single View [facility] Imaging Services [address] [place] [id number] Abdomen Single View MR#: [id number] Acct: [id number] Name: ERICH FRANCO Rep #: [id number] : 1945 M 80 From: Salazar Glasgow MD PCP: Dr. Bhupendra Brown, DO Status: REG CLI Study: Abdomen Single View Date of Exam: 02/20/25 Exam# [id number] Ordering Dr: Joanne Saini PROCEDURE: ABDOMEN SINGLE VIEW 02/20/2025 REASON FOR EXAM: PERSONAL HX OF URINARY CALCULI TECHNIQUE: ABDOMEN SINGLE VIEW COMPARISON: CT abdomen and pelvis 12/14/2023, abdominal radiograph 06/08/2022 FINDINGS: Bowel gas: Bowel gas pattern is normal. No evidence of bowel obstruction. Calcifications: No suspicious calcifications. Bones: There are degenerative changes of the spine and hips. RAD/Abdomen Single View IMPRESSION: No radiographic evidence of renal stone. Reading Location: [facility] CC: Dr. Bhuepndra Brown DO; Joanne Saini Rn Occupational: Signed Normal [facility] PSA,Total - Annual Screenon 02-20-2025 PSA,TOT SCREEN 0.66 ng/mL Normal 0.02-4.00 [facility] Comment on above: Result Comment: This test was performed using the [employer] tPSA method. Measured values of a patient??sample can vary depending on the testing procedure used. PSA values determined on patient samples by different testing procedures cannot be used interchangeably. If there is a change in PSA assays while monitoring therapy, sequential testing should be performed to confirm baseline values. Performed By: #### L [phone] #### [facility] [address] [place], [address] Echocardiogram study reportO rdered By: Luis Puga on 02-11-2025 Study report [facility] [address] [place] [address] Echo Complete W/ Contrast 02/08/25 1310 MR#: [id number] Acct: [id number] Name: ERICH FRANCO Rep #:[id number] : 1945 79 From: Luis Henson Attending Dr: Dr. Luis Puga MD S tatus: REG CLI Ordering Dr: Luis Puga MD Date: 05/26 Location: [facility] Sex: M C Admitted: Reason For Study [...] Referring Physician: Bhupendra Brown Performed By: Sharyn Muhammad, KATARINA, RVT 02/11/251538 Date _ Luis Puga MD CC: Dr. Luis Puga MD; Dr. Bhupendra Brown DO ~ Date Dictated: 02/08/25 131 Date Transcribed: 02/11/251538 Rn Occupational: Signed [facility] Work Phone: Echo Complete W/ Contraston 02-08-2025 Echo Complete W/ Contrast [facility] [address] [place] [address] Echo Complete W/ Contrast 02/08/25 1310 MR#: [id number] Acct: [id number] Name: JESUSITAERICH NATE Rep #: [id number] : 1945 79 From: Luis Puga MD Attending Dr: Dr. Luis Puga MD Status: ERIN COX Ordering Dr: Luis Puga MD Date: 02/08/25 Location: [facility] Sex: M C Admitted: Reason For Study [...] Referring Physician: Bhupendra Brown Performed By: Sharyn Muhammad, PAMCS, RVT 02/11/25 1539 Date Luis Puga MD CC: Dr. Luis Puga MD; Dr. Bhupendra Bronw, Date Dictated: 02/08/25 1310 Date Transcribed: 02/11/25 1539 Rn Occupational: Signed Normal [facility] Office Visiton 01-22-2025 Follow-up visit [id number] Paulino Franco 1945 M Date Provider Department Center 01/22/2025 [id number] BROWN [facility] Family History Problem Relation Age of Onset [...] Grandfather Paternal Grandmother Paternal Grandfather Level of Service:92543 [place] OFFICE/OUTPATIENT ESTABLISHED LOW MDM 20 MIN Reason for Visit and Comments: Follow-up [636430] - Med Check Arthritis [[id number]] - Hands and shoulders feet tight and cramped Normal [facility] Progress Noteon 01-22-2025 Progress Note [facility] - [address] [facility] [address] Visit type: Established Patient Reason [...] 36.3 ?C (97.4 ?F) (Temporal) Ht 5' 8 (1.727 m) Wt 237 lb (108 kg) [...] [place] COLONOSCOPY W/ (more content not included)... [facility] 36on 01-08-2025 36 Recent Visits Date Type Provider Dept 06/12/24 Office Visit Bhupendra Brown DO [facility] Showing recent visits within past 365 days and meeting all other requirements Future Appointments Date Type Provider Dept 01/22/25 Appointment Bhupendra Brown DO [facility] Showing future appointments within next 90 [...] labs completed in chart? N/A None Normal [facility] Cardiology Visit Reporton Cardiology Visit Report [facility] [address] [place] [address] OFFICE VISIT Date of Service: 11/16/24 MR#: [id number] Acct: [id number] Name: ERICH FRANCO Rep #: [id number] : 1945 Provider: Dr. Luis Puga MD Age/Sex: 79/M Location: [facility] Status: Signed HPI HPI History of Present [...] Intake Visit Reasons: 1 Y FU/PREV [employer] Applications Required: No Accompanied by: Self Is patient [...] chest movem (more content not included)... Normal [facility] CBC W Auto Differential pane l (Bld)on 06-13-2024 Basophils (Bld) [#/Vol] 127 10*3/uL [facility] Basophils/100 WBC (Bld) 1.4 % [facility] Eosinophils (Bld) [#/Vol] 191 10*3/uL [facility] Eosinophils/100 WBC (Bld) 2.1 % [facility] Erythrocyte distribution width (RBC) [Ratio] 13.7 % 11.0 - 15.0 % [facility] Hematocrit (Bld) [Volume fraction] 44.6 % 38.5 - 50.0 % [facility] Hemoglobin (Bld) [Mass/Vol] 14.4 g/dL 13.2 - 17.1 g/dL [facility] Lymphocytes (Bld) [#/Vol] 2675 10*3/uL [facility] Lymphocytes/100 WBC (Bld) 29.4 % [facility] MCH (RBC) [Entitic mass] 29.1 pg 27.0 - 33.0 pg [facility] MCHC (RBC) [Mass/Vol] 32.3 g/dL 32.0 - 36.0 g/dL [facility] Comment on above: For adults, a [...] [facility] Monocytes/100 WBC (Bld) 9.1 % [facility] Neutrophils (Bld) [#/Vol] 5278 10*3/uL [facility] Neutrophils/100 WBC (Bld) 58 % [facility] Platelet mean volume (Bld) [Entitic vol] 11.4 fL 7.5 - 12.5 fL [facility] Platelets (Bld) [#/Vol] 284 10*3/uL [facility] RBC (Bld) [#/Vol] 4.95 10*6/uL [facility] WBC (Bld) [#/Vol] 9.1 10*3/uL [facility] Office Visiton 06-12-2024 Follow-up visit [id number] Paulino Franco 1945 M Date Provider Department Center 06/12/2024 [id number] BROWN [facility] Family History Problem Relation Age of Onset [...] Grandfather Paternal Grandmother Paternal Grandfather Level of Service:66964 [place] OFFICE/OUTPATIENT ESTABLISHED LOW MDM 20 MIN Reason for Visit and Comments: Follow-up [945699] - Med Check Flu Vaccine [189] - Patient is agreeable to have flu vaccine in the office Normal [facility] Progress Noteon 06-12-2024 Progress Note [facility] [address] [facility] [address] Visit type: Established Patient Reason [...] age 78 Colon cancer Father 60 Other (20715) Sister post flu complications age 65 in 04/18 Other (43394) Brother Frances age 55 ? German synd No Known Problems Brother 08/03 bert Mason Objective: BP 118/62 (BP Location: Right arm, Patient Position: Sitting, BP Cuff Size: Large adult) Pulse 78 Temp 36.2 ?C (97.2 ?F) (Temporal) Ht 5' 8 (1.727 m) Wt 238 lb 3.2 oz [...] No scler (more content not included)... Normal [facility] 36on 04-05-2024 36 RX loaded Next ov 06/12/[address] [facility] 36 (1) Medication name: amLODIPine (Norvasc) 10 [...] office visit: 06/12/24 Updated/Validated preferred pharmacy: Yes [facility]/pharmacy #[id number] - [place], [place] - [address] [address]. AT [address] Patient instructed [...] of last refill (see medication tab): 12/09/[address] [facility] 36on 03-27-2024 36 Recent Visits Date Type Provider Dept 12/09/23 Office Visit Bhupendra Brown DO [facility] 05/24/23 Office Visit Bhupendra Krys DO [facility] Showing recent visits within past 365 days and meeting all other requirements Future Appointments Date Type Provider Dept 06/12/24 Appointment Bhupendra Krys DO Erik [facility] Showing future appointments within next 90 [...] 05/24/2023 CHOLHDLCRATI 2.9 05/24/2023 NONHDLCHOLES 93 05/24/[address] [facility] [id number] 02-07-2024 [id number] HNO ID: [id number] Author: ABBEY TAPIA RN Service: ? Author Type: Registered Nurse Type: [id number] Filed: 02/07/2024 10:05 Note Text: The patient received a copy of Colonoscopy discharge instructions that contain information for how to contact the physician who performed the procedure and when to seek medical care. [facility] Colonoscopyon 02-07-2024 [facility] Patient Name: Erich Franco Procedure [...] 1 week. Procedure Code(s): --- Professional --- 37932, Colonoscopy, flexible; with removal of tumor(s), polyp(s), or other lesion(s) by snare technique 68586, 59, Colonoscopy, flexible; with biopsy, single or multiple G0500, Moderate sedation services provided by the same physician or other qualified health critical care registered nurse performing a gastrointestinal endoscopic service that sedation supports, requiring the presence of an independent trained observer to assist in the monitoring of the patient's level of consciousness and physiological status; initial 15 minutes of intra-service time; patient age 5 years or older (additional time may be reported with 61252, as appropriate) 21842, Moderate sedation; each additional 15 minutes intraservice time Diagnosis Code(s): --- Professional --- D12.3, Benign neoplasm of transverse colon (hepatic flexure or splenic flexure) Z12.11, Encounter for screening for malignant neoplasm of colon Z86.010, Personal history of colon (more content not included)... Normal [facility] Colonoscopy Study observatio non 02-07-2024 [facility] Gastrointestinal Endoscopy Patient Name: Erich Franco Procedure [...] previous diet. (more content not included)... [facility] Radiology Study observation (narrative) [facility] HISTORY PHYSICALon HISTORY PHYSICAL HNO ID: [id number] Author: CIARAN MARY MD Service: General Surgery [...] ?C (98.1 ?F), height 172.7 cm (5' 8), weight 109.1 kg (240 lb 9.6 oz), [...] this p (more content not included)... Normal [facility] NURSING PROGon 02-07-2024 NURSING PROG HNO ID: [id number] Author: ABBEY TAPIA RN Service: ? Author Type: Registered Nurse Type: Nursing Progress Note Filed: 02/07/2024 09:38 Note Text: Patient passing a moderate amount of air via rectum. Stomach no soft and non-distended. Will continue to monitor. Normal [facility] CNOVon 01-17-2024 CNOV Office Visit (GENSWS ) ERICH FRANCO ([id number]) 1945 M Date Time Provider Department 01/17/24 [...] If you do not have a responsible tour driver (family member or friend) with you to take you home, your exam cannot be done with sedation and will be cancelled. Please bring a list of all of your current medications, including any Givu-dnn-Bsdxzge medications with you. Medications If you take [...] Erich turpin (more content not included)... Normal [facility] Urinalysis macro (dipstick) panel (U)on 12-09-2023 Bilirubin, UA Negative [facility] Blood, UA Large [facility] Glucose, UA Negative [facility] Interpretation and review of laboratory results Abnormal [facility] Ketones, POC (mg/dL) Negative [facility] Leukocytes, UA Moderate [facility] Nitrite, UA Positive [facility] pH, UA 7.5 [facility] Protein, UA 100 [facility] Spec Grav, [facility]A 1.020 [facility], [facility] 0.2 [facility] He alth [facility] Radiology Study observation (narrative) [facility] Comprehensive metabolic 1998 panelon 05-25-2023 Albumin [Mass/Vol] 4.6 g/dL 3.6 - 5.1 g/dL [facility] Albumin/Globulin [Mass ratio] 1.3 {ratio} [facility] ALP [Catalytic activity/Vol] 67 U/L 35 - 144 U/L [facility] ALT [Catalytic activity/Vol] 22 U/L 9 - 46 U/L [facility] AST [Catalytic activity/Vol] 19 U/L 10 - 35 U/L [facility] Bilirubin [Mass/Vol] 0.4 mg/dL 0.2 - 1.2 mg/dL [facility] Calcium [Mass/Vol] 9.9 mg/dL 8.6 - 10. 3 mg/dL [facility] Chloride [Moles/Vol] 105 mmol/L 98 - 110 mmol/L [facility] CO2 [Moles/Vol] 25 mmol/L 20 - 32 mmol/L [facility] Creatinine [Mass/Vol] 1.29 mg/dL High 0.70 - 1.28 mg/dL [facility] GFR/1.73 sq M.predicted among non-blacks MDRD (S/P/Bld) [Vol rate/Area] 57 mL/min/{1.73_m2} Low > OR = 60 mL/min/1.73m2 [facility] Globulin (S) [Mass/Vol] 3.6 g/dL [facility] Glucose [Mass/Vol] 109 mg/dL High 65 - 99 mg/dL [facility] Comment on above: Fasting reference interval For someone without known diabetes, a glucose value between 100 and 125 mg/dL is consistent with prediabetes and should be confirmed with a follow-up test. Potassium [Moles/Vol] 4.7 mmol/L 3.5 - 5.3 mmol/L [facility] Protein [Mass/Vol] 8.2 g/dL High 6.1 - 8.1 g/dL [facility] Sodium [Moles/Vol] 140 mmol/L 135 - 146 mmol/L [facility] Urea nitrogen [Mass/Vol] 19 mg/dL 7 - 25 mg/dL [facility] Urea nitrogen/Creatinine [Mass ratio] 15 mg/mg [facility] Lipid 1996 panelon 3 Cholesterol [Mass/Vol] 141 mg/dL [facility] mg/dL [facility] Cholesterol in HDL [Mass/Vol] 48 mg/dL > OR = 40 [facility] Cholesterol in LDL [Mass/Vol] 69 mg/dL mg/dL (calc) [facility] Comment on above: Reference range: <10 0 Desirable range <100 mg/dL for primary prevention; <70 mg/dL for patients with CHD or diabetic patients with > or = 2 CHD risk factors. LDL-C is now calculated using the Speedy calculation, which is a validated novel method providing better accuracy than the Friedewald equation in the estimation of LDL-C. Javan SS et al. CONCHIS. 2013;310(19): 2243-0840 (http://education.[employer]/faq/KDF495) Cholesterol non HDL [Mass/Vol] 93 mg/dL [facility] Comment on above: For patients with di abetes plus 1 major ASCVD risk factor, treating to a non-HDL-C goal of <100 mg/dL (LDL-C of <70 mg/dL) is considered a therapeutic option. 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 Left ventricular Ejection fraction 60 % [facility] Work Phone: Lab Report: Blood Gas Specim en Typeon 01-21-2016 BLD GAS TYPE ART [facility] Work Phone: Lab Report: PO2 I-Mona Oxygen ppres (Bld) 76 mm[Hg] 75-100 [facility] Work Phone: Lab Report: SO2 ISTATon 06-2 SaO2% mass fraction (BldA) 95 % 95-99 [facility] Work Phone: Lab Report: VBG PO2 I-Mona 01-21-2016 VBG PO2 I-STAT 42 mm[Hg] High 25-40 [facility] Work Phone: Lab Report: VBG SO2 ISTATon 01-21-2016 VBG SO2 ISTAT 74 % High 50-70 [facility] Work Phone: Lab Report: Basic Metabolic Profile (BMP)on 01-15-2016 Anion gap molar conc 8 mmol/L 5-15 [facility] Work Phone: Calcium mass conc 8.7 mg/dL 8.5-10.1 [facility] Work Phone: Chloride molar conc 107 mmol/L 98-107 [facility] Work Phone: CO2 ppres (BldV) 24.0 mmol/L 21.0-32.0 [facility] Work Phone: Creatinine mass conc 1.00 mg/dL 0.70-1.30 [facility] Work Phone: EST GFR - AA 95 mL/min >60 [facility] Work Phone: GFR/1.73 sq M predicted among non-blacks MDRD vol rate/area (S/P/Bld) 79 mL/min/{1.73_m2} >60 [facility] Work Phone: Glucose mass conc 85 mg/dL 70-110 [facility] Work Phone: Potassium molar conc 4.1 mmol/L 3.5-5.1 [facility] Work Phone: Sodium molar conc 139 mmol/L 136-145 [facility] Work Phone: Urea nitrogen mass conc 13 mg/dL 7-18 [facility] Work Phone: Urea nitrogen/Creatinine mass ratio 13.0 RATIO 10-20 [facility] [employer] Work Phone: Lab Report: Partial Thrombop last Timeon 01-15-2016 aPTT Coag time (Bld) 34.5 s 24.1-36.2 [facility] [employer] Work Phone: Lab Report: Prothrombin Time w/INRon 01-15-2016 INR Coag RelTime (PPP) 1.0 {INR} [facility] Work Phone: Prothrombin time (PT) Coag time (PPP) 12.4 s 11.7-14.9 [facility] [employer] Work Phone: Office Visiton 01-09-2016 Tobacco smoking status NHIS Former smoker [facility] Work Phone: Replaced Document: Jordymark E CG Observationson 01-09-2016 EKG QRS axis 21 deg [facility] Work Phone: Interpretation Sinus Rhythm WITHIN NORMAL LIMITS [facility] Work Phone: P [place] 47 deg [facility] Work Phone: MN Interval 128 ms [facility] Work Phone: QRS Duration 84 ms [facility] Work Phone: QT Interval new path ms [facility] Work Phone: QTc Gro[place] 401 ms [facility] Work Phone: T [place] 51 deg [facility] Work Phone: Clinical Lists Update: Kait dueñas 11-13-2015 Cholesterol in HDL mass conc 49 mg/dL [facility] Work Phone: Cholesterol in LDL mass conc 71 mg/dL [facility] Work Phone: Cholesterol mass conc 150 mg/dL [facility] Work Phone: Triglyceride mass conc 151 mg/dL High [facility] Work Phone: Vital Signs Date Time Vital Sign Value Performing Clinician Facility 01-22-2025 15:50-0400 Body height 172.7 cm Bhupendra Brown DO Work Phone: [employer] 01-22-2025 15:50-0400 Body mass index (BMI) [Ratio] 36.04 kg/m2 Bhupendra Brown DO Work Phone: [employer] 01-22-2025 15:50-0400 Body temperature 97.39 [degF] Bhupendra Brown DO Work Phone: [employer] 01-22-2025 15:50-0400 Body weight 107.5 kg Bhupendra Brown DO Work Phone: [employer] 01-22-2025 15:50-0400 Diastolic blood pressure 60 mm[Hg] Bhupendra Brown DO Work Phone: [employer] 01-22-2025 15:50-0400 Heart rate 91 /min Bhupendra Brown DO Work Phone: [employer] 01-22-2025 15:50-0400 SaO2% (BldA) [Mass fraction] 94 % Bhupendra Brown DO Work Phone: [employer] 01-22-2025 15:50-0400 Systolic blood pressure 120 mm[Hg] Bhupendra Brown DO Work Phone: [facility] 11-16-2024 14:50-0400 Body height 175.[address] Bhupendra Brown DO Work Phone: [facility] 11-16-2024 14:50-0400 Body mass index (BMI) [Ratio] 35.4 kg/m2 Dr. Bhupendra Brown DO Work Phone: [facility] 11-16-2024 14:50-0400 Body weight 108.[address] Bhupendra Brown DO Work Phone: [facility] 11-16-2024 14:50-0400 Diastolic blood pressure 66 mm[Hg] Dr. Bhupendra Brown DO Work Phone: [facility] 11-16-2024 14:50-0400 Heart rate 78 /min Dr. Bhupendra Brown DO Work Phone: [facility] 11-16-2024 14:50-0400 Respiratory rate 16 /min Dr. Bhupendra Brown DO Work Phone: [facility] 11-16-2024 14:50-0400 Systolic blood pressure 136 mm[Hg] Dr. Bhupendra Brown DO Work Phone: [facility] 06-12-2024 14:05-0500 Body height 172.7 cm Bhupendra Brown DO Work Phone: [facility] 06-12-2024 14:05-0500 Body mass index (BMI) [Ratio] 36.22 kg/m2 Bhupendra Brown DO Work Phone: [facility] 06-12-2024 14:05-0500 Body temperature 97.2 [degF] Bhupendra Brown DO Work Phone: [facility] 06-12-2024 14:05-0500 Body weight 108.05 kg Bhupendra Brown DO Work Phone: [facility] 06-12-2024 14:05-0500 Diastolic blood pressure 62 mm[Hg] Bhupendra Brown DO Work Phone: [facility] 06-12-2024 14:05-0500 Heart rate 78 /min Bhupendra Brown DO Work Phone: [facility] 06-12-2024 14:05-0500 SaO2% (BldA) [Mass fraction] 97 % Bhupendra Brown DO Work Phone: [facility] 06-12-2024 14:05-0500 Systolic blood pressure 118 mm[Hg] Bhupendra Brown DO Work Phone: [facility] 02-07-2024 10:02-0400 Diastolic blood pressure 64 mm[Hg] Ciaran Mary MD Work Phone: [facility] 02-07-2024 10:02-0400 Heart rate 82 /min Ciaran Mary MD Work Phone: [facility] 02-07-2024 10:02-0400 Respiratory rate 16 /min Ciaran Mary MD Work Phone: [facility] 02-07-2024 10:02-0400 SaO2% (BldA) [Mass fraction] 94 % Ciaran Mary MD Work Phone: [facility] 02-07-2024 10:02-0400 Systolic blood pressure 136 mm[Hg] Ciaran Mary MD Work Phone: [facility] 02-07-2024 08:25-0400 Body mass index (BMI) [Ratio] 36.57 kg/m2 Ciaran Mary MD Work Phone: [facility] 02-07-2024 08:25-0400 Body temperature 98.29 [degF] Ciaran Mary MD Work Phone: [facility] 02-07-2024 08:25-0400 Body weight 109.1 kg Ciaran Mary MD Work Phone: [facility] 01-17-2024 15:17-0400 Body height 172.7 cm Ciaran Mary MD Work Phone: [facility] 01-17-2024 15:17-0400 Body mass index (BMI) [Ratio] 36.58 kg/m2 Ciaran Mary MD Work Phone: [facility] 01-17-2024 15:170400 Body temperature 98.1 [degF] Ciaran Mary MD Work Phone: [facility] 01-17-2024 15:170400 Body weight 109.14 kg Ciaran Mary MD Work Phone: [facility] 01-17-2024 15:17-0400 Diastolic blood pressure 62 mm[Hg] Ciaran Mary MD Work Phone: [facility] 01-17-2024 15:17-0400 Heart rate 91 /min Ciaran Mary MD Work Phone: [facility] 01-17-2024 15:170400 SaO2% (BldA) [Mass fraction] 95 % Ciaran Mary MD Work Phone: [facility] 01-17-2024 15:17-0400 Systolic blood pressure 130 mm[Hg] Ciaran Mary MD Work Phone: [facility] 12-09-2023 14:29-0400 Body height 172.7 cm Bhupendra Brown DO Work Phone: [facility] [employer] 12-09-2023 14:29-0400 Body mass index (BMI) [Ratio] 36.34 kg/m2 Bhupendra Brown DO Work Phone: [facility] [employer] 12-09-2023 14:29-0400 Body temperature 97.5 [degF] Bhupendra Brown DO Work Phone: [facility] [employer] 12-09-2023 14:29-0400 Body weight 108.41 kg Bhupendra Brown DO Work Phone: [facility] [employer] 12-09-2023 14:29-0400 Diastolic blood pressure 71 mm[Hg] Bhupendra Leasuzemor DO Work Phone: [facility] [employer] 12-09-2023 14:29-0400 Heart rate 81 /min Bhupendra Leasuzemor [place] Work Phone: [facility] [employer] 12-09-2023 14:29-0400 SaO2% (BldA) [Mass fraction] 96 % Bhupendra Brown DO Work Phone: [facility] [employer] 12-09-2023 14:29-0400 Systolic blood pressure 122 mm[Hg] Bhupendra Brown DO Work Phone: [facility] [employer] 05-24-2023 13:15-0400 Body height 174 cm Bhupendra Brown DO Work Phone: [facility] [employer] 05-24-2023 13:15-0400 Body mass index (BMI) [Ratio] 34.91 kg/m2 Bhupendra Brown DO Work Phone: [facility] [employer] 05-24-2023 13:15-0400 Body temperature 97.7 [degF] Bhupendra Brown DO Work Phone: [facility] [employer] 05-24-2023 13:15-0400 Body weight 105.69 kg Bhupendra Brown DO Work Phone: [facility] [employer] 05-24-2023 13:15-0400 Diastolic blood pressure 70 mm[Hg] Bhupendra Brown DO Work Phone: [facility] [employer] 05-24-2023 13:15-0400 Heart rate 71 /min Bhupendra Brown DO Work Phone: [facility] [employer] 05-24-2023 13:15-0400 SaO2% (BldA) [Mass fraction] 98 % Bhupendra Brown DO Work Phone: [facility] [employer] 05-24-2023 13:15-0400 Systolic blood pressure 113 mm[Hg] Bhupendra Brown DO Work Phone: [facility] [employer] 11-20-2022 08:57-0400 Body height 174 cm Bhupendra Brown DO Work Phone: [employer] 11-20-2022 08:57-0400 Body mass index (BMI) [Ratio] 36.26 kg/m2 Bhupendra Brown DO Work Phone: [facility] [employer] 11-20-2022 08:57-0400 Body temperature 98.01 [degF] Bhupendra Brown DO Work Phone: [facility] 11-20-2022 08:57-0400 Body weight 109.77 kg Bhupendra Leonoramay DO Work Phone: [facility] 11-20-2022 08:57-0400 Diastolic blood pressure 65 mm[Hg] Bhupendra Brown DO Work Phone: [facility] 11-20-2022 08:57-0400 Heart rate 65 /min Bhupendra Brown DO Work Phone: [facility] 11-20-2022 08:57-0400 SaO2% (BldA) [Mass fraction] 97 % Bhupendra Leasuzemor DO Work Phone: [facility] 11-20-2022 08:57-0400 Systolic blood pressure 110 mm[Hg] Bhupendra Brown Work Phone: [facility] 02-11-2022 13:04-0400 Body height 175.[address] Bhupendra Brown Work Phone: [facility] Work Phone: 02-11-2022 13:04-0400 Body mass index (BMI) [Ratio] 34.4 kg/m2 Dr. Bhupendra Brown Work Phone: [facility] Work Phone: 02-11-2022 13:04-0400 Body weight 105.[address] Bhupendra Brown Work Phone: [facility] Work Phone: 02-11-2022 13:04-0400 Diastolic blood pressure 60 mm[Hg] Dr. Bhupendra Brown Work Phone: [facility] Work Phone: 02-11-2022 13:04-0400 Heart rate 80 /min Dr. Bhupendra Brown Work Phone: [facility] Work Phone: 02-11-2022 13:04-0400 Respiratory rate 16 /min Dr. Bhupendra Brown Work Phone: [facility] Work Phone: 02-11-2022 13:04-0400 Systolic blood pressure 120 mm[Hg] Dr. Bhupendra Brown Work Phone: [facility] Work Phone: 12-09-2016 15:08-0400 BMI (Body Mass Index) 35.73 kg/m2 [facility] [employer] Work Phone: 12-09-2016 15:08-0400 BP Diastolic 60 mm[Hg] [facility] Work Phone: 12-09-2016 15:08-0400 BP Systolic 118 mm[Hg] [facility] Work Phone: 12-09-2016 15:08-0400 Pulse (Heart Rate) 76 /min [facility] Work Phone: 12-09-2016 15:08-0400 Weight 106.6 kg [facility] Work Phone: 09-14-2016 10:52-0500 BSA (Body Surface Area) 2.19 m2 [facility] Work Phone: 09-14-2016 10:52-0500 Respiratory Rate 16 /min [facility] Work Phone: 01-09-2016 11:15-0400 Heart rate 69 /min [facility] Work Phone: 01-09-2016 10:59-0400 Height 172.72 cm [facility] Work Phone: Encounters Encounter Date Encounter Type Care Provider Facility Start: 02-20-2025 End: 02-20-[address] Bhupendra Brown DO Work Phone: -Radiology [facility] Start: 02-20-2025 End: 02-20-2025 Patient encounter procedure Joanne Saini -Radiology [facility] Work Phone: Start: 02-20-2025 End: 02-20-2025 ambulatory [employer] Facility:[facility] Start: 02-08-2025 Non-patient / Non-visit Dr. Randi MOREL -[facility] Start: 02-08-2025 End: 02-08-[address] Bhupendra Brown DO Work Phone: -Cardiovascular Services Start: 02-08-2025 End: 02-08-[address] Luis Puga MD -Cardiovascular Services Work Phone: Start: 02-08-2025 End: 02-08-2025 amb[address] [employer] Facility:[facility] Start: 01-28-2025 End: 03-30-2025 Follow-up encounter Bhupendra Krys Leamay DO Work Phone: [facility] [employer] Comment on above: CBC auto differentia l, Comprehensive metabolic panel, TSH, Additional followed-up results: 7 Start: 01-22-2025 End: 01-22-2025 ambulatory [facility] Start: 01-22-2025 End: 01-22-2025 Office outpatient visit 15 minutes Bhupendra Marcano Erik DO Work Phone: [facility] [employer] Comment on above: Arthralgia of both h ands (Primary Dx); Other fatigue; Essential hypertension; Renal insufficiency; Hypercholesterolemia; 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 Luis Puga MD -[facility] Work Phone: Start: 11-16-2024 End: 11-16-[address] [employer] Facility:[facility] Start: 09-19-2024 End: 09-19-2024 Refill Bhupendra Marcano Erik DO Work Phone: [facility] Clinical Communication Start: 06-12-2024 End: 06-12-2024 Office outpatient visit 15 minutes Bhupendra Brown DO Work Phone: [facility] [place] Comment on above: Essential hypertensi on (Primary Dx); Hypercholesterolemia; History of renal stone; Benign non-nodular prostatic hyperplasia with lower urinary tract symptoms Start: 06-12-2024 End: 06-12-2024 ambulatory BHUPENDRA BROWN [facility] Start: 04-05-2024 End: 04-05-2024 Refill Bhupendra Brown DO Work Phone: [facility] Clinical Communication Start: 03-27-2024 End: 03-27-2024 Refill Bhupendra Brown DO Work Phone: [facility] Start: 02-15-2024 End: 02-15-2024 Patient encounter procedure Kandi Manzanares APRN.APPLICATION ADMINISTRATOR Work Phone: General Surgery Comment on above: Adenomatous polyps ( Primary Dx) Start: 02-07-2024 End: 02-07-2024 ambulatory Ciaran Mary Facility:[facility] Start: 02-07-2024 End: 02-07-2024 Subsequent hospital visit by physician Ciaran Mary MD Work Phone: Ambulatory Surgery Comment on above: Family history of co vasu cancer [Z80.0] Start: 01-17-2024 End: 01-17-2024 ambulatory Ciaran Mary Facility:[facility] Start: 01-17-2024 End: 01-17-2024 Patient encounter procedure Ciaran Mary MD Work Phone: General Surgery Comment on above: Family history of co vasu cancer (Primary Dx); Morbidly obese (HCC) Start: 12-15-2023 Telephone encounter Bhupendra Park etrilla DO Work Phone: [facility] Comment on above: Orders (Urology refe rral ) Start: 12-14-2023 Telephone encounter Bhupendra Park etrilla DO Work Phone: [facility] Comment on above: Referral (Dr Simmons) Start: 12-13-2023 Telephone encounter Bhupendra F P etrilla DO Work Phone: [facility] Comment on above: Referral (Dr Jackson / CT-Abd/Pelvis) Start: 12-09-2023 End: 12-09-2023 Office outpatient visit 25 minutes Bhupendra Marcano Petrilla DO Work Phone: [facility] Comment on above: Hematuria, unspecifi ed type (Primary Dx); Essential hypertension; Hypercholesterolemia; History of renal stone; Urinary tract infection without hematuria, site unspecified; History of colonic polyps; Family history of colon cancer; Coronary arteriosclerosis Start: 08-30-2023 Refill Bhupendra F Leonora lla DO Work Phone: [facility] Medicine Start: 07-15-2023 Refill Bhupendra F Leonora lla DO Work Phone: [facility] Start: 07-13-2023 Refill Bhupendra F Leonora lla DO Work Phone: [facility] Clinical Communication Start: 06-10-2023 Orders Only Bhupendra F Leonora lla DO Work Phone: [facility] Start: 06-02-2023 Refill Bhupendra F Leonora lla DO Work Phone: [facility] Start: 05-24-2023 End: 05-24-2023 Office outpatient visit 15 minutes Bhupendra Krys Petrilla DO Work Phone: [facility] Comment on above: Essential hypertensi on (Primary Dx); Essential hypertension; Coronary arteriosclerosis; Hypercholesterolemia Start: 04-13-2023 Refill Bhupendra F Leonora lla DO Work Phone: [facility] Start: 11-20-2022 End: 11-20-2022 Office outpatient visit 15 minutes Bhupendra F Petrilla DO Work Phone: [facility] Comment on above: Essential hypertensi on (Primary Dx); Coronary arteriosclerosis; Hypercholesterolemia; Benign non-nodular prostatic hyperplasia with lower urinary tract symptoms Start: 10-05-2022 Refill Bhupendra F Leonora lla DO Work Phone: [facility] Clinical Communication Start: 08-10-2022 Refill Bhupendra Krys olvera DO Work Phone: [facility] Start: 07-25-2022 Telephone encounter Bhupendra Park karlieerrol DO Work Phone: [facility] Comment on above: Med Refill Start: 06-08-2022 End: 06-08-[address] Bhupendra Brown Work Phone: [facility] Work Phone: Start: 06-08-2022 End: 06-08-[address] [facility] Start: 02-20-2022 Non-patient / Non-visit Dr. Mundo Brown Work Phone: [facility] Start: 02-20-2022 End: 02-20-[address] Bhupendra Brown Work Phone: [facility]-Cardiovascula r Services Start: 02-11-2022 End: 02-11-[address] Bhupendra Brown Work Phone: [facility] Procedures Date Procedure Procedure Detail Performing Clinician Start: 02-20-2025 Plain X-ray abdomen Dr. Bhupendra Brown DO Work Phone: Start: 02-20-2025 Prostate specific an tigen measurement Dr. Bhupendra Brown DO Work Phone: Comment on above: This test was perfor med using the [employer] tPSA method. Measured values of a patient sample can vary depending on the testing procedure used. PSA values determined on patient samples by different testing procedures cannot be used interchangeably. If there is a change in PSA assays while monitoring therapy, sequential testing should be performed to confirm baseline values. Start: 01-22-2025 Adult depression scr eening assessment Bhupendra Brown DO Work Phone: Start: 06-12-2024 Complete blood count with white cell differential, automated Bhupendra Brown DO Work Phone: Start: 06-12-2024 Lipid 1996 panel - S lilibeth or Plasma Bhupendra Brown DO Work Phone: Start: 02-07-2024 Colonoscopy flx dx w /collj spec when pfrmd Ciarna Mary MD Work Phone: Start: 12-09-2023 Urnls dip stick/tabl et rgnt non-auto w/o micrscp Bhupendra Brown DO Work Phone: Start: 05-24-2023 Comprehensive metabo lic panel Bhupendra Brown DO Work Phone: Start: 05-24-2023 Lipid panel Bhupendra Park etrilla DO Work Phone: Start: 05-24-2023 Lipid 1996 panel - S lilibeth or Plasma Bhupendra Erik DO Work Phone: Start: 11-20-2022 Lipid 1996 [...] End: 09-14-2016 Follow Up Appt 3 months Henry Weston MD Start: 09-14-2016 End: 09-14-2016 Follow [...] MD Start: 01-09-2016 End: 02-24-2016 Chest x-ray eHnry Weston MD Start: 01-09-2016 End: 02-24-2016 Ecg [...] Author Start: 06-12-2029 Lipid panel Lipid Panel [facility] Start: 05-24-2028 Lipid panel Lipid Panel [facility] Start: 11-21-2027 Lipid panel Lipid Panel [facility] Start: 05-22-2027 Lipid panel Lipid Panel [facility] Start: 12-08-2026 Diabetes Screening Diabetes Screening [facility] Start: 01-22-2026 Depression Screening Depression Screening [facility] Start: 07-11-2025 End: 07-11-2025 Patient encounter procedure 07/11/2025 11:40 AM EST Office Visit [facility] [address] [place] [address] Bhupendra Brown DO [address] [place] [address] [facility] [place] Start: 04-02-2025 Influenza vaccination Influenza Vaccine (#1) [facility] Start: 01-22-2025 End: 01-22-2025 Patient encounter procedure 01/22/2025 3:40 PM EDT Office Visit [facility] [address] [place] [address] Bhupendra Brown DO [address] [place] [address] [place] [address] [facility] Start: 01-22-2025 End: 01-22-2026 C reactive protein [Mass/volume] in Serum or Plasma C-reactive protein Lab Routine Arthralgia of both hands Expected: 01/22/2025 (Approximate), Expires: 01/22/2026 [facility] Comment on above: Expected: 01/22/2025 (Approximate), Expi res: 01/22/2026 Start: 01-22-2025 End: 01-22-2026 CBC W Auto Differential panel - Blood CBC auto differential Lab Routine Arthralgia of both hands Expected: 01/22/2025 (Approximate), Expires: 01/22/2026 [facility] Work Phone: Comment on above: Expected: 01/22/2025 (Approximate), Expi res: 01/22/2026 Start: 01-22-2025 End: 01-22-2026 Comprehensive metabolic 1998 panel - Serum or Plasma Comprehensive metabolic panel Lab Routine Arthralgia of both hands Expected: 01/22/2025 (Approximate), Expires: 01/22/2026 [facility] Comment on above: Expected: 01/22/2025 (Approximate), Expi res: 01/22/2026 Start: 01-22-2025 End: 01-22-2026 Creatine kinase [Enzymatic activity/volume] in Serum or Plasma CK Lab Routine Arthralgia of both hands Expected: 01/22/2025 (Approximate), Expires: 01/22/2026 [facility] Comment on above: Expected: 01/22/2025 (Approximate), Expi res: 01/22/2026 Start: 01-22-2025 End: 01-22-2026 Erythrocyte sedimentation rate Sedimentation rate, automated Lab Routine Arthralgia of both hands Expected: 01/22/2025 (Approximate), Expires: 01/22/2026 [facility] Comment on above: Expected: 01/22/2025 (Approximate), Expi res: 01/22/2026 Start: 01-22-2025 End: 01-22-2026 Nuclear Ab [Titer] in Serum by Immunofluorescence SHIN Lab Routine Arthralgia of both hands Expected: 01/22/2025 (Approximate), Expires: 01/22/2026 [facility] Comment on above: Expected: 01/22/2025 (Approximate), Expi res: 01/22/2026 Start: 01-22-2025 End: 01-22-2026 Rheumatoid factor [Units/volume] in Serum or Plasma Rheumatoid factor Lab Routine Arthralgia of both hands Expected: 01/22/2025 (Approximate), Expires: 01/22/2026 [facility] Comment on above: Expected: 01/22/2025 (Approximate), Expi res: 01/22/2026 Start: 01-22-2025 End: 01-22-2026 Thyrotropin [Units/volume] in Serum or Plasma TSH Lab Routine Other fatigue Expected: 01/22/2025 (Approximate), Expires: 01/22/2026 [facility] Comment on above: Expected: 01/22/2025 (Approximate), Expi res: 01/22/2026 Start: 01-22-2025 End: 01-22-2026 Thyroxine (T4) free [Mass/volume] in Serum or Plasma T4, free Lab Routine Other fatigue Expected: 01/22/2025 (Approximate), Expires: 01/22/2026 [facility] Comment on above: Expected: 01/22/2025 (Approximate), Expi res: 01/22/2026 Start: 01-22-2025 End: 01-22-2026 Triiodothyronine (T3) Free [Mass/volume] in Serum or Plasma T3, free Lab Routine Other fatigue Expected: 01/22/2025 (Approximate), Expires: 01/22/2026 [facility] Comment on above: Expected: 01/22/2025 (Approximate), Expi res: 01/22/2026 Start: 12-11-2024 End: 12-11-2024 Patient encounter procedure 12/11/2024 11:30 AM EDT Office Visit [facility] [address] [place] [address] Bhupendra Brown DO [address] [place] [address] [facility] Start: 06-12-2024 End: 06-12-2025 Comprehensive metabolic 1998 panel - Serum or Plasma Comprehensive metabolic panel Lab Routine Essential hypertension Expected: 06/12/2024 (Approximate), Expires: 06/12/2025 [facility] Work Phone: Comment on above: Expected: 06/12/2024 (Approximate), Expi res: 06/12/2025 Start: 06-12-2024 End: 06-12-2025 Lipid 1996 panel - Serum or Plasma Lipid panel Lab Routine Hypercholesterolemia Expected: 06/12/2024 (Approximate), Expires: 06/12/2025 [facility] Comment on above: Expected: 06/12/2024 (Approximate), Expi res: 06/12/2025 Start: 06-12-2024 End: 06-12-2024 Patient encounter procedure 06/12/2024 2:00 PM EST Office Visit [facility] Family Medicine [address] [place] [address] Bhupendra Brown DO [address] [place] [address] [facility] Start: 05-22-2024 Zoster Vaccines (3 of 3) Zoster Vaccines (3 of 3) [facility] Start: 04-02-2024 COVID-19 Vaccine ( season) COVID-19 Vaccine ( season) [facility] Start: 04-02-2024 COVID-19 Vaccine ( season) COVID-19 Vaccine ( season) [facility] Start: 04-02-2024 Influenza vaccination Influenza Vaccine (#1) [facility] Start: 02-15-2024 End: 02-15-2024 Patient encounter procedure 02/15/2024 11:00 AM EDT Office Visit General Surgery [address] [place] [address] Kandi Manzanares APRN.APPLICATION ADMINISTRATOR [address] [place] [id number] 02-06 Colonoscopy follow up General Surgery Comment on above: 02-06 Colonoscopy follow up Start: 02-14-2024 End: 02-14-2024 Patient encounter procedure 02/14/2024 10:00 AM EDT Appointment Ambulatory Surgery [address] [place] [id number] Ciaran Mary MD [address] [id number] Ambulatory Surgery Start: 12-13-2023 End: 12-12-2024 CT Abdomen WO contrast CT abdomen pelvis wo IV contrast Imaging STAT Hematuria, unspecified type History of renal stone Expected: 12/13/2023, Expires: 12/12/2024 [facility] Work Phone: Comment on above: Expected: 12/13/2023, Expires: Start: 12-09-2023 End: 12-08-2024 Bacteria identified in Urine by Culture Urine culture Microbiology Routine Urinary tract infection without hematuria, site unspecified Expected: 12/09/2023 (Approximate), Expires: 12/08/2024 [facility] Work Phone: Comment on above: Expected: 12/09/2023 (Approximate), Expi res: 12/08/2024 Start: 12-09-2023 End: 12-08-2024 CBC W Auto Differential panel - Blood CBC auto differential Lab Routine Urinary tract infection without hematuria, site unspecified Expected: 12/09/2023 (Approximate), Expires: 12/08/2024 [facility] Comment on above: Expected: 12/09/2023 (Approximate), Expi res: 12/08/2024 Start: 12-09-2023 End: 12-08-2024 Comprehensive metabolic 1998 panel - Serum or Plasma Comprehensive metabolic panel Lab Routine Urinary tract infection without hematuria, site unspecified Expected: 12/09/2023 (Approximate), Expires: 12/08/2024 [facility] Comment on above: Expected: 12/09/2023 (Approximate), Expi res: 12/08/2024 Start: 11-23-2023 End: 11-23-2023 Patient encounter procedure 11/23/2023 1:30 PM EDT Office Visit [facility] Family Medicine [address] [place] [address] Bhupendra Brown, DO [address] [place] [address] [facility] Start: 08-02-2023 Advance Directive Discussion Advance Directive Discussion [facility] Start: 08-02-2023 Behavioral Health Screening Behavioral Health Screening [facility] Start: 05-24-2023 End: 05-24-2024 CBC W Auto Differential panel - Blood CBC auto differential Lab Routine Essential hypertension Expected: 05/24/2023 (Approximate), Expires: 05/24/2024 [facility] Work Phone: Comment on above: Expected: 05/24/2023 (Approximate), Expi res: 05/24/2024 Start: 05-21-2023 End: 05-21-2023 Patient encounter procedure [facility] Start: 04-02-2023 COVID-19 Vaccine () COVID-19 Vaccine () [facility] Start: 04-02-2023 Influenza vaccination [facility] Start: 11-20-2022 End: 11-21-2023 CBC W Auto Differential panel - Blood CBC auto differential Lab Routine Essential hypertension Expected: 11/20/2022 (Approximate), Expires: 11/21/[address] [facility] [address] [facility] Work Phone: Comment on above: Expected: 11/20/2022 (Approximate), Expi res: 11/21/2023 Start: 11-20-2022 End: 11-21-2023 Comprehensive metabolic 1998 panel - Serum or Plasma Comprehensive metabolic panel Lab Routine Essential hypertension Expected: 11/20/2022 (Approximate), Expires: 11/21/2023 [facility] Comment on above: Expected: 11/20/2022 (Approximate), Expi res: 11/21/2023 Start: 11-20-2022 End: 11-21-2023 Lipid 1996 panel - Serum or Plasma Lipid panel Lab Routine Hypercholesterolemia Expected: 11/20/2022 (Approximate), Expires: 11/21/2023 [facility] Comment on above: Expected: 11/20/2022 (Approximate), Expi res: 11/21/2023 Start: 11-20-2022 End: 11-20-2022 Patient encounter procedure 11/20/2022 Office Visit Family Medicine Petrilla, Bhupendra F, DO [address] [place] [address] [facility] Start: 04-02-2022 Influenza vaccination Influenza Vaccine (#1) [facility] Start: 2022 RSV Immunization for Adults (1 - 1-dose 75+ series) RSV Immunization for Adults (1 - 1-dose 75+ series) [facility] Start: 12-13-2021 Medicare Annual Wellness (AWV) Medicare Annual Wellness (AWV) [facility] Start: 05-02-2021 COVID-19 Vaccine (3 - Booster for Pfizer series) COVID-19 Vaccine (3 - Booster for Pfizer series) [facility] Start: 05-02-2021 COVID-19 Vaccine (3 - Pfizer series) COVID-19 Vaccine (3 - Pfizer series) [facility] Start: 12-13-2017 End: 12-13-2017 Appointment Appointment [facility] Work Phone: Start: 12-09-2016 End: 12-09-2016 Follow Up Appt 1 year Follow Up Appt 1 year [facility] Work Phone: Start: 12-09-2016 End: 12-09-2016 PFM PFM [facility] Work Phone: Start: 10-01-2016 End: 10-01-2016 Neurology Referral Neurology Referral Nnamdi Delong, [address], [place], [address] [facility] Work Phone: Start: 09-14-2016 End: 09-14-2016 Follow Up Appt 3 months Follow Up Appt 3 months [facility] Work Phone: Start: 09-14-2016 End: 09-14-2016 Follow Up Appt Other Follow Up Appt Other [facility] Work Phone: Start: 09-14-2016 End: 09-14-2016 MMM MMM [facility] Work Phone: Start: 02-28-2016 End: 02-28-2016 Follow Up Appt Other Follow Up Appt Other [facility] [employer] Work Phone: Start: 02-13-2016 End: 02-13-2016 Pulmonary Referral Pulmonary Referral Josiah Fonseca, [facility] [place], [address], [place], [address] [facility] Work Phone: Start: 01-09-2016 End: 01-16-2016 *BMP *BMP [facility] Work Phone: Start: 01-09-2016 End: 01-16-2016 aPTT Coag time (PPP) *PTT-Partial Thromboplastin Time [facility] Work Phone: Start: 01-09-2016 End: 02-24-2016 CBC W Auto Differential panel - Blood *CBC without Diff [facility] Work Phone: Start: 01-09-2016 End: 02-24-2016 Chest x-ray X-Ray, Chest, PA & Lateral [facility] Work Phone: Start: 01-09-2016 End: 02-24-2016 Ecg routine ecg w/least 12 lds w/i&r EKG (In office) [facility] Work Phone: Start: 01-09-2016 End: 01-09-2016 Echocardiography Echocardiogram (complete) [facility] Work Phone: Start: 01-09-2016 End: 01-09-2016 Follow Up Appt 6 weeks Follow Up Appt 6 weeks [facility] Work Phone: Start: 01-09-2016 End: 01-16-2016 INR Coag RelTime (PPP) *PT/INR [facility] Work Phone: Start: 01-09-2016 End: 01-09-2016 Left Heart Cath Left Heart Cath [facility] Work Phone: Start: 01-09-2016 End: 01-09-2016 MMM MMM [facility] Work Phone: Start: 01-09-2016 End: 01-09-2016 Pulmonary Function Test - complete Pulmonary Function Test - complete [facility] Work Phone: Start: 02-27-2013 Shingrix Vaccine (2 of 3) Shingrix Vaccine (2 of 3) [facility] Start: 02-27-2013 Zoster Vaccines (2 of 3) Zoster Vaccines (2 of 3) [facility] Start: 2007 Hepatitis B Vaccine (1 of 3 - Risk 3-dose series) Hepatitis B Vaccine (1 of 3 - Risk 3-dose series) [facility] Start: 2007 RSV Immunization aged 60 or older (1 - 1-dose 60+ series) RSV Immunization aged 60 or older (1 - 1-dose 60+ series) [facility] Start: 2007 RSV Vaccine (1 - 1-dose 60+ series) RSV Vaccine (1 - 1-dose 60+ series) [facility] Start: 1966 DTaP/Tdap/Td Vaccines (1 - Tdap) DTaP/Tdap/Td Vaccines (1 - Tdap) [facility] Start: 1966 Hepatitis A Vaccine (1 of 2 - Risk 2-dose series) Hepatitis A Vaccine (1 of 2 - Risk 2-dose series) [facility] Start: 1966 Urine microalbumin profile DTaP,Tdap,Td Vaccine (1 - Tdap) [facility] Start: 1965 Diabetes mellitus screening Diabetes Screening [facility] Start: 1965 Hepatitis C screening Hepatitis C Screening [facility] Start: 1959 Depression Screening Depression Screening [facility] Start: 1947 Hepatitis B Vaccines (1 of 3 - 3-dose series) Hepatitis B Vaccines (1 of 3 - 3-dose series) [facility] Start: 1945 Screening for malignant neoplasm of colon [facility] End: 01-16-2025 Screening colonoscopy COLONOSCOPY SCREENING Endoscopy Routine Family history of colon cancer 1 Occurrences starting 01/17/2024 until 01/16/2025 [facility] Work Phone: Comment on above: 1 Occurrences starting 01/17/2024 until 01/16/2025 SURGICAL PATHOLOGY [facility] Work Phone: Comment on above: Release Upon Ordering for 1 Occurrences starting 02/07/2024, 1 completed Immunizations Immunization Date Immunization Notes Care Provider Mary Kate albright 06-12-2024 Seasonal trivalent influenza vaccine, adjuvanted, preservative free Bhupendra Brown DO Work Phone: [facility] 06-12-2024 influenza virus vacc ine, unspecified formulation Bhupendra Brown DO Work Phone: [facility] 05-24-2023 Influenza, Seasonal, Quadrivalent, Adjuvanted Bhupendra Leonoramay DO Work Phone: [facility] 05-24-2023 influenza virus vacc ine, unspecified formulation Ciaran Mary MD Work Phone: [facility] 05-26-2021 Influenza, High-dose Seasonal, Quadrivalent, Preservative Free Bhupendra Brown DO Work Phone: [facility] 05-26-2021 influenza virus vacc ine, unspecified formulation Bhpuendra Leasuzemor DO Work Phone: [facility] 03-07-2021 Pfizer SARS-CoV-2 Vaccination Bhupendra Perrymor DO Work Phone: [facility] 02-14-2021 Pfizer SARS-CoV-2 Vaccination Bhupendra Brown DO Work Phone: [facility] 05-09-2020 Influenza, High-dose Seasonal, Quadrivalent, Preservative Free Bhupendra Brown DO Work Phone: [facility] 05-02-2020 influenza, injectabl e, quadrivalent, preservative free Dr. Bhupendra Brown DO Work Phone: [facility] 05-02-2020 influenza, seasonal, injectable Dr. Bhupendra Brown Work Phone: [facility] Work Phone: 05-04-2019 Seasonal trivalent influenza vaccine, adjuvanted, preservative free Bhupendra Brown DO Work Phone: [facility] 05-23-2018 influenza, high dose seasonal, preservative-free Bhupendra Brown DO Work Phone: [facility] 05-07-2017 influenza, injectabl e, quadrivalent, contains preservative Bhupendra Lealla DO Work Phone: [facility] 12-10-2016 pneumococcal polysaccharide vaccine, 23 valent Bhupendra Petrilla DO Work Phone: [facility] 06-11-2016 influenza, injectabl e, quadrivalent, contains preservative Bhupendra Lealla DO Work Phone: [facility] 05-16-2015 influenza virus vacc ine, unspecified formulation Bhupendra Lealla DO Work Phone: [facility] 05-16-2015 influenza virus vacc ine, whole virus Bhupendra Lealla DO Work Phone: [facility] 05-16-2015 pneumococcal conjuga te vaccine, 13 valent Bhupendra Lealla DO Work Phone: [facility] 05-11-2014 influenza, seasonal, injectable Bhupendra Le[place] DO Work Phone: [facility] 01-02-2013 zoster vaccine, live Bhupendra Lealla DO Work Phone: [facility] 05-21-2012 influenza virus vacc ine, unspecified formulation Bhupendra Lealla DO Work Phone: [facility] 05-01-2009 pneumococcal polysaccharide vaccine, 23 valent Bhupendra Petrilla DO Work Phone: [facility] 05-01-2003 pneumococcal polysaccharide vaccine, 23 valent Bhupendra Petrilla DO Work Phone: [facility] Payers Date Payer Category Payer Self-pay [id number] 2021 Medicare supplementa l policy (as second payer) [facility] [id number] 2021 Unknown [id number] 2021 Unknown [id number] 2012 Unknown [id number] 2012 Medicare [id number] 2012 Medicare [id number] Unknown [id number] Unknown [id number] Unknown [id number] Unknown [id number] Social History Date Type Detail Facility Start: 02-11-2022 End: 02-11-2022 Tobacco smoking status [facility] Unknown if ever smoked [facility] Work Phone: Start: 09-30-2020 Cigarettes [facility] Start: 1945 Sex Assigned At Male [facility] Start: 12-09-2023 End: 01-06-2024 Tobacco smoking status WYIS Ex-smoker [facility] Start: 05-23-1960 End: 08-02-1997 History of tobacco use Current smoker [facility] Start: 05-23-1960 End: 08-02-1997 History of tobacco use Cigarette Smoker [facility] Start: 11-20-2022 End: 01-22-2025 Alcohol intake Current drinker of alcohol (finding) [facility] Start: 11-20-2022 End: 01-22-2025 Alcohol intake [facility] Start: 1945 Sex Assigned At Not on file [facility] Start: 11-10-2022 End: 11-20-2022 Exposure to SARS-CoV-2 (event) Not sure [facility] Start: 11-20-2022 End: 01-22-2025 Tobacco use panel [facility] Start: 12-09-2023 End: 02-07-2024 Tobacco use and exposure Smokeless tobacco non-user [facility] National Score (1-100), lower number is lower risk 71 [facility] Start: 06-05-2016 End: 02-07-2024 Tobacco Comment Father smoked in childhood home. 1st of 20 years smoker, 1994. [facility] Start: 06-05-2016 Alcohol Comment Occasional, no t daily for some time, 06/05/2016. [facility] Start: 03-02-2022 Sex Male (finding) [facility] Cesar molina Medical Equipment Procedure Code Equipment Code Equipment [...] Health Questionnaire 2 item (PHQ- 2) [Reported] [facility] Clinical Notes 07-25-2022 to 02-22-2025 Bhupendra Brown DO - 01/22/2025 3:40 PM EDTTelephone Encounter - Negar Vázquez MA - 01/08/2025 11:57 AM EDTTelephone Encounter - Negar Vázquez MA - 01/08/2025 11:57 AM EDT Note Date & Type Note Facility 02-22-2025 Radiology Diagnostic study note [facility] Imaging Services [address] [place] [address] Abdomen Single View MR#: [id number] Acct: [id number] Name: ERICH FRANCO Rep #: [id number] : 1945 M 80 From: Em Glasgow MD PCP: Dr. Bhupendra Brown DO Status: RE G CLI Study:Abdomen Single View Date of Exam: 02/20/25 Exam# [id number] Ordering Dr: Joanne Saini PROCEDURE: ABDOMEN SINGLE VIEW 02/20/2025 REASON FOR EXAM: PERSONAL HX OF URINARY CALCULI TECHNIQUE: ABDOMEN SINGLE VIEW COMPARISON: CT abdomen and pelvis 12/14/2023, abdominal radiograph 06/08/2022 FINDINGS: Bowel gas: Bowel gas pattern is normal. No evidence of bowel obstruction. Calcifications: No suspicious calcifications. Bones: There are degenerative changes of the spine and hips. RAD/Abdomen Single View IMPRESSION: No radiographic evidence of renal stone. Reading Location: [id number] CC: Dr. Bhupendra Brown DO; Joanne Saini ~ Rn Occupational: Signed [facility] 01-22-2025 History of Present illness Narrative Images from the original note were not included. [facility] - [address] [facility] [address] Visit type: Established Patient Reason [...] 36.3 C (97.4 F) (Temporal) Ht 5' 8 (1.727 m) Wt 237 lb (108 kg) [...] age 78 Colon cancer Father 60 Other ([id number]) Sister post flu complications age 65 in 04/18 Other ([id number]) Brother Frances age 55 ? German synd No Known Problems Brother 1/2 bert Mason documented in this encounter [facility] 01-08-2025 Telephone encounter Note Recent Visits Date Type Provider Dept 06/12/24 Office Visit Bhupendra Brown DO [facility] Showing recent visits within past 365 days and meeting all other requirements Future Appointments Date Type Provider Dept 01/22/25 Appointment Bhupendra Brown DO [facility] Showing future appointments within next 90 days [...] recent labs completed in chart? N/A None [facility] 01-08-2025 Miscellaneous Notes Recent Visits Date Type Provider Dept 06/12/24 Office Visit Bhupendra Marcano DO [facility] Showing recent visits within past 365 days and meeting all other requirements Future Appointments Date Type Provider Dept 01/22/25 Appointment Bhupendra Marcano LeonorasuzeDO mor [facility] Showing future appointments within next 90 [...] chart? N/A None documented in this encounter [facility] 11-16-2024 Evaluation note Diagnosis Onset Date Resolution Mitral valve stenosis acute Apr il 2024 2:48pm Essential hypertension chronic Ap 2024 2:48pm Hyperlipidemia chronic October 2:48pm [facility] Work Phone: 1(266) 501-922511-11-2024 History of Present illness Narrative* Bhupendra Krys DO Erik - 06/12/2024 2:00 PM EST Images from the original note were not included. [facility] - [address] [facility] [address] Visit type: Established Patient Reason [...] age 78 Colon cancer Father 60 Other ([id number]) Sister post flu complications age 65 in 04/18 Other ([id number]) Brother Parksonidos age 55 ? Egrman synd No Known Problems Brother 1/2 bert Marlon Objective: BP 118/62 (BP Location: Right arm, Patient Position: Sitting, BP Cuff Size: Large adult) Pulse 78 Temp 36.2 C (97.2 F) (Temporal) Ht 5' 8 (1.727 m) Wt 238 lb 3.2 oz [...] Content: Thought content normal. documented in this [facility]09-04-2024 Telephone encounter Note* Telephone Encounter - Solange Moran LPN - 04/05/2024 2:31 PM EDT RX loaded Next ov 06/12/24 [id number] Miscellaneous Notes* Telephone Encounter - Solange Moran LPN - 04/05/2024 2:31 PM EDT RX loaded Next ov 06/12/24 * Telephone Encounter - Ellismor Ortiz - 04/05/2024 2:19 PM EDT (1) [...] office visit: 06/12/24 Updated/Validated preferred pharmacy: Yes [id number] [place] - [address] Patient instructed to contact the pharmacy prior [...] (see medication tab): 12/09/[address] [facility]09-04-2024 Telephone encounter Note* Telephone Encounter - Rhonad Ortiz - 04/05/2024 2:19 PM EDT (1) [...] office visit: 06/12/24 Updated/Validated preferred pharmacy: Yes [id number] - [place], [place] - [address] Patient instructed to contact the pharmacy prior [...] of last refill (see medication tab): 12/09/23 [id number] Telephone encounter Note* Telephone Encounter - Devorah Patel MA - 03/27/2024 11:11 AM EDT Recent Visits Date Type Provider Dept 12/09/23 Office Visit Bhupendra Brown DO [facility] 05/24/23 Office Visit Bhupendra Brown DO [facility] Showing recent visits within past 365 days and meeting all other requirements Future Appointments Date Type Provider Dept 06/12/24 Appointment Bhupendra Brown DO [facility] Showing future appointments within next 90 [...] 05/24/2023 CHOLHDLCRATI 2.9 05/24/2023 NONHDLCHOLES 93 05/24/2023 [id number] Miscellaneous Notes* Telephone Encounter - Devorah Patel MA - 03/27/2024 11:11 AM EDT Recent Visits Date Type Provider Dept 12/09/23 Office Visit Bhupendra Marcano DO [facility] 05/24/23 Office Visit Bhupendra Marcano DO [facility] Showing recent visits within past 365 days and meeting all other requirements Future Appointments Date Type Provider Dept 06/12/24 Appointment Bhupendra Marcano LeonoramayDO [facility] Showing future appointments within next 90 [...] 05/24/2023 NONHDLCHOLES 93 05/24/[address] [facility]07-16-2024 History of Present illness Narrative* Kandi Manzanares APRN.VICTOR HUGO - 02/15/2024 11:00 AM EDT FOLLOW UP VISIT - ENDOSCOPY Erich Franco 1945 [id number] REFERRING PHYSICIAN: Ciaran Mary III [address] [facility] [address] Erich Franco is a patient I am following for family history of colon cancer. Dr. Rodeo performed lower endoscopy on . The patient [...] Return to the office PRN Kandi Manzanares APRN.APPLICATION ADMINISTRATOR [facility] Note* Discharge Instr - Nursing - Abbey Tapia RN - 02/07/2024 10:05 AM EDT The patient received a copy of Colonoscopy discharge instructions that contain information for how to contact the physician who performed the procedure and when to seek medical care. [facility]07-08-2024 Miscellaneous Notes* Discharge Instr - Nursing - Abbey Tapia RN - 02/07/2024 10:05 AM EDT The patient received a copy of Colonoscopy discharge instructions that contain information for how to contact the physician who performed the procedure and when to seek medical care. [facility] Nurse Note* Abbey Tapia RN - 02/07/2024 9:38 AM EDT Patient passing a moderate amount of air via rectum. Stomach no soft and non- distended. Will continue to monitor. [facility]07-08-2024 Nurse Note* Abbey Tapia RN - 02/07/2024 9:38 AM EDT Patient passing a moderate amount of air via rectum. Stomach no soft and non- distended. Will continue to monitor. * Abbey Tapia RN - 02/07/2024 9:32 AM EDT Abdomen firm and distended. Instructed to pass air via rectum. Will continue to monito. [facility]24 NoteHNO ID: [id number] Author: ABBEY TAPIA RN Service: ? Author Type: Registered Nurse Type: Nursing Progress Note Filed: 02/07/2024 09:38 Note Text: Abdomen firm and distended. Instructed to pass air via rectum. Will continue to monito.[facility]07-08-2024 Nurse Note* Abbey Tapia RN - 02/07/2024 9:32 AM EDT Abdomen firm and distended. Instructed to pass air via rectum. Will continue to monito. [facility]07-08-2024 History and physical note* Ciaran Mary [...] C (98.1 F), height 172.7 cm (5' 8), weight 109.1 kg (240 lb 9.6 oz), [...] DATE: February 07, 2024 TIME: 8:51 AM [facility]07-08-2024 History and physical note* Ciaran Mary [...] C (98.1 F), height 172.7 cm (5' 8), weight 109.1 kg (240 lb 9.6 oz), [...] 2024 TIME: 8:51 AM documented in [facility]Western [facility]06-[facility]-2024 NoteHNO ID: [id number] Author: CIARAN MARY MD Service: ? Author [...] ?C (98.1 ?F), height 172.7 cm (5' 8), weight 109.1 kg (240 lb 9.6 oz), [...] week post operatively. __ (more content not included)...[facility]06-18-2024 History of Present illness Narrative* Ciaran Mary [...] C (98.1 F), height 172.7 cm (5' 8), weight 109.1 kg (240 lb 9.6 oz), [...] Ciaran Mary III, MD documented [facility] Instructions* Patient Instructions* Ciaran Mary MD [...] If you do not have a responsible tour driver (family member or friend) withyou to take you home, your exam cannot be done with sedation and will be cancelled. Please bring a list of all of your current medications, including any Qwsk-aja-Arynynd medications with you. Medications If you take [...] your exam. 2 07/2019 [facility]* Addendum Note - Emi Tam - 12/16/2023 3:47 PM EDTAddended by: EMI TAM on: 12/16/2023 03:47 PM Modules accepted: Orders [id number] Miscellaneous Notes* Addendum Note - Emi Tam [...] his symptoms as well documented in this encounterSKettering Health Behavioral Medical CenterProoih80-05-3273 Telephone encounter Note* Telephone Encounter - Gracy Johnson - 12/15/2023 2:28 PM EDT Referral and records faxed to Dr. Mary [facility] [id number] Miscellaneous Notes* Telephone Encounter - Gracy Johnson - 12/15/2023 2:28 PM EDT Referral and records faxed to Dr. Mary * Telephone Encounter - Fany Boyd - 12/15/2023 2:00 PM EDT Name of caller: Erica Contact phone number: [phone] Relationship to Patient: [facility] Provider: Dr. Brown Practice: [facility] Chief Complaint/Reason for Call: Erica called and stated Dr. Simmons is retired and they have [address], Dr. Carrington, Dr Mary and Dr. Christiansen. Erica stated they did not get any demographics, no address, no insurance or phone number on the referral yesterday. Please fax info to [phone]. Thank you. Best time of day caller [...] for consultation for colonoscopy documented in this [facility]05-15-2024 Telephone encounter Note* Telephone Encounter - Fany Mullinsberly - 12/15/2023 2:00 PM EDT Name of caller: Erica Contact phone number: [phone] Relationship to Patient: [facility] Provider: Dr. Brown Practice: [facility] Chief Complaint/Reason for Call: Erica called and stated Dr. Simmons is retired and they have [address], Dr. Carrington, Dr Mary and Dr. Christiansen. Erica stated they did not get any demographics, no address, no insurance or phone number on the referral yesterday. Please fax info to [phone]. Thank you. Best time of day caller can be reached: any Patient advised that office/PCP has 24-48 business hours to return their call: No [facility] HospitalOcdzaf54-54-9147 Telephone encounter Note* Telephone Encounter - Gracy Johnson - 12/15/2023 9:36 AM EDT Orders pended for doctor signature [facility] [id number] Miscellaneous Notes* Telephone Encounter - Gracy Johnson [...] his symptoms as well documented in this encounterSKettering Health Behavioral Medical CenterUrgxqm96-91-3935 Telephone encounter Note* Telephone Encounter - Gracy [...] me updated on his symptoms as well [facility] HospitalKnzlwp18-67-9673 Telephone encounter Note* Telephone Encounter - Emi Tam - 12/14/2023 1:47 PM EDT Referral pended for doctor's signature [facility] [id number] Miscellaneous Notes* Telephone Encounter - Emi Tam [...] for consultation for colonoscopy documented in this encounterSKettering Health Behavioral Medical CenterLbpuum12-50-9151 Telephone encounter Note* Telephone Encounter - Emi [...] to that physician for consultation for colonoscopy [facility] HospitalNlghum13-18-6329 Telephone encounter Note* Telephone Encounter - Emi Tam - 12/13/2023 10:16 AM EDT Referral / Orders pended for dx and doctor's signature [facility] HospitalJurdvm26-56-0598 Miscellaneous Notes* Telephone Encounter - Emi Tam [...] contrast CARLEE. That can be done at [facility]. documented in this encounterSKettering Health Behavioral Medical CenterZdcczg91-53-6807 Telephone encounter Note* Telephone Encounter - Emi [...] contrast CARLEE. That can be done at [facility]. [facility] [id number] History of Present illness Narrative* Bhupendra Brown, DO - 12/09/2023 2:30 PM EDT Images from the original note were not included. [facility] [address] [place] [address] [address] [facility] [address] Visit type: Established Patient Reason [...] CATHETERIZATION 2016 [place]- min dx, LVH, COLONOSCOPY 2009 COLONOSCOPY 2014 [place] COLONOSCOPY W/ POLYPECTOMY 07/2018 [place]- rech due 2022 KIDNEY STONE SURGERY Left 2021 Dr. Jackson LUMBAR LAMINECTOMY 2016 L2-5 OR per Moran TONSILLECTOMY (HISTORICAL) 1950 Family History Problem Relation Name Age of Onset Uterine cancer Mother ? mets to liver, age 89 Kidney disease Father of CRF age 76 Colon cancer Father 60 Other ([id number]) Sister post flu complications age 65 in 04/18 Other (51731) Brother Frances age 55 ? German synd No Known Problems Brother 08/03 bert Mason Objective: BP 122/71 (BP Location: Left arm, Patient Position: Sitting, BP Cuff Size: Large adult) Pulse 81 Temp 36.4 C (97.5 F) (Temporal) Ht 5' 8 (1.727 m) Wt 239 lb (108 kg) [...] normal without focal deficits. documented in this [facility]05-09-2024 Instructions* Patient Instructions* Bhupendra Brown DO - 12/09/2023 2:30 PM EDT Lots of water, avoid caffeine. Await culture. If negative will refer to urology documented [facility] this [facility]01-29-2024 Telephone encounter Note* Telephone Encounter - Lisa Vasquezradha - 08/30/2023 10:55 AM EST Medication name: [...] Yes Gillian would like this sent to [facility] in [facility]. Please advise. Patient instructed to contact the pharmacy prior to picking up the medication: Yes [facility]01-29-2024 Miscellaneous Notes* Telephone Encounter - Lisa Vasquezradha - 08/30/2023 10:55 AM EST Medication name: finasteride (Proscar) 5 MG tablet Gillina is expressing urgency as Patient is completely [...] Yes Gillian would like this sent to [facility] Pharm[facility] in [facility]. Please advise. Patient instructed to contact the pharmacy prior to picking up the medication: Yes documented in this [facility]12-14-2023 Telephone encounter Note* Telephone Encounter - [...] Yes Pt is out of the medication [facility] [id number] Miscellaneous Notes* Telephone Encounter - Latisha Campoverde [...] out of the medication documented [facility] this [facility]12-12-2023 Telephone encounter Note* Telephone Encounter - Evelin [...] prior to picking up the medication: Yes [facility] HospitalQfoxfk46-93-8192 Miscellaneous Notes* Telephone Encounter - Evelin Edge [...] up the medication: Yes documented in this [facility]11-09-2023 Telephone encounter Note* Telephone Encounter - Solange Moran LPN - 06/10/2023 5:25 PM EST Please clarify if patient is allowed to take Simvastatin 80 mg. [facility] [id number] Miscellaneous Notes* Telephone Encounter - Solange Moran LPN - 06/10/2023 5:25 PM EST Please clarify if patient is allowed to take Simvastatin 80 mg. * Telephone Encounter - Phillip Chávez RN - 06/10/2023 3:22 PM EST S: Myrna from [facility] spoke with [facility] nurse regarding Medication questions B: Benazepril 10 mg 1 tab by mouth daily Simvastatin 80 mg 1 tab by mouth nightly A: [facility] states that there is an allergy alert for Benazepril, patient has listed allergy for Lisinopril. [facility] states that the Simvastatin dose at 80mg is high for muscle toxcity warning. Patient's prescriptions are on hold until callback received. opt 2 Ref #[id number] R: [facility] RN unable to answer questions, please reach out to [facility] to advise. No further needs at this time. Reason for Disposition Pharmacy calling with prescription question and triager unable to answer question Protocols used: Medication Question [id number] documented in this [facility]11-09-2023 Telephone encounter Note* Telephone Encounter - Phillip Chávez RN - 06/10/2023 3:22 PM EST S: Myrna from [facility] spoke with [facility] nurse regarding Medication questions B: Benazepril 10 mg 1 tab by mouth daily Simvastatin 80 mg 1 tab by mouth nightly A: [facility] states that there is an allergy alert for Benazepril, patient has listed allergy for Lisinopril. [facility] states that the Simvastatin dose at 80mg is high for muscle toxcity warning. Patient's prescriptions are on hold until callback received. opt 2 Ref #[id number] R: [facility] RN unable to answer questions, please reach out to [facility] to advise. No further needs at this time. Reason for Disposition Pharmacy calling with prescription question and triager unable to answer question Protocols used: Medication Question Buqj-LARDD-LD [place] [id number] Note* Addendum Note - Jaylin Moulton MA - 06/10/2023 3:11 PM ESTAddended by: JAYLIN MOULTON on: 06/10/2023 03:11 PM Modules accepted: Orders [address]Bbgqlm26-19-6658 Note* Addendum Note - Jaylin Moulton MA - 06/10/2023 3:11 PM ESTAddended by: JAYLIN MOULTON on: 06/10/2023 03:11 PM Modules accepted: Orders [place] [id number] Telephone encounter Note* Telephone Encounter - Jaylin Moulton MA - 06/10/2023 3:11 PM EST Rx pended to be sent to local pharmacy [id number] Miscellaneous Notes* Addendum Note - Jaylin Moulton MA - 06/10/2023 3:11 PM ESTAddended by: JAYLIN MOULTON on: 06/10/2023 03:11 PM Modules accepted: Orders * Telephone Encounter - Jaylin Moulton MA - 06/10/2023 3:11 PM EST Rx pended to be sent to local pharmacy * Telephone Encounter - Emi Medina - 06/10/2023 2:19 PM EST Name of caller: Erich Contact phone number: [phone] Relationship to Patient: Pt Provider: Practice: Ananda [facility] Chief Complaint/Reason for Call: Pt is needing these refills to be canceled and sent to local pharmacy [facility]/pharmacy #[id number] - [place], [place] - [address] [facility]. AT [address] As the [...] office visit: 11/23/2023 Updated/Validated preferred pharmacy: Yes [facility] Patient instructed to contact [...] (see medication tab): 05/19/[address] [facility]11-09-2023 Telephone encounter Note* Telephone Encounter - Emi Medina - 06/10/2023 2:19 PM EST Name of caller: Erich Contact phone number: [phone] Relationship to Patient: Pt Provider: Practice: Ananda [facility] Chief Complaint/Reason for Call: Pt is needing these refills to be canceled and sent to local pharmacy [facility]/pharmacy #[id number] - [place], [place] - [address] [facility]. AT [address] As the other pharmacy is not responding or mailed medication and the pt is without medication please advise Best time of day caller can be reached: any Patient advised that office/PCP has 24-48 business hours to return their call: No [facility] HospitalReVeraXrrenc41-19-2440 Telephone encounter Note* Telephone Encounter - Brittany Flores - 06/02/2023 2:20 PM EDT Ordering provider: Dr. Brown Date of last office visit: 05/24/2023 Date of next office visit: 11/23/2023 Updated/Validated preferred pharmacy: Yes [facility] Patient instructed to contact [...] of last refill (see medication tab): 05/19/2023 [facility] [id number] Miscellaneous Notes* Telephone Encounter - Brittany Flores - 06/02/2023 2:20 PM EDT Ordering provider: Dr. Brown Date of last office visit: 05/24/2023 Date of next office visit: 11/23/2023 Updated/Validated preferred pharmacy: Yes [facility] Patient instructed to contact [...] (see medication tab): 05/19/[address] [facility]10-23-2023 History of Present illness Narrative* Bhupendra Brown DO - 05/24/2023 1:30 PM EDT Images from the original note were not included. [facility] [address] [address] [facility] [address] Visit type: Established Patient Reason [...] age 78 Colon cancer Father 60 Other (41430) Sister post flu complications age 65 in 04/18 Other (54974) Brother Roslyns age 55 ? German synd No Known Problems Brother / bert Mason Objective: BP 113/70 Pulse 71 Temp 36.5 C (97.7 F) (Temporal) Ht 5' 8.5 (1.74 m) Wt 233 lb (106 kg) [...] normal without focal deficits. documented in this [facility]09-12-2023 Telephone encounter Note* Telephone Encounter - Liya Dorantes MA - 04/13/2023 3:10 PM EDT RX loaded [facility] [id number] Miscellaneous Notes* Telephone Encounter - Liya Dorantes [...] up the medication: Yes documented in this [facility]09-12-2023 Telephone encounter Note* Telephone Encounter - Belkis [...] prior to picking up the medication: Yes [facility] HospitalEqwjpd29-87-0002 History of Present illness Narrative* Bhupendra Brown, DO - 11/20/2022 9:00 AM EDT Images from the original note were not included. [facility] [address] [facility] [id number] Visit type: Established Patient Reason for Visit: [...] age 78 Colon cancer Father 60 Other (61311) Sister post flu complications age 65 in 04/18 Other (05444) Brother Frances age 55 ? German synd No Known Problems Brother 08/03 bert Mason Objective: BP 110/65 Pulse 65 Temp 36.7 C (98 F) (Temporal) Ht 5' 8.5 (1.74 m) Wt 242 lb (110 kg) [...] normal without focal deficits. documented in this [facility]03-06-2023 Telephone encounter Note* Telephone Encounter - Arin Adams RN - 10/05/2022 11:24 AM EST Rx loaded Last ov 05/22/2022 Next ov 11/20/2022 [facility] [id number] Miscellaneous Notes* Telephone Encounter - Arin Adams RN - 10/05/2022 11:24 AM EST Rx loaded Last ov 05/22/2022 Next ov 11/20/2022 * Telephone Encounter - Sheree Parnell - 10/05/2022 [...] up the medication: Yes documented in this [facility]03-06-2023 Telephone encounter Note* Telephone Encounter - Sheree [...] prior to picking up the medication: Yes [facility] HospitalKzuiaw52-69-7759 Telephone encounter Note* Telephone Encounter - Solange Moran LPN - 08/10/2022 3:47 PM EST Rx loaded Last ov 05/22/22 Next ov 11/20/22 [facility] HospitalQyjtuw14-83-9896 Miscellaneous Notes* Telephone Encounter - Solange Moran [...] up the medication: Yes documented in this encounterSKettering Health Behavioral Medical CenterIzsahc45-51-2343 Telephone encounter Note* Telephone Encounter - Ashley [...] prior to picking up the medication: Yes [facility] [id number] Telephone encounter Note* Telephone Encounter - Solange Moran LPN - 08/10/2022 2:24 PM EST Rx loaded Last ov 05/21/22 Next ov 11/20/22 [facility] HospitalZwpdyt38-98-4376 Miscellaneous Notes* Telephone Encounter - Solange Moran [...] up the medication: No documented in this [facility]01-09-2023 Telephone encounter Note* Telephone Encounter - [...] prior to picking up the medication: No [facility]12-24-2022 Telephone encounter Note* Telephone Encounter [...] prior to picking up the medication: No [facility]12-24-2022 Miscellaneous Notes* Telephone Encounter - Olga Ryan [...] up the medication: No [facility]* Diagnosis Onset Date Resolution Status Mitral valve stenosis acute Essential hypertension chron ic Hyperlipidemia chronic [facility] Work Phone: Evaluation noteNo assessment information available [facility] Work Phone: evaluation note* Diagnosis Essential hypertension- Primary Unspecified essential hypertension Coronary arteriosclerosis Coronary atherosclerosis of unspecified type of vessel, squaxin or graft Hypercholesterolemia Pure hypercholesterolemia Benign non-nodular prostatic hyperplasia with lower urinary tract symptoms documented in this encounter [facility] note* Diagnosis Essential hypertension- Primary Unspecified essential hypertension Coronary arteriosclerosis Coronary atherosclerosis of unspecified type of vessel, squaxin or graft Hypercholesterolemia Pure hypercholesterolemia documented in this encounter [facility] note* Diagnosis Hematuria, unspecified type- Primary Essential hypertension Unspecified essential hypertension Hypercholesterolemia Pure hypercholesterolemia History of renal stone Urinary tract infection without hematuria, site unspecified History of colonic polyps Personal history of colonic polyps Family history of colon cancer Family history of malignant neoplasm of gastrointestinal tract Coronary arteriosclerosis Coronary atherosclerosis of unspecified type of vessel, squaxin or graft documented in this encounter [facility] note* Diagnosis Hematuria, unspecified type- Primary History of renal stone documented in this encounter [facility] note* Diagnosis Colon cancer screening- Primary Special screening for malignant neoplasms, colon History of colonic polyps Personal history of colonic polyps Family history of colon cancer Family history of malignant neoplasm of gastrointestinal tract documented in this encounter [facility] note* Diagnosis Hematuria, unspecified type History of renal stone documented in this encounter [facility] note* Diagnosis Colon cancer screening- Primary Special screening for malignant neoplasms, colon History of colonic polyps Personal history of colonic polyps Family history of colon cancer Family history of malignant neoplasm of gastrointestinal tract documented in this encounter [facility] note* Diagnosis Hematuria, unspecified type History of renal stone documented in this encounter [facility] note* Diagnosis Family history of colon cancer- Primary Family history of malignant neoplasm of gastrointestinal tract Morbidly obese (HCC) Morbid obesity documented in this encounter [facility] note* Diagnosis Family history of malignant neoplasm of gastrointestinal tract- Primary Family history of colon cancer Family history of malignant neoplasm of gastrointestinal tract documented in this encounter [facility] note* Diagnosis Adenomatous polyps- Primary Benign neoplasm of unspecified site documented in this encounter [facility] note* Diagnosis Essential hypertension- Primary Unspecified essential hypertension Hypercholesterolemia Pure hypercholesterolemia History of renal stone Benign non-nodular prostatic hyperplasia with lower urinary tract symptoms documented in this encounter [facility] note* Diagnosis Arthralgia of both hands- Primary Other fatigue Essential hypertension Unspecified essential hypertension Renal insufficiency Unspecified disorder of kidney and ureter Hypercholesterolemia Pure hypercholesterolemia 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) documented in this encounter [facility] for referral (narrative)* Consultation (Routine) - Pending Review Specialty Diagnoses / Procedures Referred By Anuel morales Referred To Contact General Surgery Diagnoses History of colonic polyps Family history of colon cancer Colon cancer screening Procedures [place] OFFICE/OUTPATIENT [facility] 60 MINUTES Bhupendra Brown DO [address] [facility] [address] [place] [address] Markell Simmons [address] [place] [address] Referral ID Status Reason Start Date Expiration Date Visits Requested Visits Authorized [id number] Pending Review Specialty Services Required 12/14/2023 12/13/2024 1 1 [facility] for referral (narrative)* Consultation (Urgent) - Pending Review Specialty Diagnoses / Procedures Referred By Contac t Referred To Contact Urology Diagnoses Hematuria, unspecified type History of renal stone Procedures [place] OFFICE/OUTPATIENT NEW HIGH MDM 60 MINUTES Bhupendra Brown, DO [address] [place] [address] [facility] [address] [place] [address] Referral ID Status Reason Start Date Expiration Date Visits Requested Visits Authorized [id number] Pending Review Specialty Services Required 12/15/2023 12/14/2024 1 1 [employer] for referral (narrative)* Consultation (Routine) - Pending Review Specialty Diagnoses / Procedures Referred By Contac t Referred To Contact General Surgery Diagnoses History of colonic polyps Family history of colon cancer Colon cancer screening Procedures [place] OFFICE/OUTPATIENT NEW HIGH MDM 60 MINUTES Bhupendra Brown DO [address] [place] [address] Ciaran Mary [address] [place] [address] Referral ID Status Reason Start Date Expiration Date Visits Requested Visits Authorized [id number] Pending Review Specialty Services Required 12/14/2023 12/13/2024 1 1 [employer] for referral (narrative)* Outpatient Procedure (Routine) - Authorized Specialty Diagnoses / Procedures Referred By Contac t Referred To Contact [facility] Diagnoses Family history of colon cancer Procedures COLONOSCOPY SCREENING COLONOSCOPY FLX DX W/COLLJ SPEC WHEN PFRMD Ciaran Mary MD [address] [place] [address] [facility] [address] [place] [address] Referral ID Status Reason Start Date Expiration Date Visits Requested Visits Authorized [id number] Authorized Auto-Generat ed Referral 01/17/2024 01/16/2025 1 1 [facility] for referral (narrative)* Outpatient Procedure (Routine) - Closed Specialty Diagnoses / Procedures Referred By Contac t Referred To Contact [facility] Diagnoses Family history of colon cancer Procedures COLONOSCOPY SCREENING COLONOSCOPY FLX DX W/COLLJ SPEC WHEN Ciaran Hernandez MD [address] [place] [address] [facility] [address] [place] [address] Referral ID Status Reason Start Date Expiration Date V isits Requested Visits Authorized [id number] Closed Auto-Generate d Referral 01/17/2024 01/16/2025 1 1 [facility] for referral (narrative)No reason for referral information availableWMemorial [facility] N[facility]* Outpatient Procedure (Routine) - Closed Specialty Diagnoses / Procedures Referred By Contac t Referred To Contact [facility] Diagnoses Family history of colon cancer Procedures COLONOSCOPY SCREENING COLONOSCOPY FLX DX W/COLLJ SPEC WHEN Ciaran Hernandez MD [address] [place] [address] [facility] [address] [address] Referral ID Status Reason Start Date Expiration Date V isits Requested Visits Authorized [id number] Closed Auto-Generate d Referral 01/17/2024 01/16/2025 1 1 [facility] Chief Complaint and Reason for Visit [...] November 16, 2024 2 :48pm Essential hypertension Kiah 17th, 2025 2:48pm Hyperlipidemia November 16, 2024 2:4 8pm Family History Relationship Condition Age at Onset Recorded Date/T jon mother Malignant neoplasm Unknown father Malignant neoplasm Unknown Advance Directives Advance Directive Response Recorded Date/ Time Living Will No October 16, 2021 11:40am Power of Shoe Shiner No October 16 11:40am Advance Directive Response Recorded Date/ Time Living Will No October 16, 2021 10:40am Power of Shoe Shiner No October 16 10:40am Advance Directive Response Recorded Date/ Time Living Will No October 16, 2021 11:40am Do you have a Healthcare Power of Shoe Shiner? No October 16, 2021 11:40am Reason for Referral Specialty Diagnoses / Procedures Referred By Anuel morales Referred To Contact Radiology Diagnoses Hematuria, unspecified type History of renal stone Procedures CT abdomen pelvis wo IV contrast Bhupendra Brown, DO [address] [address] [place] [address] Referral ID Status Reason Start Date Expiration Date V isits Requested Visits Authorized [id number] Pending Review 12/13/2023 12/12/2024 1 1 Specialty Diagnoses / Procedures Referred By Anuel morales Referred To Contact Urology Diagnoses Hematuria, unspecified type History of renal stone Procedures [place] OFFICE/OUTPATIENT NEW HIGH MDM 60 MINUTES Bhupendra Brown, DO [address] [place] [address] Viola Jackson [address] [place] [phone] Referral ID Status Reason Start Date Expiration Date Visits Requested Visits Authorized [id number] Pending Review Specialty Services Required 12/13/2023 12/12/2024 [...] Referred By Anuel morales Referred To Contact General Surgery Diagnoses History of colonic polyps Family history of colon cancer Colon cancer screening Procedures OFFICE/OUTPATIENT NEW HIGH MDM 60 MINUTES AMB REFERRAL TO GASTROENTEROLOGY Bhupendra Brown DO [address] [place] [address] Ciaran Mary MD [address] [facility] [place] [address] Referral ID Status Reason Start Date Expiration Date V isits Requested Visits Authorized [id number] Outside PCP 12/14/2023 12/13/2024 1 1 Reason Comments Follow Up Review colonoscopy r esults. Reason Comments Med Refill Reason Onset Date [...] Care Teams (unrecognized sec tion and content) It Analyst Relationship Specialty Start Date End Date Bhupendra Brown DO [address] [place] [address] PCP - General 12/31/18 It Analyst Relationship Specialty Start Date End Date Bhupendra Brown DO [address] [place] [id number] PCP - General 12/31/18 It Analyst Relationship Specialty Start Date End Date Erik Bhupendra Marcano, DO [address] [place] [phone] PCP - General 12/31/18 It Analyst Relationship Specialty Start Date End Date Erik Bhupendra Marcano, DO [address] [place] [phone] PCP - General 12/31/18 It Analyst Relationship Specialty Start Date End Date Erik Bhupendra Marcano, DO [address] [place] [phone] PCP - General 12/31/18 It Analyst Relationship Specialty Start Date End Date Erik Bhupendra Marcano, DO [address] [place] [phone] PCP - General 12/31/18 It Analyst Relationship Specialty Start Date End Date Erik Bhupendra Marcano, DO [address] [place] [phone] PCP - General 12/31/18 It Analyst Relationship Specialty Start Date End Date Erik Bhupendra Marcano, DO [address] [place] [phone] PCP - General 12/31/18 It Analyst Relationship Specialty Start Date End Date Erik Bhupendra Marcano, DO [address] [place] [phone] PCP - General 12/31/18 It Analyst Relationship Specialty Start Date End Date Erik Bhupendra Marcano, DO [address] [place] [address] PCP - General 12/31/18 It Analyst Relationship Specialty Start Date End Date Bhupendra Brown Krys, DO [address] [place] [address] PCP - General 12/31/18 It Analyst Relationship Specialty Start Date End Date Bhupendra Brown Krys, DO [address] [place] [address] PCP - General 12/31/18 It Analyst Relationship Specialty Start Date End Date Bhupendra Brown Krys, DO [address] [place] [address] PCP - General 12/31/18 It Analyst Relationship Specialty Start Date End Date Bhupendra Brown Krys, DO [address] [place] [address] PCP - General 12/31/18 It Analyst Relationship Specialty Start Date End Date Bhupendra Brown Krys, DO [address] [place] [address] PCP - General Family Medicine 01/17/24 It Analyst Relationship Specialty Start Date End Date Bhupendra Brown Krys, DO [address] [place] [address] PCP - General Family Medicine 01/17/24 It Analyst Relationship Specialty Start Date End Date Bhupendra Brown DO [address] [place] [address] PCP - General Family Medicine 01/17/24 It Analyst Relationship Specialty Start Date End Date Bhupendra Brown DO [address] [place] [address] PCP - General 12/31/18 It Analyst Relationship Specialty Start Date End Date Bhupendra Brown DO [address] [place] [address] PCP - General 12/31/18 It Analyst Relationship Specialty Start Date End Date Bhupendra Brown DO [address] [place] [phone] PCP - General 12/31/18 It Analyst Relationship Specialty Start Date End Date Bhupendra Brown DO [address] [place] [phone] PCP - General 12/31/18 It Analyst Relationship Specialty Start Date End Date Bhupendra Brown DO [address] [place] [address] PCP - General 12/31/18 Team [...] Provider Active S tart: February 08, 2025 Team Status: Inactive Member Role/Relationship Status Dates Dr. Bhupendra Brown DO Primary Care Provider Active Start: February 20, 2025 End: February 20, 2025 Joanne Union Attending Provider Active Start : February 20, 2025 End: February 20, 2025 Joanne Union Referring Provider Active Start : February 20, 2025 End: February 20, 2025 It Analyst Relationship Specialty Start Date End Date Bhupendra Brown DO [address] [facility] [address] [place] [address] PCP - General 12/31/18 Source Comments (unrecognize d section and content) In the event this informatio n is protected by the Federal Confidentiality of Alcohol and Drug Abuse Patient Records regulations: The Federal rules restrict any use of the information to criminally investigate or prosecute any alcohol or drug abuse patient.[facility] the event this information is protected by the Federal Confidentiality of Alcohol and Drug Abuse Patient Records regulations: The Federal rules restrict any use of the information to criminally investigate or prosecute any alcohol or drug abuse patient.[facility] the event this information is protected by the Federal Confidentiality of Alcohol and Drug Abuse Patient Records regulations: The Federal rules restrict any use of the information to criminally investigate or prosecute any alcohol or drug abuse patient.[facility] (unrecognized sect ion and content) No Status Records FoundNo Status Records FoundNo Status Records Found INFORMATION SOURCE (unrecogn ized section and content) DATE CREATED AUTHOR 02/07/2024 [facility] DATE CREATED AUTHOR AUTHOR'S ORGANIZ ATION 01/24/2025 [facility] DATE CREATED AUTHOR AUTHOR'S ORGANIZ ATION 02/28/2025 [facility] FOR RECORDS PERTAINING TO PATIENTS WHO ARE [...] BE BASED ON THE PRIMARY CLINICAL RECORDS. [employer] [facility]. provides no warranty or guarantee of the accuracy or completeness of information in this document.
--- NOTE | 2025-04-19 07:20 | RAD_ITS ---
PROCEDURE: CHEST PA AND LATERAL 04/19/2025 REASON FOR EXAM: CHEST PAIN TECHNIQUE: Procedure Code: RADCXR Modality: DX Procedure: CHEST PA AND LATERAL COMPARISON: December 31, 2020. FINDINGS: Hardware: EKG electrodes are seen. Heart: Heart size is mildly enlarged. Mediastinum: The mediastinal contour is unremarkable. Lungs: Small left pleural effusion with left basilar infiltration and/or atelectasis. Mild right basilar atelectasis. Bones: Degenerative changes are identified within the thoracic spine. RAD/Chest PA and Lateral IMPRESSION: Small left pleural effusion with left basilar infiltration and/or atelectasis. Mild right basilar atelectasis. Reading Location: [facility]
[2025-04-19 07:31] LABS: AST(SGOT) 21 U/L (<=37); Alanine Aminotransfer ALT/SGPT 31 U/L (<=46); Albumin, Serum 4.2 g/dL (3.4-4.8); Alkaline Phosphatase 59 U/L (40-129); Anion Gap 13 (5-15); BUN 16 mg/dL (4-19); BUN/Creat Ratio 12.9 RATIO (10-20); Bilirubin, Direct 0.16 mg/dL (0.00-0.30); Calcium,Total 9.1 mg/dL (7.6-11.0); Carbon Dioxide 21.5 mmol/L (21.0-32.0); Chloride 103 mmol/L (98-108); Estimated Creatinine Clearance 61.78 ml/min (50-250); Globulin 3.1 g/dL (2.2-4.2); Glucose 177 mg/dL (70-99); Lipase 21 U/L (13-75); Magnesium 1.9 mg/dL (1.5-2.2); Potassium 4.4 mmol/L (3.3-5.1); Troponin T High Sensitivity 11 ng/L (<=22)
--- NOTE | 2025-04-19 08:06 | CT_ITS ---
PROCEDURE: CTA CHST, ABD, PEL W AND/OR WO 04/19/2025 REASON FOR EXAM: CHEST PAIN TO BACK AND ABD TECHNIQUE: Procedure Code: CTCTA.CHAP.2 Modality: CT Procedure: CTA CHST, ABD, PEL W AND/OR WO CTA imaging of the chest, abdomen and pelvis with intravenous contrast. Multiplanar Sagittal and Coronal images were obtained. CONTRAST: 100 cc Isovue 370 One or more dose reduction techniques were used (e.g., Automated exposure control, adjustment of the mA and/or kV according to patient size, use of iterative reconstruction technique). RADIATION DOSE SUMMARY: DLP: 1521 mGycm COMPARISON: September 30, 2020 FINDINGS: Heart: Coronary artery calcifications are noted. Pulmonary Vessels: Main pulmonary artery Hounsfield units = 267. there is nonocclusive clot visible to the right upper lobe, proximal branch, best demonstrated on coronal image 26/45, axial image 50/281. There is distal occlusive clot and branches in the right lower lobe, axial image 67/281. Arch Vessels: Patent Thoracic Aorta: The ascending aorta measures 2.9 cm in AP diameter: Distal arch = 2.9 cm, descending aorta = 2.6 cm. Abdominal Aorta: The abdominal aorta measures 1.6 cm in AP diameter at the level of the renal vessels. Mesenteric Arteries: The celiac and superior mesenteric artery origins are patent, with heavily calcified plaque noted. The inferior mesenteric artery origin is patent. Renal Arteries: Heavily calcified plaque is noted at the right and left renal artery origin. High-grade stenosis of the left renal artery is visible, axial image 127-129/281. Left renal cortical atrophy is present, consistent with chronic stenosis. A 2.3 cm cyst is present in the midpole of the left kidney. Calcifications are visible in the left renal collecting system with the largest measuring 0.75 cm. Iliac Arteries: The iliac bifurcation is patent. The internal and external iliac origins are patent. The external iliacs are patent to the level of the common femoral in the right and left. Other Findings: A 5 cm diverticulum is noted at the right lower bladder base. Atelectasis or scar is noted at the right and left lung base. No acute bony abnormality is identified. Distal colonic diverticulosis is present without acute diverticulitis. CT/CTA Chst, Abd, Pel W and/or WO IMPRESSION: There is nonocclusive clot visible to the right upper lobe, proximal branch, be st demonstrated on coronal image 26/45, axial image 50/281. There is distal occlusive clot and branches in the right lower l obe, axial image 67/281. Heavily calcified plaque is noted at the right and left renal artery origin. Hi gh-grade stenosis of the left renal artery is visible, axial image 127-129/281. Left renal cortical atrophy is present, cons istent with chronic stenosis. Left renal cyst, and left nephrolithiasis. Critical results were discussed with Dr Silva by Dr. Petersen at the time of dictation. Reading Location: [facility]
--- NOTE | 2025-04-19 08:48 | EX.ED.DYSGE1 ---
HPI History of Present Illness Chief Complaint: Chest Pain Informant: patient and spouse/S.O. Narrative Narrative: Patient is a 80-year-old male with past medical history of hypertension hyperlipidemia and obstructive sleep apnea. He states he ate pizza last night and then around 8 PM shortly after eating he developed pain along the right shoulder/upper chest. He states there was no associated nausea vomiting or diaphoresis with this. He reports he felt that his symptoms were most likely indigestion and therefore he tried taking [id number] medications without symptom improvement. He states that the pain has been constant throughout the night and has seemed to move down towards the right middle lower chest/upper abdomen. Therefore as his symptoms were not resolved he was concerned this could be cardiac in nature and comes into the ER for evaluation [facility] Medical History Enlarged prostate High cholesterol Back pain Former smoker Wears glasses Shortness of breath on exertion Pneumonia Mitral valve stenosis Essential hypertension Family history of colon cancer in mother Family history of colon cancer in father Personal history of colonic polyps DDD (degenerative disc disease) Spinal stenosis GLORIA (obstructive sleep apnea) Hypertension Hyperlipidemia Cardiomegaly Other secondary pulmonary hypertension Home Medications ?Medication ?Instructions ?Recorded ?Last Taken ?Type finasteride 5 mg tablet (Proscar) 5 mg PO QHS prostate 01/21/16 09/28/20 History amlodipine 10 mg tablet 10 mg PO DAILY #30 tabs 10/03/20 10/17/21 11:00 Rx benazepril 10 mg tablet 10 mg PO DAILY 02/11/22 Unknown History rosuvastatin 20 mg tablet 20 mg PO DAILY 09/28/23 Unknown History aspirin 81 mg capsule 81 mg PO DAILY 01/06/24 Unknown History tamsulosin 0.4 mg capsule (Flomax) 0.4 mg PO QHS 01/06/24 Unknown History ciprofloxacin HCl 500 mg tablet 500 mg PO DAILY #30 tabs 01/19/24 Unknown Rx (Cipro) oxycodone 10 mg tablet 10 mg PO Q6H PRN pain 7 days #14 01/19/24 Unknown Rx tabs Allergy/AdvReac Type Severity Reaction Status Date / Time atorvastatin AdvReac Severe GALLARDO, Verified 04/19/25 06:30 Nausea, Myalgias Family History Mother Cancer Rectal Father Cancer Rectal Surgical History History of bilateral cataract extraction Hx of cystoscopy History of back surgery History of tonsillectomy Social History Smoking Status: Former smoker second hand exposure: No alcohol intake: current details: moderate use, 2-3 beers per week substance use type: does not use caffeine: Yes ROS ROS ED Constitutional Constitutional ED: Denies chills or fever(s) Eyes Eyes: Denies change in vision ENT ENT ED: Denies rhinorrhea or sore throat Cardiovascular Cardiovascular: Reports chest pain; Denies palpitations Respiratory/Chest Respiratory/Chest: Denies cough or dyspnea Gastrointestinal Gastrointestinal: Reports abdominal pain; Denies diarrhea, nausea or vomiting Genitourinary Genitourinary ED: Denies dysuria Musculoskeletal Musculoskeletal: Reports back pain; Denies myalgias Integumentary Denies rash Neurologic Neurologic: Denies headache(s) Hematologic/Lymphatic Hematologic/Lymphatic: Denies easy bleeding or easy bruising EXAM Physical Exam Const Vital Signs: 04/19/25 06:30 04/19/25 06:30 04/19/25 06:33 Temperature 99 F 99.0 F Temperature Source Oral Oral Pulse Rate 106 H 106 H Respiratory Rate 25 H 25 H Respiratory Effort Normal Blood Pressure 152/74 H 152/74 H Blood Pressure Mean 100 100 Pulse Ox 95 95 Oxygen Delivery Method Room Air Room Air Oxygen Flow Rate (L/min) 04/19/25 07:32 04/19/25 07:38 Temperature Temperature Source Pulse Rate 100 96 Respiratory Rate 29 H 30 H Respiratory Effort Blood Pressure 155/71 H Blood Pressure Mean 99 Pulse Ox 90 96 Oxygen Delivery Method Room Air Nasal Cannula Oxygen Flow Rate (L/min) 2 Positive well nourished, well developed and obese General Appearance ED: well developed; Negative for pallor Nutritional Appearance: obese HEENT HEENT Narrative: Normocephalic atraumatic Eyes PERRL and EOMs intact bilaterally General Eye ED: Negative for scleral icterus Neck supple Chest Wall palpation of chest normal Chest Narrative: No bony deformity or subcutaneous emphysema noted Resp Resp Narrative: Patient is tachypneic and breath sounds are diminished throughout with faint rhonchi noted in the left lower lobe. Cardio regular rhythm Rate: tachycardic and other Other Details: Tachycardic rate with regular rhythm Radial and carotid pulses are equal and symmetric GI non-distended and no masses GI Narrative: Abdomen is soft and nondistended with normal active bowel sounds. There is pain with palpation in the right upper quadrant with voluntary guarding at this site. No pulsatile mass or fluid wave Auscultation: normoactive bowel sounds Palpation: soft Back/Spine no CVA tenderness Extremity normal to inspection Neuro oriented x3, CN's II-XII intact bilaterally and no sensory deficits noted Sensorium / Orientation: alert Motor Exam: strength 5/5 throughout Psych mental status grossly normal Skin no rashes or lesions noted Skin Narrative: No overlying soft tissue changes to suggest trauma or infection General Skin Exam: Negative for jaundice or pallor MDM MDM MDM Narrative Medical decision making narrative: Patient with low-grade fever as well as mild tachycardia and tachypnea. He reported pain beginning in the right shoulder/chest region after eating without associated nausea vomiting or diaphoresis. Moreover he reported the pain has been constant since 8 PM. Therefore his pain has been constant for approximately 12 hours by the time he arrived to the ER I feel that if it is cardiac in nature his troponin should be elevated. The troponin was obtained and is normal at 11 which would go against ACS and his EKG shows just mild sinus tachycardia without ischemic findings. With pain moving down to the right upper quadrant and patient having guarding at the site there is high concern that this is gallbladder in nature. Secondary to his basic labs will be obtained as well as a gallbladder ultrasound. Based on his tachypnea a chest x-ray will be obtained as well to check for potential lung pathology such as pneumonia or pneumothorax. Patient's white count is elevated at 17.9 and there is left shift with his neutrophil count elevated at 13.7 and this is concerning for potential developing infection. However liver enzymes are normal as well as lipase going against acute pancreatitis or biliary obstruction. The patient's chest x-ray showed changes concerning for atelectasis or infiltrate in the left lower lobe but this does not correlate with the location of this pain and therefore is most likely atelectasis. As the gallbladder ultrasound does not reveal any signs of acute cholecystitis and patient is still having recurrent pain I do feel the safest option is CTA of the chest abdomen and pelvis to rule out underlying pathology that the x-ray and ultrasound missed such as pulmonary embolus kidney stone or dissection. At this time the patient's further imaging studies are still pending and therefore he will be signed out to the day physician Dr. Do. I do feel that based on his high white count and neutrophil count coupled by his reoccurring pain that even if the CT scan is negative the patient should get admitted for pain control and further testing to elicit the cause of his recurrent pain and leukocytosis History & Record Review Discussion w/independent historian: Patient and Significant other Lab Data Attestation: I reviewed the patient's lab results. Labs: Laboratory Results - last 24 hr 04/19/25 07:01 WBC 17.9 H RBC 4.62 Hgb 13.6 Hct 41.6 MCV 90.0 MCH 29.4 MCHC 32.7 RDW Std Deviation 50.6 H RDW Coeff of Andre 15.4 H Plt Count 261 MPV 10.5 Immature Gran % (Auto) 0.400 Neut % (Auto) 76.2 H Lymph % (Auto) 14.0 L Ralls % (Auto) 8.3 Eos % (Auto) 0.5 Baso % (Auto) 0.6 Absolute Neuts (auto) 13.7 H Absolute Lymphs (auto) 2.51 Nucleated RBC % 0 Sodium 137 Potassium 4.4 Chloride 103 Carbon Dioxide 21.5 Anion Gap 13 BUN 16 Creatinine 1.20 Estim Creat Clear Calc 61.78 Est GFR (MDRD) Non-Af 62 BUN/Creatinine Ratio 12.9 Glucose 177 H Calcium 9.1 Magnesium 1.9 Total Bilirubin 0.34 Direct Bilirubin 0.16 AST 21 ALT 31 Alkaline Phosphatase 59 Troponin T High Sens 11 Total Protein 7.3 Albumin 4.2 Globulin 3.1 Lipase 21 Radiography Diagnostic Testing: Clinical Impression(s) from Imaging Studies Gallbladder Ultrasound 04/19/25 06:58 IMPRESSION: Borderline hepatomegaly. Diffuse fatty infiltration of the liver. No evidence of gallstones. Reading Location: [facility] Chest X-Ray 04/19/25 07:20 IMPRESSION: Small left pleural effusion with left basilar infiltration and/or atelectasis. Mild right basilar atelectasis. Reading Location: [facility] Discharge Plan Triage Chief Complaint: Chest Pain ED Provider: Vipul Austin Dx/Rx/DC Orders Prescriptions: No Action benazepril 10 mg tablet 10 mg PO DAILY rosuvastatin 20 mg tablet 20 mg PO DAILY Patient Comments: TAKE 1 TABLET BY MOUTH EVERY DAY IN THE AFTERNOON.STOP SIMVASTATIN finasteride [Proscar] 5 MG tablet 5 mg PO QHS amlodipine 10 MG tablet 10 mg PO DAILY Qty: 30 0RF aspirin 81 mg capsule 81 mg PO DAILY tamsulosin [Flomax] 0.4 mg capsule 0.4 mg PO QHS oxycodone 10 mg tablet 10 mg PO Q6H PRN (Reason: pain) 7 Days Qty: 14 0RF ciprofloxacin HCl [Cipro] 500 mg tablet 500 mg PO DAILY Qty: 30 0RF Primary Care Provider: Bhupendra Brown Referrals: Bhupendra Brown DO [Primary Care Provider, Family Practice] Print Language: Azerbaijani
[2025-04-19 10:18] LABS: Troponin T High Sens 2 HR 8 ng/L (<=22)
--- NOTE | 2025-04-19 10:22 | ED.RN ---
Critical lactic acid received of 2.[address] Do notified.
[2025-04-19 10:41] LABS: Prothrombin Time (Protime)PT. 13.6 SECONDS (11.7-14.9)
[2025-04-19 10:42] LABS: Partial Thromboplast Time 30.6 Seconds (24.1-36.2)
[2025-04-19 11:05] LABS: Pro- Brain NATRIURETIC PEPTIDE 71 pg/mL (<=1800)
[2025-04-19 11:26] LABS: Mucous, Urine 0 SEEN /hpf (<or=2+); Red Blood Cells-Urine 0 SEEN /hpf (0-5)
[2025-04-19 11:33] LABS: Color, Urine Yellow (Yellow); Glucose, Dipstick Normal (Normal); Ketone-Dipstick Negative (Negative); Leukocyte Esterase-Dipstick 500 /ul (Negative); Nitrite-Dipstick Positive (Negative); Occult Blood-Urine 50 /ul (Negative); Protein-Dipstick 30 mg/dl (Negative); Specific Gravity, Urine 1.005 (1.002-1.030); Urine Bilirubin Dipstick Negative (Negative)
--- NOTE | 2025-04-19 11:41 | PCM.HP.STD ---
[facility] - General General Date of Admission: 04/19/25 Date of Service: 04/19/25 Chief Complaint: Epigastric/right lower chest pain since yesterday night HPI Narrative KRISTIN MC, is a 80 M came to ED with chest pain/epigastric pain with radiation to upper mid back. Patient reported it was sudden onset after 1 hour of food, ate pizza last night and he felt like might be indigestion and he took [id number] medication. He described pain as of sudden onset, spontaneous, sharp/gripping in nature without exacerbating or relieving factor. Since the pain was constant and did not wrap around her right lower chest and upper abdomen therefore came to ED. Denies other associated symptoms like shortness of breath, dizziness or lightheadedness. In ED, CTA chest abdomen pelvis was done which showed nonocclusive clot in right upper lobe proximal branch and distal occlusive clot in branches of right lower lobe. Heavily calcified plaque on right and left renal arteries, high-grade stenosis of left renal artery. Left renal cortical atrophy consistent with chronic stenosis. Patient is still has pain and required Dilaudid in ED therefore admitted for pain control. Lovenox 1 mg/kg body weight given in ED. Heart rate and blood pressure was elevated in ED. Patient had back, lumbar surgery in but denies any acute recent lower back pain. Last BM was about 4 PM yesterday and since then did not pass any gas. [facility] Medical History Enlarged prostate High cholesterol Back pain Former smoker Wears glasses Shortness of breath on exertion Pneumonia Mitral valve stenosis Essential hypertension Family history of colon cancer in mother Family history of colon cancer in father Personal history of colonic polyps DDD (degenerative disc disease) Spinal stenosis GLORIA (obstructive sleep apnea) Hypertension Hyperlipidemia Cardiomegaly Other secondary pulmonary hypertension Home Medications ?Medication ?Instructions ?Recorded ?Last Taken ?Type finasteride 5 mg tablet (Proscar) 5 mg PO QHS prostate 01/21/16 09/28/20 History amlodipine 10 mg tablet 10 mg PO DAILY #30 tabs 10/03/20 10/17/21 11:00 Rx benazepril 10 mg tablet 10 mg PO DAILY 02/11/22 Unknown History rosuvastatin 20 mg tablet 20 mg PO DAILY 09/28/23 Unknown History aspirin 81 mg capsule 81 mg PO DAILY 01/06/24 Unknown History tamsulosin 0.4 mg capsule (Flomax) 0.4 mg PO QHS 01/06/24 Unknown History Allergy/AdvReac Type Severity Reaction Status Date / Time atorvastatin AdvReac Severe GALLARDO, Verified 04/19/25 06:30 Nausea, Myalgias Family History Mother Cancer Rectal Father Cancer Rectal Surgical History History of bilateral cataract extraction Hx of cystoscopy History of back surgery History of tonsillectomy Social History Smoking Status: Former smoker second hand exposure: No alcohol intake: current details: moderate use, 2-3 beers per week substance use type: does not use caffeine: Yes ROS ROS Narrative Constitutional: Reports fatigue and weakness. No fever. HEENT: Reports systems reviewed and no addt'l complaints, except as documented Respiratory/Chest: Denies chronic lung disease. No acute shortness of breath or respiratory distress or wheezing. CVS: Denies history of [place]/CAD. Rest as described in HPI Gastrointestinal: Denies coffee ground emesis, hematemesis or vomiting. Did not pass gas/flatus since last night. Genitourinary: Denies burning urination or new urinary tract symptoms Musculoskeletal: Right upper thoracic spine pain. Mid lower chest/upper abdomen. Neurologic: Denies seizure-like symptoms. skin: No ulcer. No rash Endocrinology: Reports systems reviewed and no addt'l complaints, except as documented Hematologic/Lymphatic: Reports systems reviewed and no addt'l complaints, except as documented Rest 14 ROS are negative except as mentioned in HPI Vital Signs Vital Signs Vital Signs: 04/19/25 06:30 04/19/25 06:30 04/19/25 06:33 Temperature 99 F 99.0 F Temperature Source Oral Oral Pulse Rate 106 H 106 H Respiratory Rate 25 H 25 H Respiratory Effort Normal Blood Pressure 152/74 H 152/74 H Blood Pressure Mean 100 100 Pulse Ox 95 95 Oxygen Delivery Method Room Air Room Air Oxygen Flow Rate (L/min) 04/19/25 07:15 04/19/25 07:15 04/19/25 07:30 Temperature Temperature Source Pulse Rate 99 101 H Respiratory Rate 25 H 19 H Respiratory Effort Blood Pressure 167/69 H 167/69 H 155/71 H Blood Pressure Mean 93 93 91 Pulse Ox 93 92 Oxygen Delivery Method Oxygen Flow Rate (L/min) 04/19/25 07:30 04/19/25 07:32 04/19/25 07:38 Temperature Temperature Source Pulse Rate 100 96 Respiratory Rate 29 H 30 H Respiratory Effort Blood Pressure 155/71 H 155/71 H Blood Pressure Mean 91 99 Pulse Ox 90 96 Oxygen Delivery Method Room Air Nasal Cannula Oxygen Flow Rate (L/min) 2 04/19/25 07:45 04/19/25 08:00 04/19/25 08:15 Temperature Temperature Source Pulse Rate 98 97 99 Respiratory Rate 34 H 35 H 39 H Respiratory Effort Blood Pressure 155/71 H 157/71 H 161/71 H Blood Pressure Mean 93 93 93 Pulse Ox 96 93 92 Oxygen Delivery Method Oxygen Flow Rate (L/min) 04/19/25 08:30 04/19/25 08:45 04/19/25 08:45 Temperature Temperature Source Pulse Rate 101 H 110 H Respiratory Rate 22 H 35 H Respiratory Effort Blood Pressure 168/76 H 184/74 H 184/74 H Blood Pressure Mean 99 100 100 Pulse Ox 93 91 Oxygen Delivery Method Oxygen Flow Rate (L/min) 04/19/25 08:49 04/19/25 09:00 04/19/25 09:15 Temperature Temperature Source Pulse Rate 103 H 110 H Respiratory Rate 33 H 43 H Respiratory Effort Blood Pressure 187/74 H 144/67 H Blood Pressure Mean 111 87 Pulse Ox 91 93 Oxygen Delivery Method Nasal Cannula Oxygen Flow Rate (L/min) 2 04/19/25 09:30 04/19/25 09:45 04/19/25 10:00 Temperature Temperature Source Pulse Rate 107 H 106 H Respiratory Rate 35 H 33 H Respiratory Effort Blood Pressure 139/68 H 143/71 H 143/76 H Blood Pressure Mean 89 88 93 Pulse Ox 94 93 Oxygen Delivery Method Oxygen Flow Rate (L/min) 04/19/25 10:00 04/19/25 10:15 04/19/25 10:30 Temperature 99 F Temperature Source Oral Pulse Rate 106 H 104 H 108 H Respiratory Rate 37 H 28 H 28 H Respiratory Effort Blood Pressure 143/76 H 137/78 H 136/67 H Blood Pressure Mean 98 89 85 Pulse Ox 94 93 94 Oxygen Delivery Method Nasal Cannula Oxygen Flow Rate (L/min) 2 04/19/25 10:41 04/19/25 10:45 04/19/25 11:00 Temperature 99 F Temperature Source Oral Pulse Rate 108 H 107 H 110 H Respiratory Rate 28 H 31 H 37 H Respiratory Effort Blood Pressure 136/67 H 150/58 H 166/64 H Blood Pressure Mean 90 83 88 Pulse Ox 94 94 92 Oxygen Delivery Method Nasal Cannula Oxygen Flow Rate (L/min) 2 04/19/25 11:22 Temperature 99 F Temperature Source Pulse Rate 110 H Respiratory Rate 37 H Respiratory Effort Blood Pressure 166/64 H Blood Pressure Mean 98 Pulse Ox 92 Oxygen Delivery Method Oxygen Flow Rate (L/min) Weight Weight: 240 lb 11.916 oz Body Mass Index (BMI) 35.5 Physical Exam Narrative General: Alert, Oriented x3, Cooperative. Obesity grade 2 BMI 35.6 kg/m? HEENT: Atraumatic, PERRLA, EOMI, Normocephalic. Oral: No Gingival or Mucosal Lesions/ Ulcerations Neck: Supple, No JVD, Negative Carotid Bruits Chest wall/Lungs: Air entry diminished in bilateral lung bases. Mild tenderness in lower chest. No crepitation/rhonchi Cardiovascular: Sinus tachycardia. No murmur gallop or rub. Abdomen: Bowel Sounds Present, Soft, Non Tender, Non-Distended : No dysuria. No renal angle tenderness. No suprapubic tenderness. Extremities: No edema, Capillary Refill Less than 3 Seconds Skin: No rashes, No breakdown Musculoskeletal: Mild tenderness in mid/lower thoracic spine. ROM restricted. Neurological: Cranial nerves II-XII grossly intact, DTR 2+/4. No acute focal neurological deficit. Psych/Mental Status: Flat affect. Results Lab / Micro Data 04/19/25 07:01 04/19/25 07:01 Labs: Laboratory Results - last 24 hr 04/19/25 07:00: PT 13.6, INR 1.0, APTT 30.6 04/19/25 07:01: WBC 17.9 H, RBC 4.62, Hgb 13.6, Hct 41.6, MCV 90.0, MCH 29.4, MCHC 32.7, RDW Std Deviation 50.6 H, RDW Coeff of Andre 15.4 H, Plt Count 261, MPV 10.5, Immature Gran % (Auto) 0.400, Neut % (Auto) 76.2 H, Lymph % (Auto) 14.0 L, [place] % (Auto) 8.3, Eos % (Auto) 0.5, Baso % (Auto) 0.6, Absolute Neuts (auto) 13.7 H, Absolute Lymphs (auto) 2.51, Nucleated RBC % 0, Sodium 137, Potassium 4.4, Chloride 103, Carbon Dioxide 21.5, Anion Gap 13, BUN 16, Creatinine 1.20, Estim Creat Clear Calc 61.78, Est GFR (MDRD) Non-Af 62, BUN/Creatinine Ratio 12.9, Glucose 177 H, Calcium 9.1, Magnesium 1.9, Total Bilirubin 0.34, Direct Bilirubin 0.16, AST 21, ALT 31, Alkaline Phosphatase 59, Troponin T High Sens 11, Total Protein 7.3, Albumin 4.2, Globulin 3.1, Lipase 21 04/19/25 09:10: Lactic Acid 2.5 H*, Troponin T Hi Sens 2 Hr 8, NT pro BNP II 71 04/19/25 11:20: Urine Color Yellow, Urine Clarity Sl. Cloudy, Urine pH 7.0, Ur Specific [place] 1.005, Urine Protein 30 H, Urine Glucose (UA) Normal, Urine Ketones Negative, Urine Occult Blood 50 H, Urine Nitrite Positive H, Urine Bilirubin Negative, Urine Urobilinogen Normal, Ur Leukocyte Esterase 500 H Imaging Radiology Impression Gallbladder Ultrasound 04/19/25 06:58 IMPRESSION: Borderline hepatomegaly. Diffuse fatty infiltration of the liver. No evidence of gallstones. Reading Location: [facility]IR[facility]1 Chest X-Ray 04/19/25 07:20 IMPRESSION: Small left pleural effusion with left basilar infiltration and/or atelectasis. Mild right basilar atelectasis. Reading Location: [facility]IR[facility] Chest/Abdomen/Pelvis CTA 04/19/25 08:06 IMPRESSION: There is nonocclusive clot visible to the right upper lobe, proximal branch, best demonstrated on coronal image 26/45, axial image 50/281. There is distal occlusive clot and branches in the right lower lobe, axial image 67/281. Heavily calcified plaque is noted at the right and left renal artery origin. High-grade stenosis of the left renal artery is visible, axial image 127-129/281. Left renal cortical atrophy is present, consistent with chronic stenosis. Left renal cyst, and left nephrolithiasis. Critical results were discussed with Dr Silva by Dr. Petersen at the time of dictation. Reading Location: [facility] Assessment & Plan Assessment/Plan (1) Acute pulmonary embolism: (2) Chest pain, atypical: PLAN: Plan 72-year-old male admitted with atypical lower chest pain/epigastric persistent pain found to have PE 1. Atypical chest pain/epigastric with radiation to lower thoracic back pain, exact etiology unclear: Patient is being admitted to PCU. All 3 troponins are normal. Twelve-lead EKG shows sinus tachycardia 103 bpm, QTc 424 ms. No acute EKG changes suggestive of ischemia. Chest pain does not sound cardiac as it is persistent and more sharp in quality. ACS ruled out. Gallbladder ultrasound shows borderline hepatomegaly, no evidence of gallstones. Chest x-ray initially reviewed shows small left pleural effusion with bibasilar atelectasis. 2. Acute/subacute nonocclusive pulmonary embolism of right upper lobe, distal occlusive clot in RLL with multiple chronic heavily calcified plaque in mesenteric arteries, renal arteries: CT PA was done which shows nonocclusive clot in right upper lobe, proximal branch, distal occlusive clot branches of right lower lobe. Heavily calcified plaque at right and left renal artery origin with high-grade stenosis of left renal artery and left renal cortical atrophy consistent with chronic stenosis. Overall it is suggestive of chronic atherosclerotic peripheral arterial disease. Patient denies CHF/CAD or cardiac stent. Denies prior history of DVT/PE or first-degree family history of hypercoagulable disorder. Started on parenteral Lovenox 1 mg/kg body weight. 2D echo is ordered. proBNP and troponins are normal. 3. Hypertension and dyslipidemia: Blood pressure is elevated. Titrate BP and adjust the dose of antihypertensive medications accordingly. 4. Possible UTI with abnormal UA chronic nephrolithiasis: Patient had left ureteric calculus status post cystoscopy, left ureteroscopy and lithotripsy in January [address] Jackson. CTA shows left nephrolithiasis. Patient also stated he gets intermittent burning micturition last 1 about 3 to 4 weeks ago. UA positive of nitrite, LE 500, WBC 5-10 cells and squamous cells 0-5 cells bacteria 2+. Urine culture ordered. Started on IV ceftriaxone 5. 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 Radiologist reported does not have any acute lumbar or thoracic spine pathology to account for acute pain. PT and OT ordered. 6. DVT prophylaxis: On therapeutic Lovenox 7. Obesity grade 2: BMI 35.6 kg/m?. Weight loss reduction counseled. Claims Coordinator consult. Living will/advanced directive/end of life care: Patient does not have living will or advanced directive but is in the way of preparation of living will. His is next of kin after discussion of benefits/risks procedures involved with full code, DNR CC arrest and DNR CC, the patient opted for full code. Patient does want artificial life support including intubation, tube feed, ventilator and/chest compression, central venous catheter, vasopressor and DC shock if needed Total time spent in [id number] encounter in discussion of advanced directive 17 minutes. Laboratory Results 04/19/25 07:00: PT 13.6, INR 1.0, APTT 30.6 04/19/25 07:01: WBC 17.9 H, RBC 4.62, Hgb 13.6, Hct 41.6, MCV 90.0, MCH 29.4, MCHC 32.7, RDW Std Deviation 50.6 H, RDW Coeff of Andre 15.4 H, Plt Count 261, MPV 10.5, Immature Gran % (Auto) 0.400, Neut % (Auto) 76.2 H, Lymph % (Auto) 14.0 L, [place] % (Auto) 8.3, Eos % (Auto) 0.5, Baso % (Auto) 0.6, Absolute Neuts (auto) 13.7 H, Absolute Lymphs (auto) 2.51, Nucleated RBC % 0, Sodium 137, Potassium 4.4, Chloride 103, Carbon Dioxide 21.5, Anion Gap 13, BUN 16, Creatinine 1.20, Estim Creat Clear Calc 61.78, Est GFR (MDRD) Non-Af 62, BUN/Creatinine Ratio 12.9, Glucose 177 H, Calcium 9.1, Magnesium 1.9, Total Bilirubin 0.34, Direct Bilirubin 0.16, AST 21, ALT 31, Alkaline Phosphatase 59, Troponin T High Sens 11, Total Protein 7.3, Albumin 4.2, Globulin 3.1, Lipase 21 04/19/25 09:10: Lactic Acid 2.5 H*, Magnesium 1.9, Troponin T Hi Sens 2 Hr 8, NT pro BNP II 71 04/19/25 11:20: Urine Color Yellow, Urine Clarity Sl. Cloudy, Urine pH 7.0, Ur Specific [place] 1.005, Urine Protein 30 H, Urine Glucose (UA) Normal, Urine Ketones Negative, Urine Occult Blood 50 H, Urine Nitrite Positive H, Urine Bilirubin Negative, Urine Urobilinogen Normal, Ur Leukocyte Esterase 500 H, Urine RBC 0 SEEN, Urine WBC 5-10 SEEN, Ur Squamous Epith Cells 0-5 SEEN, Urine Bacteria 2+, Urine Mucus 0 SEEN 04/19/25 11:38: Troponin T Hi Sens 4Hr 11 Clinical Impression(s) from Imaging Studies Gallbladder Ultrasound 04/19/25 06:58 IMPRESSION: Borderline hepatomegaly. Diffuse fatty infiltration of the liver. No evidence of gallstones. Chest X-Ray 04/19/25 07:20 IMPRESSION: Small left pleural effusion with left basilar infiltration and/or atelectasis. Mild right basilar atelectasis. Reading Location: [facility] Chest/Abdomen/Pelvis CTA 04/19/25 08:06 IMPRESSION: There is nonocclusive clot visible to the right upper lobe, proximal branch, best demonstrated on coronal image 26/45, axial image 50/281. There is distal occlusive clot and branches in the right lower lobe, axial image 67/281. Heavily calcified plaque is noted at the right and left renal artery origin. High-grade stenosis of the left renal artery is visible, axial image 127-129/281. Left renal cortical atrophy is present, consistent with chronic stenosis. Left renal cyst, and left nephrolithiasis. Critical results were discussed with Dr Silva by Dr. Petersen at the time of dictation. Reading Location: [facility] Charges/Coding Visit Charges Inpatient E&M: 99115 Init Hosp L3 Procedures Hospitalists Procedures: 83937 Advncd Care Plan 30 Min
[2025-04-19 11:45] LABS: Squamous Epithelial Cells - UA 0-5 SEEN /hpf (0-5)
[2025-04-19 12:02] LABS: Troponin T High Sens 4 HR 11 ng/L (<=22)
[2025-04-19 12:04] LABS: Magnesium 1.9 mg/dL (1.5-2.2)
--- NOTE | 2025-04-19 12:41 | ECHOCS_ITS ---
Reason For Study Reason For Study: Atypical right lower chest pain Procedure This was a 2D Doppler, Color Flow transthoracic echocardiogram. The study was technically difficult. Contrast injection was performed. Exam performed portable in patient room. Left Ventricle Normal LV size. The left ventricular ejection fraction is 55 %. Stage 1 diastolic dysfunction. No regional wall motion abnormalities noted. Right Ventricle Normal RV size. Normal systolic function. Atria Normal left atrium. Normal right atrium. Mitral Valve Normal mitral valve. Tricuspid Valve Normal tricuspid valve. Aortic Valve Trisinus/trileaflet aortic valve. Pulmonic Valve Normal pulmonic valve. Great Vessels Normal aortic root. The pulmonary artery is normal size. Inferior vena cava collapse with respiration. Pericardium/Pleural Trivial pericardial effusion. Medication Diluted definity 3ml given slow IV push to enhance endocardial definition. MMode/2D Measurements & Calculations LVIDd: 4.6 cm IVSd: 1.1 cm Ao root diam: 3.2 cm LVIDs: 3.5 cm LVPWd: 1.3 cm FS: 23.0 % LAV(MOD-bp): 55.6 ml LVAd ap4: 28.7 cm2 SV(MOD-sp4): 50.2 ml LAV(MOD-bp) Indexed: 34.9 ml/m2 LVLd ap4: 7.6 cm SI(MOD-sp4): 31.4 ml/m2 LAV(MOD-sp2): 68.6 ml EDV(MOD-sp4): 89.3 ml LAV(MOD-sp4): 42.5 ml EDV(sp4-el): 92.2 ml LVAs ap4: 17.5 cm2 LVLs ap4: 6.5 cm ESV(MOD-sp4): 39.1 ml ESV(sp4-el): 40.2 ml EF(MOD-sp4): 56.2 % EF(sp4-el): 56.4 % SV(sp4-el): 52.0 ml LA A4 area: 17.1 cm2 LA dimension(2D): 3.5 cm Time Measurements MV dec time: 0.19 sec Doppler Measurements & Calculations MV E max alex: 90.1 cm/sec Lat Peak E' Alex: 7.8 cm/sec Med Peak E' Alex: 11.9 cm/sec MV A max alex: 107.6 cm/sec E/E' lat: 11.5 E/E' med: 7.6 MV E/A: 0.84 MV V2 max: 122.2 cm/sec MV P1/2t max alex: 106.8 cm/sec Ao V2 max: 142.6 cm/sec MV max P.0 mmHg MV P1/2t: 68.3 msec Ao max P.2 mmHg MV V2 mean: 65.7 cm/sec Ao V2 mean: 105.0 cm/sec MV mean P.1 mmHg MV dec slope: 458.4 cm/sec2 Ao mean P.9 mmHg MV V2 VTI: 31.3 cm MVA(P1/2t): 3.2 cm2 Ao V2 VTI: 28.0 cm AV (velocity ratio): 0.74 LV V1 max: 107.6 cm/sec PA V2 max: 97.2 cm/sec LV V1 max P.6 mmHg LV V1 mean P.5 mmHg LV V1 mean: 73.2 cm/sec LV V1 VTI: 20.6 cm ECHO/Echo Complete W/ Contrast Interpretation Summary Normal LV size. The left ventricular ejection fraction is 55 %. Stage 1 diastolic dysfunction. Contrast injection was performed. Ordering Physician: Derrick Gallagher Performed By: Jerry Sweeney RCS
[2025-04-19 13:19] LABS: Reflex Lactate? Y
[2025-04-19] MEDS: Polyethylene Glycol 3350 17 GM PACKET PO (14:32)
[2025-04-19] MEDS: Senna/Docusate Sodium 1 Tablet 2 TABLET PO (14:33)
[2025-04-19] MEDS: Lactated Ringers 1,000 ML 75 ML IV (14:42)
--- NOTE | 2025-04-19 20:29 | EKG12_ITS ---
Test Reason : CP Blood Pressure : */* mmHG Vent. Rate : 91 BPM Atrial Rate : 91 BPM P-R Int : 126 ms QRS Dur : 78 ms QT Int : 328 ms P-R-T Axes : 55 38 34 degrees QTcB Int : 403 ms Normal sinus rhythm Low voltage QRS Borderline ECG When compared with ECG of 19-Apr-2025 06:35, MANUAL COMPARISON REQUIRED DATA IS UNCONFIRMED Confirmed by TERRY MOREL, LORA ([id number]), general expeditor JEROME [facility] ([id number]) on 04/20/2025 2:19:33 PM Referred By: Dr Molina Confirmed By: LORA STEWART MD
[2025-04-19] MEDS: 0.9% Saline Lock 10 ML Syringe IV (20:51)
--- NOTE | 2025-04-19 21:22 | NURSING ---
pt reached out to staff stating that he had acute epigastric pressure and pain, rating 5 out of 10 at 2121. Blood pressure at that time was 149/60 with heart rate 96. EKG was ordered at this time and pain medication was administered. MD was notified. This RN returned and checked on pt at 2223 and patient was resting comfortably with eyes closed.
[2025-04-20] VITALS (11 sets, daily range): BP systolic 108–144; BP diastolic 54–74; PULSE 88–103; RESP 17–24; TEMP 36.7–36.9; O2SAT 80–94
[2025-04-20] MEDS: 0.9% Saline Lock 10 ML Syringe IV ×2 (05:05→22:17)
[2025-04-20 05:54] LABS: Hematocrit 37.9 % (40-54); Hemoglobin 12.2 g/dL (13.0-16.5); Immature Granulocytes Count 0.080 X10^3/uL (0.0-0.0); Mean Corp Hgb Conc 32.2 g/dL (32-36); Mean Corpuscular Volume 90.7 fL (80-94); Mean Platelet Vol. 11.1 fl (6.2-12.0); NRBC Flagged by Analyzer 0 % (0-5); POSITIVE DIFFERENTIAL YES; Platelet Count 220 K/mm3 (150-450); RBC Distribution Width CV 15.9 % (11.6-14.6); RBC Distribution Width SD 52.3 fl (35.1-43.9); Red Blood Count 4.18 M/mm3 (4.6-6.2); White Blood Count 16.7 K/mm3 (4.4-11.0)
[2025-04-20 06:11] LABS: Differential Indicated SCAN CRITERIA MET
[2025-04-20 06:41] LABS: Anion Gap 14 (5-15); BUN 22 mg/dL (4-19); BUN/Creat Ratio 14.1 RATIO (10-20); Calcium,Total 8.7 mg/dL (7.6-11.0); Carbon Dioxide 18.9 mmol/L (21.0-32.0); Chloride 103 mmol/L (98-108); Estimated Creatinine Clearance 46.13 ml/min (50-250); Glucose 139 mg/dL (70-99); Potassium 4.7 mmol/L (3.3-5.1)
[2025-04-20 07:26] LABS: Differential Comment SCANNED
--- NOTE | 2025-04-20 08:14 | PCM.PN.HOSP ---
Reason for Visit Chief Complaint: Epigastric/right lower chest pain since yesterday night Objective Data Objective Data Vital Signs: Vital Signs Temp Pulse Resp BP Pulse Ox O2 Del Method O2 Flow Rate 98.0 F 101 H 20 H 108/56 L 94 Nasal Cannula 4 04/20/25 06:35 04/20/25 06:35 04/20/25 06:35 04/20/25 06:35 04/20/25 07:52 04/20/25 07:52 04/20/25 07:52 Oxygen Flow Rate (L/min) 4 Oxygen Delivery Method Nasal Cannula Weight: 240 lb 4.862 oz Body Mass Index (BMI) 36.5 Intake & Output: Intake and Output for Last 24 Hours 04/18/25 04/19/25 04/20/25 23:59 23:59 23:59 Intake Total 550 / 550 1000 / 1000 Balance 550 / 550 1000 / 1000 Lab / Micro Data 04/20/25 05:23 04/20/25 05:23 Labs: Laboratory Results - last 24 hr 04/19/25 07:00: PT 13.6, INR 1.0, APTT 30.6 04/19/25 09:10: Lactic Acid 2.5 H*, Magnesium 1.9, Troponin T Hi Sens 2 Hr 8, NT pro BNP II 71 04/19/25 11:20: Urine Color Yellow, Urine Clarity Sl. Cloudy, Urine pH 7.0, Ur Specific [place] 1.005, Urine Protein 30 H, Urine Glucose (UA) Normal, Urine Ketones Negative, Urine Occult Blood 50 H, Urine Nitrite Positive H, Urine Bilirubin Negative, Urine Urobilinogen Normal, Ur Leukocyte Esterase 500 H, Urine RBC 0 SEEN, Urine WBC 5-10 SEEN, Ur Squamous Epith Cells 0-5 SEEN, Urine Bacteria 2+, Urine Mucus 0 SEEN 04/19/25 11:38: Troponin T Hi Sens 4Hr 11 04/19/25 13:50: Lactic Acid 1.5 04/20/25 05:23: WBC 16.7 H, RBC 4.18 L, Hgb 12.2 L, Hct 37.9 L, MCV 90.7, MCH 29.2, MCHC 32.2, RDW Std Deviation 52.3 H, RDW Coeff of Andre 15.9 H, Plt Count 220, MPV 11.1, Immature Gran % (Auto) 0.500, Neut % (Auto) 74.1 H, Lymph % (Auto) 13.4 L, Harding % (Auto) 11.1 H, Eos % (Auto) 0.2, Baso % (Auto) 0.7, Absolute Neuts (auto) 12.4 H, Absolute Lymphs (auto) 2.23, Nucleated RBC % 0, Differential Comment SCANNED, Sodium 136, Potassium 4.7, Chloride 103, Carbon Dioxide 18.9 L, Anion Gap 14, BUN 22 H, Creatinine 1.58 H, Estim Creat Clear Calc 46.13 L, Est GFR (MDRD) Non-Af 44 L, BUN/Creatinine Ratio 14.1, Glucose 139 H, Calcium 8.7, TSH 1.010 Radiography Diagnostic Testing: Radiology Impression Gallbladder Ultrasound 04/19/25 06:58 IMPRESSION: Borderline hepatomegaly. Diffuse fatty infiltration of the liver. No evidence of gallstones. Reading Location: [facility]--1 Chest/Abdomen/Pelvis CTA 04/19/25 08:06 IMPRESSION: There is nonocclusive clot visible to the right upper lobe, proximal branch, best demonstrated on coronal image 26/45, axial image 50/281. There is distal occlusive clot and branches in the right lower lobe, axial image 67/281. Heavily calcified plaque is noted at the right and left renal artery origin. High-grade stenosis of the left renal artery is visible, axial image 127-129/281. Left renal cortical atrophy is present, consistent with chronic stenosis. Left renal cyst, and left nephrolithiasis. Critical results were discussed with Dr Silva by Dr. Petersen at the time of dictation. Reading Location: [facility] Echocardiogram 04/19/25 12:41 Interpretation Summary Normal LV size. The left ventricular ejection fraction is 55 %. Stage 1 diastolic dysfunction. Contrast injection was performed. Ordering Physician: Derrick Gallagher Performed By: Jerry Sweeney RCS Physical Exam Narrative General: Alert, Oriented x3, Cooperative. Obesity grade 2 BMI 35.6 kg/m? HEENT: Atraumatic, PERRLA, EOMI, Normocephalic. Oral: No Gingival or Mucosal Lesions/ Ulcerations Neck: Supple, No JVD, Negative Carotid Bruits Chest wall/Lungs: Air entry diminished in bilateral lung bases. Mild tenderness in lower chest. No crepitation/rhonchi Cardiovascular: Sinus tachycardia. No murmur gallop or rub. Abdomen: Bowel Sounds Present, Soft, Non Tender, Non-Distended : No dysuria. No renal angle tenderness. No suprapubic tenderness. Extremities: No edema, Capillary Refill Less than 3 Seconds Skin: No rashes, No breakdown Musculoskeletal: Mild tenderness in mid/lower thoracic spine. ROM restricted. Neurological: Cranial nerves II-XII grossly intact, DTR 2+/4. No acute focal neurological deficit. Psych/Mental Status: Flat affect. Assessment & Plan Assessment/Plan (1) Acute pulmonary embolism: (2) Chest pain, atypical: PLAN: Plan 72-year-old male admitted with atypical lower chest pain/epigastric persistent pain found to have PE 1. Atypical chest pain/epigastric with radiation to lower thoracic back pain, exact etiology unclear: Patient is being admitted to PCU. All 3 troponins are normal. Twelve-lead EKG shows sinus tachycardia 103 bpm, QTc 424 ms. No acute EKG changes suggestive of ischemia. Chest pain does not sound cardiac as it is persistent and more sharp in quality. ACS ruled out. Gallbladder ultrasound shows borderline hepatomegaly, no evidence of gallstones. Chest x-ray initially reviewed shows small left pleural effusion with bibasilar atelectasis. 2. Acute/subacute nonocclusive pulmonary embolism of right upper lobe, distal occlusive clot in RLL with multiple chronic heavily calcified plaque in mesenteric arteries, renal arteries: CT PA was done which shows nonocclusive clot in right upper lobe, proximal branch, distal occlusive clot branches of right lower lobe. Heavily calcified plaque at right and left renal artery origin with high-grade stenosis of left renal artery and left renal cortical atrophy consistent with chronic stenosis. Overall it is suggestive of chronic atherosclerotic peripheral arterial disease. Patient denies CHF/CAD or cardiac stent. Denies prior history of DVT/PE or first-degree family history of hypercoagulable disorder. Started on parenteral Lovenox 1 mg/kg body weight. 2D echo is ordered. proBNP and troponins are normal. 3. Hypertension and dyslipidemia: Blood pressure is elevated. Titrate BP and adjust the dose of antihypertensive medications accordingly. 4. Possible UTI with abnormal UA chronic nephrolithiasis: Patient had left ureteric calculus status post cystoscopy, left ureteroscopy and lithotripsy in January [address] Jackson. CTA shows left nephrolithiasis. Patient also stated he gets intermittent burning micturition last 1 about 3 to 4 weeks ago. UA positive of nitrite, LE 500, WBC 5-10 cells and squamous cells 0-5 cells bacteria 2+. Urine culture ordered. Started on IV ceftriaxone 5. 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 Radiologist reported does not have any acute lumbar or thoracic spine pathology to account for acute pain. PT and OT ordered. 6. DVT prophylaxis: On therapeutic Lovenox 7. Obesity grade 2: BMI 35.6 kg/m?. Weight loss reduction counseled. [employer] consult. Living will/advanced directive/end of life care: Patient does not have living will or advanced directive but is in the way of preparation of living will. His is next of kin after discussion of benefits/risks procedures involved with full code, DNR CC arrest and DNR CC, the patient opted for full code. Patient does want artificial life support including intubation, tube feed, ventilator and/chest compression, central venous catheter, vasopressor and DC shock if needed Total time spent in [id number] encounter in discussion of advanced directive 17 minutes. Laboratory Results 04/19/25 07:00: PT 13.6, INR 1.0, APTT 30.6 04/19/25 07:01: WBC 17.9 H, RBC 4.62, Hgb 13.6, Hct 41.6, MCV 90.0, MCH 29.4, MCHC 32.7, RDW Std Deviation 50.6 H, RDW Coeff of Andre 15.4 H, Plt Count 261, MPV 10.5, Immature Gran % (Auto) 0.400, Neut % (Auto) 76.2 H, Lymph % (Auto) 14.0 L, Harding % (Auto) 8.3, Eos % (Auto) 0.5, Baso % (Auto) 0.6, Absolute Neuts (auto) 13.7 H, Absolute Lymphs (auto) 2.51, Nucleated RBC % 0, Sodium 137, Potassium 4.4, Chloride 103, Carbon Dioxide 21.5, Anion Gap 13, BUN 16, Creatinine 1.20, Estim Creat Clear Calc 61.78, Est GFR (MDRD) Non-Af 62, BUN/Creatinine Ratio 12.9, Glucose 177 H, Calcium 9.1, Magnesium 1.9, Total Bilirubin 0.34, Direct Bilirubin 0.16, AST 21, ALT 31, Alkaline Phosphatase 59, Troponin T High Sens 11, Total Protein 7.3, Albumin 4.2, Globulin 3.1, Lipase 21 04/19/25 09:10: Lactic Acid 2.5 H*, Magnesium 1.9, Troponin T Hi Sens 2 Hr 8, NT pro BNP II 71 04/19/25 11:20: Urine Color Yellow, Urine Clarity Sl. Cloudy, Urine pH 7.0, Ur Specific [place] 1.005, Urine Protein 30 H, Urine Glucose (UA) Normal, Urine Ketones Negative, Urine Occult Blood 50 H, Urine Nitrite Positive H, Urine Bilirubin Negative, Urine Urobilinogen Normal, Ur Leukocyte Esterase 500 H, Urine RBC 0 SEEN, Urine WBC 5-10 SEEN, Ur Squamous Epith Cells 0-5 SEEN, Urine Bacteria 2+, Urine Mucus 0 SEEN 04/19/25 11:38: Troponin T Hi Sens 4Hr 11 Clinical Impression(s) from Imaging Studies Gallbladder Ultrasound 04/19/25 06:58 IMPRESSION: Borderline hepatomegaly. Diffuse fatty infiltration of the liver. No evidence of gallstones. Chest X-Ray 04/19/25 07:20 IMPRESSION: Small left pleural effusion with left basilar infiltration and/or atelectasis. Mild right basilar atelectasis. Reading Location: [facility]-1 Chest/Abdomen/Pelvis CTA 04/19/25 08:06 IMPRESSION: There is nonocclusive clot visible to the right upper lobe, proximal branch, best demonstrated on coronal image 26/45, axial image 50/281. There is distal occlusive clot and branches in the right lower lobe, axial image 67/281. Heavily calcified plaque is noted at the right and left renal artery origin. High-grade stenosis of the left renal artery is visible, axial image 127-129/281. Left renal cortical atrophy is present, consistent with chronic stenosis. Left renal cyst, and left nephrolithiasis. Critical results were discussed with Dr Silva by Dr. Petersen at the time of dictation. Reading [facility]
[2025-04-20] MEDS: Polyethylene Glycol 3350 17 GM PACKET PO (09:10)
[2025-04-20] MEDS: Senna/Docusate Sodium 1 Tablet 2 TABLET PO (09:11)
--- NOTE | 2025-04-20 10:43 | CASEMGMT ---
BLANC Met with patient to complete BLANC form. BLANC form and its content were verbally explained and patient's questions were answered to the best of my ability.? Patient voiced understanding and signed BLANC form.? Patient provided a copy of signed BLANC form and original placed in patient's chart.? Patient had no further questions. Rosi Castorena, Discharge Planning Asst
--- NOTE | 2025-04-20 11:00 | DCINST_ITS ---
Discharge Instructions DC O2, CPAP, BIPAP needs Home O2 Discharge instructions: Yes Type of respiratory needs?: Oxygen Oxygen frequency: Continuous Continuous oxygen liters per minute: 4 Follow Up Care Test Results: Test results from this visit will be discussed in further detail at your follow- up appointment, if applicable. Discharge Plan Admission Admit Date/Time: 04/19/25 11:31 Attending Provider: Derrick Gallagher Primary Care Provider: Bhupendra Brown Discharge Orders/Prescriptions Prescriptions: New Eliquis DVT-PE Treat 30D Start 5 mg (74 tabs) tablets,dose pack 5 mg PO BID Qty: 74 0RF Rx Instructions: 10 mg (2 tabs) twice daily for 7 days TILL 04/26/25 PM dose and then twice da nina to continue sulfamethoxazole-trimethoprim [Bactrim DS] 800-160 mg tablet 1 tab PO BID 7 Days Qty: 14 0RF Continued rosuvastatin 20 mg tablet 20 mg PO DAILY Patient Comments: TAKE 1 TABLET BY MOUTH EVERY DAY IN THE AFTERNOON.STOP SIMVASTATIN finasteride [Proscar] 5 MG tablet 5 mg PO QHS amlodipine 10 MG tablet 10 mg PO DAILY Qty: 30 0RF aspirin 81 mg capsule 81 mg PO DAILY tamsulosin [Flomax] 0.4 mg capsule 0.4 mg PO QHS Held benazepril 10 mg tablet 10 mg PO DAILY Hold Instructions: Hold it while patient is on Bactrim DS for drug-drug interaction, might cause hyperkalemia Referrals / Follow Up: Bhupendra Brown DO [Primary Care Provider, Family Practice] - Within 2 Weeks Referral Note: For chest pain/musculoskeletal pain. DVT/PE Mariah Kimball MD [Med Staff - Active Staff, Oncology] - Within 3 Months Disposition Disposition (needs filled in before D/C Order can be placed): Home, Self Care
--- NOTE | 2025-04-20 12:45 | CASEMGMT ---
Social Work SW met with pt, pt's and pt's dgt. Pt states he lives at home with and is independent with care needs. Pt and family has no concerns with pt returning home at time of discharge. Pt is currently on oxygen. Pt states he does not have home oxygen. Pt and preferred provider is [facility] and [facility]. [facility] does not supply home oxygen. If oxygen is needed, supplies to be arranged through [facility]. RNCM floyd. DEJA Sanchez
--- NOTE | 2025-04-20 14:13 | PCM.DC.SUM ---
Providers Date of Admission: 04/19/25 Date of Discharge: 04/20/25 Primary Care Physician: Dr. Bhupendra Brown DO Reason For Visit: ACUTE EPIGASTRIC AND RIGHT LOWER CHEST PAIN Diagnosis Discharge Diagnosis (1) Acute pulmonary embolism: Status: Acute Code(s): I26.99 - Other pulmonary embolism without acute cor pulmonale (2) Chest pain, atypical: Status: Acute Code(s): R07.89 - Other chest pain Plan 72-year-old male admitted with atypical lower chest pain/epigastric persistent pain found to have PE 1. Atypical chest pain/epigastric with radiation to lower thoracic back pain, exact etiology unclear: Patient is being admitted to PCU. All 3 troponins are normal. Twelve-lead EKG shows sinus tachycardia 103 bpm, QTc 424 ms. No acute EKG changes suggestive of ischemia. Chest pain does not sound cardiac as it is persistent and more sharp in quality. ACS ruled out. Gallbladder ultrasound shows borderline hepatomegaly, no evidence of gallstones. Chest x-ray initially reviewed shows small left pleural effusion with bibasilar atelectasis. 04/20: 2D echo of 04/19 reviewed. Done. No regional wall motion abnormality. Normal RV size systolic function. Atypical chest pain has resolved. Most likely it is musculoskeletal. Has extensive workup including EKG 2D echo and chest x-ray which does not account for chest pain and although patient had pulmonary embolism nature of pain was not pleuritic. 2D echo Interpretation Summary Normal LV size. The left ventricular ejection fraction is 55 %. Stage 1 diastolic dysfunction. Contrast injection was performed. 2. Acute/subacute nonocclusive pulmonary embolism of right upper lobe, distal occlusive clot in RLL with multiple chronic heavily calcified plaque in mesenteric arteries, renal arteries: CT PA was done which shows nonocclusive clot in right upper lobe, proximal branch, distal occlusive clot branches of right lower lobe. Heavily calcified plaque at right and left renal artery origin with high-grade stenosis of left renal artery and left renal cortical atrophy consistent with chronic stenosis. Overall it is suggestive of chronic atherosclerotic peripheral arterial disease. Patient denies CHF/CAD or cardiac stent. Denies prior history of DVT/PE or first-degree family history of hypercoagulable disorder. Started on parenteral Lovenox 1 mg/kg body weight. 2D echo is ordered. proBNP and troponins are normal. 04/20: 2D echo shows normal RV size and systolic function. Normal tricuspid valve. Pulmonary artery normal in size with IVC collapse with respiration. Therefore no labs or echo features of RV strain. 3. Hypertension and dyslipidemia: Blood pressure is elevated. Titrate BP and adjust the dose of antihypertensive medications accordingly. 4. Possible UTI with abnormal UA chronic nephrolithiasis: Patient had left ureteric calculus status post cystoscopy, left ureteroscopy and lithotripsy in January [address] Jackson. CTA shows left nephrolithiasis. Patient also stated he gets intermittent burning micturition last 1 about 3 to 4 weeks ago. UA positive of nitrite, LE 500, WBC 5-10 cells and squamous cells 0-5 cells bacteria 2+. Urine culture ordered. Started on IV ceftriaxone 04/20: Urine culture pending. I called micro lab and patient prelim culture is growing GPC in cluster, staph species. Most likely it is staph saprophyticus is more common in older men. Patient had burning pain but not now. Prescription sent for Bactrim DS 1 tablet twice daily for 7 days. Hold benazepril while taking Bactrim DS to avoid drug-drug interaction. 5. 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 Radiologist reported does not have any acute lumbar or thoracic spine pathology to account for acute pain. PT and OT ordered. 6. DVT prophylaxis: On therapeutic Lovenox 7. Obesity grade 2: BMI 35.6 kg/m?. Weight loss reduction counseled. Speech Therapy Assistant consult. Living will/advanced directive/end of life care: Patient does not have living will or advanced directive but is in the way of preparation of living will. His is next of kin after discussion of benefits/risks procedures involved with full code, DNR CC arrest and DNR CC, the patient opted for full code. Patient does want artificial life support including intubation, tube feed, ventilator and/chest compression, central venous catheter, vasopressor and DC shock if needed Discharge medication reconciliation done. Discharge follow-up instructions completed. Discharge process discussed with the patient and all questions were answered to patient's satisfaction. Follow with PCP in 1 to 2 weeks Total time spent, exact 35 minutes on discharge meds reconciliation, examination, coordination of care with nurses and ancillary staff, review of imaging and blood test and discussion with the patient on follow-up instructions. Laboratory Results 04/19/25 07:00: PT 13.6, INR 1.0, APTT 30.6 04/19/25 07:01: WBC 17.9 H, RBC 4.62, Hgb 13.6, Hct 41.6, MCV 90.0, MCH 29.4, MCHC 32.7, RDW Std Deviation 50.6 H, RDW Coeff of Andre 15.4 H, Plt Count 261, MPV 10.5, Immature Gran % (Auto) 0.400, Neut % (Auto) 76.2 H, Lymph % (Auto) 14.0 L, [place] % (Auto) 8.3, Eos % (Auto) 0.5, Baso % (Auto) 0.6, Absolute Neuts (auto) 13.7 H, Absolute Lymphs (auto) 2.51, Nucleated RBC % 0, Sodium 137, Potassium 4.4, Chloride 103, Carbon Dioxide 21.5, Anion Gap 13, BUN 16, Creatinine 1.20, Estim Creat Clear Calc 61.78, Est GFR (MDRD) Non-Af 62, BUN/Creatinine Ratio 12.9, Glucose 177 H, Calcium 9.1, Magnesium 1.9, Total Bilirubin 0.34, Direct Bilirubin 0.16, AST 21, ALT 31, Alkaline Phosphatase 59, Troponin T High Sens 11, Total Protein 7.3, Albumin 4.2, Globulin 3.1, Lipase 21 04/19/25 09:10: Lactic Acid 2.5 H*, Magnesium 1.9, Troponin T Hi Sens 2 Hr 8, NT pro BNP II 71 04/19/25 11:20: Urine Color Yellow, Urine Clarity Sl. Cloudy, Urine pH 7.0, Ur Specific [place] 1.005, Urine Protein 30 H, Urine Glucose (UA) Normal, Urine Ketones Negative, Urine Occult Blood 50 H, Urine Nitrite Positive H, Urine Bilirubin Negative, Urine Urobilinogen Normal, Ur Leukocyte Esterase 500 H, Urine RBC 0 SEEN, Urine WBC 5-10 SEEN, Ur Squamous Epith Cells 0-5 SEEN, Urine Bacteria 2+, Urine Mucus 0 SEEN 04/19/25 11:38: Troponin T Hi Sens 4Hr 11 Clinical Impression(s) from Imaging Studies Gallbladder Ultrasound 04/19/25 06:58 IMPRESSION: Borderline hepatomegaly. Diffuse fatty infiltration of the liver. No evidence of gallstones. Chest X-Ray 04/19/25 07:20 IMPRESSION: Small left pleural effusion with left basilar infiltration and/or atelectasis. Mild right basilar atelectasis. Reading Location: [facility]-1 Chest/Abdomen/Pelvis CTA 04/19/25 08:06 IMPRESSION: There is nonocclusive clot visible to the right upper lobe, proximal branch, best demonstrated on coronal image 26/45, axial image 50/281. There is distal occlusive clot and branches in the right lower lobe, axial image 67/281. Heavily calcified plaque is noted at the right and left renal artery origin. High-grade stenosis of the left renal artery is visible, axial image 127-129/281. Left renal cortical atrophy is present, consistent with chronic stenosis. Left renal cyst, and left nephrolithiasis. Critical results were discussed with Dr Silva by Dr. Petersen at the time of dictation. Reading Location: [facility] Medications at Discharge Home Medications finasteride 5 mg tablet (Proscar) 5 mg PO QHS prostate 01/21/16 amlodipine 10 mg tablet 10 mg PO DAILY #30 tabs 10/03/20 benazepril 10 mg tablet 10 mg PO DAILY 02/11/22 Held on 04/20/25. Instructions: Hold it while patient is on Bactrim DS for drug-drug interaction, might cause hyperkalemia rosuvastatin 20 mg tablet 20 mg PO DAILY 09/28/23 aspirin 81 mg capsule 81 mg PO DAILY 01/06/24 tamsulosin 0.4 mg capsule (Flomax) 0.4 mg PO QHS 01/06/24 apixaban 5 mg (74 tabs) tablets in a dose pack (Eliquis DVT-PE Treat 30D Start) 5 mg PO BID #74 tabs 04/20/25 sulfamethoxazole 800 mg-trimethoprim 160 mg tablet (Bactrim DS) 1 tab PO BID 7 days #14 tabs 04/20/25 Physical Exam Narrative Seen and examined. Denies dysuria increased frequency or urgency but patient had burning pain in the past. UA suggestive of UTI. Physical exam General: Alert, Oriented x3, Cooperative. Obesity grade 2 BMI 35.6 kg/m? HEENT: Atraumatic, PERRLA, EOMI, Normocephalic. Oral: No Gingival or Mucosal Lesions/ Ulcerations Neck: Supple, No JVD, Negative Carotid Bruits Chest wall/Lungs: Air entry diminished in bilateral lung bases. No tenderness in chest no crepitation/rhonchi Cardiovascular: Sinus tachycardia. No murmur gallop or rub. Abdomen: Bowel Sounds Present, Soft, Non Tender, Non-Distended : No dysuria. No renal angle tenderness. No suprapubic tenderness. Extremities: No edema, Capillary Refill Less than 3 Seconds Skin: No rashes, No breakdown Musculoskeletal: Mild tenderness in mid/lower thoracic spine. ROM restricted. Neurological: Cranial nerves II-XII grossly intact, DTR 2+/4. No acute focal neurological deficit. Psych/Mental Status: Flat affect. Weight / BMI Weight Weight: 240 lb 4.862 oz Body Mass Index (BMI) 36.5 ABG / Lab / Microbiology Data 04/20/25 05:23 04/20/25 05:23 Laboratory: Laboratory Results - last 24 hr 04/19/25 13:50: Lactic Acid 1.5 04/20/25 05:23: WBC 16.7 H, RBC 4.18 L, Hgb 12.2 L, Hct 37.9 L, MCV 90.7, MCH 29.2, MCHC 32.2, RDW Std Deviation 52.3 H, RDW Coeff of Andre 15.9 H, Plt Count 220, MPV 11.1, Immature Gran % (Auto) 0.500, Neut % (Auto) 74.1 H, Lymph % (Auto) 13.4 L, [place] % (Auto) 11.1 H, Eos % (Auto) 0.2, Baso % (Auto) 0.7, Absolute Neuts (auto) 12.4 H, Absolute Lymphs (auto) 2.23, Nucleated RBC % 0, Differential Comment SCANNED, Sodium 136, Potassium 4.7, Chloride 103, Carbon Dioxide 18.9 L, Anion Gap 14, BUN 22 H, Creatinine 1.58 H, Estim Creat Clear Calc 46.13 L, Est GFR (MDRD) Non-Af 44 L, BUN/Creatinine Ratio 14.1, Glucose 139 H, Calcium 8.7, TSH 1.010 Microbiology: Microbiology 04/19/25 11:20 Urine, Clean Catch Urine Culture - Preliminary Gram positive organism Radiography Diagnostic Testing: Radiology Impression Echocardiogram 04/19/25 12:41 Interpretation Summary Normal LV size. The left ventricular ejection fraction is 55 %. Stage 1 diastolic dysfunction. Contrast injection was performed. Ordering Physician: Derrick Gallagher Performed By: Jerry Sweeney RCS D/C Instructions DC O2, CPAP, BIPAP Needs Home O2 Discharge instructions: Yes Type of respiratory needs?: Oxygen Oxygen frequency: Continuous Continuous oxygen liters per minute: 4 DC home with Oxygen: Yes Home O2 MD Review: I have reviewed the oxygen testing, and the patient qualifies for home oxygen equipment and portability. The patient is mobile in the home and the community. Meaningful Use Info Meaningful Use Meaningful Use Diagnoses (Choose all that apply): VTE VTE Anticoag overlap given w/in hospital stay or rx'd at dc?: Yes Pt receive overlap for 5 days?: No Reason overlap not ordered, prescribed, or given for 5 days: Procedure Not Indicated Discharge Plan Admission Admit Date/Time: 04/19/25 11:31 Attending Provider: Derrick Gallagher Primary Care Provider: Bhupendra Brown Discharge Orders/Prescriptions Prescriptions: New Eliquis DVT-PE Treat 30D Start 5 mg (74 tabs) tablets,dose pack 5 mg PO BID Qty: 74 0RF Rx Instructions: 10 mg (2 tabs) twice daily for 7 days TILL 04/26/25 PM dose and then twice daily to continue sulfamethoxazole-trimethoprim [Bactrim DS] 800-160 mg tablet 1 tab PO BID 7 Days Qty: 14 0RF Continued rosuvastatin 20 mg tablet 20 mg PO DAILY Patient Comments: TAKE 1 TABLET BY MOUTH EVERY DAY IN THE AFTERNOON.STOP SIMVASTATIN finasteride [Proscar] 5 MG tablet 5 mg PO QHS amlodipine 10 MG tablet 10 mg PO DAILY Qty: 30 0RF aspirin 81 mg capsule 81 mg PO DAILY tamsulosin [Flomax] 0.4 mg capsule 0.4 mg PO QHS Held benazepril 10 mg tablet 10 mg PO DAILY Hold Instructions: Hold it while patient is on Bactrim DS for drug-drug interaction, might cause hyperkalemia Referrals / Follow Up: Bhupendra Brown DO [Primary Care Provider, Family Practice] - Within 2 Weeks Referral Note: For chest pain/musculoskeletal pain. DVT/PE Mariah Kimball MD [Med Staff - Active Staff, Oncology] - Within 3 Months Disposition Disposition (needs filled in before D/C Order can be placed): Home, Self Care Charges/Coding Visit Charges Inpatient E&M: 06640 Disch Hosp >30min
--- NOTE | 2025-04-20 14:40 | PCM.PN.HOSP ---
Reason for Visit Chief Complaint: Epigastric/right lower chest pain since yesterday night Objective Data Objective Data Vital Signs: Vital Signs Temp Pulse Resp BP Pulse Ox O2 Del Method O2 Flow Rate 98.2 F 91 18 117/62 94 Nasal Cannula 4 04/20/25 08:35 04/20/25 08:35 04/20/25 08:35 04/20/25 08:35 04/20/25 08:35 04/20/25 10:00 04/20/25 10:00 Oxygen Flow Rate (L/min) 4 Oxygen Delivery Method Nasal Cannula Weight: 240 lb 4.862 oz Body Mass Index (BMI) 36.5 Intake & Output: Intake and Output for Last 24 Hours 04/18/25 04/19/25 04/20/25 23:59 23:59 23:59 Intake Total 550 / 550 1050 / 1050 Balance 550 / 550 1050 / 1050 Lab / Micro Data 04/20/25 05:23 04/20/25 05:23 Labs: Laboratory Results - last 24 hr 04/19/25 13:50: Lactic Acid 1.5 04/20/25 05:23: WBC 16.7 H, RBC 4.18 L, Hgb 12.2 L, Hct 37.9 L, MCV 90.7, MCH 29.2, MCHC 32.2, RDW Std Deviation 52.3 H, RDW Coeff of Andre 15.9 H, Plt Count 220, MPV 11.1, Immature Gran % (Auto) 0.500, Neut % (Auto) 74.1 H, Lymph % (Auto) 13.4 L, [place] % (Auto) 11.1 H, Eos % (Auto) 0.2, Baso % (Auto) 0.7, Absolute Neuts (auto) 12.4 H, Absolute Lymphs (auto) 2.23, Nucleated RBC % 0, Differential Comment SCANNED, Sodium 136, Potassium 4.7, Chloride 103, Carbon Dioxide 18.9 L, Anion Gap 14, BUN 22 H, Creatinine 1.58 H, Estim Creat Clear Calc 46.13 L, Est GFR (MDRD) Non-Af 44 L, BUN/Creatinine Ratio 14.1, Glucose 139 H, Calcium 8.7, TSH 1.010 Micro: Microbiology 04/19/25 11:20 Urine, Clean Catch Urine Culture - Preliminary Gram positive organism Radiography Diagnostic Testing: Radiology Impression Echocardiogram 04/19/25 12:41 Interpretation Summary Normal LV size. The left ventricular ejection fraction is 55 %. Stage 1 diastolic dysfunction. Contrast injection was performed. Ordering Physician: Derrick Gallagher Performed By: Jerry Sweeney RCS Physical Exam Narrative Seen and examined. Denies dysuria increased frequency or urgency but patient had burning pain in the past. UA suggestive of UTI. Physical exam General: Alert, Oriented x3, Cooperative. Obesity grade 2 BMI 35.6 kg/m? HEENT: Atraumatic, PERRLA, EOMI, Normocephalic. Oral: No Gingival or Mucosal Lesions/ Ulcerations Neck: Supple, No JVD, Negative Carotid Bruits Chest wall/Lungs: Air entry diminished in bilateral lung bases. No tenderness in chest no crepitation/rhonchi Cardiovascular: Sinus tachycardia. No murmur gallop or rub. Abdomen: Bowel Sounds Present, Soft, Non Tender, Non-Distended : No dysuria. No renal angle tenderness. No suprapubic tenderness. Extremities: No edema, Capillary Refill Less than 3 Seconds Skin: No rashes, No breakdown Musculoskeletal: Mild tenderness in mid/lower thoracic spine. ROM restricted. Neurological: Cranial nerves II-XII grossly intact, DTR 2+/4. No acute focal neurological deficit. Psych/Mental Status: Flat affect. Assessment & Plan Assessment/Plan (1) Acute pulmonary embolism: (2) Chest pain, atypical: PLAN: Plan 72-year-old male admitted with atypical lower chest pain/epigastric persistent pain found to have PE 1. Atypical chest pain/epigastric with radiation to lower thoracic back pain, exact etiology unclear: Patient is being admitted to PCU. All 3 troponins are normal. Twelve-lead EKG shows sinus tachycardia 103 bpm, QTc 424 ms. No acute EKG changes suggestive of ischemia. Chest pain does not sound cardiac as it is persistent and more sharp in quality. ACS ruled out. Gallbladder ultrasound shows borderline hepatomegaly, no evidence of gallstones. Chest x-ray initially reviewed shows small left pleural effusion with bibasilar atelectasis. 04/20: 2D echo of 04/19 reviewed. Done. No regional wall motion abnormality. Normal RV size systolic function. Atypical chest pain has resolved. Most likely it is musculoskeletal. Has extensive workup including EKG 2D echo and chest x-ray which does not account for chest pain and although patient had pulmonary embolism nature of pain was not pleuritic. 2D echo Interpretation Summary Normal LV size. The left ventricular ejection fraction is 55 %. Stage 1 diastolic dysfunction. Contrast injection was performed. 2. Acute hypoxic respiratory failure due to acute/subacute nonocclusive pulmonary embolism of right upper lobe, distal occlusive clot in RLL with multiple chronic heavily calcified plaque in mesenteric arteries, renal arteries: CT PA was done which shows nonocclusive clot in right upper lobe, proximal branch, distal occlusive clot branches of right lower lobe. Heavily calcified plaque at right and left renal artery origin with high-grade stenosis of left renal artery and left renal cortical atrophy consistent with chronic stenosis. Overall it is suggestive of chronic atherosclerotic peripheral arterial disease. Patient denies CHF/CAD or cardiac stent. Denies prior history of DVT/PE or first-degree family history of hypercoagulable disorder. Started on parenteral Lovenox 1 mg/kg body weight. 2D echo is ordered. proBNP and troponins are normal. 04/20: 2D echo shows normal RV size and systolic function. Normal tricuspid valve. Pulmonary artery normal in size with IVC collapse with respiration. Therefore no labs or echo features of RV strain. Patient requires now 4-5 L of oxygen and on exertion 6 L of oxygen. Therefore discharge canceled. Acute hypoxic respiratory failure due to PE incentive spirometry. . 3. Hypertension and dyslipidemia: Blood pressure is elevated. Titrate BP and adjust the dose of antihypertensive medications accordingly. 4. Possible UTI with abnormal UA chronic nephrolithiasis: Patient had left ureteric calculus status post cystoscopy, left ureteroscopy and lithotripsy in January [address] Jackson. CTA shows left nephrolithiasis. Patient also stated he gets intermittent burning micturition last 1 about 3 to 4 weeks ago. UA positive of nitrite, LE 500, WBC 5-10 cells and squamous cells 0-5 cells bacteria 2+. Urine culture ordered. Started on IV ceftriaxone 04/20: Urine culture pending. I called micro lab and patient prelim culture is growing GPC in cluster, staph species. Most likely it is staph saprophyticus is more common in older men. Patient had burning pain but not now. Hold benazepril while taking Bactrim DS to avoid drug-drug interaction. 5. 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 Radiologist reported does not have any acute lumbar or thoracic spine pathology to account for acute pain. PT and OT ordered. 6. DVT prophylaxis: On therapeutic Lovenox 7. Obesity grade 2: BMI 35.6 kg/m?. Weight loss reduction counseled. Preventative Maintenance Technician consult. Living will/advanced directive/end of life care: Patient does not have living will or advanced directive but is in the way of preparation of living will. His is next of kin after discussion of benefits/risks procedures involved with full code, DNR CC arrest and DNR CC, the patient opted for full code. Patient does want artificial life support including intubation, tube feed, ventilator and/chest compression, central venous catheter, vasopressor and DC shock if needed Discharge canceled. Laboratory Results 04/19/25 07:00: PT 13.6, INR 1.0, APTT 30.6 04/19/25 07:01: WBC 17.9 H, RBC 4.62, Hgb 13.6, Hct 41.6, MCV 90.0, MCH 29.4, MCHC 32.7, RDW Std Deviation 50.6 H, RDW Coeff of Andre 15.4 H, Plt Count 261, MPV 10.5, Immature Gran % (Auto) 0.400, Neut % (Auto) 76.2 H, Lymph % (Auto) 14.0 L, [place] % (Auto) 8.3, Eos % (Auto) 0.5, Baso % (Auto) 0.6, Absolute Neuts (auto) 13.7 H, Absolute Lymphs (auto) 2.51, Nucleated RBC % 0, Sodium 137, Potassium 4.4, Chloride 103, Carbon Dioxide 21.5, Anion Gap 13, BUN 16, Creatinine 1.20, Estim Creat Clear Calc 61.78, Est GFR (MDRD) Non-Af 62, BUN/Creatinine Ratio 12.9, Glucose 177 H, Calcium 9.1, Magnesium 1.9, Total Bilirubin 0.34, Direct Bilirubin 0.16, AST 21, ALT 31, Alkaline Phosphatase 59, Troponin T High Sens 11, Total Protein 7.3, Albumin 4.2, Globulin 3.1, Lipase 21 04/19/25 09:10: Lactic Acid 2.5 H*, Magnesium 1.9, Troponin T Hi Sens 2 Hr 8, NT pro BNP II 71 04/19/25 11:20: Urine Color Yellow, Urine Clarity Sl. Cloudy, Urine pH 7.0, Ur Specific [place] 1.005, Urine Protein 30 H, Urine Glucose (UA) Normal, Urine Ketones Negative, Urine Occult Blood 50 H, Urine Nitrite Positive H, Urine Bilirubin Negative, Urine Urobilinogen Normal, Ur Leukocyte Esterase 500 H, Urine RBC 0 SEEN, Urine WBC 5-10 SEEN, Ur Squamous Epith Cells 0-5 SEEN, Urine Bacteria 2+, Urine Mucus 0 SEEN 04/19/25 11:38: Troponin T Hi Sens 4Hr 11 Clinical Impression(s) from Imaging Studies Gallbladder Ultrasound 04/19/25 06:58 IMPRESSION: Borderline hepatomegaly. Diffuse fatty infiltration of the liver. No evidence of gallstones. Chest X-Ray 04/19/25 07:20 IMPRESSION: Small left pleural effusion with left basilar infiltration and/or atelectasis. Mild right basilar atelectasis. Reading Location: [facility]-IR-1 Chest/Abdomen/Pelvis CTA 04/19/25 08:06 IMPRESSION: There is nonocclusive clot visible to the right upper lobe, proximal branch, best demonstrated on coronal image 26/45, axial image 50/281. There is distal occlusive clot and branches in the right lower lobe, axial image 67/281. Heavily calcified plaque is noted at the right and left renal artery origin. High-grade stenosis of the left renal artery is visible, axial image [id number]/281. Left renal cortical atrophy is present, consistent with chronic stenosis. Left renal cyst, and left nephrolithiasis. Critical results were discussed with Dr Silva by Dr. Petersen at the time of dictation. Reading Location: [facility] Charges/Coding Visit Charges Inpatient E&M: 00783 Subs Hosp L2
--- NOTE | 2025-04-20 14:42 | CASEMGMT ---
Patient was to discharge to home today. Patient is discharging on Juan, HUI ODOM called [facility], no RX insurance on file, savings card utilized. Patient was requiring 15lpm of oxygen with ambulation and discharge cancelled. HUI ODOM in to discuss Eliquis savings card and potential oxygen at discharge, at bedside. Patient states he prefers [employer] for oxygen. Patient denied further needs. Green sheet placed on chart.
[2025-04-20] MEDS: Smz/Tmp Ds Tablet 1 TABLET PO (18:36)
[2025-04-21] VITALS (7 sets, daily range): BP systolic 123–156; BP diastolic 52–99; PULSE 94–105; RESP 16–20; TEMP 36.4–37.6; O2SAT 85–95
[2025-04-21] MEDS: 0.9% Saline Lock 10 ML Syringe IV ×2 (00:31→09:46)
[2025-04-21] MEDS: MELATONIN 3 MG TABLET PO ×2 (00:33→20:56)
[2025-04-21] MEDS: APIXABAN 5 MG TABLET 10 MG PO ×3 (00:34→20:56)
[2025-04-21] MEDS: Senna/Docusate Sodium 1 Tablet 2 TABLET PO ×2 (00:36→09:37)
--- NOTE | 2025-04-21 06:39 | PCM.HOSP.N ---
Hospitalist Note Patient with onset hematuria. Eliquis dose administered at midnight. Will obtain CBC, hold patient ASA and monitor.
[2025-04-21 08:36] LABS: Hematocrit 36.3 % (40-54); Hemoglobin 11.9 g/dL (13.0-16.5); Immature Granulocytes Count 0.030 X10^3/uL (0.0-0.0); Mean Corp Hgb Conc 32.8 g/dL (32-36); Mean Corpuscular Volume 89.6 fL (80-94); Mean Platelet Vol. 10.7 fl (6.2-12.0); NRBC Flagged by Analyzer 0 % (0-5); Platelet Count 221 K/mm3 (150-450); RBC Distribution Width CV 15.6 % (11.6-14.6); RBC Distribution Width SD 51.8 fl (35.1-43.9); Red Blood Count 4.05 M/mm3 (4.6-6.2); White Blood Count 12.2 K/mm3 (4.4-11.0)
[2025-04-21 08:51] LABS: Anion Gap 13 (5-15); BUN 29 mg/dL (4-19); BUN/Creat Ratio 17.2 RATIO (10-20); Calcium,Total 9.0 mg/dL (7.6-11.0); Carbon Dioxide 20.2 mmol/L (21.0-32.0); Chloride 102 mmol/L (98-108); Estimated Creatinine Clearance 43.64 ml/min (50-250); Glucose 130 mg/dL (70-99); Potassium 4.2 mmol/L (3.3-5.1)
[2025-04-21] MEDS: Smz/Tmp Ds Tablet 1 TABLET PO (09:35)
[2025-04-21] MEDS: Polyethylene Glycol 3350 17 GM PACKET PO (09:36)
--- NOTE | 2025-04-21 14:58 | PN.HOSP_ITS ---
Reason for Visit Chief Complaint: Epigastric/right lower chest pain since yesterday night Objective Data Objective Data Vital Signs: Vital Signs Temp Pulse Resp BP Pulse Ox O2 Del Method O2 Flow Rate 97.5 F L 105 H 20 H 156/61 H 93 Nasal Cannula 4 04/21/25 14:21 04/21/25 14:21 04/21/25 14:21 04/21/25 14:21 04/21/25 14:21 04/21/25 14:50 04/21/25 14:50 Oxygen Flow Rate (L/min) 4 Oxygen Delivery Method Nasal Cannula Weight: 240 lb 4.862 oz Body Mass Index (BMI) 36.5 Intake & Output: Intake and Output for Last 24 Hours 04/19/25 04/20/25 04/21/25 23:59 23:59 23:59 Intake Total 550 / 550 1050 / 1050 Output Total 200 / 200 Balance 550 / 550 1050 / 1050 -200 / -200 Lab / Micro Data 04/21/25 08:18 04/21/25 08:18 Labs: Laboratory Results - last 24 hr 04/21/25 08:18: WBC 12.2 H, RBC 4.05 L, Hgb 11.9 L, Hct 36.3 L, MCV 89.6, MCH 29.4, MCHC 32.8, RDW Std Deviation 51.8 H, RDW Coeff of Andre 15.6 H, Plt Count 221, MPV 10.7, Immature Gran % (Auto) 0.200, Neut % (Auto) 72.2 H, Lymph % (Auto) 17.1 L, Bremer % (Auto) 9.4, Eos % (Auto) 0.7, Baso % (Auto) 0.4, Absolute Neuts (auto) 8.8 H, Absolute Lymphs (auto) 2.08, Nucleated RBC % 0, Sodium 134, Potassium 4.2, Chloride 102, Carbon Dioxide 20.2 L, Anion Gap 13, BUN 29 H, C reatinine 1.67 H, Estim Creat Clear Calc 43.64 L, Est GFR (MDRD) Non-Af 42 L, BUN/Creatinine Ratio 17.2, Glucose 130 H, Calcium 9.0 Micro: Microbiology 04/19/25 11:20 Urine, Clean Catch Urine Culture - Final Staphylococcus lentus Physical Exam Narrative Seen and examined. Patient continues to require 4 L of oxygen baseline and on ambulation nonrebreathing 15 L. Therefore could not discharge. Denies dysuria increased frequency or urgency but patient had burning pain in the past. UA suggestive of UTI. Physical exam General: Alert, Oriented x3, Cooperative. Obesity grade 2 BMI 35.6 kg/m? HEENT: Atraumatic, PERRLA, EOMI, Normocephalic. Oral: No Gingival or Mucosal Lesions/ Ulcerations Neck: Supple, No JVD, Negative Carotid Bruits Chest wall/Lungs: Air entry diminished in bilateral lung bases. No tenderness in chest no crepitation/rhonchi Cardiovascular: Sinus tachycardia. No murmur gallop or rub. Abdomen: Bowel Sounds Present, Soft, Non Tender, Non-Distended : No dysuria. No renal angle tenderness. No suprapubic tenderness. Extremities: No edema, Capillary Refill Less than 3 Seconds Skin: No rashes, No breakdown Musculoskeletal: Mild tenderness in mid/lower thoracic spine. ROM restricted. Neurological: Cranial nerves II-XII grossly intact, DTR 2+/4. No acute focal neurological deficit. Psych/Mental Status: Flat affect. Assessment & Plan Assessment/Plan (1) Acute pulmonary embolism: (2) Chest pain, atypical: PLAN: Plan 72-year-old male admitted with atypical lower chest pain/epigastric persistent pain found to have PE 1. Atypical chest pain/epigastric with radiation to lower thoracic back pain, exact etiology unclear: Patient is being admitted to PCU. All 3 troponins are normal. Twelve-lead EKG shows sinus tachycardia 103 bpm, QTc 424 ms. No acute EKG changes suggestive of ischemia. Chest pain does not sound cardiac as it is persistent and more sharp in quality. ACS ruled out. Gallbladder ultrasound shows borderline hepatomegaly, no evidence of gallstones. Chest x-ray initially reviewed shows small left pleural effusion with bibasilar atelectasis. 04/20: 2D echo of 04/19 reviewed. Done. No regional wall motion abnormality. Normal RV size systolic function. Atypical chest pain has resolved. Most likely it is musculoskeletal. Has extensive workup including EKG 2D echo and chest x-ray which does not account for chest pain and although patient had pulmonary embolism nature of pain was not pleuritic. 2D echo Interpretation Summary Normal LV size. The left ventricular ejection fraction is 55 %. Stage 1 diastolic dysfunction. Contrast injection was performed. 04/21: Chest x-ray and CTPA again reviewed. Shows small left basilar atelectasis otherwise no pneumonic consolidation. Patient on doxycycline 100 mg twice daily for staph UTI. Patient might have undiagnosed obstructive sleep apnea. BiPAP ordered. Incentive spirometry ordered. Lovenox was changed to Eliquis yesterday. 2. Acute hypoxic respiratory failure due to acute/subacute nonocclusive pulmonary embolism of right upper lobe, distal occlusive clot in RLL with multiple chronic heavily calcified plaque in mesenteric arteries, renal arteries: CT PA was done which shows nonocclusive clot in right upper lobe, proximal branch, distal occlusive clot branches of right lower lobe. Heavily calcified plaque at right and left renal artery origin with high-grade stenosis of left renal artery and left renal cortical atrophy consistent with chronic stenosis. Overall it is suggestive of chronic atherosclerotic peripheral arterial disease. Patient denies CHF/CAD or cardiac stent. Denies prior history of DVT/PE or first-degree family history of hypercoagulable disorder. Started on parenteral Lovenox 1 mg/kg body weight. 2D echo is ordered. proBNP and troponins are normal. 04/20: 2D echo shows normal RV size and systolic function. Normal tricuspid valve. Pulmonary artery normal in size with IVC collapse with respiration. Therefore no labs or echo features of RV strain. Patient requires now 4-5 L of oxygen and on exertion 6 L of oxygen. Therefore discharge canceled. Acute hypoxic respiratory failure due to PE incentive spirometry. 04/21: Echo shows EF 55% with stage I restrictive dysfunction, suggestive of chronic HFpEF. No acute features of heart failure. Repeat chest x-ray ordered. 3. Hypertension and dyslipidemia: Blood pressure is elevated. Titrate BP and adjust the dose of antihypertensive medications accordingly. 4. Possible UTI with abnormal UA chronic nephrolithiasis: Patient had left ureteric calculus status post cystoscopy, left ureteroscopy and lithotripsy in January [address] Jackson. CTA shows left nephrolithiasis. Patient also stated he gets intermittent burning micturition last 1 about 3 to 4 weeks ago. UA positive of nitrite, LE 500, WBC 5-10 cells and squamous cells 0-5 cells bacteria 2+. Urine culture ordered. Started on IV ceftriaxone 04/20: Urine culture pending. I called micro lab and patient prelim culture is growing GPC in cluster, staph species. Most likely it is staph saprophyticus is more common in older men. Patient had burning pain but not now. Hold benazepril while taking Bactrim DS to avoid drug-drug interaction. 04/21: Urine culture shows Staphylococcus meningitis more than 100,000 colonies. Antibiotic changed from Bactrim DS to doxycycline as the bacteria is resistant to Bactrim DS. Creatinine clearance is less than 60 mL/min therefore not candidate for nitrofurantoin 5. 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 Radiologist reported does not have any acute lumbar or thoracic spine pathology to account for acute pain. PT and OT ordered. 6. DVT prophylaxis: On therapeutic Lovenox 7. Obesity grade 2: BMI 35.6 kg/m?. Weight loss reduction counseled. Guard Rail Installer consult. 8. CKD stage IIIb: Creatinine chronically is elevated, baseline 1.45-1.67. Increased from 1.58-1.67. Patient had 500 mL normal saline bolus after the contrast on the day of admission. Living will/advanced directive/end of life care: Patient does not have living will or advanced directive but is in the way of preparation of living will. His is next of kin after discussion of benefits/risks procedures involved with full code, DNR CC arrest and DNR CC, the patient opted for full code. Patient does want artificial life support including intubation, tube feed, ventilator and/chest compression, central venous catheter, vasopressor and DC shock if needed Continue oxygen supplement incentive spirometry. Laboratory Results 04/19/25 07:00: PT 13.6, INR 1.0, APTT 30.6 04/19/25 07:01: WBC 17.9 H, RBC 4.62, Hgb 13.6, Hct 41.6, MCV 90.0, MCH 29.4, MCHC 32.7, RDW Std Deviation 50.6 H, RDW Coeff of Andre 15.4 H, Plt Count 261, MPV 10.5, Immature Gran % (Auto) 0.400, Neut % (Auto) 76.2 H, Lymph % (Auto) 14.0 L, Bremer % (Auto) 8.3, Eos % (Auto) 0.5, Baso % (Auto) 0.6, Absolute Neuts (auto) 13.7 H, Absolute Lymphs (auto) 2.51, Nucleated RBC % 0, Sodium 137, Potassium 4.4, Chloride 103, Carbon Dioxide 21.5, Anion Gap 13, BUN 16, Creatinine 1.20, Estim Creat Clear Calc 61.78, Est GFR (MDRD) Non-Af 62, BUN/Creatinine Ratio 12.9, Glucose 177 H, Calcium 9.1, Magnesium 1.9, Total Bilirubin 0.34, Direct Bilirubin 0.16, AST 21, ALT 31, Alkaline Phosphatase 59, Troponin T High Sens 11, Total Protein 7.3, Albumin 4.2, Globulin 3.1, Lipase 21 04/19/25 09:10: Lactic Acid 2.5 H*, Magnesium 1.9, Troponin T Hi Sens 2 Hr 8, NT pro BNP II 71 04/19/25 11:20: Urine Color Yellow, Urine Clarity Sl. Cloudy, Urine pH 7.0, Ur Specific [place] 1.005, Urine Protein 30 H, Urine Glucose (UA) Normal, Urine Ketones Negative, Urine Occult Blood 50 H, Urine Nitrite Positive H, Urine Bilirubin Negative, Urine Urobilinogen Normal, Ur Leukocyte Esterase 500 H, Urine RBC 0 SEEN, Urine WBC 5-10 SEEN, Ur Squamous Epith Cells 0-5 SEEN, Urine Bacteria 2+, Urine Mucus 0 SEEN 04/19/25 11:38: Troponin T Hi Sens 4Hr 11 Clinical Impression(s) from Imaging Studies Gallbladder Ultrasound 04/19/25 06:58 IMPRESSION: Borderline hepatomegaly. Diffuse fatty infiltration of the liver. No evidence of gallstones. Chest X-Ray 04/19/25 07:20 IMPRESSION: Small left pleural effusion with left basilar infiltration and/or atelectasis. Mild right basilar atelectasis. Reading Location: [facility] Chest/Abdomen/Pelvis CTA 04/19/25 08:06 IMPRESSION: There is nonocclusive clot visible to the right upper lobe, proximal branch, best demonstrated on coronal image 26/45, axial image 50/281. There is distal occlusive clot and branches in the right lower lobe, axial image 67/281. Heavily calcified plaque is noted at the right and left renal artery origin. High-grade stenosis of the left renal artery is visible, axial image 127-129/281. Left renal cortical atrophy is present, consistent with chronic stenosis. Left renal cyst, and left nephrolithiasis. Critical results were discussed with Dr Silva by Dr. Petersen at the time of dictation. [facility] Clinical Impression(s) from Imaging Studies Gallbladder Ultrasound 04/19/25 06:58 IMPRESSION: Borderline hepatomegaly. Diffuse fatty infiltration of the liver. No evidence of gallstones. Reading Location: [facility] Chest X-Ray 04/19/25 07:20 IMPRESSION: Small left pleural effusion with left basilar infiltration and/or atelectasis. Mild right basilar atelectasis. Reading Location: [facility] Chest/Abdomen/Pelvis CTA 04/19/25 08:06 IMPRESSION: There is nonocclusive clot visible to the right upper lobe, proximal branch, best demonstrated on coronal image 26/45, axial image 50/281. There is distal occlusive clot and branches in the right lower lobe, axial image 67/281. Heavily calcified plaque is noted at the right and left renal artery origin. High-grade stenosis of the left renal artery is visible, axial image 127-129/281. Left renal cortical atrophy is present, consistent with chronic stenosis. Left renal cyst, and left nephrolithiasis. Critical results were discussed with Dr Silva by Dr. Petersen at the time of dictation. Reading [facility] Echocardiogram 04/19/25 12:41 Interpretation Summary Normal LV size. The left ventricular ejection fraction is 55 %. Stage 1 diastolic dysfunction. Contrast injection was performed. Ordering Physician: Derrick Gallagher Performed By: Jerry Sweeney RCS Charges/Coding Visit Charges Inpatient E&M: 41549 Subs Hosp L2
--- NOTE | 2025-04-21 16:02 | RAD_ITS ---
PROCEDURE: CHEST PA AND LATERAL 04/21/2025 REASON FOR EXAM: HYPOXIA TECHNIQUE: Procedure Code: RADCXR Modality: DX Procedure: CHEST PA AND LATERAL COMPARISON: Chest x-rays April 19, 2025. FINDINGS: Lungs: Again noted is dense opacity at the left lung base completely silhouetting the left hemidiaphragm, not significantly changed. This may be secondary to body habitus, parenchymal and pleural scarring, pleural fluid, atelectasis, infiltrate or underlying mass. Clinical correlation is advised. Lung volumes are low. Mild atelectasis at the right lung base. Pleura: There is no evidence of pneumothorax. Mediastinum: There is no mediastinal widening or mediastinal shift. Heart: The cardiac silhouette appears slightly enlarged, unchanged. Kim: The pulmonary kim are not enlarged or retracted. Osseous: No acute fracture is seen. RAD/Chest PA and Lateral IMPRESSION: No significant interval change. Dense opacity is again noted completely silhouetting the left hemidiaphragm, di fferential as given above. Other findings discussed above. Reading Location: [id number]
[2025-04-21] MEDS: Smz/Tmp Ds Tablet 0.5 TABLET PO (16:32)
--- NOTE | 2025-04-21 20:14 | CPS ---
Patient does not currently wear any type of PAP therapy
[2025-04-22] VITALS (7 sets, daily range): BP systolic 122–182; BP diastolic 59–83; PULSE 81–106; RESP 18–20; TEMP 36.4–36.8; O2SAT 84–94
[2025-04-22] MEDS: Smz/Tmp Ds Tablet 0.5 TABLET PO ×2 (09:05→17:30)
[2025-04-22] MEDS: APIXABAN 5 MG TABLET 10 MG PO ×2 (09:06→20:57)
--- NOTE | 2025-04-22 15:08 | PCM.PN.HOSP ---
Subjective Subjective Feels better, no epigastric abdominal pain or nausea and vomiting today. Tolerating advance diet. Needed 6 L with ambulation and 2 L at rest so would like to stay 1 more day Objective Data Objective Data Vital Signs: Vital Signs Temp Pulse Resp BP Pulse Ox O2 Del Method O2 Flow Rate 97.6 F L 106 H 18 149/59 H 93 Nasal Cannula 2 04/22/25 14:30 04/22/25 14:30 04/22/25 14:30 04/22/25 14:30 04/22/25 14:30 04/22/25 14:30 04/22/25 14:30 Oxygen Flow Rate (L/min) 2 Oxygen Delivery Method Nasal Cannula Weight: 240 lb 4.862 oz Body Mass Index (BMI) 36.5 Intake & Output: Intake and Output for Last 24 Hours 04/21/25 04/22/25 04/23/25 03:59 03:59 03:59 Intake Total 1050 / 1050 120 / 120 680 / 680 Output Total 625 / 625 200 / 200 Balance 1050 / 1050 -505 / -505 480 / 480 Lab / Micro Data 04/21/25 08:18 04/21/25 08:18 Micro: Microbiology 04/19/25 11:20 Urine, Clean Catch Urine Culture - Final Staphylococcus lentus Radiography Diagnostic Testing: Radiology Impression Chest X-Ray 04/21/25 16:02 IMPRESSION: No significant interval change. Dense opacity is again noted completely silhouetting the left hemidiaphragm, differential as given above. Other findings discussed above. Reading Location: [facility] Physical Exam Narrative General: Alert, Oriented x3, Cooperative, No apparent distress HEENT: Atraumatic, PERRLA, EOMI, Normocephalic Oral: Moist Mucosa Neck: Supple, No JVD Lungs: Diminished, Normal air movement, No rhonchi, No wheeze, No rales Cardiovascular: Regular rate, Regular Rhythm, Normal S1, Normal S2, No murmurs Abdomen: Soft, Non Tender, Non-Distended, No Hepato-splenomegaly Extremities: No edema, Capillary Refill Less than 3 Seconds Skin: No rashes, No breakdown Musculoskeletal: No Tenderness to Palpation of Joints or Extremities Neurological: No focal neurological deficits, moves all extremities Psych/Mental Status: Normal Affect, Appropriate Assessment & Plan Assessment/Plan (1) Acute pulmonary embolism: (2) Chest pain, atypical: PLAN: Plan 1. Atypical chest pain/epigastric with radiation to lower thoracic back pain, exact etiology unclear: Patient is being admitted to PCU. All 3 troponins are normal. Twelve-lead EKG shows sinus tachycardia 103 bpm, QTc 424 ms. No acute EKG changes suggestive of ischemia. Chest pain does not sound cardiac as it is persistent and more sharp in quality. ACS ruled out. Gallbladder ultrasound shows borderline hepatomegaly, no evidence of gallstones. Chest x-ray initially reviewed shows small left pleural effusion with bibasilar atelectasis. 04/20: 2D echo of 04/19 reviewed. Done. No regional wall motion abnormality. Normal RV size systolic function. Atypical chest pain has resolved. Most likely it is musculoskeletal. Has extensive workup including EKG 2D echo and chest x-ray which does not account for chest pain and although patient had pulmonary embolism nature of pain was not pleuritic. 2D echo Interpretation Summary Normal LV size. The left ventricular ejection fraction is 55 %. Stage 1 diastolic dysfunction. Contrast injection was performed. 04/21: Chest x-ray and CTPA again reviewed. Shows small left basilar atelectasis otherwise no pneumonic consolidation. Patient on doxycycline 100 mg twice daily for staph UTI. Patient might have undiagnosed obstructive sleep apnea. BiPAP ordered. Incentive spirometry ordered. Lovenox was changed to Eliquis yesterday. 04/22/2025: Continue with Eliquis, he did have an ambulatory pulse ox today that required 6 L with ambulation so he would like to stay 1 more day to see if we can get the oxygen down 2. Acute hypoxic respiratory failure due to acute/subacute nonocclusive pulmonary embolism of right upper lobe, distal occlusive clot in RLL with multiple chronic heavily calcified plaque in mesenteric arteries, renal arteries: CT PA was done which shows nonocclusive clot in right upper lobe, proximal branch, distal occlusive clot branches of right lower lobe. Heavily calcified plaque at right and left renal artery origin with high-grade stenosis of left renal artery and left renal cortical atrophy consistent with chronic stenosis. Overall it is suggestive of chronic atherosclerotic peripheral arterial disease. Patient denies CHF/CAD or cardiac stent. Denies prior history of DVT/PE or first-degree family history of hypercoagulable disorder. Started on parenteral Lovenox 1 mg/kg body weight. 2D echo is ordered. proBNP and troponins are normal. 04/20: 2D echo shows normal RV size and systolic function. Normal tricuspid valve. Pulmonary artery normal in size with IVC collapse with respiration. Therefore no labs or echo features of RV strain. Patient requires now 4-5 L of oxygen and on exertion 6 L of oxygen. Therefore discharge canceled. Acute hypoxic respiratory failure due to PE incentive spirometry. 04/21: Echo shows EF 55% with stage I restrictive dysfunction, suggestive of chronic HFpEF. No acute features of heart failure. Repeat chest x-ray ordered. 3. Hypertension and dyslipidemia: Blood pressure is elevated. Titrate BP and adjust the dose of antihypertensive medications accordingly. 4. Possible UTI with abnormal UA chronic nephrolithiasis: Patient had left ureteric calculus status post cystoscopy, left ureteroscopy and lithotripsy in January [address] Jackson. CTA shows left nephrolithiasis. Patient also stated he gets intermittent burning micturition last 1 about 3 to 4 weeks ago. UA positive of nitrite, LE 500, WBC 5-10 cells and squamous cells 0-5 cells bacteria 2+. Urine culture ordered. Started on IV ceftriaxone 04/20: Urine culture pending. I called micro lab and patient prelim culture is growing GPC in cluster, staph species. Most likely it is staph saprophyticus is more common in older men. Patient had burning pain but not now. Hold benazepril while taking Bactrim DS to avoid drug-drug interaction. 04/21: Urine culture shows Staphylococcus meningitis more than 100,000 colonies. Antibiotic changed from Bactrim DS to doxycycline as the bacteria is resistant to Bactrim DS. Creatinine clearance is less than 60 mL/min therefore not candidate for nitrofurantoin 04/22/2025: White count is improving on the doxycycline will continue on discharge 5. 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 Radiologist reported does not have any acute lumbar or thoracic spine pathology to account for acute pain. PT and OT ordered. 6. Obesity grade 2: BMI 35.6 kg/m?. Weight loss reduction counseled. Materials And Corrosion Engineer consult. 7. CKD stage IIIb: Creatinine chronically is elevated, baseline 1.45-1.67. Increased from 1.58-1.67. Patient had 500 mL normal saline bolus after the contrast on the day of admission. DVT: Lovenox Charges/Coding Visit Charges Inpatient E&M: 43795 Subs Hosp L2
[2025-04-22] MEDS: MELATONIN 3 MG TABLET PO (20:58)
[2025-04-22] MEDS: 0.9% Saline Lock 10 ML Syringe IV (20:58)
--- NOTE | 2025-04-22 21:05 | CPS ---
Patient does not wear Home PAP HS
[2025-04-23 03:32] VITALS: BP 139/60; PULSE 88; RESP 18; TEMP 37.1; O2SAT 95
[2025-04-23 05:45] LABS: Hematocrit 34.8 % (40-54); Hemoglobin 11.5 g/dL (13.0-16.5); Immature Granulocytes Count 0.040 X10^3/uL (0.0-0.0); Mean Corp Hgb Conc 33.0 g/dL (32-36); Mean Corpuscular Volume 88.3 fL (80-94); Mean Platelet Vol. 10.8 fl (6.2-12.0); NRBC Flagged by Analyzer 0 % (0-5); Platelet Count 282 K/mm3 (150-450); RBC Distribution Width CV 15.3 % (11.6-14.6); RBC Distribution Width SD 50.0 fl (35.1-43.9); Red Blood Count 3.94 M/mm3 (4.6-6.2); White Blood Count 9.6 K/mm3 (4.4-11.0)
[2025-04-23 06:31] LABS: Anion Gap 14 (5-15); BUN 24 mg/dL (4-19); BUN/Creat Ratio 18.3 RATIO (10-20); Calcium,Total 8.7 mg/dL (7.6-11.0); Carbon Dioxide 21.0 mmol/L (21.0-32.0); Chloride 102 mmol/L (98-108); Estimated Creatinine Clearance 56.50 ml/min (50-250); Glucose 131 mg/dL (70-99); Potassium 4.0 mmol/L (3.3-5.1)
[2025-04-23 10:32] VITALS: BP 149/67; PULSE 95; RESP 16; TEMP 36.7; O2SAT 96
[2025-04-23] MEDS: Smz/Tmp Ds Tablet 0.5 TABLET PO (10:35)
[2025-04-23] MEDS: APIXABAN 5 MG TABLET 10 MG PO (10:36)
[2025-04-23 10:38] VITALS: O2SAT 90; O2SAT 96
--- NOTE | 2025-04-23 11:00 | DCINST_ITS ---
Discharge Instructions DC O2, CPAP, BIPAP needs Home O2 Discharge instructions: No Dressing / Incision Discharge Activity: Return to Normal Activity Dressing / Incision Call your doctor if you observe: Fever of 101 or Higher, Shortness of breath, Dizziness, Fainting spells, Swelling in the ankles, Chest pain and Increased palpitations (irregular heartbeat) Follow Up Care Test Results: Test results from this visit will be discussed in further detail at your follow- up appointment, if applicable. Discharge Plan Admission Admit Date/Time: 04/20/25 15:23 Attending Provider: Rhys Read Primary Care Provider: Bhupendra Brown Consulting Providers: Derrick Gallagher Instructions Patient Instructions: Pulmonary Embolism Dc, DVT/PE Discharge instruction sheet Discharge Orders/Prescriptions Prescriptions: New Eliquis DVT-PE Treat 30D Start 5 mg (74 tabs) tablets,dose pack 5 mg PO BID Qty: 74 0RF Rx Instructions: 10 mg (2 tabs) twice daily for 7 days TILL 04/26/25 PM dose and then twice daily to continue doxycycline monohydrate 100 mg Capsule 100 mg PO BID 6 Days Qty: 12 0RF Continued rosuvastatin 20 mg tablet 20 mg PO DAILY Patient Comments: TAKE 1 TABLET BY MOUTH EVERY DAY IN THE AFTERNOON.STOP SIMVASTATIN finasteride [Proscar] 5 MG tablet 5 mg PO QHS amlodipine 10 MG tablet 10 mg PO DAILY Qty: 30 0RF tamsulosin [Flomax] 0.4 mg capsule 0.4 mg PO QHS Held benazepril 10 mg tablet 10 mg PO DAILY Hold Instructions: Hold it while patient is on Bactrim DS for drug-drug interaction, might cause hyperkalemia Discontinued aspirin 81 mg capsule 81 mg PO DAILY Referrals / Follow Up: Bhupendra Brown DO [Primary Care Provider, Family Practice] - Within 2 Weeks Referral Note: For chest pain/musculoskeletal pain. DVT/PE Mariah Kimball MD [Med Staff - Active Staff, Oncology] - Within 3 Months Disposition Disposition (needs filled in before D/C Order can be placed): Home, Self Care
--- NOTE | 2025-04-23 11:33 | CASEMGMT ---
Patient has order for discharge. RN CM in to discuss needs at discharge. Patient denies needs or help at discharge. Patient does not qualify for home oxygen. Patient had no further questions. Patient asked RN CM to calll daughter Tatiana to arrange for transportation home. RN CM called Tatiana and notified that patient is discharging. Tatiana states she will call nurses station to notify of transportation home.
--- NOTE | 2025-04-23 12:18 | PCM.DC.SUM ---
Providers Date of Admission: 04/20/25 Primary Care Physician: Dr. Bhupendra Brown, Reason For Visit: ACUTE EPIGASTRIC AND RIGHT LOWER CHEST PAIN Diagnosis Discharge Diagnosis (1) Acute pulmonary embolism: Status: Acute Code(s): I26.99 - Other pulmonary embolism without acute cor pulmonale (2) Chest pain, atypical: Status: Acute Code(s): R07.89 - Other chest pain Medications at Discharge Home Medications finasteride 5 mg tablet (Proscar) 5 mg PO QHS prostate 01/21/16 amlodipine 10 mg tablet 10 mg PO DAILY blood pressure #30 tabs 10/03/20 benazepril 10 mg tablet 10 mg PO DAILY blood pressure 02/11/22 Held on 04/20/25. Instructions: Hold it while patient is on Bactrim DS for drug-drug interaction, might cause hyperkalemia rosuvastatin 20 mg tablet 20 mg PO DAILY cholesterol 09/28/23 tamsulosin 0.4 mg capsule (Flomax) 0.4 mg PO QHS prostate 01/06/24 apixaban 5 mg (74 tabs) tablets in a dose pack (Eliquis DVT-PE Treat 30D Start) 5 mg PO BID #74 tabs 04/20/25 doxycycline monohydrate 100 mg capsule 100 mg PO BID 6 days #12 caps 04/23/25 Hospital Course Operations None Procedures 2-D Echocardiogram Summary of Care Provided Minutes Spent on Discharge: 37 Hospital Course: Per HPI: KRISTIN MC, is a 80 M came to ED with chest pain/epigastric pain with radiation to upper mid back. Patient reported it was sudden onset after 1 hour of food, ate pizza last night and he felt like might be indigestion and he took [id number] medication. He described pain as of sudden onset, spontaneous, sharp/gripping in nature without exacerbating or relieving factor. Since the pain was constant and did not wrap around her right lower chest and upper abdomen therefore came to ED. Denies other associated symptoms like shortness of breath, dizziness or lightheadedness. In ED, CTA chest abdomen pelvis was done which showed nonocclusive clot in right upper lobe proximal branch and distal occlusive clot in branches of right lower lobe. Heavily calcified plaque on right and left renal arteries, high-grade stenosis of left renal artery. Left renal cortical atrophy consistent with chronic stenosis. Patient is still has pain and required Dilaudid in ED therefore admitted for pain control. Lovenox 1 mg/kg body weight given in ED. Heart rate and blood pressure was elevated in ED. Patient had back, lumbar surgery in but denies any acute recent lower back pain. Last BM was about 4 PM yesterday and since then did not pass any gas. Hospital Course: 1. Atypical chest pain/epigastric with radiation to lower thoracic back pain, exact etiology unclear: Patient is being admitted to PCU. All 3 troponins are normal. Twelve-lead EKG shows sinus tachycardia 103 bpm, QTc 424 ms. No acute EKG changes suggestive of ischemia. Chest pain does not sound cardiac as it is persistent and more sharp in quality. ACS ruled out. Gallbladder ultrasound shows borderline hepatomegaly, no evidence of gallstones. Chest x-ray initially reviewed shows small left pleural effusion with bibasilar atelectasis. 04/20: 2D echo of 04/19 reviewed. Done. No regional wall motion abnormality. Normal RV size systolic function. Atypical chest pain has resolved. Most likely it is musculoskeletal. Has extensive workup including EKG 2D echo and chest x-ray which does not account for chest pain and although patient had pulmonary embolism nature of pain was not pleuritic. 2D echo Interpretation Summary Normal LV size. The left ventricular ejection fraction is 55 %. Stage 1 diastolic dysfunction. Contrast injection was performed. 04/21: Chest x-ray and CTPA again reviewed. Shows small left basilar atelectasis otherwise no pneumonic consolidation. Patient on doxycycline 100 mg twice daily for staph UTI. Patient might have undiagnosed obstructive sleep apnea. BiPAP ordered. Incentive spirometry ordered. Lovenox was changed to Eliquis yesterday. 04/22/2025: Continue with Eliquis, he did have an ambulatory pulse ox today that required 6 L with ambulation so he would like to stay 1 more day to see if we can get the oxygen down 04/23/2025: He had an ambulatory pulse ox today that demonstrated no oxygen requirements while at rest or with ambulation. Will continue with Eliquis and have him follow-up with hematology on an outpatient basis to evaluate continued usage of his Eliquis. I discussed with him the plan for discharge today and he expressed understanding of the risks and benefits of going home and would like to go home today. 2. Acute hypoxic respiratory failure due to acute/subacute nonocclusive pulmonary embolism of right upper lobe, distal occlusive clot in RLL with multiple chronic heavily calcified plaque in mesenteric arteries, renal arteries: CT PA was done which shows nonocclusive clot in right upper lobe, proximal branch, distal occlusive clot branches of right lower lobe. Heavily calcified plaque at right and left renal artery origin with high-grade stenosis of left renal artery and left renal cortical atrophy consistent with chronic stenosis. Overall it is suggestive of chronic atherosclerotic peripheral arterial disease. Patient denies CHF/CAD or cardiac stent. Denies prior history of DVT/PE or first-degree family history of hypercoagulable disorder. Started on parenteral Lovenox 1 mg/kg body weight. 2D echo is ordered. proBNP and troponins are normal. 04/20: 2D echo shows normal RV size and systolic function. Normal tricuspid valve. Pulmonary artery normal in size with IVC collapse with respiration. Therefore no labs or echo features of RV strain. Patient requires now 4-5 L of oxygen and on exertion 6 L of oxygen. Therefore discharge canceled. Acute hypoxic respiratory failure due to PE incentive spirometry. 04/21: Echo shows EF 55% with stage I restrictive dysfunction, suggestive of chronic HFpEF. No acute features of heart failure. Repeat chest x-ray ordered. 04/23/2025: Does not demonstrated need for oxygen today will discharge on room air. 3. Hypertension and dyslipidemia: Blood pressure is elevated. Titrate BP and adjust the dose of antihypertensive medications accordingly. 4. Possible UTI with abnormal UA chronic nephrolithiasis: Patient had left ureteric calculus status post cystoscopy, left ureteroscopy and lithotripsy in January [address] Jackson. CTA shows left nephrolithiasis. Patient also stated he gets intermittent burning micturition last 1 about 3 to 4 weeks ago. UA positive of nitrite, LE 500, WBC 5-10 cells and squamous cells 0-5 cells bacteria 2+. Urine culture ordered. Started on IV ceftriaxone 04/20: Urine culture pending. I called micro lab and patient prelim culture is growing GPC in cluster, staph species. Most likely it is staph saprophyticus is more common in older men. Patient had burning pain but not now. Hold benazepril while taking Bactrim DS to avoid drug-drug interaction. 04/21: Urine culture shows Staphylococcus lentus more than 100,000 colonies. Antibiotic changed from Bactrim DS to doxycycline as the bacteria is resistant to Bactrim DS. Creatinine clearance is less than 60 mL/min therefore not candidate for nitrofurantoin 04/22/2025: White count is improving on the doxycycline will continue on discharge 04/23/2025: Will continue with doxycycline for 6 more days to complete treatment 5. 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 Radiologist reported does not have any acute lumbar or thoracic spine pathology to account for acute pain. PT and OT ordered. 6. Obesity grade 2: BMI 35.6 kg/m?. Weight loss reduction counseled. [employer] consult. 7. CKD stage IIIb: Creatinine chronically is elevated, baseline 1.45-1.67. Increased from 1.58-1.67. Patient had 500 mL normal saline bolus after the contrast on the day of admission. Physical Exam Narrative General: Alert, Oriented x3, Cooperative, No apparent distress HEENT: Atraumatic, PERRLA, EOMI, Normocephalic Oral: Moist Mucosa Neck: Supple, No JVD Lungs: Diminished, Normal air movement, No rhonchi, No wheeze, No rales Cardiovascular: Regular rate, Regular Rhythm, Normal S1, Normal S2, No murmurs Abdomen: Soft, Non Tender, Non-Distended, No Hepato-splenomegaly Extremities: No edema, Capillary Refill Less than 3 Seconds Skin: No rashes, No breakdown Musculoskeletal: No Tenderness to Palpation of Joints or Extremities Neurological: No focal neurological deficits, moves all extremities Psych/Mental Status: Normal Affect, Appropriate Weight / BMI Weight Weight: 240 lb 4.862 oz Body Mass Index (BMI) 36.5 ABG / Lab / Microbiology Data 04/23/25 05:14 04/23/25 05:14 Laboratory: Laboratory Results - last 24 hr 04/23/25 05:14: WBC 9.6, RBC 3.94 L, Hgb 11.5 L, Hct 34.8 L, MCV 88.3, MCH 29.2, MCHC 33.0, RDW Std Deviation 50.0 H, RDW Coeff of Andre 15.3 H, Plt Count 282, MPV 10.8, Immature Gran % (Auto) 0.400, Neut % (Auto) 69.0, Lymph % (Auto) 17.9 L, [place] % (Auto) 11.4 H, Eos % (Auto) 0.9, Baso % (Auto) 0.4, Absolute Neuts (auto) 6.6, Absolute Lymphs (auto) 1.72, Nucleated RBC % 0, Sodium 137, Potassium 4.0, Chloride 102, Carbon Dioxide 21.0, Anion Gap 14, BUN 24 H, Creatinine 1.29 H, Estim Creat Clear Calc 56.50, Est GFR (MDRD) Non-Af 57 L, BUN/Creatinine Ratio 18.3, Glucose 131 H, Calcium 8.7 Microbiology: Microbiology 04/19/25 11:20 Urine, Clean Catch Urine Culture - Final Staphylococcus lentus D/C Instructions Call your doctor if you observe: Fever of 101 or Higher, Shortness of breath, Dizziness, Fainting spells, Swelling in the ankles, Chest pain and Increased palpitations (irregular heartbeat) DC O2, CPAP, BIPAP Needs Home O2 Discharge instructions: No Meaningful Use Info Meaningful Use Meaningful Use Diagnoses (Choose all that apply): None applicable Discharge Plan Admission Admit Date/Time: 04/20/25 15:23 Attending Provider: Rhys Read Primary Care Provider: Bhupendra Brown Consulting Providers: Derrick Gallagher Instructions Patient Instructions: DVT/PE Discharge instruction sheet, Pulmonary Embolism Dc Discharge Orders/Prescriptions Prescriptions: [place] DVT-PE Treat 30D Start 5 mg (74 tabs) tablets,dose pack 5 mg PO BID Qty: 74 0RF Rx Instructions: 10 mg (2 tabs) twice daily for 7 days TILL 04/26/25 PM dose and then twice daily to continue doxycycline monohydrate 100 mg Capsule 100 mg PO BID 6 Days Qty: 12 0RF Continued rosuvastatin 20 mg tablet 20 mg PO DAILY Patient Comments: TAKE 1 TABLET BY MOUTH EVERY DAY IN THE AFTERNOON.STOP SIMVASTATIN finasteride [Proscar] 5 MG tablet 5 mg PO QHS amlodipine 10 MG tablet 10 mg PO DAILY Qty: 30 0RF tamsulosin [Flomax] 0.4 mg capsule 0.4 mg PO QHS Held benazepril 10 mg tablet 10 mg PO DAILY Hold Instructions: Hold it while patient is on Bactrim DS for drug-drug interaction, might cause hyperkalemia Discontinued aspirin 81 mg capsule 81 mg PO DAILY Referrals / Follow Up: Bhupendra Brown DO [Primary Care Provider, Family Practice] - Within 2 Weeks Referral Note: For chest pain/musculoskeletal pain. DVT/PE Mariah Kimball MD [Med Staff - Active Staff, Oncology] - Within 3 Months Disposition Disposition (needs filled in before D/C Order can be placed): Home, Self Care Charges/Coding Visit Charges Inpatient E&M: 83029 Disch Hosp >30min
--- NOTE | 2025-04-23 13:33 | PHA.DC.MR.R ---
Pharmacy MD Med Reconciliation Pharmacy Service has performed discharge medication reconciliation for this patient. Medication education papers prepared, patient discharged when counseling was attempted. The patient's discharge medication list was reviewed for discrepancies and discrepancies were resolved. Medications at Discharge Home Medications finasteride 5 mg tablet (Proscar) 5 mg PO QHS prostate 01/21/16 amlodipine 10 mg tablet 10 mg PO DAILY blood pressure #30 tabs 10/03/20 benazepril 10 mg tablet 10 mg PO DAILY blood pressure 02/11/22 Held on 04/20/25. Instructions: Hold it while patient is on Bactrim DS for drug-drug interaction, might cause hyperkalemia rosuvastatin 20 mg tablet 20 mg PO DAILY cholesterol 09/28/23 tamsulosin 0.4 mg capsule (Flomax) 0.4 mg PO QHS prostate 01/06/24 apixaban 5 mg (74 tabs) tablets in a dose pack (Eliquis DVT-PE Treat 30D Start) 5 mg PO BID #74 tabs 04/20/25 doxycycline monohydrate 100 mg capsule 100 mg PO BID 6 days #12 caps 04/23/25
== END 2025-04-23 12:21 | disposition home or self-care (01) | DRG 189 ==
LOC: ED 11:25 → PCU 11:45
PROVIDERS: Emergency Medicine; Family Medicine; Admitting Provider Internal Medicine; Emergency Provider Emergency Medicine; PCP Family Medicine; Visit Provider Family Medicine
DX: J96.01 Acute respiratory failure with hypoxia (principal); I26.99 Other pulmonary embolism without acute cor pulmonale; I13.0 Hypertensive heart and chronic kidney disease with heart failure and stage 1 through stage 4 chronic kidney disease, or unspecified chronic kidney disease; I50.32 Chronic diastolic (congestive) heart failure; N39.0 Urinary tract infection, site not specified; N18.32 Chronic kidney disease, stage 3b; I70.1 Atherosclerosis of renal artery; Z68.35 Body mass index [BMI] 35.0-35.9, adult; E78.00 Pure hypercholesterolemia, unspecified; M48.061 Spinal stenosis, lumbar region without neurogenic claudication; G47.33 Obstructive sleep apnea (adult) (pediatric); M47.816 Spondylosis without myelopathy or radiculopathy, lumbar region; R07.89 Other chest pain; N20.0 Calculus of kidney; N40.0 Benign prostatic hyperplasia without lower urinary tract symptoms; E66.812 Obesity, class 2; Z79.82 Long term (current) use of aspirin; Z79.899 Other long term (current) drug therapy; Z87.891 Personal history of nicotine dependence; B95.7 Other staphylococcus as the cause of diseases classified elsewhere; R31.9 Hematuria, unspecified
CPT/HCPCS: 36415; 71046; 71275; 74174; 76705; 80048; 80076; 81001; 83605; 83690; 83735; 83880; 84443; 84484; 85025; 85610; 85730; 87077; 87086; 87088; 87186; 93005; 93306; 99283; Q9957; Q9967; A4216; C8929; J2405